=== PATIENT | female | born 1940 | race Caucasian/White ===

== ENCOUNTER 2019-03-06 09:12 | Inpatient (IN) | payer OTHER, SELFPAY ==
[2019-03-06] VITALS (8 sets, daily range): BP systolic 110–161; BP diastolic 57–75
[~2019-03-06] VITALS: Ht 157.5 cm; Wt 69.4 kg
[2019-03-06 09:23] LABS: BASE EXCESS ABG -2 mmol/L (-3-3); HCO3 ABG 21 mmol/L (21-28); PCO2 ABG 29 mmHg (35-46); PO2 ABG 70 mmHg (65-108); SAT O2 ABG 94 % (92-99)
[2019-03-06 09:24] LABS: FIO2 ABG 100
[2019-03-06] MEDS ORDERED: methylPREDNISolone SOD SUCC PF 125 MG/2 ML VIAL. IV ONE (09:30)
[2019-03-06] MEDS ORDERED: IPRATRPIUM/ALBUTEROL 0.5/2.5MG 3 ML NEBU. NEB ONE (09:30)
[2019-03-06] MEDS ORDERED: IV NORMAL SALINE 1000ML BAG 1,000 ML IV SCH (09:30)
[2019-03-06] MEDS ORDERED: IV NORMAL SALINE 1000ML BAG 1,000 ML IV ONE (09:30)
[2019-03-06] MEDS ORDERED: PANTOPRAZOLE IV PUSH 40 MG VIAL. IVP ONE (09:30)
[2019-03-06 09:48] LABS: BARBITURATES NEG (NEG); BENZODIAZEPINES NEG (NEG); CANNABINOIDS NEG (NEG); COCAINE NEG (NEG); METHADONE NEG (NEG); OPIATES NEG (NEG); PHENCYCLIDINE NEG (NEG)
[2019-03-06 09:51] LABS: AMPHETAMINE/METHAMPHETAMINE NEG (NEG)
[2019-03-06 09:56] LABS: CALCIUM 9.6 mg/dL (8.5-10.1); CREATININE 1.1 mg/dL (0.6-1.0); POTASSIUM 3.1 mmol/L (3.5-5.1)
[2019-03-06 09:59] LABS: BILIRUBIN,URINE NEGATIVE (NEG); CLARITY,URINE CLEAR; COLOR,URINE YELLOW; NITRITE,URINE NEGATIVE (NEG); PROTEIN,URINE 100 mg/dL (NEG-TRACE); UROBILINOGEN,URINE 0.2 mg/dL (0.2 mg/dL)
[2019-03-06 09:59] LABS: BASO % 0 % (0-3); EOS % 0 % (0-3); HEMATOCRIT 43.4 % (36.0-47.0); HEMOGLOBIN 15.1 g/dL (12.0-15.5); LYMPH # 0.1 x10^3/uL (1.0-4.8); LYMPH % 4 % (24-48); MEAN CORPUSCULAR HEMOGLOBIN 33 pg (25-35); MEAN CORPUSCULAR HGB CONC 35 g/dL (31-37); MEAN CORPUSCULAR VOLUME 95 fL (79-100); MONO % 1 % (0-9); NEUT # 3.9 x10^3uL (1.8-7.7); NEUT % 95 % (31-73); PLATELET COUNT 127 x10^3/uL (140-400); RED BLOOD COUNT 4.55 x10^6/uL (3.50-5.40); RED CELL DISTRIBUTION WIDTH 12.9 % (11.5-14.5); WHITE BLOOD COUNT 4.1 x10^3/uL (4.0-11.0)
[2019-03-06 10:00] LABS: ALBUMIN 2.9 g/dL (3.4-5.0); ALBUMIN/GLOBULIN RATIO 0.6 (1.0-1.7); MAGNESIUM 1.8 mg/dL (1.8-2.4); TOTAL BILIRUBIN 1.1 mg/dL (0.2-1.0); TOTAL PROTEIN 7.4 g/dL (6.4-8.2)
[2019-03-06] MEDS ORDERED: VANCOMYCIN 1GM IVPB FOR OMNI 250 ML IV ONE (10:00)
--- NOTE | 2019-03-06 10:04 | RAD ---
Portable chest, 03/06/2019: HISTORY: Patient unresponsive Comparison is made to a study from 09/18/2008. There has been a previous median sternotomy. The heart is mildly enlarged. There is calcific plaquing of the aorta. There is mild right perihilar infiltrate. The right parahilar elongated opacity suggests a fissural collection of fluid versus discoid atelectasis. No left lung infiltrate is seen. There is no evidence of left-sided pleural fluid. IMPRESSION: 1. Mild cardiomegaly and aortic atherosclerosis. 2. Mild right perihilar infiltrate with a possible small right pleural effusion. Electronically signed by: Orlando Wu MD (03/06/2019 10:02 AM) [facility]
[2019-03-06 10:10] LABS: PROTHROMBIN TIME PATIENT 16.8 SEC (11.7-14.0)
[2019-03-06 10:19] LABS: AMORPHOUS SEDIMENT,UR PRESENT /HPF; HYALINE CASTS, URINE FEW /HPF; SQUAMOUS EPITHELIAL CELL,UR FEW /LPF
[2019-03-06 10:20] LABS: BACTERIA,URINE 0 /HPF (0-FEW)
--- NOTE | 2019-03-06 10:43 | EKG ---
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
--- NOTE | 2019-03-06 10:45 | RAD ---
CT HEAD WO CONTRAST Clinical indications: Unresponsive. COMPARISON: None available. Technique: Noncontrast axial cross sectional scanning of the head was performed. PQRS compliance Statement One or more of the following individualized dose reduction techniques were utilized for this study: 1. Automated exposure control 2. Adjustment of the mA and/or kV according to patient size 3. Use of iterative reconstruction technique Findings: No acute intracranial hemorrhage or midline shift or mass-effect or hydrocephalus or extra-axial fluid collection is seen. There is asymmetric decrease in size of the sulci of the right cerebral hemisphere. The suarez and white matter differentiation of the right side is not as well seen in comparison to the left side. The findings may indicate diffuse edema of the right cerebral hemisphere secondary to an MCA infarct. There is periventricular white matter hypodensity on the left side which may be secondary to chronic small vessel ischemic disease. However, on axial images 18 and 19 and 20 and 21, there is a question of a more round confluent area of edema of the left parietal lobe. This may represent infarct of indeterminate age. MRI study of the brain is recommended for further evaluation. No skull fracture or pneumocephalus is seen. No opacification of the mastoid sinuses or the paranasal sinuses is seen. The maxillary sinuses are not completely seen in this study. Impression: No acute intracranial hemorrhage is seen. Findings are suggestive of diffuse cerebral edema secondary to right MCA infarct on the right side. A round confluent area of edema of the left parietal lobe which may indicate an infarct of indeterminate age on this side. MRI study of the brain without contrast is recommended for further evaluation. Note-this critical result was called to Dr. Nunez at 10:37 AM on March 06, 2019. She stated that the patient has right-sided weakness. Electronically signed by: Jorge Burgess MD (03/06/2019 10:42 AM) [place] [id number]
--- NOTE | 2019-03-06 11:09 | PHYS DOC ---
Past Medical History Past Medical History: CAD, Diabetes-Type II, High Cholesterol, Hypertension Past Surgical History: Coronary Bypass Surgery, Hysterectomy Alcohol Use: None Drug Use: None Adult General Chief Complaint Chief Complaint: ALTERED MENTAL STATUS HPI HPI Patient is a 79 year old female who brought in by EMS because of unresponsiveness. Patient is unresponsive and history taking from her daughter. Patient complaining of right flank pain with radiation to her abdomen 3 days ago that became worse yesterday. Patient's daughter called her and complaining of not feeling good yesterday and when she went to visit her she was sleeping for almost 4 hours and she left before she was waking up. Patient was found unresponsive this morning with coffee ground material around her mouth and on her bed. EMS reported that patient had O2 sat of 70s with respiratory rate of 50s . Patient was started on oxygen and O2 SAT increased to 95%. Review of Systems Review of Systems Unable to obtain Current Medications Current Medications Current Medications Medications (Trade) Dose Ordered Sig/German Start Time Stop Time Status Last Admin Dose Admin Albuterol/ Ipratropium (Duoneb) 3 ml 1X ONCE 03/06/19 09:30 03/06/19 09:31 DC 03/06/19 09:20 3 ML Levofloxacin/ Dextrose 150 ml @ 100 mls/hr 1X ONCE 03/06/19 10:00 03/06/19 11:29 DC 03/06/19 10:41 100 MLS/HR Methylprednisolone Sodium Succinate (SOLU-Medrol 125MG VIAL) 125 mg 1X ONCE 03/06/19 09:30 03/06/19 09:31 DC 03/06/19 10:40 125 MG Pantoprazole Sodium (PROTONIX VIAL for IV PUSH) 80 mg 1X ONCE 03/06/19 09:30 03/06/19 09:31 DC 03/06/19 10:39 80 MG Sodium Chloride 1,000 ml @ 1,000 mls/hr 1X ONCE 03/06/19 09:30 03/06/19 10:29 DC 03/06/19 14:42 1,000 MLS/HR Vancomycin HCl 250 ml @ 250 mls/hr 1X ONCE 03/06/19 10:00 03/06/19 10:59 DC 03/06/19 10:41 250 MLS/HR Allergies Allergies Allergies Coded Allergies Type Severity Reaction Last Updated Verified Penicillins Allergy Intermediate 5/6/19 Yes Physical Exam Physical Exam Constitutional: Moderate distress, unresponsive. HENT: Normocephalic, atraumatic, gag reflexes is presented, dried coffee-ground material on face, Eyes: myosis, sluggish reaction to light] Neck: Atraumatic Cardiovascular:Heart rate regular rhythm, no murmur [] Lungs & Thorax: Tachypnea, intercostal retraction and respiratory distress with diffuse rhonchi Abdomen: Atraumatic, mildly distended with gas Extremities: Atraumatic Neurologic: Unresponsive Current Patient Data Vital Signs Vital Signs Date Time Temp Pulse Resp B/P (MAP) Pulse Ox O2 Delivery O2 Flow Rate FiO2 03/06/19 10:00 90 58 95 03/06/19 09:20 NonRebreather Mask 03/06/19 09:12 97.3 179/89 (119) 15.0 97.3 Lab Values Laboratory Tests Test 03/06/19 09:14 03/06/19 09:15 03/06/19 09:24 03/06/19 09:28 O2 Saturation 94 % (92-99) Arterial Blood pH 7.47 (7.35-7.45) H Arterial Blood pCO2 at Patient Temp 29 mmHg (35-46) L Arterial Blood pO2 at Patient Temp 70 mmHg (65-108) Arterial Blood HCO3 21 mmol/L (21-28) Arterial Blood Base Excess -2 mmol/L (-3-3) FiO2 100 Glucose (Fingerstick) 161 mg/dL (70-99) H Stool Occult Blood Negative (NEG) White Blood Count 4.1 x10^3/uL (4.0-11.0) Red Blood Count 4.55 x10^6/uL (3.50-5.40) Hemoglobin 15.1 g/dL (12.0-15.5) Hematocrit 43.4 % (36.0-47.0) Mean Corpuscular Volume 95 fL (79-100) Mean Corpuscular Hemoglobin 33 pg (25-35) Mean Corpuscular Hemoglobin Concent 35 g/dL (31-37) Red Cell Distribution Width 12.9 % (11.5-14.5) Platelet Count 127 x10^3/uL (140-400) L Neutrophils (%) (Auto) 95 % (31-73) H Lymphocytes (%) (Auto) 4 % (24-48) L Monocytes (%) (Auto) 1 % (0-9) Eosinophils (%) (Auto) 0 % (0-3) Basophils (%) (Auto) 0 % (0-3) Neutrophils # (Auto) 3.9 x10^3uL (1.8-7.7) Lymphocytes # (Auto) 0.1 x10^3/uL (1.0-4.8) L Monocytes # (Auto) 0.0 x10^3/uL (0.0-1.1) Eosinophils # (Auto) 0.0 x10^3/uL (0.0-0.7) Basophils # (Auto) 0.0 x10^3/uL (0.0-0.2) Segmented Neutrophils % 26 % (35-66) L Band Neutrophils % 59 % (0-9) H Lymphocytes % 6 % (24-48) L Monocytes % 3 % (0-10) Metamyelocytes % 6 % (0-0) H Platelet Estimate Decreased (ADEQUATE) Prothrombin Time 16.8 SEC (11.7-14.0) H Prothrombin Time INR 1.4 (0.8-1.1) H PTT 31 SEC (24-38) Sodium Level 137 mmol/L (136-145) Potassium Level 3.1 mmol/L (3.5-5.1) L Chloride Level 100 mmol/L (98-107) Carbon Dioxide Level 22 mmol/L (21-32) Anion Gap 15 (6-14) H Blood Urea Nitrogen 29 mg/dL (7-20) H Creatinine 1.1 mg/dL (0.6-1.0) H Estimated GFR (Cockcroft-Gault) 48.0 BUN/Creatinine Ratio 26 (6-20) H Glucose Level 157 mg/dL (70-99) H Lactic Acid Level 4.2 mmol/L (0.4-2.0) *H Calcium Level 9.6 mg/dL (8.5-10.1) Magnesium Level 1.8 mg/dL (1.8-2.4) Total Bilirubin 1.1 mg/dL (0.2-1.0) H Aspartate Amino Transferase (AST) 30 U/L (15-37) Alanine Aminotransferase (ALT) 28 U/L (14-59) Alkaline Phosphatase 76 U/L (46-116) Ammonia < 10 mcmol/L (11-34) L Creatine Kinase 289 U/L (26-192) H Creatine Kinase MB (Mass) 6.1 ng/mL (0.0-3.6) H Creatine Kinase MB Relative Index 2.1 % (0-4) AF-Hqi-M-Type Natriuretic Peptide 65418 pg/mL (0-449) H Total Protein 7.4 g/dL (6.4-8.2) Albumin 2.9 g/dL (3.4-5.0) L Albumin/Globulin Ratio 0.6 (1.0-1.7) L Triglycerides Level 50 mg/dL (0-150) Cholesterol Level 89 mg/dL (0-200) LDL Cholesterol, Calculated 33 mg/dL (0-100) VLDL Cholesterol, Calculated 10 mg/dL (0-40) Non-HDL Cholesterol Calculated 43 mg/dL (0-129) HDL Cholesterol 46 mg/dL (40-60) Cholesterol/HDL Ratio 1.9 Lipase 90 U/L (73-393) Test 03/06/19 09:32 Urine Collection Type Unknown Urine Color Yellow Urine Clarity Clear Urine pH 6.0 Urine Specific [place] 1.015 Urine Protein 100 mg/dL (NEG-TRACE) Urine Glucose (UA) 100 mg/dL (NEG) Urine Ketones (Stick) >=80 mg/dL (NEG) Urine Blood Moderate (NEG) Urine Nitrite Negative (NEG) Urine Bilirubin Negative (NEG) Urine Urobilinogen Dipstick 0.2 mg/dL (0.2 mg/dL) Urine Leukocyte Esterase Negative (NEG) Urine RBC 1-2 /HPF (0-2) Urine WBC 1-4 /HPF (0-4) Urine Squamous Epithelial Cells Few /LPF Urine Amorphous Sediment Present /HPF Urine Bacteria 0 /HPF (0-FEW) Urine Hyaline Casts Few /HPF Urine Mucus Marked /LPF POC Troponin I 0.03 ng/ml (<0.08) Urine Opiates Screen Neg (NEG) Urine Methadone Screen Neg (NEG) Urine Barbiturates Neg (NEG) Urine Phencyclidine Screen Neg (NEG) Urine Amphetamine/Methamphetamine Neg (NEG) Urine Benzodiazepines Screen Neg (NEG) Urine Cocaine Screen Neg (NEG) Urine Cannabinoids Screen Neg (NEG) Urine Ethyl Alcohol Neg (NEG) Laboratory Tests 03/06/19 09:28 Laboratory Tests 03/06/19 09:28 Microbiology 03/06/19 Blood Culture - Final, Complete EKG EKG EKG interpreted by me. EKG at 0917 showed normal sinus rhythm at rate of 92, right bundle branch block, LVH, ST depression in inferior leads, no acute ST and T-wave abnormalities.[] Radiology/Procedures Radiology/Procedures [facility] [address] [place] [address] IMAGING REPORT Signed PATIENT: KEMI PASCUAL ACCOUNT: [id number] : 1940 LOCATION: ER AGE: 79 SEX: F EXAM STATUS: REG ER ORD. PHYSICIAN: RIC MARSHALL MD REASON: unresponsive PROCEDURE: CT HEAD WO CONTRAST CT HEAD WO CONTRAST Clinical indications: Unresponsive. COMPARISON: None available. Technique: Noncontrast axial cross sectional scanning of the head was performed. PQRS compliance Statement One or more of the following individualized dose reduction techniques were utilized for this study: 1. Automated exposure control 2. Adjustment of the mA and/or kV according to patient size 3. Use of iterative reconstruction technique Findings: No acute intracranial hemorrhage or midline shift or mass-effect or hydrocephalus or extra-axial fluid collection is seen. There is asymmetric decrease in size of the sulci of the right cerebral hemisphere. The suarez and white matter differentiation of the right side is not as well seen in comparison to the left side. The findings may indicate diffuse edema of the right cerebral hemisphere secondary to an MCA infarct. There is periventricular white matter hypodensity on the left side which may be secondary to chronic small vessel ischemic disease. However, on axial images 18 and 19 and 20 and 21, there is a question of a more round confluent area of edema of the left parietal lobe. This may represent infarct of indeterminate age. MRI study of the brain is recommended for further evaluation. No skull fracture or pneumocephalus is seen. No opacification of the mastoid sinuses or the paranasal sinuses is seen. The maxillary sinuses are not completely seen in this study. Impression: No acute intracranial hemorrhage is seen. Findings are suggestive of diffuse cerebral edema secondary to right MCA infarct on the right side. A round confluent area of edema of the left parietal lobe which may indicate an infarct of indeterminate age on this side. MRI study of the brain without contrast is recommended for further evaluation. Note-this critical result was called to Dr. Marshall at 10:37 AM on March 06, 2019. She stated that the patient has right-sided weakness. Electronically signed by: Federico Burgess MD (03/06/2019 10:42 AM) [place] [id number] DICTATED and SIGNED BY: FEDERICO BURGESS MD DATE: 03/06/19 1042 [facility] [address] [place] [address] IMAGING REPORT Signed PATIENT: KEMI PASCUAL ACCOUNT: [id number] : 1940 LOCATION: ER AGE: 79 SEX: F EXAM STATUS: REG ER ORD. PHYSICIAN: RIC MARSHALL MD REASON: unresponsive PROCEDURE: PORTABLE CHEST 1V Portable chest, 03/06/2019: HISTORY: Patient unresponsive Comparison is made to a study from 09/18/2008. There has been a previous median sternotomy. The heart is mildly enlarged. There is calcific plaquing of the aorta. There is mild right perihilar infiltrate. The right parahilar elongated opacity suggests a fissural collection of fluid versus discoid atelectasis. No left lung infiltrate is seen. There is no evidence of left-sided pleural fluid. IMPRESSION: 1. Mild cardiomegaly and aortic atherosclerosis. 2. Mild right perihilar infiltrate with a possible small right pleural effusion. Electronically signed by: Demond Wu MD (03/06/2019 10:02 AM) [facility] [place]ATED and SIGNED BY: DEMOND WU MD DATE: 03/06/19 1002 Course & Med Decision Making Course & Med Decision Making Pertinent Labs and Imaging studies reviewed. (See chart for details) Evaluation of patient in ER showed 79-year-old female patient brought in by EMS because of unresponsiveness. Patient was seen yesterday while she was sleeping. Patient had a gag reflex and family was not able to decide about resuscitation code. Patient did not move her right upper extremity with painful stimuli. CT head showed acute ischemic stroke. She was not a candidate for TPA because of unknown time of the starting symptom. Chest x-ray showed infiltration in right lower lobe. Patient had lactic acid of 4.2. Patient treated for severe sepsis at arrival to ER with IV fluid, antibiotic, nebulizer treatment and oxygen. Family requested DNR. Dr. Stephens on-call neurologist was consulted at 1045 and did not recommend further evaluation.Patient requiring admission for further evaluation and treatment. Discussed with Dr. Pacheco who is in agreement with admission. Discussed findings and plan with patient and family, who acknowledge understanding and agreement. Dragon Disclaimer Dragon Disclaimer This electronic medical record was generated, in whole or in part, using a voice recognition dictation system. Departure Departure Impression: Primary Impression: Acute ischemic cerebrovascular accident (CVA) involving middle cerebral artery territory Additional Impressions: Altered mental state CAP (community acquired pneumonia) Severe sepsis Hypokalemia CHF (congestive heart failure) Acute renal insufficiency GI bleeding Acute respiratory distress Disposition: ADMITTED INPATIENT (@1041) Admitting Physician: Mary Lou Pacheco (accepted admission at 1040) Condition: GRAVE Referrals: MIKA JONES MD (PCP) Critical Care Time Critical care time was 100 minutes exclusive of procedures. Problem Qualifiers Additional Impressions: Altered mental state Altered mental status type: coma Coma depth: unspecified coma depth Qualified Codes: R40.20 - Unspecified coma CAP (community acquired pneumonia) Laterality: right Lung location: lower lobe of lung Qualified Codes: J18.1 - Lobar pneumonia, unspecified organism CHF (congestive heart failure) Heart failure type: unspecified Heart failure chronicity: unspecified Qualified Codes: I50.9 - Heart failure, unspecified GI bleeding GI bleed type/associated pathology: unspecified gastrointestinal hemorrhage type Qualified Codes: K92.2 - Gastrointestinal hemorrhage, unspecified RIC MARSHALL MD March 06, 2019 11:09
[2019-03-06 11:40] LABS: FECAL OB PT NEGATIVE (NEG)
[2019-03-06] MEDS ORDERED: ONDANSETRON PF 4 MG/2 ML VIAL. IV PRN (12:00)
[2019-03-06] MEDS ORDERED: LABETALOL 20 MG/4 ML DISP.SYRIN. IVP PRN (12:00)
--- NOTE | 2019-03-06 12:10 | NUR ---
Rec'd from ER per cart post Rt MCA infarct with cerebral edema per CT head. Pt breathing fast and heavy and moving arms in all direction and inward. non verbal, sticking out tongue randomly. old blood noted on tongue. and dgt at bedside. Aware of present order of DNR/DNI, Pt on 100NRB sat 92%. Mendez to DD with clear urine. DR Pacheco at bedside. IV x 1 present. Mult sticks in ER unsucessful. Anes paged and will come place CL when they can. Continuing sepsis bolus as able with 1 IV along with ABX,
[2019-03-06 12:18] LABS: CHOLESTEROL/HDL RATIO 1.9
--- NOTE | 2019-03-06 12:40 | PDOC1 ---
History and Physical Date of Admission Date of Admission DATE: 03/06/19 TIME: 12:32 Identification/Chief Complaint Chief Complaint change in MS, flaccid right arm Source Source: Caregiver, Chart review, Patient History of Present Illness History of Present Illness 79-year-old white female, previously healthy and actually drives herself to rehabilitation, past medical history only hypertension and dyslipidemia on meds, may be DM 2 on OHA recently started, remote CABG 10 years ago. Lives with equally elderly , noted to be last seen normal Wednesday night. Wednesday started to complain of pain- nonspecific. Wednesday this morning now confused, high RR, tachycardic, found on the ground/ Minimally responsive, confused,. EMS called. Some hypoxia and coffee-ground emesis at the ER. Family multiple at bedside DNR/DNI. No history of CVA - right arm flaccid. CAT scan wet read may be right MCA acute CVA. Fulfills Sepsis criteria with a lactate of 4. Meeting tachypnea tachycardic. Labs the rest are pending. Also likely aspirated right lower lobe haziness with some coffee-ground emesis hypoxia evident. I'm seeing in the ICU with numerous family bedside Has not yet received aspirin. K3.1 not yet replaced. Tachypneic tachycardic hypoxic better on nonrebreather mask. NOw 99% Family does verify DNR/DNI CK elevated 281 total bili 1.1 mildly high HArd stick Past Medical History Cardiovascular: CAD, HTN, Hyperlipidemia Endocrine: Diabetes Past Surgical History Past Surgical History: CABG Family History Family History: High Cholestrol, Hypertension Social History Smoke: No ALCOHOL: none Drugs: None Current Problem List Problem List Problems Medical Problems: (1) Acute ischemic cerebrovascular accident (CVA) involving middle cerebral artery territory Status: Acute (2) Acute renal insufficiency Status: Acute (3) Acute respiratory distress Status: Acute (4) CHF (congestive heart failure) Status: Acute (5) GI bleeding Status: Acute (6) Hypokalemia Status: Acute (7) Severe sepsis Status: Acute Current Medications Current Medications Current Medications Sodium Chloride 1,000 ml @ 1,000 mls/hr Q1H IV Last administered on 03/06/19at 10:40; Start 03/06/19 at 09:30; Stop 03/06/19 at 10:29; Status DC Albuterol/ Ipratropium (Duoneb) 3 ml 1X ONCE NEB Last administered on 03/06/19at 09:20; Start 03/06/19 at 09:30; Stop 03/06/19 at 09:31; Status DC Methylprednisolone Sodium Succinate (SOLU-Medrol 125MG VIAL) 125 mg 1X ONCE IV Last administered on 03/06/19at 10:40; Start 03/06/19 at 09:30; Stop 03/06/19 at 09:31; Status DC Pantoprazole Sodium (PROTONIX VIAL for IV PUSH) 80 mg 1X ONCE IVP Last administered on 03/06/19at 10:39; Start 03/06/19 at 09:30; Stop 03/06/19 at 09:31; Status DC Sodium Chloride 1,000 ml @ 1,000 mls/hr 1X ONCE IV ; Start 03/06/19 at 09:30; Stop 03/06/19 at 10:29; Status DC Vancomycin HCl 250 ml @ 250 mls/hr 1X ONCE IV Last administered on 03/06/19at 10:41; Start 03/06/19 at 10:00; Stop 03/06/19 at 10:59; Status DC Levofloxacin/ Dextrose 150 ml @ 100 mls/hr 1X ONCE IV Last administered on 03/06/19at 10:41; Start 03/06/19 at 10:00; Stop 03/06/19 at 11:29; Status DC Sodium Chloride 1,000 ml @ 150 mls/hr Q6H40M IV ; Start 03/06/19 at 11:10; Stop 03/07/19 at 11:09 Pantoprazole Sodium 80 mg/ Sodium Chloride 100 ml @ 10 mls/hr Q10H IV ; Start 03/06/19 at 11:30 Ondansetron HCl (Zofran) 4 mg PRN Q6HRS PRN IV NAUSEA/VOMITING; Start 03/06/19 at 12:00 Labetalol HCl (Normodyne Iv Push) 10 mg PRN Q2HR PRN IVP HYPERTENSION, SEE COMMENTS; Start 03/06/19 at 12:00 Morphine Sulfate (Morphine Sulfate) 2 mg PRN Q2HR PRN IV PAIN; Start 03/06/19 at 12:00 Aspirin (Aspirin) 300 mg DAILY MD ; Start 03/06/19 at 12:30; Status UNV Allergies Allergies: Coded Allergies: Penicillins (Verified Allergy, Intermediate, 03/06/19) ROS Review of System unAble to obtain, lethargic Physical Exam General: moderate distress, Other (nonrebreather, coffee-ground emesis visible on NG) HEENT: Atraumatic, PERRLA, EOMI Lungs: Normal air movement Heart: no thrills, no rubs, no gallops, no murmurs, other (tachypneic, tachycardic) Cardiovascular: S1, S2 Breasts: Normal, Rt breast nml w/o mass, Lt breast nml w/o mass, Nipples normal Abdomen: Normal bowel sounds, Soft, No tenderness, No hepatosplenomegaly, No masses Extremities: No clubbing, No cyanosis, No edema, Normal pulses, No tenderness/swelling Skin: No rashes Neuro: Reflexes 2+, Other (right arm drops but unsure if this is just unable to participate fully with my neuro exam secondary to above, the rest of the neuro exam could not be assessed properly) Vitals Vitals Vital Signs Date Time Temp Pulse Resp B/P (MAP) Pulse Ox O2 Delivery O2 Flow Rate FiO2 03/06/19 11:30 94 56 96 03/06/19 09:20 NonRebreather Mask 03/06/19 09:12 97.3 179/89 (119) 15.0 97.3 Labs Labs Laboratory Tests Test 03/06/19 09:14 03/06/19 09:15 03/06/19 09:24 03/06/19 09:28 O2 Saturation 94 % (92-99) Arterial Blood pH 7.47 (7.35-7.45) Arterial Blood pCO2 at Patient Temp 29 mmHg (35-46) Arterial Blood pO2 at Patient Temp 70 mmHg (65-108) Arterial Blood HCO3 21 mmol/L (21-28) Arterial Blood Base Excess -2 mmol/L (-3-3) FiO2 100 Glucose (Fingerstick) 161 mg/dL (70-99) Stool Occult Blood Negative (NEG) White Blood Count 4.1 x10^3/uL (4.0-11.0) Red Blood Count 4.55 x10^6/uL (3.50-5.40) Hemoglobin 15.1 g/dL (12.0-15.5) Hematocrit 43.4 % (36.0-47.0) Mean Corpuscular Volume 95 fL (79-100) Mean Corpuscular Hemoglobin 33 pg (25-35) Mean Corpuscular Hemoglobin Concent 35 g/dL (31-37) Red Cell Distribution Width 12.9 % (11.5-14.5) Platelet Count 127 x10^3/uL (140-400) Neutrophils (%) (Auto) 95 % (31-73) Lymphocytes (%) (Auto) 4 % (24-48) Monocytes (%) (Auto) 1 % (0-9) Eosinophils (%) (Auto) 0 % (0-3) Basophils (%) (Auto) 0 % (0-3) Neutrophils # (Auto) 3.9 x10^3uL (1.8-7.7) Lymphocytes # (Auto) 0.1 x10^3/uL (1.0-4.8) Monocytes # (Auto) 0.0 x10^3/uL (0.0-1.1) Eosinophils # (Auto) 0.0 x10^3/uL (0.0-0.7) Basophils # (Auto) 0.0 x10^3/uL (0.0-0.2) Prothrombin Time 16.8 SEC (11.7-14.0) Prothromb Time International Ratio 1.4 (0.8-1.1) Activated Partial Thromboplast Time 31 SEC (24-38) Sodium Level 137 mmol/L (136-145) Potassium Level 3.1 mmol/L (3.5-5.1) Chloride Level 100 mmol/L (98-107) Carbon Dioxide Level 22 mmol/L (21-32) Anion Gap 15 (6-14) Blood Urea Nitrogen 29 mg/dL (7-20) Creatinine 1.1 mg/dL (0.6-1.0) Estimated GFR (Cockcroft-Gault) 48.0 BUN/Creatinine Ratio 26 (6-20) Glucose Level 157 mg/dL (70-99) Lactic Acid Level 4.2 mmol/L (0.4-2.0) Calcium Level 9.6 mg/dL (8.5-10.1) Magnesium Level 1.8 mg/dL (1.8-2.4) Total Bilirubin 1.1 mg/dL (0.2-1.0) Aspartate Amino Transf (AST/SGOT) 30 U/L (15-37) Alanine Aminotransferase (ALT/SGPT) 28 U/L (14-59) Alkaline Phosphatase 76 U/L (46-116) Ammonia < 10 mcmol/L (11-34) Creatine Kinase 289 U/L (26-192) Creatine Kinase MB (Mass) 6.1 ng/mL (0.0-3.6) Creatine Kinase MB Relative Index 2.1 % (0-4) GV-Eru-C-Type Natriuretic Peptide 38031 pg/mL (0-449) Total Protein 7.4 g/dL (6.4-8.2) Albumin 2.9 g/dL (3.4-5.0) Albumin/Globulin Ratio 0.6 (1.0-1.7) Triglycerides Level 50 mg/dL (0-150) Cholesterol Level 89 mg/dL (0-200) LDL Cholesterol, Calculated 33 mg/dL (0-100) VLDL Cholesterol, Calculated 10 mg/dL (0-40) Non-HDL Cholesterol Calculated 43 mg/dL (0-129) HDL Cholesterol 46 mg/dL (40-60) Cholesterol/HDL Ratio 1.9 Lipase 90 U/L (73-393) Test 03/06/19 09:32 Urine Collection Type Unknown Urine Color Yellow Urine Clarity Clear Urine pH 6.0 Urine Specific [place] 1.015 Urine Protein 100 mg/dL (NEG-TRACE) Urine Glucose (UA) 100 mg/dL (NEG) Urine Ketones (Stick) >=80 mg/dL (NEG) Urine Blood Moderate (NEG) Urine Nitrite Negative (NEG) Urine Bilirubin Negative (NEG) Urine Urobilinogen Dipstick 0.2 mg/dL (0.2 mg/dL) Urine Leukocyte Esterase Negative (NEG) Urine RBC 1-2 /HPF (0-2) Urine WBC 1-4 /HPF (0-4) Urine Squamous Epithelial Cells Few /LPF Urine Amorphous Sediment Present /HPF Urine Bacteria 0 /HPF (0-FEW) Urine Hyaline Casts Few /HPF Urine Mucus Marked /LPF Bedside Troponin I 0.03 ng/ml (<0.08) Urine Opiates Screen Neg (NEG) Urine Methadone Screen Neg (NEG) Urine Barbiturates Neg (NEG) Urine Phencyclidine Screen Neg (NEG) Urine Amphetamine/Methamphetamine Neg (NEG) Urine Benzodiazepines Screen Neg (NEG) Urine Cocaine Screen Neg (NEG) Urine Cannabinoids Screen Neg (NEG) Urine Ethyl Alcohol Neg (NEG) Laboratory Tests Test 03/06/19 09:14 03/06/19 09:15 03/06/19 09:24 03/06/19 09:28 O2 Saturation 94 % (92-99) Arterial Blood pH 7.47 (7.35-7.45) Arterial Blood pCO2 at Patient Temp 29 mmHg (35-46) Arterial Blood pO2 at Patient Temp 70 mmHg (65-108) Arterial Blood HCO3 21 mmol/L (21-28) Arterial Blood Base Excess -2 mmol/L (-3-3) FiO2 100 Glucose (Fingerstick) 161 mg/dL (70-99) Stool Occult Blood Negative (NEG) White Blood Count 4.1 x10^3/uL (4.0-11.0) Red Blood Count 4.55 x10^6/uL (3.50-5.40) Hemoglobin 15.1 g/dL (12.0-15.5) Hematocrit 43.4 % (36.0-47.0) Mean Corpuscular Volume 95 fL (79-100) Mean Corpuscular Hemoglobin 33 pg (25-35) Mean Corpuscular Hemoglobin Concent 35 g/dL (31-37) Red Cell Distribution Width 12.9 % (11.5-14.5) Platelet Count 127 x10^3/uL (140-400) Neutrophils (%) (Auto) 95 % (31-73) Lymphocytes (%) (Auto) 4 % (24-48) Monocytes (%) (Auto) 1 % (0-9) Eosinophils (%) (Auto) 0 % (0-3) Basophils (%) (Auto) 0 % (0-3) Neutrophils # (Auto) 3.9 x10^3uL (1.8-7.7) Lymphocytes # (Auto) 0.1 x10^3/uL (1.0-4.8) Monocytes # (Auto) 0.0 x10^3/uL (0.0-1.1) Eosinophils # (Auto) 0.0 x10^3/uL (0.0-0.7) Basophils # (Auto) 0.0 x10^3/uL (0.0-0.2) Prothrombin Time 16.8 SEC (11.7-14.0) Prothromb Time International Ratio 1.4 (0.8-1.1) Activated Partial Thromboplast Time 31 SEC (24-38) Sodium Level 137 mmol/L (136-145) Potassium Level 3.1 mmol/L (3.5-5.1) Chloride Level 100 mmol/L (98-107) Carbon Dioxide Level 22 mmol/L (21-32) Anion Gap 15 (6-14) Blood Urea Nitrogen 29 mg/dL (7-20) Creatinine 1.1 mg/dL (0.6-1.0) Estimated GFR (Cockcroft-Gault) 48.0 BUN/Creatinine Ratio 26 (6-20) Glucose Level 157 mg/dL (70-99) Lactic Acid Level 4.2 mmol/L (0.4-2.0) Calcium Level 9.6 mg/dL (8.5-10.1) Magnesium Level 1.8 mg/dL (1.8-2.4) Total Bilirubin 1.1 mg/dL (0.2-1.0) Aspartate Amino Transf (AST/SGOT) 30 U/L (15-37) Alanine Aminotransferase (ALT/SGPT) 28 U/L (14-59) Alkaline Phosphatase 76 U/L (46-116) Ammonia < 10 mcmol/L (11-34) Creatine Kinase 289 U/L (26-192) Creatine Kinase MB (Mass) 6.1 ng/mL (0.0-3.6) Creatine Kinase MB Relative Index 2.1 % (0-4) WD-Rah-Q-Type Natriuretic Peptide 62418 pg/mL (0-449) Total Protein 7.4 g/dL (6.4-8.2) Albumin 2.9 g/dL (3.4-5.0) Albumin/Globulin Ratio 0.6 (1.0-1.7) Triglycerides Level 50 mg/dL (0-150) Cholesterol Level 89 mg/dL (0-200) LDL Cholesterol, Calculated 33 mg/dL (0-100) VLDL Cholesterol, Calculated 10 mg/dL (0-40) Non-HDL Cholesterol Calculated 43 mg/dL (0-129) HDL Cholesterol 46 mg/dL (40-60) Cholesterol/HDL Ratio 1.9 Lipase 90 U/L (73-393) Test 03/06/19 09:32 Urine Collection Type Unknown Urine Color Yellow Urine Clarity Clear Urine pH 6.0 Urine Specific [place] 1.015 Urine Protein 100 mg/dL (NEG-TRACE) Urine Glucose (UA) 100 mg/dL (NEG) Urine Ketones (Stick) >=80 mg/dL (NEG) Urine Blood Moderate (NEG) Urine Nitrite Negative (NEG) Urine Bilirubin Negative (NEG) Urine Urobilinogen Dipstick 0.2 mg/dL (0.2 mg/dL) Urine Leukocyte Esterase Negative (NEG) Urine RBC 1-2 /HPF (0-2) Urine WBC 1-4 /HPF (0-4) Urine Squamous Epithelial Cells Few /LPF Urine Amorphous Sediment Present /HPF Urine Bacteria 0 /HPF (0-FEW) Urine Hyaline Casts Few /HPF Urine Mucus Marked /LPF Bedside Troponin I 0.03 ng/ml (<0.08) Urine Opiates Screen Neg (NEG) Urine Methadone Screen Neg (NEG) Urine Barbiturates Neg (NEG) Urine Phencyclidine Screen Neg (NEG) Urine Amphetamine/Methamphetamine Neg (NEG) Urine Benzodiazepines Screen Neg (NEG) Urine Cocaine Screen Neg (NEG) Urine Cannabinoids Screen Neg (NEG) Urine Ethyl Alcohol Neg (NEG) VTE Prophylaxis Ordered VTE Prophylaxis Devices: Yes VTE Pharmacological Prophylaxi: Yes Assessment/Plan Assessment/Plan Acute ischemic CVA, MCA territory-wet read CAT scan high likelihood ASP PNA,secondary to acute CVA Hypokalemia Sepsis, elevated lactate 4.2 Hypoxic respiratory failure Coffee-ground emesis Sinus tachycardia EnCephalopathy in the background of acute CVA Sinus tachycardia History hypertension, remote CABG 10 years ago DM 2 on OHA Dyslipidemia PCN allergy - VERY DISTANT PAST PLAN: ICU Bed Replace K IV 40 x 1 PICC line or anesthesia stick Keep nothing by mouth and sepsis protocol fluids FACILITIES TECHNICIAN eval once more awake PPI drip started by ER Consulted GI regarding that coffee-ground Aspirin per rectum now Check lipids MRI brain Neuro consult Echo with carotid as per stroke protocol Labetalol when necessary Cant reconcile meds- strict NPO DNR/DNI Recheck CPK total bili and K tomorrow including lactate Consult pulmo re hypoxia, asp - empiric abx for asp DVT ppx Discussed with multiple family members in [employer] at bedside GERTRUDE VILLASENOR MD March 06, 2019 12:40
--- NOTE | 2019-03-06 13:00 | NUR ---
trying to get central line in place as pt has only one good IV and mult sticks. Anesthesia coming. Giving sepsis fluids and abx as able. Carotid dopplers and Echo done.VSS will titrate down o2
[2019-03-06 13:11] LABS: % BANDS 59 % (0-9); % LYMPHS 6 % (24-48); % METAS 6 % (0-0); % MONOS 3 % (0-10); % SEGS 26 % (35-66)
[2019-03-06 13:12] LABS: PLT ESTIMATE DECREASED (ADEQUATE)
[2019-03-06] MEDS ORDERED: levOFLOXacin PER PHARMACY. MC PRN (13:15)
--- NOTE | 2019-03-06 13:34 | CONS ---
DATE OF CONSULTATION: PULMONARY CONSULTATION ATTENDING PHYSICIAN: Dr. Pacheco. REASON FOR CONSULTATION: Respiratory failure, aspiration pneumonia. HISTORY OF PRESENT ILLNESS: The patient is a 79-year-old female who lives at home with her . She was last seen on Wednesday with complaint of some nonspecific pains and then she took some ibuprofen on Wednesday. Wednesday morning, she was noted to be confused and not as responsive. She was tachypneic and tachycardic and was found on the ground. EMS was called and they noted that she was hypoxic and had coffee-ground emesis at the ER facility when she was brought in. She has no prior history of stroke. Her CT head was performed on 03/06/2019 and suggesting diffuse cerebral edema secondary to right MCA infarct on the right side. There was also some abnormality and edema on the left parietal lobe. The patient's chest x-ray was reviewed and is consistent with infiltrates involving the right perihilar and right lower lobe area and related to aspiration. She is unresponsive. Her daughter is at the bedside. She is DNR/DNI per my discussion and per the patient's prior wishes. PAST MEDICAL HISTORY: Significant for history of coronary artery disease, history of hypertension, hyperlipidemia, history of diabetes. PAST SURGICAL HISTORY: CABG. FAMILY HISTORY: Dyslipidemia and hypertension. SOCIAL HISTORY: Nonsmoker. ALLERGIES: PENICILLIN. MEDICATIONS: Reviewed as listed in the MRAD including antibiotic, clindamycin. REVIEW OF SYSTEMS: Unable to obtain from the patient. PHYSICAL EXAMINATION: GENERAL: She is 100% on nonrebreather mask, unresponsive. VITAL SIGNS: Her blood pressure 179/89 on admission, pulse ox is 100% on 15 liters nonrebreather mask. HEENT: Sclerae nonicteric. NECK: Supple. LUNGS: With rhonchi, right chest. CARDIOVASCULAR: Regular rate. ABDOMEN: Soft, nontender. EXTREMITIES: With no pitting edema. LABORATORY DATA: Reviewed. White cell count 4.1, hemoglobin 15.1 and platelets are 127. ABGs with a pH of 7.47, pCO2 of 29, and pO2 of 70, on 100% FiO2. Urine drug screen negative. Lactic acid 4.2. ProBNP markedly elevated at 11,000. IMPRESSION: 1. Acute hypoxic respiratory failure secondary to aspiration pneumonia from recent stroke. 2. Acute metabolic encephalopathy secondary to ischemic stroke. 3. Abnormal CT head consistent with diffuse cerebral edema and a right middle cerebral artery infarct. She was not a candidate for TPA. 4. Abnormal CXR consistent with right lung aspiration pneumonia. RECOMMENDATIONS: 1. Continue with present nonrebreather mask. Slowly wean as tolerated with keeping saturation 92-94%. 2. The patient is currently on clindamycin. We will add Levaquin as well to broaden the antibiotic coverage and to cover for gram negatives and anaerobes. 3. Bronchodilators p.r.n. 4. Follow Neurology recommendations. 5. Discussed with the patient's daughter at the bedside and she is very realistic and wants to pursue a comfort care approach as well. Continue present supportive treatment. Consult palliative care to determine the goals of future care. This patient is a DNR and DNI. Discuss with RN. cct 35 min KJ BAGLEY MD DR: MALIK/simba JOB#: [id number] / [id number] NINOSKA
--- NOTE | 2019-03-06 13:50 | PDOC2 ---
GI CONSULT Reason For Consult: Coffee-ground emesis HPI: HPI: 79 y/o female seen in ICU w/ Dr. Barboza, daughter present. Complained of back pain on Wednesday. Less responsive and found on the ground at home today w/ coffee-ground emesis. Daughter says abdomen feels hard. PMH: PMH: CAD, HTN, HLD, DM, CABG FH: Family History: No pertinent hx Social History: Smoke: No ALCOHOL: none Drugs: None ROS: Unable to obtain. Vitals: Vitals: Vital Signs Date Time Temp Pulse Resp B/P (MAP) Pulse Ox O2 Delivery O2 Flow Rate FiO2 03/06/19 11:30 94 56 96 03/06/19 09:20 NonRebreather Mask 03/06/19 09:12 97.3 179/89 (119) 15.0 97.3 Labs: Labs: Laboratory Tests Test 03/06/19 09:14 03/06/19 09:15 03/06/19 09:24 03/06/19 09:28 O2 Saturation 94 % (92-99) Arterial Blood pH 7.47 (7.35-7.45) Arterial Blood pCO2 at Patient Temp 29 mmHg (35-46) Arterial Blood pO2 at Patient Temp 70 mmHg (65-108) Arterial Blood HCO3 21 mmol/L (21-28) Arterial Blood Base Excess -2 mmol/L (-3-3) FiO2 100 Glucose (Fingerstick) 161 mg/dL (70-99) Stool Occult Blood Negative (NEG) White Blood Count 4.1 x10^3/uL (4.0-11.0) Red Blood Count 4.55 x10^6/uL (3.50-5.40) Hemoglobin 15.1 g/dL (12.0-15.5) Hematocrit 43.4 % (36.0-47.0) Mean Corpuscular Volume 95 fL (79-100) Mean Corpuscular Hemoglobin 33 pg (25-35) Mean Corpuscular Hemoglobin Concent 35 g/dL (31-37) Red Cell Distribution Width 12.9 % (11.5-14.5) Platelet Count 127 x10^3/uL (140-400) Neutrophils (%) (Auto) 95 % (31-73) Lymphocytes (%) (Auto) 4 % (24-48) Monocytes (%) (Auto) 1 % (0-9) Eosinophils (%) (Auto) 0 % (0-3) Basophils (%) (Auto) 0 % (0-3) Neutrophils # (Auto) 3.9 x10^3uL (1.8-7.7) Lymphocytes # (Auto) 0.1 x10^3/uL (1.0-4.8) Monocytes # (Auto) 0.0 x10^3/uL (0.0-1.1) Eosinophils # (Auto) 0.0 x10^3/uL (0.0-0.7) Basophils # (Auto) 0.0 x10^3/uL (0.0-0.2) Segmented Neutrophils % 26 % (35-66) Band Neutrophils % 59 % (0-9) Lymphocytes % 6 % (24-48) Monocytes % 3 % (0-10) Metamyelocytes % 6 % (0-0) Platelet Estimate Decreased (ADEQUATE) Prothrombin Time 16.8 SEC (11.7-14.0) Prothromb Time International Ratio 1.4 (0.8-1.1) Activated Partial Thromboplast Time 31 SEC (24-38) Sodium Level 137 mmol/L (136-145) Potassium Level 3.1 mmol/L (3.5-5.1) Chloride Level 100 mmol/L (98-107) Carbon Dioxide Level 22 mmol/L (21-32) Anion Gap 15 (6-14) Blood Urea Nitrogen 29 mg/dL (7-20) Creatinine 1.1 mg/dL (0.6-1.0) Estimated GFR (Cockcroft-Gault) 48.0 BUN/Creatinine Ratio 26 (6-20) Glucose Level 157 mg/dL (70-99) Lactic Acid Level 4.2 mmol/L (0.4-2.0) Calcium Level 9.6 mg/dL (8.5-10.1) Magnesium Level 1.8 mg/dL (1.8-2.4) Total Bilirubin 1.1 mg/dL (0.2-1.0) Aspartate Amino Transf (AST/SGOT) 30 U/L (15-37) Alanine Aminotransferase (ALT/SGPT) 28 U/L (14-59) Alkaline Phosphatase 76 U/L (46-116) Ammonia < 10 mcmol/L (11-34) Creatine Kinase 289 U/L (26-192) Creatine Kinase MB (Mass) 6.1 ng/mL (0.0-3.6) Creatine Kinase MB Relative Index 2.1 % (0-4) PI-Gee-H-Type Natriuretic Peptide 89969 pg/mL (0-449) Total Protein 7.4 g/dL (6.4-8.2) Albumin 2.9 g/dL (3.4-5.0) Albumin/Globulin Ratio 0.6 (1.0-1.7) Triglycerides Level 50 mg/dL (0-150) Cholesterol Level 89 mg/dL (0-200) LDL Cholesterol, Calculated 33 mg/dL (0-100) VLDL Cholesterol, Calculated 10 mg/dL (0-40) Non-HDL Cholesterol Calculated 43 mg/dL (0-129) HDL Cholesterol 46 mg/dL (40-60) Cholesterol/HDL Ratio 1.9 Lipase 90 U/L (73-393) Test 03/06/19 09:32 Urine Collection Type Unknown Urine Color Yellow Urine Clarity Clear Urine pH 6.0 Urine Specific [place] 1.015 Urine Protein 100 mg/dL (NEG-TRACE) Urine Glucose (UA) 100 mg/dL (NEG) Urine Ketones (Stick) >=80 mg/dL (NEG) Urine Blood Moderate (NEG) Urine Nitrite Negative (NEG) Urine Bilirubin Negative (NEG) Urine Urobilinogen Dipstick 0.2 mg/dL (0.2 mg/dL) Urine Leukocyte Esterase Negative (NEG) Urine RBC 1-2 /HPF (0-2) Urine WBC 1-4 /HPF (0-4) Urine Squamous Epithelial Cells Few /LPF Urine Amorphous Sediment Present /HPF Urine Bacteria 0 /HPF (0-FEW) Urine Hyaline Casts Few /HPF Urine Mucus Marked /LPF Bedside Troponin I 0.03 ng/ml (<0.08) Urine Opiates Screen Neg (NEG) Urine Methadone Screen Neg (NEG) Urine Barbiturates Neg (NEG) Urine Phencyclidine Screen Neg (NEG) Urine Amphetamine/Methamphetamine Neg (NEG) Urine Benzodiazepines Screen Neg (NEG) Urine Cocaine Screen Neg (NEG) Urine Cannabinoids Screen Neg (NEG) Urine Ethyl Alcohol Neg (NEG) Allergies: Coded Allergies: Penicillins (Verified Allergy, Intermediate, 03/06/19) Medications: Current Medications Medications (Trade) Dose Ordered Sig/German Route PRN Reason Start Time Stop Time Status Last Admin Dose Admin Sodium Chloride 1,000 ml @ 1,000 mls/hr Q1H IV 03/06/19 09:30 03/06/19 10:29 DC 03/06/19 10:40 Albuterol/ Ipratropium (Duoneb) 3 ml 1X ONCE NEB 03/06/19 09:30 03/06/19 09:31 DC 03/06/19 09:20 Methylprednisolone Sodium Succinate (SOLU-Medrol 125MG VIAL) 125 mg 1X ONCE IV 03/06/19 09:30 03/06/19 09:31 DC 03/06/19 10:40 Pantoprazole Sodium (PROTONIX VIAL for IV PUSH) 80 mg 1X ONCE IVP 03/06/19 09:30 03/06/19 09:31 DC 03/06/19 10:39 Vancomycin HCl 250 ml @ 250 mls/hr 1X ONCE IV 03/06/19 10:00 03/06/19 10:59 DC 03/06/19 10:41 Levofloxacin/ Dextrose 150 ml @ 100 mls/hr 1X ONCE IV 03/06/19 10:00 03/06/19 11:29 DC 03/06/19 10:41 Imaging: Imaging: Head CT Impression: No acute intracranial hemorrhage is seen. Findings are suggestive of diffuse cerebral edema secondary to right MCA infarct on the right side. A round confluent area of edema of the left parietal lobe which may indicate an infarct of indeterminate age on this side. MRI study of the brain without contrast is recommended for further evaluation. Note-this critical result was called to Dr. Nunez at 10:37 AM on March 06, 2019. She stated that the patient has right-sided weakness. CXR IMPRESSION: 1. Mild cardiomegaly and aortic atherosclerosis. 2. Mild right perihilar infiltrate with a possible small right pleural effusion. Carotid Doppler pending PE: GEN: ill HEENT: Atraumatic LUNGS: tachypneic, breathing mask HEART: tachycardic ABD: S/ND/NT EXTREMITY: No edema SKIN: No rashes, no jaundice NEURO/PSYCH: eyes open, occasionally moves head from side to side A/P: A/P: Right MCA infarct, resp failure, coffee-ground emesis (fecal occult neg) Lactic acidosis -- Normal Hgb. Agree w/ PPI. Observe from GI standpoint for now - d/w daughter. Note plans for palliative care consult. ADELAIDE SAMSON March 06, 2019 13:50
--- NOTE | 2019-03-06 14:32 | RAD ---
Carotid ultrasound, 03/06/2019: HISTORY: Stroke protocol, patient found unresponsive Duplex evaluation of the carotid arteries and neck was performed including grayscale, color-flow and spectral Doppler analysis. There is mild atherosclerotic plaquing at the carotid bifurcations,, more so on the left. The plaques are partially calcified. The peak systolic velocity in the left internal carotid artery is 129 cm per sec with an end-diastolic velocity of 24 cm/s and an internal carotid to common carotid artery ratio of 1.3. These Doppler findings suggest narrowing in the 0-50 percent diameter range. The peak systolic velocity in the right internal carotid artery is 86 cm per sec with an end-diastolic velocity of 25 cm/s and an internal carotid to common carotid artery ratio of 0.9. These findings also suggest narrowing in the 0-50 percent diameter range. Antegrade flow is present in both vertebral arteries in the neck. IMPRESSION: Mild atherosclerotic plaquing at both carotid bifurcations with underlying luminal narrowing in the 0-50 percent diameter range bilaterally. Note: Stenosis calculations for CT, MRA and conventional angiography are based upon determination of the distal ICA diameter in accordance with the NASCET methodology. Stenosis calculations for Doppler studies are derived from validated velocity criteria which are known to correlate with NASCET methodology of determining stenosis. Electronically signed by: Orlando Wu MD (03/06/2019 2:29 PM) [facility]
[2019-03-06] MEDS: CLINDAMYCIN 600MG PREMIX 50 ML IV SCH ×2 (14:39→22:32)
--- NOTE | 2019-03-06 14:45 | NUR ---
Anes here. unable to place CL. PICC team coming this afternoon. will cont with fluids and ABX as helena with 1 IV
--- NOTE | 2019-03-06 15:06 | PDOC2 ---
PALLIATIVE CARE Palliative Care Note Palliative Care Consult requested by Dr. Morrow to address goals of care Medical Assessment per medical record; IMPRESSION: 1. Acute hypoxic respiratory failure secondary to aspiration pneumonia from recent stroke. 2. Acute metabolic encephalopathy secondary to ischemic stroke. 3. Abnormal CT head consistent with diffuse cerebral edema and a right middle cerebral artery infarct. She was not a candidate for TPA. Patient unresponsive. Posturing. Await Neurology Notes. Code Status; DNR/DNI No family at bedside 1530; Spoke with daughter and granddaughter. not here. Patient does not AD to their knowledge. Confirmed DNR/DNI. Plan family meeting tomorrow at 1100 WILFREDO MORENO March 06, 2019 15:06
--- NOTE | 2019-03-06 15:11 | PDOC2 ---
NEUROLOGY CONSULT Date of Admission Date of Admission DATE: 03/06/19 TIME: 15:04 Reason for Consult Reason for Consult: Stroke Referring Physician Referring Physician: Dr. Pacheco PCP: Dr. Oliver Source Source: Caregiver, Chart review History of Present Illness History of Present Illness The patient is a 79-year-old right-handed female last known normal the evening of 03/04. The patient was not feeling well on the daughter said to go to bed. The patient slept all day yesterday and the daughter checked on her. The patient did not arouse this morning and the family called an ambulance. There is no prior history of stroke, seizure, or head injury. The patient has been active in going through cardiac rehabilitation. Past Medical History Cardiovascular: CAD, HTN, [place] Endocrine: Diabetes Past Surgical History Past Surgical History: CABG Family History Family History: CVA Social History Social History , rare alcohol, no tobacco, retired, very active Current Medications Current Medications Current Medications Sodium Chloride 1,000 ml @ 1,000 mls/hr Q1H IV Last administered on 03/06/19at 10:40; Start 03/06/19 at 09:30; Stop 03/06/19 at 10:29; Status DC Albuterol/ Ipratropium (Duoneb) 3 ml 1X ONCE NEB Last administered on 03/06/19at 09:20; Start 03/06/19 at 09:30; Stop 03/06/19 at 09:31; Status DC Methylprednisolone Sodium Succinate (SOLU-Medrol 125MG VIAL) 125 mg 1X ONCE IV Last administered on 03/06/19at 10:40; Start 03/06/19 at 09:30; Stop 03/06/19 at 09:31; Status DC Pantoprazole Sodium (PROTONIX VIAL for IV PUSH) 80 mg 1X ONCE IVP Last administered on 03/06/19at 10:39; Start 03/06/19 at 09:30; Stop 03/06/19 at 09:31; Status DC Sodium Chloride 1,000 ml @ 1,000 mls/hr 1X ONCE IV Last administered on 03/06/19at 14:42; Start 03/06/19 at 09:30; Stop 03/06/19 at 10:29; Status DC Vancomycin HCl 250 ml @ 250 mls/hr 1X ONCE IV Last administered on 03/06/19at 10:41; Start 03/06/19 at 10:00; Stop 03/06/19 at 10:59; Status DC Levofloxacin/ Dextrose 150 ml @ 100 mls/hr 1X ONCE IV Last administered on 03/06/19at 10:41; Start 03/06/19 at 10:00; Stop 03/06/19 at 11:29; Status DC Sodium Chloride 1,000 ml @ 150 mls/hr Q6H40M IV ; Start 03/06/19 at 11:10; Stop 03/07/19 at 11:09 Pantoprazole Sodium 80 mg/ Sodium Chloride 100 ml @ 10 mls/hr Q10H IV ; Start 03/06/19 at 11:30 Ondansetron HCl (Zofran) 4 mg PRN Q6HRS PRN IV NAUSEA/VOMITING; Start 03/06/19 at 12:00 Labetalol HCl (Normodyne Iv Push) 10 mg PRN Q2HR PRN IVP HYPERTENSION, SEE COMMENTS; Start 03/06/19 at 12:00 Morphine Sulfate (Morphine Sulfate) 2 mg PRN Q2HR PRN IV PAIN; Start 03/06/19 at 12:00 Aspirin (Aspirin) 300 mg DAILY NE ; Start 03/06/19 at 12:30 Potassium Chloride/Water 100 ml @ 100 mls/hr Q1H IV ; Start 03/06/19 at 13:00; Stop 03/06/19 at 16:59 Clindamycin Phosphate 50 ml @ 100 mls/hr Q8HRS IV Last administered on 9at 14:39; Start 03/06/19 at 14:00 Levofloxacin/ Dextrose (Levaquin Per Pharmacy) 1 each PRN DAILY PRN MC SEE COMMENTS; Start 03/06/19 at 13:15 Levofloxacin/ Dextrose 50 ml @ 50 mls/hr Q24H IV ; Start 03/07/19 at 09:00 Allergies Allergies: Coded Allergies: Penicillins (Verified Allergy, Intermediate, 03/06/19) ROS Review of System Negative for fever, chills, weight loss, shortness of breath, chest pain, indigestion, hematochezia, melena, and dysuria. Full 14-point review of systems is negative. Physical Exam Physical Examination General: Well-developed, well-nourished white female in no acute distress HEENT: Normocephalic andatraumatic. Tympanic membranes clear.Temporal arteriespulsatile and nontender.Fundoscopic exam unremarkable Neck: Supple without bruit, no meningismus Musculoskeletal: Stability:see neurologic. Gait exam:see neurologic. Tone:see neurologic.Strength:see neurologic. Neurological: Mental Status:orientation, memory, attention span/concentration, language, fund of knowledge: Not responsive to loud voice or pain, eyes open. Cranial Nerves:Pupils equal and reactive to light stop there is a right gaze preference. She does not respond to visual threat in either field. All other cranial related problems are negative except as mentioned before.Reflexes:2+ and symmetric with silent plantar responses. Motor:Left arm posturing, increased tone, right side flaccid. Coordination:Not cooperative. Gait:Not tested. Sensory:Not cooperative. Vitals VITALS Vital Signs Date Time Temp Pulse Resp B/P (MAP) Pulse Ox O2 Delivery O2 Flow Rate FiO2 03/06/19 12:00 Non-Rebreather 03/06/19 11:30 94 56 96 03/06/19 09:12 97.3 179/89 (119) 15.0 97.3 Labs Labs Laboratory Tests Test 03/06/19 09:14 03/06/19 09:15 03/06/19 09:24 03/06/19 09:28 O2 Saturation 94 % (92-99) Arterial Blood pH 7.47 (7.35-7.45) Arterial Blood pCO2 at Patient Temp 29 mmHg (35-46) Arterial Blood pO2 at Patient Temp 70 mmHg (65-108) Arterial Blood HCO3 21 mmol/L (21-28) Arterial Blood Base Excess -2 mmol/L (-3-3) FiO2 100 Glucose (Fingerstick) 161 mg/dL (70-99) Stool Occult Blood Negative (NEG) White Blood Count 4.1 x10^3/uL (4.0-11.0) Red Blood Count 4.55 x10^6/uL (3.50-5.40) Hemoglobin 15.1 g/dL (12.0-15.5) Hematocrit 43.4 % (36.0-47.0) Mean Corpuscular Volume 95 fL (79-100) Mean Corpuscular Hemoglobin 33 pg (25-35) Mean Corpuscular Hemoglobin Concent 35 g/dL (31-37) Red Cell Distribution Width 12.9 % (11.5-14.5) Platelet Count 127 x10^3/uL (140-400) Neutrophils (%) (Auto) 95 % (31-73) Lymphocytes (%) (Auto) 4 % (24-48) Monocytes (%) (Auto) 1 % (0-9) Eosinophils (%) (Auto) 0 % (0-3) Basophils (%) (Auto) 0 % (0-3) Neutrophils # (Auto) 3.9 x10^3uL (1.8-7.7) Lymphocytes # (Auto) 0.1 x10^3/uL (1.0-4.8) Monocytes # (Auto) 0.0 x10^3/uL (0.0-1.1) Eosinophils # (Auto) 0.0 x10^3/uL (0.0-0.7) Basophils # (Auto) 0.0 x10^3/uL (0.0-0.2) Segmented Neutrophils % 26 % (35-66) Band Neutrophils % 59 % (0-9) Lymphocytes % 6 % (24-48) Monocytes % 3 % (0-10) Metamyelocytes % 6 % (0-0) Platelet Estimate Decreased (ADEQUATE) Prothrombin Time 16.8 SEC (11.7-14.0) Prothromb Time International Ratio 1.4 (0.8-1.1) Activated Partial Thromboplast Time 31 SEC (24-38) Sodium Level 137 mmol/L (136-145) Potassium Level 3.1 mmol/L (3.5-5.1) Chloride Level 100 mmol/L (98-107) Carbon Dioxide Level 22 mmol/L (21-32) Anion Gap 15 (6-14) Blood Urea Nitrogen 29 mg/dL (7-20) Creatinine 1.1 mg/dL (0.6-1.0) Estimated GFR (Cockcroft-Gault) 48.0 BUN/Creatinine Ratio 26 (6-20) Glucose Level 157 mg/dL (70-99) Lactic Acid Level 4.2 mmol/L (0.4-2.0) Calcium Level 9.6 mg/dL (8.5-10.1) Magnesium Level 1.8 mg/dL (1.8-2.4) Total Bilirubin 1.1 mg/dL (0.2-1.0) Aspartate Amino Transf (AST/SGOT) 30 U/L (15-37) Alanine Aminotransferase (ALT/SGPT) 28 U/L (14-59) Alkaline Phosphatase 76 U/L (46-116) Ammonia < 10 mcmol/L (11-34) Creatine Kinase 289 U/L (26-192) Creatine Kinase MB (Mass) 6.1 ng/mL (0.0-3.6) Creatine Kinase MB Relative Index 2.1 % (0-4) DP-Hxu-O-Type Natriuretic Peptide 42788 pg/mL (0-449) Total Protein 7.4 g/dL (6.4-8.2) Albumin 2.9 g/dL (3.4-5.0) Albumin/Globulin Ratio 0.6 (1.0-1.7) Triglycerides Level 50 mg/dL (0-150) Cholesterol Level 89 mg/dL (0-200) LDL Cholesterol, Calculated 33 mg/dL (0-100) VLDL Cholesterol, Calculated 10 mg/dL (0-40) Non-HDL Cholesterol Calculated 43 mg/dL (0-129) HDL Cholesterol 46 mg/dL (40-60) Cholesterol/HDL Ratio 1.9 Lipase 90 U/L (73-393) Test 03/06/19 09:32 03/06/19 13:30 Urine Collection Type Unknown Urine Color Yellow Urine Clarity Clear Urine pH 6.0 Urine Specific [place] 1.015 Urine Protein 100 mg/dL (NEG-TRACE) Urine Glucose (UA) 100 mg/dL (NEG) Urine Ketones (Stick) >=80 mg/dL (NEG) Urine Blood Moderate (NEG) Urine Nitrite Negative (NEG) Urine Bilirubin Negative (NEG) Urine Urobilinogen Dipstick 0.2 mg/dL (0.2 mg/dL) Urine Leukocyte Esterase Negative (NEG) Urine RBC 1-2 /HPF (0-2) Urine WBC 1-4 /HPF (0-4) Urine Squamous Epithelial Cells Few /LPF Urine Amorphous Sediment Present /HPF Urine Bacteria 0 /HPF (0-FEW) Urine Hyaline Casts Few /HPF Urine Mucus Marked /LPF Bedside Troponin I 0.03 ng/ml (<0.08) Urine Opiates Screen Neg (NEG) Urine Methadone Screen Neg (NEG) Urine Barbiturates Neg (NEG) Urine Phencyclidine Screen Neg (NEG) Urine Amphetamine/Methamphetamine Neg (NEG) Urine Benzodiazepines Screen Neg (NEG) Urine Cocaine Screen Neg (NEG) Urine Cannabinoids Screen Neg (NEG) Urine Ethyl Alcohol Neg (NEG) Lactic Acid Level 6.5 mmol/L (0.4-2.0) Laboratory Tests Test 03/06/19 09:14 03/06/19 09:15 03/06/19 09:24 03/06/19 09:28 O2 Saturation 94 % (92-99) Arterial Blood pH 7.47 (7.35-7.45) Arterial Blood pCO2 at Patient Temp 29 mmHg (35-46) Arterial Blood pO2 at Patient Temp 70 mmHg (65-108) Arterial Blood HCO3 21 mmol/L (21-28) Arterial Blood Base Excess -2 mmol/L (-3-3) FiO2 100 Glucose (Fingerstick) 161 mg/dL (70-99) Stool Occult Blood Negative (NEG) White Blood Count 4.1 x10^3/uL (4.0-11.0) Red Blood Count 4.55 x10^6/uL (3.50-5.40) Hemoglobin 15.1 g/dL (12.0-15.5) Hematocrit 43.4 % (36.0-47.0) Mean Corpuscular Volume 95 fL (79-100) Mean Corpuscular Hemoglobin 33 pg (25-35) Mean Corpuscular Hemoglobin Concent 35 g/dL (31-37) Red Cell Distribution Width 12.9 % (11.5-14.5) Platelet Count 127 x10^3/uL (140-400) Neutrophils (%) (Auto) 95 % (31-73) Lymphocytes (%) (Auto) 4 % (24-48) Monocytes (%) (Auto) 1 % (0-9) Eosinophils (%) (Auto) 0 % (0-3) Basophils (%) (Auto) 0 % (0-3) Neutrophils # (Auto) 3.9 x10^3uL (1.8-7.7) Lymphocytes # (Auto) 0.1 x10^3/uL (1.0-4.8) Monocytes # (Auto) 0.0 x10^3/uL (0.0-1.1) Eosinophils # (Auto) 0.0 x10^3/uL (0.0-0.7) Basophils # (Auto) 0.0 x10^3/uL (0.0-0.2) Segmented Neutrophils % 26 % (35-66) Band Neutrophils % 59 % (0-9) Lymphocytes % 6 % (24-48) Monocytes % 3 % (0-10) Metamyelocytes % 6 % (0-0) Platelet Estimate Decreased (ADEQUATE) Prothrombin Time 16.8 SEC (11.7-14.0) Prothromb Time International Ratio 1.4 (0.8-1.1) Activated Partial Thromboplast Time 31 SEC (24-38) Sodium Level 137 mmol/L (136-145) Potassium Level 3.1 mmol/L (3.5-5.1) Chloride Level 100 mmol/L (98-107) Carbon Dioxide Level 22 mmol/L (21-32) Anion Gap 15 (6-14) Blood Urea Nitrogen 29 mg/dL (7-20) Creatinine 1.1 mg/dL (0.6-1.0) Estimated GFR (Cockcroft-Gault) 48.0 BUN/Creatinine Ratio 26 (6-20) Glucose Level 157 mg/dL (70-99) Lactic Acid Level 4.2 mmol/L (0.4-2.0) Calcium Level 9.6 mg/dL (8.5-10.1) Magnesium Level 1.8 mg/dL (1.8-2.4) Total Bilirubin 1.1 mg/dL (0.2-1.0) Aspartate Amino Transf (AST/SGOT) 30 U/L (15-37) Alanine Aminotransferase (ALT/SGPT) 28 U/L (14-59) Alkaline Phosphatase 76 U/L (46-116) Ammonia < 10 mcmol/L (11-34) Creatine Kinase 289 U/L (26-192) Creatine Kinase MB (Mass) 6.1 ng/mL (0.0-3.6) Creatine Kinase MB Relative Index 2.1 % (0-4) IT-Lsn-P-Type Natriuretic Peptide 26805 pg/mL (0-449) Total Protein 7.4 g/dL (6.4-8.2) Albumin 2.9 g/dL (3.4-5.0) Albumin/Globulin Ratio 0.6 (1.0-1.7) Triglycerides Level 50 mg/dL (0-150) Cholesterol Level 89 mg/dL (0-200) LDL Cholesterol, Calculated 33 mg/dL (0-100) VLDL Cholesterol, Calculated 10 mg/dL (0-40) Non-HDL Cholesterol Calculated 43 mg/dL (0-129) HDL Cholesterol 46 mg/dL (40-60) Cholesterol/HDL Ratio 1.9 Lipase 90 U/L (73-393) Test 03/06/19 09:32 03/06/19 13:30 Urine Collection Type Unknown Urine Color Yellow Urine Clarity Clear Urine pH 6.0 Urine Specific [place] 1.015 Urine Protein 100 mg/dL (NEG-TRACE) Urine Glucose (UA) 100 mg/dL (NEG) Urine Ketones (Stick) >=80 mg/dL (NEG) Urine Blood Moderate (NEG) Urine Nitrite Negative (NEG) Urine Bilirubin Negative (NEG) Urine Urobilinogen Dipstick 0.2 mg/dL (0.2 mg/dL) Urine Leukocyte Esterase Negative (NEG) Urine RBC 1-2 /HPF (0-2) Urine WBC 1-4 /HPF (0-4) Urine Squamous Epithelial Cells Few /LPF Urine Amorphous Sediment Present /HPF Urine Bacteria 0 /HPF (0-FEW) Urine Hyaline Casts Few /HPF Urine Mucus Marked /LPF Bedside Troponin I 0.03 ng/ml (<0.08) Urine Opiates Screen Neg (NEG) Urine Methadone Screen Neg (NEG) Urine Barbiturates Neg (NEG) Urine Phencyclidine Screen Neg (NEG) Urine Amphetamine/Methamphetamine Neg (NEG) Urine Benzodiazepines Screen Neg (NEG) Urine Cocaine Screen Neg (NEG) Urine Cannabinoids Screen Neg (NEG) Urine Ethyl Alcohol Neg (NEG) Lactic Acid Level 6.5 mmol/L (0.4-2.0) Images Images CT HEAD WO CONTRAST No acute intracranial hemorrhage or midline shift or mass-effect or hydrocephalus or extra-axial fluid collection is seen. There is asymmetric decrease in size of the sulci of the right cerebral hemisphere. The suarez and white matter differentiation of the right side is not as well seen in comparison to the left side. The findings may indicate diffuse edema of the right cerebral hemisphere secondary to an MCA infarct. There is periventricular white matter hypodensity on the left side which may be secondary to chronic small vessel ischemic disease. However, on axial images 18 and 19 and 20 and 21, there is a question of a more round confluent area of edema of the left parietal lobe. This may represent infarct of indeterminate age. MRI study of the brain is recommended for further evaluation. No skull fracture or pneumocephalus is seen. No opacification of the mastoid sinuses or the paranasal sinuses is seen. The maxillary sinuses are not completely seen in this study. Impression: No acute intracranial hemorrhage is seen. Findings are suggestive of diffuse cerebral edema secondary to right MCA infarct on the right side. A round confluent area of edema of the left parietal lobe which may indicate an infarct of indeterminate age on this side. MRI study of the brain without contrast is recommended for further evaluation. 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 Initial impression by Dr. Nunez wasn't stroke was on the right side of the body, but the left side is definitely affected in the right side is simply flaccid due to bilateral cerebral dysfunction from the right hemisphere. The stroke may have happened the night of 03/04. Recommendations: Not a candidate for alteplase given the fact that she is far outside the therapeutic window. Not a candidate for clot retrieval as the infarct is huge. She could be a candidate for craniectomy if cerebral edema worsens. I discussed all of this with the family and they do not want any type of aggressive therapy. They have made her DO NOT RESUSCITATE. Therefore there is no need for MRI of the brain, echocardiogram, or carotid Doppler studies. They would not want her sent to another hospital for craniectomy. Rehabilitation modalities Supportive care in the intensive care unit. Thank you for letting me help with the patient's care. RISHABH HARO MD March 06, 2019 15:11
[2019-03-06] MEDS ORDERED: METF500T3 PO (15:48)
[2019-03-06] MEDS ORDERED: CARV25TA PO (15:48)
[2019-03-06] MEDS ORDERED: LISI-130 PO (15:48)
[2019-03-06] MEDS ORDERED: POTA10TA12 PO (15:48)
[2019-03-06] MEDS ORDERED: NIFE60TA PO (15:48)
[2019-03-06] MEDS ORDERED: CRESTOR5 MG PO (15:48)
[2019-03-06] MEDS ORDERED: ASPI81TA50 PO (15:48)
--- NOTE | 2019-03-06 16:47 | CARD ---
MR#: [id number] Date of Study: 03/06/2019 Ordering Physician: GERTRUDE VILLASENOR, Referring Physician: GERTRUDE VILLASENOR Tech: Katt Flores [facility] APPROVED REPORT EXAM: Two-dimensional and M-mode echocardiogram with Doppler and color Doppler. Other Information Quality : Fair Technically limited study due to body habitus. INDICATION CVA/TIA 2D DIMENSIONS RVDd3.0 (2.9-3.5cm)Left Atrium(2D)3.3 (1.6-4.0cm) IVSd1.4 (0.7-1.1cm)Aortic Root(2D)2.7 (2.0-3.7cm) LVDd3.5 (3.9-5.9cm)LVOT Diameter2.0 (1.8-2.4cm) PWd1.0 (0.7-1.1cm)LVDs2.1 (2.5-4.0cm) FS (%) 30.0 %SV35.4 ml LVEF(%)60.0 (>50%) Aortic Valve AoV Peak Nestor.187.4cm/sAoV VTI29.3cm AO Peak GR.14.0mmHgLVOT VTI 18.47cm AO Mean GR.8mmHgAVA (VTI)1.90cm2 Mitral Valve MV E Zzjbzdsx34.3cm/sMV DECEL [id number] MV A Zygwdnnl57.4cm/sE/A Ratio0.8 TDI Lateral E' P. V10.49cm/sMedial E' P. V8.69cm/s E/Lateral E'7.0E/Medial E'8.4 Tricuspid Valve TR P. Chlvjfub032on/sRAP [id number] TR Peak Gr.[id number] Pulmonary Vein S1 Vsdavhui62.5cm/sS2 Ntppkrmx70.19cm/s D2 Ywzwbtdn88.2cm/s LEFT VENTRICLE The left ventricle is normal size. There is mild concentric left ventricular hypertrophy. The left ve ntricular systolic function is normal and the ejection fraction is within normal range. The Ejection Fraction is 60-65%. Septal motion consistent with conduction abnormality versus prior CABG RIGHT VENTRICLE The right ventricle is normal size. The right ventricular systolic function is normal. ATRIA The left atrium size is normal. The right atrium size is normal. The interatrial septum is intact wit h no evidence for an atrial septal defect or patent foramen ovale as noted on 2-D or Doppler imaging. AORTIC VALVE The aortic valve is calcified but opens well. Doppler and Color Flow revealed no significant aortic r egurgitation. There is no significant aortic valvular stenosis. MITRAL VALVE The mitral valve is calcified but opens well. There is no evidence of mitral valve prolapse. There is no mitral valve stenosis. Doppler and Color-flow revealed trace mitral regurgitation. TRICUSPID VALVE The tricuspid valve is normal in structure and function. Doppler and Color Flow revealed mild tricusp id regurgitation. There is mild pulmonary hypertension. The PA pressure was estimated at 36 mmHg. The re is no tricuspid valve stenosis. PULMONIC VALVE The pulmonic valve is not well visualized. Doppler and Color Flow revealed mild pulmonic valvular reg urgitation. There is no pulmonic valvular stenosis. GREAT VESSELS The aortic root is normal in size. The ascending aorta is normal in size. The IVC is normal in size a nd collapses >50% with inspiration. PERICARDIAL EFFUSION There is no evidence of significant pericardial effusion. Critical Notification Critical Value: No <Conclusion> The left ventricular systolic function is normal and the ejection fraction is within normal range. Th e Ejection Fraction is 60-65%. Septal motion consistent with conduction abnormality versus prior CABG Doppler and Color Flow revealed mild tricuspid regurgitation. There is mild pulmonary hypertension. T he PA pressure was estimated at 36 mmHg. Signed by : Ji Phillips, Electronically Approved : 03/06/2019 16:46:52
[2019-03-06] MEDS: PANTOPRAZOLE SODIUM IV DRIP 80 MG in IV NORMAL SALINE 100ML 100 ML IV SCH (17:29)
[2019-03-06] MEDS: ASPIRIN RECTAL 300 MG SUPP. PR SCH (17:30)
[2019-03-06] MEDS: IV NORMAL SALINE 1000ML BAG 1,000 ML IV SCH (20:10)
--- NOTE | 2019-03-06 21:48 | RAD ---
EXAM: Chest, single view. HISTORY: PICC placement. COMPARISON: 03/06/2019 FINDINGS: A frontal view of the chest is obtained. There is a right PICC with the tip in the superior cavoatrial junction. There is a nasogastric tube within the stomach. There is cardiomegaly and evidence of prior CABG. There is diffuse interstitial infiltrate. There is suspected linear scarring or trace fluid along the right minor fissure. There is also lingular atelectasis or scarring. No pneumothorax is seen. IMPRESSION: 1. Nasogastric tube within the stomach and right PICC with the tip in the superior cavoatrial junction. 2. Stable diffuse interstitial infiltrate with suspected linear atelectasis or trace fluid along the right minor fissure and lingular atelectasis or scarring. 3. Stable prominent cardiac silhouette. Electronically signed by: Melissa Khan MD (03/06/2019 9:45 PM) [facility]
[2019-03-06] MEDS: POTASSIUM CHLORIDE 10MEQ 100 ML IV SCH ×3 (21:55→23:40)
[2019-03-07] VITALS (15 sets, daily range): BP systolic 119–158; BP diastolic 61–88
[2019-03-07] MEDS: POTASSIUM CHLORIDE 10MEQ 100 ML IV SCH (00:24)
[2019-03-07] MEDS: IV NORMAL SALINE 1000ML BAG 1,000 ML IV SCH ×3 (00:30→07:10)
[2019-03-07] MEDS: PANTOPRAZOLE SODIUM IV DRIP 80 MG in IV NORMAL SALINE 100ML 100 ML IV SCH ×2 (03:12→07:30)
[2019-03-07] MEDS: CLINDAMYCIN 600MG PREMIX 50 ML IV SCH (06:09)
--- NOTE | 2019-03-07 08:58 | PDOC ---
PULMONARY PROGRESS NOTES Vitals Vital Signs Date Time Temp Pulse Resp B/P (MAP) Pulse Ox O2 Delivery O2 Flow Rate FiO2 03/07/19 06:14 98.1 96 42 119/63 (81) 96 Venturi Mask 98.1 03/07/19 04:13 15.0 Cardiovascular: S1, S2 Labs Laboratory Tests Test 03/06/19 09:14 03/06/19 09:15 03/06/19 09:24 03/06/19 09:28 O2 Saturation 94 % (92-99) Arterial Blood pH 7.47 (7.35-7.45) Arterial Blood pCO2 at Patient Temp 29 mmHg (35-46) Arterial Blood pO2 at Patient Temp 70 mmHg (65-108) Arterial Blood HCO3 21 mmol/L (21-28) Arterial Blood Base Excess -2 mmol/L (-3-3) FiO2 100 Glucose (Fingerstick) 161 mg/dL (70-99) Stool Occult Blood Negative (NEG) White Blood Count 4.1 x10^3/uL (4.0-11.0) Red Blood Count 4.55 x10^6/uL (3.50-5.40) Hemoglobin 15.1 g/dL (12.0-15.5) Hematocrit 43.4 % (36.0-47.0) Mean Corpuscular Volume 95 fL (79-100) Mean Corpuscular Hemoglobin 33 pg (25-35) Mean Corpuscular Hemoglobin Concent 35 g/dL (31-37) Red Cell Distribution Width 12.9 % (11.5-14.5) Platelet Count 127 x10^3/uL (140-400) Neutrophils (%) (Auto) 95 % (31-73) Lymphocytes (%) (Auto) 4 % (24-48) Monocytes (%) (Auto) 1 % (0-9) Eosinophils (%) (Auto) 0 % (0-3) Basophils (%) (Auto) 0 % (0-3) Neutrophils # (Auto) 3.9 x10^3uL (1.8-7.7) Lymphocytes # (Auto) 0.1 x10^3/uL (1.0-4.8) Monocytes # (Auto) 0.0 x10^3/uL (0.0-1.1) Eosinophils # (Auto) 0.0 x10^3/uL (0.0-0.7) Basophils # (Auto) 0.0 x10^3/uL (0.0-0.2) Segmented Neutrophils % 26 % (35-66) Band Neutrophils % 59 % (0-9) Lymphocytes % 6 % (24-48) Monocytes % 3 % (0-10) Metamyelocytes % 6 % (0-0) Platelet Estimate Decreased (ADEQUATE) Prothrombin Time 16.8 SEC (11.7-14.0) Prothromb Time International Ratio 1.4 (0.8-1.1) Activated Partial Thromboplast Time 31 SEC (24-38) Sodium Level 137 mmol/L (136-145) Potassium Level 3.1 mmol/L (3.5-5.1) Chloride Level 100 mmol/L (98-107) Carbon Dioxide Level 22 mmol/L (21-32) Anion Gap 15 (6-14) Blood Urea Nitrogen 29 mg/dL (7-20) Creatinine 1.1 mg/dL (0.6-1.0) Estimated GFR (Cockcroft-Gault) 48.0 BUN/Creatinine Ratio 26 (6-20) Glucose Level 157 mg/dL (70-99) Lactic Acid Level 4.2 mmol/L (0.4-2.0) Calcium Level 9.6 mg/dL (8.5-10.1) Magnesium Level 1.8 mg/dL (1.8-2.4) Total Bilirubin 1.1 mg/dL (0.2-1.0) Aspartate Amino Transf (AST/SGOT) 30 U/L (15-37) Alanine Aminotransferase (ALT/SGPT) 28 U/L (14-59) Alkaline Phosphatase 76 U/L (46-116) Ammonia < 10 mcmol/L (11-34) Creatine Kinase 289 U/L (26-192) Creatine Kinase MB (Mass) 6.1 ng/mL (0.0-3.6) Creatine Kinase MB Relative Index 2.1 % (0-4) WR-[id number]-[id number]-Type Natriuretic Peptide 69571 pg/mL (0-449) Total Protein 7.4 g/dL (6.4-8.2) Albumin 2.9 g/dL (3.4-5.0) Albumin/Globulin Ratio 0.6 (1.0-1.7) Triglycerides Level 50 mg/dL (0-150) Cholesterol Level 89 mg/dL (0-200) LDL Cholesterol, Calculated 33 mg/dL (0-100) VLDL Cholesterol, Calculated 10 mg/dL (0-40) Non-HDL Cholesterol Calculated 43 mg/dL (0-129) HDL Cholesterol 46 mg/dL (40-60) Cholesterol/HDL Ratio 1.9 Lipase 90 U/L (73-393) Test 03/06/19 09:32 03/06/19 13:30 Urine Collection Type Unknown Urine Color Yellow Urine Clarity Clear Urine pH 6.0 Urine Specific [place] 1.015 Urine Protein 100 mg/dL (NEG-TRACE) Urine Glucose (UA) 100 mg/dL (NEG) Urine Ketones (Stick) >=80 mg/dL (NEG) Urine Blood Moderate (NEG) Urine Nitrite Negative (NEG) Urine Bilirubin Negative (NEG) Urine Urobilinogen Dipstick 0.2 mg/dL (0.2 mg/dL) Urine Leukocyte Esterase Negative (NEG) Urine RBC 1-2 /HPF (0-2) Urine WBC 1-4 /HPF (0-4) Urine Squamous Epithelial Cells Few /LPF Urine Amorphous Sediment Present /HPF Urine Bacteria 0 /HPF (0-FEW) Urine Hyaline Casts Few /HPF Urine Mucus Marked /LPF Bedside Troponin I 0.03 ng/ml (<0.08) Urine Opiates Screen Neg (NEG) Urine Methadone Screen Neg (NEG) Urine Barbiturates Neg (NEG) Urine Phencyclidine Screen Neg (NEG) Urine Amphetamine/Methamphetamine Neg (NEG) Urine Benzodiazepines Screen Neg (NEG) Urine Cocaine Screen Neg (NEG) Urine Cannabinoids Screen Neg (NEG) Urine Ethyl Alcohol Neg (NEG) Lactic Acid Level 6.5 mmol/L (0.4-2.0) Laboratory Tests Test 03/06/19 09:14 03/06/19 09:15 03/06/19 09:24 03/06/19 09:28 O2 Saturation 94 % (92-99) Arterial Blood pH 7.47 (7.35-7.45) Arterial Blood pCO2 at Patient Temp 29 mmHg (35-46) Arterial Blood pO2 at Patient Temp 70 mmHg (65-108) Arterial Blood HCO3 21 mmol/L (21-28) Arterial Blood Base Excess -2 mmol/L (-3-3) FiO2 100 Glucose (Fingerstick) 161 mg/dL (70-99) Stool Occult Blood Negative (NEG) White Blood Count 4.1 x10^3/uL (4.0-11.0) Red Blood Count 4.55 x10^6/uL (3.50-5.40) Hemoglobin 15.1 g/dL (12.0-15.5) Hematocrit 43.4 % (36.0-47.0) Mean Corpuscular Volume 95 fL (79-100) Mean Corpuscular Hemoglobin 33 pg (25-35) Mean Corpuscular Hemoglobin Concent 35 g/dL (31-37) Red Cell Distribution Width 12.9 % (11.5-14.5) Platelet Count 127 x10^3/uL (140-400) Neutrophils (%) (Auto) 95 % (31-73) Lymphocytes (%) (Auto) 4 % (24-48) Monocytes (%) (Auto) 1 % (0-9) Eosinophils (%) (Auto) 0 % (0-3) Basophils (%) (Auto) 0 % (0-3) Neutrophils # (Auto) 3.9 x10^3uL (1.8-7.7) Lymphocytes # (Auto) 0.1 x10^3/uL (1.0-4.8) Monocytes # (Auto) 0.0 x10^3/uL (0.0-1.1) Eosinophils # (Auto) 0.0 x10^3/uL (0.0-0.7) Basophils # (Auto) 0.0 x10^3/uL (0.0-0.2) Segmented Neutrophils % 26 % (35-66) Band Neutrophils % 59 % (0-9) Lymphocytes % 6 % (24-48) Monocytes % 3 % (0-10) Metamyelocytes % 6 % (0-0) Platelet Estimate Decreased (ADEQUATE) Prothrombin Time 16.8 SEC (11.7-14.0) Prothromb Time International Ratio 1.4 (0.8-1.1) Activated Partial Thromboplast Time 31 SEC (24-38) Sodium Level 137 mmol/L (136-145) Potassium Level 3.1 mmol/L (3.5-5.1) Chloride Level 100 mmol/L (98-107) Carbon Dioxide Level 22 mmol/L (21-32) Anion Gap 15 (6-14) Blood Urea Nitrogen 29 mg/dL (7-20) Creatinine 1.1 mg/dL (0.6-1.0) Estimated GFR (Cockcroft-Gault) 48.0 BUN/Creatinine Ratio 26 (6-20) Glucose Level 157 mg/dL (70-99) Lactic Acid Level 4.2 mmol/L (0.4-2.0) Calcium Level 9.6 mg/dL (8.5-10.1) Magnesium Level 1.8 mg/dL (1.8-2.4) Total Bilirubin 1.1 mg/dL (0.2-1.0) Aspartate Amino Transf (AST/SGOT) 30 U/L (15-37) Alanine Aminotransferase (ALT/SGPT) 28 U/L (14-59) Alkaline Phosphatase 76 U/L (46-116) Ammonia < 10 mcmol/L (11-34) Creatine Kinase 289 U/L (26-192) Creatine Kinase MB (Mass) 6.1 ng/mL (0.0-3.6) Creatine Kinase MB Relative Index 2.1 % (0-4) SI-Cyd-J-Type Natriuretic Peptide 17983 pg/mL (0-449) Total Protein 7.4 g/dL (6.4-8.2) Albumin 2.9 g/dL (3.4-5.0) Albumin/Globulin Ratio 0.6 (1.0-1.7) Triglycerides Level 50 mg/dL (0-150) Cholesterol Level 89 mg/dL (0-200) LDL Cholesterol, Calculated 33 mg/dL (0-100) VLDL Cholesterol, Calculated 10 mg/dL (0-40) Non-HDL Cholesterol Calculated 43 mg/dL (0-129) HDL Cholesterol 46 mg/dL (40-60) Cholesterol/HDL Ratio 1.9 Lipase 90 U/L (73-393) Test 03/06/19 09:32 03/06/19 13:30 Urine Collection Type Unknown Urine Color Yellow Urine Clarity Clear Urine pH 6.0 Urine Specific [place] 1.015 Urine Protein 100 mg/dL (NEG-TRACE) Urine Glucose (UA) 100 mg/dL (NEG) Urine Ketones (Stick) >=80 mg/dL (NEG) Urine Blood Moderate (NEG) Urine Nitrite Negative (NEG) Urine Bilirubin Negative (NEG) Urine Urobilinogen Dipstick 0.2 mg/dL (0.2 mg/dL) Urine Leukocyte Esterase Negative (NEG) Urine RBC 1-2 /HPF (0-2) Urine WBC 1-4 /HPF (0-4) Urine Squamous Epithelial Cells Few /LPF Urine Amorphous Sediment Present /HPF Urine Bacteria 0 /HPF (0-FEW) Urine Hyaline Casts Few /HPF Urine Mucus Marked /LPF Bedside Troponin I 0.03 ng/ml (<0.08) Urine Opiates Screen Neg (NEG) Urine Methadone Screen Neg (NEG) Urine Barbiturates Neg (NEG) Urine Phencyclidine Screen Neg (NEG) Urine Amphetamine/Methamphetamine Neg (NEG) Urine Benzodiazepines Screen Neg (NEG) Urine Cocaine Screen Neg (NEG) Urine Cannabinoids Screen Neg (NEG) Urine Ethyl Alcohol Neg (NEG) Lactic Acid Level 6.5 mmol/L (0.4-2.0) Medications Active Scripts Medications Dose Route/Sig Max Daily Dose Days Date Category Potassium Chloride 10 Meq Tab.sr.24h 10 Meq PO DAILY 03/06/19 Reported Procardia Xl (Nifedipine) 60 Mg Tab.er.24 1 Tab PO DAILY 03/06/19 Reported Zestril (Lisinopril) 40 Mg Tablet 1 Tab PO BID 03/06/19 Reported Glucophage Xr (Metformin Hcl) 500 Mg Tab.er.24h 500 Mg PO [id number] 03/06/19 Reported Crestor (Rosuvastatin Calcium) 5 Mg Tablet 1 Tab PO DAILY 03/06/19 Reported Coreg (Carvedilol) 25 Mg Tablet 25 Mg PO BIDWMEALS 03/06/19 Reported Aspir-Low (Aspirin) 81 Mg Tablet.dr 1 Tab PO DAILY 03/06/19 Reported FLAKITA MARY MD March 07, 2019 08:58
--- NOTE | 2019-03-07 09:09 | PDOC ---
Infectious Disease Note Vital Signs: Vital Signs Vital Signs Date Time Temp Pulse Resp B/P (MAP) Pulse Ox O2 Delivery O2 Flow Rate FiO2 03/07/19 06:14 98.1 96 42 119/63 (81) 96 Venturi Mask 98.1 03/07/19 04:13 15.0 Medications: Inpatient Meds: Current Medications Medications (Trade) Dose Ordered Sig/German Start Time Stop Time Status Last Admin Dose Admin Albuterol/ Ipratropium (Duoneb) 3 ml 1X ONCE 03/06/19 09:30 03/06/19 09:31 DC 03/06/19 09:20 3 ML Aspirin (Aspirin) 300 mg DAILY 03/06/19 12:30 03/06/19 17:30 300 MG Clindamycin Phosphate 50 ml @ 100 mls/hr Q8HRS 03/06/19 14:00 03/07/19 06:09 100 MLS/HR Labetalol HCl (Normodyne Iv Push) 10 mg PRN Q2HR PRN 03/06/19 12:00 Levofloxacin/ Dextrose 50 ml @ 50 mls/hr Q24H 03/07/19 09:00 03/07/19 08:36 50 MLS/HR Levofloxacin/ Dextrose (Levaquin Per Pharmacy) 1 each PRN DAILY PRN 03/06/19 13:15 Methylprednisolone Sodium Succinate (SOLU-Medrol 125MG VIAL) 125 mg 1X ONCE 03/06/19 09:30 03/06/19 09:31 DC 03/06/19 10:40 125 MG Morphine Sulfate (Morphine Sulfate) 2 mg PRN Q2HR PRN 03/06/19 12:00 Ondansetron HCl (Zofran) 4 mg PRN Q6HRS PRN 03/06/19 12:00 Pantoprazole Sodium (PROTONIX VIAL for IV PUSH) 80 mg 1X ONCE 03/06/19 09:30 03/06/19 09:31 DC 03/06/19 10:39 80 MG Pantoprazole Sodium 80 mg/ Sodium Chloride 100 ml @ 10 mls/hr Q10H 03/06/19 11:30 03/07/19 03:12 10 MLS/HR Potassium Chloride/Water 100 ml @ 100 mls/hr Q1H 03/06/19 13:00 03/06/19 16:59 DC 03/07/19 00:24 100 MLS/HR Sodium Chloride 1,000 ml @ 150 mls/hr Q6H40M 03/06/19 11:10 03/07/19 11:09 03/07/19 04:31 150 MLS/HR Vancomycin HCl 250 ml @ 250 mls/hr 1X ONCE 03/06/19 10:00 03/06/19 10:59 DC 03/06/19 10:41 250 MLS/HR Labs: Lab Laboratory Tests Test 03/06/19 09:14 03/06/19 09:15 03/06/19 09:24 03/06/19 09:28 O2 Saturation 94 % (92-99) Arterial Blood pH 7.47 (7.35-7.45) Arterial Blood pCO2 at Patient Temp 29 mmHg (35-46) Arterial Blood pO2 at Patient Temp 70 mmHg (65-108) Arterial Blood HCO3 21 mmol/L (21-28) Arterial Blood Base Excess -2 mmol/L (-3-3) FiO2 100 Glucose (Fingerstick) 161 mg/dL (70-99) Stool Occult Blood Negative (NEG) White Blood Count 4.1 x10^3/uL (4.0-11.0) Red Blood Count 4.55 x10^6/uL (3.50-5.40) Hemoglobin 15.1 g/dL (12.0-15.5) Hematocrit 43.4 % (36.0-47.0) Mean Corpuscular Volume 95 fL (79-100) Mean Corpuscular Hemoglobin 33 pg (25-35) Mean Corpuscular Hemoglobin Concent 35 g/dL (31-37) Red Cell Distribution Width 12.9 % (11.5-14.5) Platelet Count 127 x10^3/uL (140-400) Neutrophils (%) (Auto) 95 % (31-73) Lymphocytes (%) (Auto) 4 % (24-48) Monocytes (%) (Auto) 1 % (0-9) Eosinophils (%) (Auto) 0 % (0-3) Basophils (%) (Auto) 0 % (0-3) Neutrophils # (Auto) 3.9 x10^3uL (1.8-7.7) Lymphocytes # (Auto) 0.1 x10^3/uL (1.0-4.8) Monocytes # (Auto) 0.0 x10^3/uL (0.0-1.1) Eosinophils # (Auto) 0.0 x10^3/uL (0.0-0.7) Basophils # (Auto) 0.0 x10^3/uL (0.0-0.2) Segmented Neutrophils % 26 % (35-66) Band Neutrophils % 59 % (0-9) Lymphocytes % 6 % (24-48) Monocytes % 3 % (0-10) Metamyelocytes % 6 % (0-0) Platelet Estimate Decreased (ADEQUATE) Prothrombin Time 16.8 SEC (11.7-14.0) Prothromb Time International Ratio 1.4 (0.8-1.1) Activated Partial Thromboplast Time 31 SEC (24-38) Sodium Level 137 mmol/L (136-145) Potassium Level 3.1 mmol/L (3.5-5.1) Chloride Level 100 mmol/L (98-107) Carbon Dioxide Level 22 mmol/L (21-32) Anion Gap 15 (6-14) Blood Urea Nitrogen 29 mg/dL (7-20) Creatinine 1.1 mg/dL (0.6-1.0) Estimated GFR (Cockcroft-Gault) 48.0 BUN/Creatinine Ratio 26 (6-20) Glucose Level 157 mg/dL (70-99) Lactic Acid Level 4.2 mmol/L (0.4-2.0) Calcium Level 9.6 mg/dL (8.5-10.1) Magnesium Level 1.8 mg/dL (1.8-2.4) Total Bilirubin 1.1 mg/dL (0.2-1.0) Aspartate Amino Transf (AST/SGOT) 30 U/L (15-37) Alanine Aminotransferase (ALT/SGPT) 28 U/L (14-59) Alkaline Phosphatase 76 U/L (46-116) Ammonia < 10 mcmol/L (11-34) Creatine Kinase 289 U/L (26-192) Creatine Kinase MB (Mass) 6.1 ng/mL (0.0-3.6) Creatine Kinase MB Relative Index 2.1 % (0-4) JA-Ewp-Z-Type Natriuretic Peptide 01674 pg/mL (0-449) Total Protein 7.4 g/dL (6.4-8.2) Albumin 2.9 g/dL (3.4-5.0) Albumin/Globulin Ratio 0.6 (1.0-1.7) Triglycerides Level 50 mg/dL (0-150) Cholesterol Level 89 mg/dL (0-200) LDL Cholesterol, Calculated 33 mg/dL (0-100) VLDL Cholesterol, Calculated 10 mg/dL (0-40) Non-HDL Cholesterol Calculated 43 mg/dL (0-129) HDL Cholesterol 46 mg/dL (40-60) Cholesterol/HDL Ratio 1.9 Lipase 90 U/L (73-393) Test 03/06/19 09:32 03/06/19 13:30 Urine Collection Type Unknown Urine Color Yellow Urine Clarity Clear Urine pH 6.0 Urine Specific [place] 1.015 Urine Protein 100 mg/dL (NEG-TRACE) Urine Glucose (UA) 100 mg/dL (NEG) Urine Ketones (Stick) >=80 mg/dL (NEG) Urine Blood Moderate (NEG) Urine Nitrite Negative (NEG) Urine Bilirubin Negative (NEG) Urine Urobilinogen Dipstick 0.2 mg/dL (0.2 mg/dL) Urine Leukocyte Esterase Negative (NEG) Urine RBC 1-2 /HPF (0-2) Urine WBC 1-4 /HPF (0-4) Urine Squamous Epithelial Cells Few /LPF Urine Amorphous Sediment Present /HPF Urine Bacteria 0 /HPF (0-FEW) Urine Hyaline Casts Few /HPF Urine Mucus Marked /LPF Bedside Troponin I 0.03 ng/ml (<0.08) Urine Opiates Screen Neg (NEG) Urine Methadone Screen Neg (NEG) Urine Barbiturates Neg (NEG) Urine Phencyclidine Screen Neg (NEG) Urine Amphetamine/Methamphetamine Neg (NEG) Urine Benzodiazepines Screen Neg (NEG) Urine Cocaine Screen Neg (NEG) Urine Cannabinoids Screen Neg (NEG) Urine Ethyl Alcohol Neg (NEG) Lactic Acid Level 6.5 mmol/L (0.4-2.0) Objective: Assessment: Pt seen and examined Consult dictated IMP: GPC Bacteremia 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
[2019-03-07] MEDS ORDERED: VANCOMYCIN PER PHARMACY MC PRN (09:15)
[2019-03-07] MEDS ORDERED: VANCOMYCIN 1.75 GM in IV NORMAL SALINE 500ML BAG 500 ML IV ONE (10:00)
--- NOTE | 2019-03-07 10:07 | PDOC ---
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 No improvement, prognosis guarded, may not be large enough to be life-threatening Plan She could be a candidate for craniectomy if cerebral edema worsens, family not interested. Family meeting planned for later this morning. Okay to transfer the floor Sequential compression devices, but no Lovenox given the size of the stroke and the G.I. bleeding Discussed with daughter and Subjective None Objective Vital Signs Date Time Temp Pulse Resp B/P (MAP) Pulse Ox O2 Delivery O2 Flow Rate FiO2 03/07/19 09:00 86 30 133/63 (86) 96 Venturi Mask 03/07/19 08:00 99.2 99.2 03/07/19 04:13 15.0 Intake and Output 03/07/19 06:59 Intake Total 2135 ml Output Total 1000 ml Balance 1135 ml Intake Oral 60 ml IV Total 2075 ml Output Urine Total 1000 ml PHYSICAL EXAM Eyes closed, no response to voice her pain Pupils pinpoint, slight reactivity. Right gaze preference CN: no focal findings. Muscle tone: Increased on left Muscle strength: no movement on left, slight movement on right DTR: 2+ Plantar reflex: silent Gait: not examined in bed. Sensory exam: not cooperative. Cerebellar: not cooperative Review of Relevant I have reviewed the following items rich (where applicable) has been applied. Labs Laboratory Tests Test 03/06/19 09:14 03/06/19 09:15 03/06/19 09:24 03/06/19 09:28 O2 Saturation 94 % (92-99) Arterial Blood pH 7.47 (7.35-7.45) Arterial Blood pCO2 at Patient Temp 29 mmHg (35-46) Arterial Blood pO2 at Patient Temp 70 mmHg (65-108) Arterial Blood HCO3 21 mmol/L (21-28) Arterial Blood Base Excess -2 mmol/L (-3-3) FiO2 100 Glucose (Fingerstick) 161 mg/dL (70-99) Stool Occult Blood Negative (NEG) White Blood Count 4.1 x10^3/uL (4.0-11.0) Red Blood Count 4.55 x10^6/uL (3.50-5.40) Hemoglobin 15.1 g/dL (12.0-15.5) Hematocrit 43.4 % (36.0-47.0) Mean Corpuscular Volume 95 fL (79-100) Mean Corpuscular Hemoglobin 33 pg (25-35) Mean Corpuscular Hemoglobin Concent 35 g/dL (31-37) Red Cell Distribution Width 12.9 % (11.5-14.5) Platelet Count 127 x10^3/uL (140-400) Neutrophils (%) (Auto) 95 % (31-73) Lymphocytes (%) (Auto) 4 % (24-48) Monocytes (%) (Auto) 1 % (0-9) Eosinophils (%) (Auto) 0 % (0-3) Basophils (%) (Auto) 0 % (0-3) Neutrophils # (Auto) 3.9 x10^3uL (1.8-7.7) Lymphocytes # (Auto) 0.1 x10^3/uL (1.0-4.8) Monocytes # (Auto) 0.0 x10^3/uL (0.0-1.1) Eosinophils # (Auto) 0.0 x10^3/uL (0.0-0.7) Basophils # (Auto) 0.0 x10^3/uL (0.0-0.2) Segmented Neutrophils % 26 % (35-66) Band Neutrophils % 59 % (0-9) Lymphocytes % 6 % (24-48) Monocytes % 3 % (0-10) Metamyelocytes % 6 % (0-0) Platelet Estimate Decreased (ADEQUATE) Prothrombin Time 16.8 SEC (11.7-14.0) Prothromb Time International Ratio 1.4 (0.8-1.1) Activated Partial Thromboplast Time 31 SEC (24-38) Sodium Level 137 mmol/L (136-145) Potassium Level 3.1 mmol/L (3.5-5.1) Chloride Level 100 mmol/L (98-107) Carbon Dioxide Level 22 mmol/L (21-32) Anion Gap 15 (6-14) Blood Urea Nitrogen 29 mg/dL (7-20) Creatinine 1.1 mg/dL (0.6-1.0) Estimated GFR (Cockcroft-Gault) 48.0 BUN/Creatinine Ratio 26 (6-20) Glucose Level 157 mg/dL (70-99) Lactic Acid Level 4.2 mmol/L (0.4-2.0) Calcium Level 9.6 mg/dL (8.5-10.1) Magnesium Level 1.8 mg/dL (1.8-2.4) Total Bilirubin 1.1 mg/dL (0.2-1.0) Aspartate Amino Transf (AST/SGOT) 30 U/L (15-37) Alanine Aminotransferase (ALT/SGPT) 28 U/L (14-59) Alkaline Phosphatase 76 U/L (46-116) Ammonia < 10 mcmol/L (11-34) Creatine Kinase 289 U/L (26-192) Creatine Kinase MB (Mass) 6.1 ng/mL (0.0-3.6) Creatine Kinase MB Relative Index 2.1 % (0-4) RQ-Cly-L-Type Natriuretic Peptide 94827 pg/mL (0-449) Total Protein 7.4 g/dL (6.4-8.2) Albumin 2.9 g/dL (3.4-5.0) Albumin/Globulin Ratio 0.6 (1.0-1.7) Triglycerides Level 50 mg/dL (0-150) Cholesterol Level 89 mg/dL (0-200) LDL Cholesterol, Calculated 33 mg/dL (0-100) VLDL Cholesterol, Calculated 10 mg/dL (0-40) Non-HDL Cholesterol Calculated 43 mg/dL (0-129) HDL Cholesterol 46 mg/dL (40-60) Cholesterol/HDL Ratio 1.9 Lipase 90 U/L (73-393) Test 03/06/19 09:32 03/06/19 13:30 Urine Collection Type Unknown Urine Color Yellow Urine Clarity Clear Urine pH 6.0 Urine Specific [place] 1.015 Urine Protein 100 mg/dL (NEG-TRACE) Urine Glucose (UA) 100 mg/dL (NEG) Urine Ketones (Stick) >=80 mg/dL (NEG) Urine Blood Moderate (NEG) Urine Nitrite Negative (NEG) Urine Bilirubin Negative (NEG) Urine Urobilinogen Dipstick 0.2 mg/dL (0.2 mg/dL) Urine Leukocyte Esterase Negative (NEG) Urine RBC 1-2 /HPF (0-2) Urine WBC 1-4 /HPF (0-4) Urine Squamous Epithelial Cells Few /LPF Urine Amorphous Sediment Present /HPF Urine Bacteria 0 /HPF (0-FEW) Urine Hyaline Casts Few /HPF Urine Mucus Marked /LPF Bedside Troponin I 0.03 ng/ml (<0.08) Urine Opiates Screen Neg (NEG) Urine Methadone Screen Neg (NEG) Urine Barbiturates Neg (NEG) Urine Phencyclidine Screen Neg (NEG) Urine Amphetamine/Methamphetamine Neg (NEG) Urine Benzodiazepines Screen Neg (NEG) Urine Cocaine Screen Neg (NEG) Urine Cannabinoids Screen Neg (NEG) Urine Ethyl Alcohol Neg (NEG) Lactic Acid Level 6.5 mmol/L (0.4-2.0) Laboratory Tests Test 03/06/19 13:30 Lactic Acid Level 6.5 mmol/L (0.4-2.0) Microbiology 03/06/19 Blood Culture - Final, Complete Medications Current Medications Sodium Chloride 1,000 ml @ 1,000 mls/hr Q1H IV Last administered on 03/06/19at 10:40; Start 03/06/19 at 09:30; Stop 03/06/19 at 10:29; Status DC Albuterol/ Ipratropium (Duoneb) 3 ml 1X ONCE NEB Last administered on 03/06/19at 09:20; Start 03/06/19 at 09:30; Stop 03/06/19 at 09:31; Status DC Methylprednisolone Sodium Succinate (SOLU-Medrol 125MG VIAL) 125 mg 1X ONCE IV Last administered on 03/06/19at 10:40; Start 03/06/19 at 09:30; Stop 03/06/19 at 09: 31; Status DC Pantoprazole Sodium (PROTONIX VIAL for IV PUSH) 80 mg 1X ONCE IVP Last administered on 03/06/19at 10:39; Start 03/06/19 at 09:30; Stop 03/06/19 at 09:31; Status DC Sodium Chloride 1,000 ml @ 1,000 mls/hr 1X ONCE IV Last administered on 03/06at 14:42; Start 03/06/19 at 09:30; Stop 03/06/19 at 10:29; Status DC Vancomycin HCl 250 ml @ 250 mls/hr 1X ONCE IV Last administered on 03/06/19at 10:41; Start 03/06/19 at 10:00; Stop 03/06/19 at 10:59; Status DC Levofloxacin/ Dextrose 150 ml @ 100 mls/hr 1X ONCE IV Last administered on 03/06/19at 10:41; Start 03/06/19 at 10:00; Stop 03/06/19 at 11:29; Status DC Sodium Chloride 1,000 ml @ 150 mls/hr Q6H40M IV Last administered on 03/07/19at 04:31; Start 03/06/19 at 11:10; Stop 03/07/19 at 11:09 Pantoprazole Sodium 80 mg/ Sodium Chloride 100 ml @ 10 mls/hr Q10H IV Last administered on 03/07/19at 03:12; Start 03/06/19 at 11:30 Ondansetron HCl (Zofran) 4 mg PRN Q6HRS PRN IV NAUSEA/VOMITING; Start 03/06/19 at 12:00 Labetalol HCl (Normodyne Iv Push) 10 mg PRN Q2HR PRN IVP HYPERTENSION, SEE COMMENTS; Start 03/06/19 at 12:00 Morphine Sulfate (Morphine Sulfate) 2 mg PRN Q2HR PRN IV PAIN; Start 03/06/19 at 12:00 Aspirin (Aspirin) 300 mg DAILY [place] Last administered on 03/06/19at 17:30; Start 03/06/19 at 12:30 Potassium Chloride/Water 100 ml @ 100 mls/hr Q1H IV Last administered on 03/07/19at 00:24; Start 03/06/19 at 13:00; Stop 03/06/19 at 16:59; Status DC Clindamycin Phosphate 50 ml @ 100 mls/hr Q8HRS IV Last administered on 03/07/19at 06:09; Start 03/06/19 at 14:00; Stop 03/07/19 at 09:10; Status DC Levofloxacin/ Dextrose (Levaquin Per Pharmacy) 1 each PRN DAILY PRN [facility] SEE COMMENTS; Start 03/06/19 at 13:15 Levofloxacin/ Dextrose 50 ml @ 50 mls/hr Q24H IV Last administered on 03/07/19at 08:36; Start 03/07/19 at 09:00 Meropenem 500 mg/ Sodium Chloride 50 ml @ 100 mls/hr Q8HRS IV ; Start 03/07/19 at 14:00 Vancomycin HCl (Vanco Per Pharmacy) 1 each PRN DAILY PRN [facility] SEE COMMENTS; Start 03/07/19 at 09:15 Vancomycin HCl 1.75 gm/Sodium Chloride 500 ml @ 250 mls/hr 1X ONCE IV ; Start 03/07/19 at 10:00; Stop 03/07/19 at 11:59 Active Scripts Active Reported Potassium Chloride 10 Meq Tab.sr.24h 10 Meq PO DAILY Procardia Xl (Nifedipine) 60 Mg Tab.er.24 1 Tab PO DAILY Zestril (Lisinopril) 40 Mg Tablet 1 Tab PO BID Glucophage Xr (Metformin Hcl) 500 Mg Tab.er.24h 500 Mg PO DAILYWBKFT Crestor (Rosuvastatin Calcium) 5 Mg Tablet 1 Tab PO DAILY Coreg (Carvedilol) 25 Mg Tablet 25 Mg PO BIDWMEALS Aspir-Low (Aspirin) 81 Mg Tablet. 1 Tab PO DAILY Vitals/I & O Vital Sign - Last 24 Hours 03/06/19 03/06/19 03/06/19 03/06/19 10:30 10:47 11:00 11:15 Pulse 92 93 92 94 Resp 60 56 56 56 Pulse Ox 96 96 96 96 03/06/19 03/06/19 03/06/19 03/06/19 11:30 12:00 12:00 13:00 Temp 97.9 97.9 Pulse 94 82 86 Resp 56 28 B/P (MAP) 150/57 (88) 140/62 (88) Pulse Ox 96 95 O2 Delivery Non-Rebreather NonRebreather Mask 03/06/19 03/06/19 03/06/19 03/06/19 14:00 15:00 16:00 19:35 Temp 101.4 101.4 Pulse 92 98 98 Resp 24 48 B/P (MAP) 159/71 (100) 110/60 (77) 150/67 (94) Pulse Ox 95 O2 Delivery Venturi Mask Venturi Mask Non-Rebreather O2 Flow Rate 15.0 03/06/19 03/06/19 03/06/19 03/06/19 19:43 20:22 21:50 22:08 Temp 100.1 98.2 98.2 100.1 98.2 98.2 Pulse 100 100 Resp 46 B/P (MAP) 153/71 (98) 153/71 (98) Pulse Ox 95 O2 Delivery Non-Rebreather O2 Flow Rate 15.0 15.0 03/06/19 03/07/19 03/07/19 03/07/19 22:53 00:36 00:41 02:06 Temp 99.3 98.5 99.1 99.3 98.5 99.1 Pulse 103 95 94 Resp 40 50 48 B/P (MAP) 161/75 (103) 158/79 (105) 155/75 (101) Pulse Ox 96 O2 Delivery Venturi Mask Non-Rebreather Venturi Mask Venturi Mask O2 Flow Rate 15.0 03/07/19 03/07/19 03/07/19 03/07/19 03:15 04:01 04:13 05:09 Temp 99.1 98.7 99.5 99.1 98.7 99.5 Pulse 95 99 93 Resp 50 40 44 B/P (MAP) 139/74 (95) 157/88 (111) 153/69 (97) Pulse Ox 95 O2 Delivery Venturi Mask Venturi Mask Non-Rebreather Venturi Mask O2 Flow Rate 15.0 03/07/19 03/07/19 03/07/19 03/07/19 06:14 07:00 08:00 08:00 Temp 98.1 99.2 98.1 99.2 Pulse 96 94 90 Resp 42 30 32 B/P (MAP) 119/63 (81) 133/70 (91) 140/71 (94) Pulse Ox 96 96 96 O2 Delivery Venturi Mask Venturi Mask Venturi Mask Venturi Mask 03/07/19 09:00 Pulse 86 Resp 30 B/P (MAP) 133/63 (86) Pulse Ox 96 O2 Delivery Venturi Mask Intake and Output 03/06/19 03/06/19 03/07/19 14:59 22:59 06:59 Intake Total 1125 ml 950 ml 60 ml Output Total 225 ml 600 ml 175 ml Balance 900 ml 350 ml -115 ml RISHABH HARO MD March 07, 2019 10:07
[2019-03-07] MEDS: ASPIRIN RECTAL 300 MG SUPP. PR SCH (10:12)
--- NOTE | 2019-03-07 10:14 | PDOC ---
Subjective: Subjective: Daughter says NG output was bilious last night and abdomen is softer today. Objective: Objective: Reviewed w/ RN - family meeting today, no GI concerns, family declined repeat CT. Vital Signs: Vital Signs Date Time Temp Pulse Resp B/P (MAP) Pulse Ox O2 Delivery O2 Flow Rate FiO2 03/07/19 09:00 86 30 133/63 (86) 96 Venturi Mask 03/07/19 08:00 99.2 99.2 03/07/19 04:13 15.0 Labs: Laboratory Tests Test 03/06/19 13:30 Lactic Acid Level 6.5 mmol/L Imaging: Carotid Doppler 03/06 IMPRESSION: Mild atherosclerotic plaquing at both carotid bifurcations with un derlying luminal narrowing in the 0-50 percent diameter range bilaterally. CXR IMPRESSION: 1. Nasogastric tube within the stomach and right PICC with the tip in the superior cavoatrial junction. 2. Stable diffuse interstitial infiltrate with suspected linear atelectasis or trace fluid along the right minor fissure and lingular atelectasis or scarring. 3. Stable prominent cardiac silhouette. PE: GEN: ill LUNGS: mask, tachypneic HEART: RRR ABD: quiet, soft, minimal dark bilious material in NG canister NEURO/PSYCH: does not respond A/P: Right MCA infarct Resp failure Coffee-ground emesis (fecal occult neg) - Hgb and BUN normal yesterday Lactic acidosis (worse), GPC bacteremia -- Lactic rising as above. Continue PPI (can change to IV push) and observation from GI standpoint, await family meeting. Okay for ASA PR. YANEZ-ADELAIDE VILLEGAS March 07, 2019 10:14
--- NOTE | 2019-03-07 10:46 | PDOC ---
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 Discussed at length with her and the nurse Patient appears critically ill Just got back 2 blood cultures are both positive aerobic consulting infectious disease Vitals Vitals Vital Signs Date Time Temp Pulse Resp B/P (MAP) Pulse Ox O2 Delivery O2 Flow Rate FiO2 03/07/19 09:00 86 30 133/63 (86) 96 Venturi Mask 03/07/19 08:00 99.2 99.2 03/07/19 04:13 15.0 Physical Exam General: moderate distress, Other (minimal response) Heart: Other (tachycardic) Lungs: Other (coarse breath sounds) Abdomen: Normal bowel sounds, Soft, No tenderness, No hepatosplenomegaly, No masses Extremities: No clubbing, No cyanosis, No edema, Normal pulses, No tenderness/swelling Skin: No rashes Labs LABS Laboratory Tests Test 03/06/19 13:30 Lactic Acid Level 6.5 mmol/L (0.4-2.0) Review of Systems Review of Systems Unable to obtain Assessment and Plan Assessmemt and Plan Problems Medical Problems: (1) Acute ischemic cerebrovascular accident (CVA) involving middle cerebral artery territory Status: Acute (2) Acute renal insufficiency Status: Acute (3) Acute respiratory distress Status: Acute (4) CHF (congestive heart failure) Status: Acute (5) GI bleeding Status: Acute (6) Hypokalemia Status: Acute (7) Severe sepsis Status: Acute Found down Acute ischemic CVA, MCA territory-wet read CAT scan high likelihood ASP PNA,secondary to acute CVA Hypokalemia Sepsis, elevated lactate 4.2 Hypoxic respiratory failure Coffee-ground emesis Sinus tachycardia EnCephalopathy in the background of acute CVA Sinus tachycardia History hypertension, remote CABG 10 years ago DM 2 on OHA Dyslipidemia PCN allergy - VERY DISTANT PAST PLAN: ICU Bed PICC Keep nothing by mouth and sepsis protocol fluids [employer] eval once more awake PPI drip Consulted GI regarding that coffee-ground Aspirin per rectum now Check lipids MRI brain Neuro consult Echo with carotid as per stroke protocol Labetalol when necessary Strict nothing by mouth DNR/DNI Trend labs Consult pulmo DVT ppx Prognosis extremely guarded at best Total time 34 minutes Comment Review of Relevant I have reviewed the following items rich (where applicable) has been applied. Labs Laboratory Tests Test 03/06/19 09:14 03/06/19 09:15 03/06/19 09:24 03/06/19 09:28 O2 Saturation 94 % (92-99) Arterial Blood pH 7.47 (7.35-7.45) Arterial Blood pCO2 at Patient Temp 29 mmHg (35-46) Arterial Blood pO2 at Patient Temp 70 mmHg (65-108) Arterial Blood HCO3 21 mmol/L (21-28) Arterial Blood Base Excess -2 mmol/L (-3-3) FiO2 100 Glucose (Fingerstick) 161 mg/dL (70-99) Stool Occult Blood Negative (NEG) White Blood Count 4.1 x10^3/uL (4.0-11.0) Red Blood Count 4.55 x10^6/uL (3.50-5.40) Hemoglobin 15.1 g/dL (12.0-15.5) Hematocrit 43.4 % (36.0-47.0) Mean Corpuscular Volume 95 fL (79-100) Mean Corpuscular Hemoglobin 33 pg (25-35) Mean Corpuscular Hemoglobin Concent 35 g/dL (31-37) Red Cell Distribution Width 12.9 % (11.5-14.5) Platelet Count 127 x10^3/uL (140-400) Neutrophils (%) (Auto) 95 % (31-73) Lymphocytes (%) (Auto) 4 % (24-48) Monocytes (%) (Auto) 1 % (0-9) Eosinophils (%) (Auto) 0 % (0-3) Basophils (%) (Auto) 0 % (0-3) Neutrophils # (Auto) 3.9 x10^3uL (1.8-7.7) Lymphocytes # (Auto) 0.1 x10^3/uL (1.0-4.8) Monocytes # (Auto) 0.0 x10^3/uL (0.0-1.1) Eosinophils # (Auto) 0.0 x10^3/uL (0.0-0.7) Basophils # (Auto) 0.0 x10^3/uL (0.0-0.2) Segmented Neutrophils % 26 % (35-66) Band Neutrophils % 59 % (0-9) Lymphocytes % 6 % (24-48) Monocytes % 3 % (0-10) Metamyelocytes % 6 % (0-0) Platelet Estimate Decreased (ADEQUATE) Prothrombin Time 16.8 SEC (11.7-14.0) Prothromb Time International Ratio 1.4 (0.8-1.1) Activated Partial Thromboplast Time 31 SEC (24-38) Sodium Level 137 mmol/L (136-145) Potassium Level 3.1 mmol/L (3.5-5.1) Chloride Level 100 mmol/L (98-107) Carbon Dioxide Level 22 mmol/L (21-32) Anion Gap 15 (6-14) Blood Urea Nitrogen 29 mg/dL (7-20) Creatinine 1.1 mg/dL (0.6-1.0) Estimated GFR (Cockcroft-Gault) 48.0 BUN/Creatinine Ratio 26 (6-20) Glucose Level 157 mg/dL (70-99) Lactic Acid Level 4.2 mmol/L (0.4-2.0) Calcium Level 9.6 mg/dL (8.5-10.1) Magnesium Level 1.8 mg/dL (1.8-2.4) Total Bilirubin 1.1 mg/dL (0.2-1.0) Aspartate Amino Transf (AST/SGOT) 30 U/L (15-37) Alanine Aminotransferase (ALT/SGPT) 28 U/L (14-59) Alkaline Phosphatase 76 U/L (46-116) Ammonia < 10 mcmol/L (11-34) Creatine Kinase 289 U/L (26-192) Creatine Kinase MB (Mass) 6.1 ng/mL (0.0-3.6) Creatine Kinase MB Relative Index 2.1 % (0-4) VD-Lez-O-Type Natriuretic Peptide 15584 pg/mL (0-449) Total Protein 7.4 g/dL (6.4-8.2) Albumin 2.9 g/dL (3.4-5.0) Albumin/Globulin Ratio 0.6 (1.0-1.7) Triglycerides Level 50 mg/dL (0-150) Cholesterol Level 89 mg/dL (0-200) LDL Cholesterol, Calculated 33 mg/dL (0-100) VLDL Cholesterol, Calculated 10 mg/dL (0-40) Non-HDL Cholesterol Calculated 43 mg/dL (0-129) HDL Cholesterol 46 mg/dL (40-60) Cholesterol/HDL Ratio 1.9 Lipase 90 U/L (73-393) Test 03/06/19 09:32 03/06/19 13:30 Urine Collection Type Unknown Urine Color Yellow Urine Clarity Clear Urine pH 6.0 Urine Specific [place] 1.015 Urine Protein 100 mg/dL (NEG-TRACE) Urine Glucose (UA) 100 mg/dL (NEG) Urine Ketones (Stick) >=80 mg/dL (NEG) Urine Blood Moderate (NEG) Urine Nitrite Negative (NEG) Urine Bilirubin Negative (NEG) Urine Urobilinogen Dipstick 0.2 mg/dL (0.2 mg/dL) Urine Leukocyte Esterase Negative (NEG) Urine RBC 1-2 /HPF (0-2) Urine WBC 1-4 /HPF (0-4) Urine Squamous Epithelial Cells Few /LPF Urine Amorphous Sediment Present /HPF Urine Bacteria 0 /HPF (0-FEW) Urine Hyaline Casts Few /HPF Urine Mucus Marked /LPF Bedside Troponin I 0.03 ng/ml (<0.08) Urine Opiates Screen Neg (NEG) Urine Methadone Screen Neg (NEG) Urine Barbiturates Neg (NEG) Urine Phencyclidine Screen Neg (NEG) Urine Amphetamine/Methamphetamine Neg (NEG) Urine Benzodiazepines Screen Neg (NEG) Urine Cocaine Screen Neg (NEG) Urine Cannabinoids Screen Neg (NEG) Urine Ethyl Alcohol Neg (NEG) Lactic Acid Level 6.5 mmol/L (0.4-2.0) Laboratory Tests Test 03/06/19 13:30 Lactic Acid Level 6.5 mmol/L (0.4-2.0) Microbiology 03/06/19 Blood Culture - Final, Complete Medications Current Medications Sodium Chloride 1,000 ml @ 1,000 mls/hr Q1H IV Last administered on 03/06/19at 10:40; Start 03/06/19 at 09:30; Stop 03/06/19 at 10:29; Status DC Albuterol/ Ipratropium (Duoneb) 3 ml 1X ONCE NEB Last administered on 03/06/19at 09:20; Start 03/06/19 at 09:30; Stop 03/06/19 at 09:31; Status DC Methylprednisolone Sodium Succinate (SOLU-Medrol 125MG VIAL) 125 mg 1X ONCE IV Last administered on 03/06/19at 10:40; Start 03/06/19 at 09:30; Stop 03/06/19 at 09:31; Status DC Pantoprazole Sodium (PROTONIX VIAL for IV PUSH) 80 mg 1X ONCE IVP Last administered on 03/06/19at 10:39; Start 03/06/19 at 09:30; Stop 03/06/19 at 09:31; Status DC Sodium Chloride 1,000 ml @ 1,000 mls/hr 1X ONCE IV Last administered on 03/06/19at 14:42; Start 03/06/19 at 09:30; Stop 03/06/19 at 10:29; Status DC Vancomycin HCl 250 ml @ 250 mls/hr 1X ONCE IV Last administered on 03/06/19at 10:41; Start 03/06/19 at 10:00; Stop 03/06/19 at 10:59; Status DC Levofloxacin/ Dextrose 150 ml @ 100 mls/hr 1X ONCE IV Last administered on 03/06/19at 10:41; Start 03/06/19 at 10:00; Stop 03/06/19 at 11:29; Status DC Sodium Chloride 1,000 ml @ 150 mls/hr Q6H40M IV Last administered on 03/07/19at 04:31; Start 03/06/19 at 11:10; Stop 03/07/19 at 11:09 Pantoprazole Sodium 80 mg/ Sodium Chloride 100 ml @ 10 mls/hr Q10H IV Last administered on 03/07/19at 03:12; Start 03/06/19 at 11:30; Stop 03/07/19 at 10:15; Status DC Ondansetron HCl (Zofran) 4 mg PRN Q6HRS PRN IV NAUSEA/VOMITING; Start 03/06/19 at 12:00 Labetalol HCl (Normodyne Iv Push) 10 mg PRN Q2HR PRN IVP HYPERTENSION, SEE COMMENTS; Start 03/06/19 at 12:00 Morphine Sulfate (Morphine Sulfate) 2 mg PRN Q2HR PRN IV PAIN; Start 03/06/19 at 12:00 Aspirin (Aspirin) 300 mg DAILY [place] Last administered on 03/07/19at 10:12; Start 03/06/19 at 12:30 Potassium Chloride/Water 100 ml @ 100 mls/hr Q1H IV Last administered on 03/07/19at 00:24; Start 03/06/19 at 13:00; Stop 03/06/19 at 16:59; Status DC Clindamycin Phosphate 50 ml @ 100 mls/hr Q8HRS IV Last administered on 03/07/19at 06:09; Start 03/06/19 at 14:00; Stop 03/07/19 at 09:10; Status DC Levofloxacin/ Dextrose (Levaquin Per Pharmacy) 1 each PRN DAILY PRN [facility] SEE COMMENTS; Start 03/06/19 at 13:15 Levofloxacin/ Dextrose 50 ml @ 50 mls/hr Q24H IV Last administered on 03/07/19at 08:36; Start 03/07/19 at 09:00 Meropenem 500 mg/ Sodium Chloride 50 ml @ 100 mls/hr Q8HRS IV ; Start 03/07/19 at 14:00 Vancomycin HCl (Vanco Per Pharmacy) 1 each PRN DAILY PRN [facility] SEE COMMENTS; Start 03/07/19 at 09:15 Vancomycin HCl 1.75 gm/Sodium Chloride 500 ml @ 250 mls/hr 1X ONCE IV Last administered on 03/07/19at 10:13; Start 03/07/19 at 10:00; Stop 03/07/19 at 11:59 Pantoprazole Sodium (PROTONIX VIAL for IV PUSH) 40 mg DAILYAC IVP ; Start 03/08/19 at 07:30 Active Scripts Active Reported Potassium Chloride 10 Meq Tab.sr.24h 10 Meq PO DAILY Procardia Xl (Nifedipine) 60 Mg Tab.er.24 1 Tab PO DAILY Zestril (Lisinopril) 40 Mg Tablet 1 Tab PO BID Glucophage Xr (Metformin Hcl) 500 Mg Tab.er.24h 500 Mg PO DAILYWBKFT Crestor (Rosuvastatin Calcium) 5 Mg Tablet 1 Tab PO DAILY Coreg (Carvedilol) 25 Mg Tablet 25 Mg PO BIDWMEALS Aspir-Low (Aspirin) 81 Mg Tablet.dr 1 Tab PO DAILY Vitals/I & O Vital Sign - Last 24 Hours 03/06/19 03/06/19 03/06/19 03/06/19 10:47 11:00 11:15 11:30 Pulse 93 92 94 94 Resp 56 56 56 56 Pulse Ox 96 96 96 96 03/06/19 03/06/19 03/06/19 03/06/19 12:00 12:00 13:00 14:00 Temp 97.9 97.9 Pulse 82 86 92 Resp 28 24 B/P (MAP) 150/57 (88) 140/62 (88) 159/71 (100) Pulse Ox 95 O2 Delivery Non-Rebreather NonRebreather Mask Venturi Mask 03/06/19 03/06/19 03/06/19 03/06/19 15:00 16:00 19:35 19:43 Temp 101.4 100.1 101.4 100.1 Pulse 98 98 Resp 48 B/P (MAP) 110/60 (77) 150/67 (94) Pulse Ox 95 O2 Delivery Venturi Mask Non-Rebreather O2 Flow Rate 15.0 03/06/19 03/06/19 03/06/19 03/06/19 20:22 21:50 22:08 22:53 Temp 98.2 98.2 99.3 98.2 98.2 99.3 Pulse 100 100 103 Resp 46 40 B/P (MAP) 153/71 (98) 153/71 (98) 161/75 (103) Pulse Ox 95 O2 Delivery Non-Rebreather Venturi Mask O2 Flow Rate 15.0 15.0 03/07/19 03/07/19 03/07/19 03/07/19 00:36 00:41 02:06 03:15 Temp 98.5 99.1 99.1 98.5 99.1 99.1 Pulse 95 94 95 Resp 50 48 50 B/P (MAP) 158/79 (105) 155/75 (101) 139/74 (95) Pulse Ox 96 O2 Delivery Non-Rebreather Venturi Mask Venturi Mask Venturi Mask O2 Flow Rate 15.0 03/07/19 03/07/19 03/07/19 03/07/19 04:01 04:13 05:09 06:14 Temp 98.7 99.5 98.1 98.7 99.5 98.1 Pulse 99 93 96 Resp 40 44 42 B/P (MAP) 157/88 (111) 153/69 (97) 119/63 (81) Pulse Ox 95 96 O2 Delivery Venturi Mask Non-Rebreather Venturi Mask Venturi Mask O2 Flow Rate 15.0 5/7/19 5/7/19 5/7/19 5/7/19 07:00 08:00 08:00 09:00 Temp 99.2 99.2 Pulse 94 90 86 Resp 30 32 30 B/P (MAP) 133/70 (91) 140/71 (94) 133/63 (86) Pulse Ox 96 96 96 O2 Delivery Venturi Mask Venturi Mask Venturi Mask Venturi Mask Intake and Output 03/06/19 03/06/19 03/07/19 15:00 23:00 07:00 Intake Total 1125 ml 950 ml 60 ml Output Total 225 ml 600 ml 175 ml Balance 900 ml 350 ml -115 ml EMORY VEGA III DO March 07, 2019 10:46
--- NOTE | 2019-03-07 11:26 | PDOC ---
PULMONARY PROGRESS NOTES Subjective PT APPEARS COMFORTABLE Vitals Vital Signs Date Time Temp Pulse Resp B/P (MAP) Pulse Ox O2 Delivery O2 Flow Rate FiO2 03/07/19 10:00 92 30 143/70 (94) 96 Venturi Mask 03/07/19 08:00 99.2 99.2 03/07/19 04:13 15.0 Lungs: Clear Cardiovascular: S1, S2 Abdomen: Soft Extremities: No Edema Skin: Warm Labs Laboratory Tests Test 03/06/19 09:14 03/06/19 09:15 03/06/19 09:24 03/06/19 09:28 O2 Saturation 94 % (92-99) Arterial Blood pH 7.47 (7.35-7.45) Arterial Blood pCO2 at Patient Temp 29 mmHg (35-46) Arterial Blood pO2 at Patient Temp 70 mmHg (65-108) Arterial Blood HCO3 21 mmol/L (21-28) Arterial Blood Base Excess -2 mmol/L (-3-3) FiO2 100 Glucose (Fingerstick) 161 mg/dL (70-99) Stool Occult Blood Negative (NEG) White Blood Count 4.1 x10^3/uL (4.0-11.0) Red Blood Count 4.55 x10^6/uL (3.50-5.40) Hemoglobin 15.1 g/dL (12.0-15.5) Hematocrit 43.4 % (36.0-47.0) Mean Corpuscular Volume 95 fL (79-100) Mean Corpuscular Hemoglobin 33 pg (25-35) Mean Corpuscular Hemoglobin Concent 35 g/dL (31-37) Red Cell Distribution Width 12.9 % (11.5-14.5) Platelet Count 127 x10^3/uL (140-400) Neutrophils (%) (Auto) 95 % (31-73) Lymphocytes (%) (Auto) 4 % (24-48) Monocytes (%) (Auto) 1 % (0-9) Eosinophils (%) (Auto) 0 % (0-3) Basophils (%) (Auto) 0 % (0-3) Neutrophils # (Auto) 3.9 x10^3uL (1.8-7.7) Lymphocytes # (Auto) 0.1 x10^3/uL (1.0-4.8) Monocytes # (Auto) 0.0 x10^3/uL (0.0-1.1) Eosinophils # (Auto) 0.0 x10^3/uL (0.0-0.7) Basophils # (Auto) 0.0 x10^3/uL (0.0-0.2) Segmented Neutrophils % 26 % (35-66) Band Neutrophils % 59 % (0-9) Lymphocytes % 6 % (24-48) Monocytes % 3 % (0-10) Metamyelocytes % 6 % (0-0) Platelet Estimate Decreased (ADEQUATE) Prothrombin Time 16.8 SEC (11.7-14.0) Prothromb Time International Ratio 1.4 (0.8-1.1) Activated Partial Thromboplast Time 31 SEC (24-38) Sodium Level 137 mmol/L (136-145) Potassium Level 3.1 mmol/L (3.5-5.1) Chloride Level 100 mmol/L (98-107) Carbon Dioxide Level 22 mmol/L (21-32) Anion Gap 15 (6-14) Blood Urea Nitrogen 29 mg/dL (7-20) Creatinine 1.1 mg/dL (0.6-1.0) Estimated GFR (Cockcroft-Gault) 48.0 BUN/Creatinine Ratio 26 (6-20) Glucose Level 157 mg/dL (70-99) Lactic Acid Level 4.2 mmol/L (0.4-2.0) Calcium Level 9.6 mg/dL (8.5-10.1) Magnesium Level 1.8 mg/dL (1.8-2.4) Total Bilirubin 1.1 mg/dL (0.2-1.0) Aspartate Amino Transf (AST/SGOT) 30 U/L (15-37) Alanine Aminotransferase (ALT/SGPT) 28 U/L (14-59) Alkaline Phosphatase 76 U/L (46-116) Ammonia < 10 mcmol/L (11-34) Creatine Kinase 289 U/L (26-192) Creatine Kinase MB (Mass) 6.1 ng/mL (0.0-3.6) Creatine Kinase MB Relative Index 2.1 % (0-4) YX-Nzs-U-Type Natriuretic Peptide 64997 pg/mL (0-449) Total Protein 7.4 g/dL (6.4-8.2) Albumin 2.9 g/dL (3.4-5.0) Albumin/Globulin Ratio 0.6 (1.0-1.7) Triglycerides Level 50 mg/dL (0-150) Cholesterol Level 89 mg/dL (0-200) LDL Cholesterol, Calculated 33 mg/dL (0-100) VLDL Cholesterol, Calculated 10 mg/dL (0-40) Non-HDL Cholesterol Calculated 43 mg/dL (0-129) HDL Cholesterol 46 mg/dL (40-60) Cholesterol/HDL Ratio 1.9 Lipase 90 U/L (73-393) Test 03/06/19 09:32 03/06/19 13:30 Urine Collection Type Unknown Urine Color Yellow Urine Clarity Clear Urine pH 6.0 Urine Specific [place] 1.015 Urine Protein 100 mg/dL (NEG-TRACE) Urine Glucose (UA) 100 mg/dL (NEG) Urine Ketones (Stick) >=80 mg/dL (NEG) Urine Blood Moderate (NEG) Urine Nitrite Negative (NEG) Urine Bilirubin Negative (NEG) Urine Urobilinogen Dipstick 0.2 mg/dL (0.2 mg/dL) Urine Leukocyte Esterase Negative (NEG) Urine RBC 1-2 /HPF (0-2) Urine WBC 1-4 /HPF (0-4) Urine Squamous Epithelial Cells Few /LPF Urine Amorphous Sediment Present /HPF Urine Bacteria 0 /HPF (0-FEW) Urine Hyaline Casts Few /HPF Urine Mucus Marked /LPF Bedside Troponin I 0.03 ng/ml (<0.08) Urine Opiates Screen Neg (NEG) Urine Methadone Screen Neg (NEG) Urine Barbiturates Neg (NEG) Urine Phencyclidine Screen Neg (NEG) Urine Amphetamine/Methamphetamine Neg (NEG) Urine Benzodiazepines Screen Neg (NEG) Urine Cocaine Screen Neg (NEG) Urine Cannabinoids Screen Neg (NEG) Urine Ethyl Alcohol Neg (NEG) Lactic Acid Level 6.5 mmol/L (0.4-2.0) Laboratory Tests Test 03/06/19 13:30 Lactic Acid Level 6.5 mmol/L (0.4-2.0) Medications Active Scripts Medications Dose Route/Sig Max Daily Dose Days Date Category Potassium Chloride 10 Meq Tab.sr.24h 10 Meq PO DAILY 03/06/19 Reported Procardia Xl (Nifedipine) 60 Mg Tab.er.24 1 Tab PO DAILY 03/06/19 Reported Zestril (Lisinopril) 40 Mg Tablet 1 Tab PO BID 03/06/19 Reported Glucophage Xr (Metformin Hcl) 500 Mg Tab.er.24h 500 Mg PO DAILYWBKFT 03/06/19 Reported Crestor (Rosuvastatin Calcium) 5 Mg Tablet 1 Tab PO DAILY 03/06/19 Reported Coreg (Carvedilol) 25 Mg Tablet 25 Mg PO BIDWMEALS 03/06/19 Reported Aspir-Low (Aspirin) 81 Mg Tablet.dr 1 Tab PO DAILY 03/06/19 Reported Impression . IMPRESSION: 1. Acute hypoxic respiratory failure secondary to aspiration pneumonia from recent stroke. 2. Acute metabolic encephalopathy secondary to ischemic stroke. 3. Abnormal CT head consistent with diffuse cerebral edema and a right middle cerebral artery infarct. She was not a candidate for TPA. 4. Abnormal CXR consistent with right lung aspiration pneumonia. 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 No improvement, prognosis guarded, may not be large enough to be life-threatening CT HEAD 03/06 Impression: No acute intracranial hemorrhage is seen. Findings are suggestive of diffuse cerebral edema secondary to right MCA infarct on the right side. A round confluent area of edema of the left parietal lobe which may indicate an infarct of indeterminate age on this side. MRI study of the brain without contrast is recommended for further evaluation. Plan . REASONS ONLY TO DEEP STERNAL RUB D/W FAMILY THEY WISH TO PROCEED WITH HOSPICE THEY WISH TO CONTACT [facility] D/W PAT SHE WILL FACILITATE THE D/C PLANNING PT IS DNR NO TUBE FEEDING NEURO INPUT APPRECIATED FLAKITA MARY MD March 07, 2019 11:26
--- NOTE | 2019-03-07 13:09 | NUR ---
Pharmacy Vancomycin Dosing Note S:Consulted to monitor and dose vancomycin started 03/07/19. O:KEMI PASCUAL is a 79 year old F with Bacteremia Pneumonia . Height: 5 feet, 2 inches Weight: 66.135101 kg [place] Body Weight: 50.10 Adjusted Body Weight: 56.86 Dosing Weight: Actual Other Antibiotics: LEVAQUIN MERREM LABS: Last BUN: 29 Last Creatinine: 1.1 Creatinine Clearance: 37 mL/min Last WBC: 4.1 Last Procalcitonin: Tmax (past 24 hours): 99.5 Microbiology: 03/06 Bld: g+c in 02/02, suggestive of strep I/O: 2135/1000 Drug Levels: Last level: on at Last dose given 03/07/19 at 1013 Vancomycin Dosing: Loading Dose: 1750 mg x1 Dosing Weight: Actual Target Trough: 15-20 A: Based on: Body weight and renal function P: 1. After loading dose, start Vancomycin 1000 mg IV q24h 2. Follow up Trough level on 03/09/19 at 0930 3. Pharmacy will continue to monitor, follow and adjust therapy as needed. CALLUM LILLY RPH, 03/07/19 [id number]
[2019-03-07] MEDS: MORPHINE SULFATE 2 MG/ML VIAL. IV PRN (13:24)
[2019-03-07] MEDS ORDERED: MEROPENEM 500 MG in IV NORMAL SALINE 50ML 50 ML IV SCH (14:00)
[2019-03-07] MEDS: SCOPOLAMINE 1.5MG PATCH. TD SCH (14:27)
--- NOTE | 2019-03-07 15:07 | PDOC2 ---
PALLIATIVE CARE Palliative Care Note Palliative Care Patient remains unresponsive to verbal /tactile stimulus. Met with daughter Veronica and granddaughter Cora. Jordan and son Augustine did not attend. Reviewed current medical condition; CVA (R)MCA , CHF, GI Bleed, Respiratory Failure ?aspiration pneumonia, Severe Sepsis, ARF. Patient currently on Venti Mask 50% BC+; Patient appears comfortable without respiratory distress, grimacing; No posturing with stimulation as yesterday. Family shared that she enjoyed gardening, very opinionated, Marianela: Mikala, visited by yesterday Veronica shared that patient opened her eyes last evening--no response today--appears more calm today. Discussed goals of care. Family shared that patient wouldn't want to "remain like this" "would be very upset to see herself like this" concerned that patient would not get back to a quality of life acceptable to her. Discussed options that have been discussed; craniotomy, vent. They are adamant that she would not want this Discussed options for comfort care; Home with hospice vs Longterm with hospice vs evaluation by Hospice. Cora has had family member with [facility] recently. Veronica requested [facility] Hospice evaluation. Family would not be able to care for patient at home with hospice. Discussed Code Status: DNR/DNI Outside the Hospital DNR/DNI form signed. Plan: Evaluation by [facility] per family request. Dr. Lynn james. DNR/DNI 1440 Spoke with Carolina MCKEON who will assist with discharge planning. 1710 Spoke with Veronica. Concerned about her father. Offered to meet with him. Declined. Offered IP Hospice here at [facility] with [facility] again. Discussed discharge plan. Veronica again states she would not be able to care for her at home. Discussed option of fdc. Prefers to continue with plan for [facility] (IP facility) evaluation as planned. WILFREDO MORENO March 07, 2019 15:07
--- NOTE | 2019-03-07 15:57 | NUR ---
SS following for discharge planning. SS received notification from palliative care RN that pt and family are requesting hospice house referral to [facility]. SS phoned and faxed referral to [facility], ; fax [phone]. SS will await evaluation and acceptance decision and will proceed accordingly.
--- NOTE | 2019-03-07 18:14 | NUR ---
Patient received to room per bed with oxygen at 4 liters per NC. Patient unresponsive with exam. Skin warm and slightly moist. Mucous membranes dry and patient breathing through mouth. Mendez catheter to DD with cloudy raya UO. Skin pale with edema bilateral LE. Radial and pedal pulses 1
--- NOTE | 2019-03-07 18:16 | NUR ---
addendum: continuation of not, pedal pulses 1+. Patient's daughter Veronica at bedside and other family members, they verb. understanding orientation to room and room 516 open for their use. Mayi Lama RNfarm or ranch animal caretaker here and spoke with patient's daughter Veronica. Patient's daughter Veronica requested patient have IVF at for patient for when her visits as he is having trouble accepting her condition, she feels he will feel comforted that "something is being done." NS at 10 cc per hr. infusing JESUS double lumen PICC. Continue comfort care and monitor.
--- NOTE | 2019-03-07 18:22 | NUR ---
Addendum: Patient received to room 514 at 1630.
--- NOTE | 2019-03-07 19:29 | CONS ---
DATE OF CONSULTATION: 03/07/2019 REFERRING PHYSICIAN: Dr. Pacheco. REASON FOR CONSULTATION: Antibiotic management. HISTORY OF PRESENT ILLNESS: A 79-year-old female, who lives at home with her , [facility] with altered mental status and confusion. Prior to that, the patient had complaints of not feeling well on Wednesday. She took some ibuprofen and went to sleep. She was found to be confused and later unresponsive, tachypneic, had coffee-ground emesis when EMS reached her place. The patient underwent CT head, which showed large right MCA infarct with abnormality and edema of the left parietal lobe. Chest x-ray showed infiltrate in the right lower lobe. The patient had lactic acidosis. White count was 4.1. The patient had developed a fever of 101.4. She was admitted to ICU. Neurology was consulted. She was out of the window period for alteplase treatment, not a candidate for clot retrieval as the infarct was huge. Palliative care has been consulted. There is a meeting with the family later today. The patient was started on IV Levaquin and clindamycin, and ID consult has been requested for further evaluation and treatment. The patient had blood cultures, 2 out of 4 bottles are positive for Gram-positive cocci in chains. Today, the patient remains unresponsive. Family is at bedside. PAST MEDICAL HISTORY: Coronary artery disease, hypertension, hyperlipidemia, diabetes. PAST SURGICAL HISTORY: CABG. FAMILY HISTORY: As per HPI. SOCIAL HISTORY: Lives with her . Nonsmoker. ALLERGIES: PENICILLIN, UNKNOWN REACTION, POSSIBLY HIVES. CURRENT MEDICATIONS: Levaquin and clindamycin. REVIEW OF SYSTEMS: Unable to obtain. PHYSICAL EXAMINATION: VITAL SIGNS: T-max 101.4, temperature 98.1, pulse 96, respiratory rate 42, blood pressure 119/63, oxygen saturation 96% on 15% Ventimask. GENERAL: Unresponsive female, tachypneic on nonrebreather mask. HEENT: Sclerae anicteric. Oral mucosa dry. Dry blood in the mouth. NECK: Supple. LUNGS: Decreased breath sounds with rhonchi in both lower lobes, right greater than the left. HEART: S1, S2, no murmurs. ABDOMEN: Soft, nontender, nondistended. EXTREMITIES: No edema, no cyanosis. CENTRAL NERVOUS SYSTEM: Unresponsive. PSYCHIATRIC: Unable to obtain. LABORATORY DATA: WBC 4.1, hemoglobin 15.1, hematocrit 43.4, platelets 127, bands 59. Sodium 137, potassium 3.1, chloride 100, bicarbonate 22, BUN 29, creatinine 1.1, glucose 157, total bilirubin 1.1. CK 289. BNP 11,753. Albumin 2.9, lipase 90. Stool occult blood negative. UDS negative. UA, leukocyte esterase negative. ABGs: pH 7.47, pCO2 of 29, pO2 of 70, bicarbonate 21, oxygen saturation 94%. Microbiology, blood culture 2 out of 4 positive for Gram-positive cocci in chains. Chest x-ray, nasogastric tube within the stomach and right PICC line with tip in the superior cavoatrial junction, stable diffuse interstitial infiltrate with suspected linear atelectasis and trace fluid along the right minor fissure and lingular atelectasis. Carotid Doppler shows stenosis about 0-50% at both carotid bifurcation. Head CT shows no acute intracranial hemorrhage. Findings suggestive of diffuse cerebral edema secondary to right MCA infarct on the right side, round confluent area of edema of the left parietal lobe, which may indicate an infarct of indeterminate age on this side. IMPRESSION: 1. Gram-positive cocci bacteremia, 2 out of 4 present on admission. Final ID and MYRON pending at this time. 2. Acute hypoxic respiratory failure secondary to aspiration pneumonia from recent stroke. 3. Large right middle cerebral artery infarct with diffuse cerebral edema, not a candidate for TPA. 4. Acute metabolic encephalopathy. 5. Lactic acidosis secondary to above. 6. Bandemia. 7. Mild thrombocytopenia. 8. Hematuria. 9. Protein calorie malnutrition. 10. History of ALLERGIES TO PENICILLIN, possibly hives per and daughter at bedside. No further information available at this time. RECOMMENDATIONS: 1. Discontinue clindamycin. 2. Continue Levaquin. 3. We will add meropenem. and Daughter agree. Start IV Vanc 4. Repeat blood cultures. 5. Follow up lab and cultures in a.m. 6. Palliative care meeting with family is planned for later today to decide on goals of treatment 7. Condition critical.Prognosis poor. 8. Further treatment will depend on goals of treatment after palliative meeting. 9. Discussed with and daughter at bedside. 10. Discussed with RN. Thank you for consulting Infectious Disease to participate in this patient's care. If you have any questions, do not hesitate to contact me. ZACHARY RAMIREZ MD DR: CHARITY/simba JOB#: [id number] / [id number] NINOSKA
[2019-03-08] MEDS: MORPHINE SULFATE 2 MG/ML VIAL. IV PRN ×2 (02:01→16:06)
[2019-03-08 03:00] VITALS: BP 124/74
[2019-03-08] MEDS ORDERED: PANTOPRAZOLE IV PUSH 40 MG VIAL. IVP SCH (07:30)
[2019-03-08 08:00] VITALS: BP 156/77
--- NOTE | 2019-03-08 09:12 | PDOC ---
PULMONARY PROGRESS NOTES Subjective PT APPEARS COMFORTABLE NOT RESPONSIVE Vitals Vital Signs Date Time Temp Pulse Resp B/P (MAP) Pulse Ox O2 Delivery O2 Flow Rate FiO2 03/08/19 03:05 Nasal Cannula 4.0 03/08/19 03:00 97.5 72 20 124/74 (91) 94 97.5 Labs Laboratory Tests Test 03/06/19 09:14 03/06/19 09:15 03/06/19 09:24 03/06/19 09:28 O2 Saturation 94 % (92-99) Arterial Blood pH 7.47 (7.35-7.45) Arterial Blood pCO2 at Patient Temp 29 mmHg (35-46) Arterial Blood pO2 at Patient Temp 70 mmHg (65-108) Arterial Blood HCO3 21 mmol/L (21-28) Arterial Blood Base Excess -2 mmol/L (-3-3) FiO2 100 Glucose (Fingerstick) 161 mg/dL (70-99) Stool Occult Blood Negative (NEG) White Blood Count 4.1 x10^3/uL (4.0-11.0) Red Blood Count 4.55 x10^6/uL (3.50-5.40) Hemoglobin 15.1 g/dL (12.0-15.5) Hematocrit 43.4 % (36.0-47.0) Mean Corpuscular Volume 95 fL (79-100) Mean Corpuscular Hemoglobin 33 pg (25-35) Mean Corpuscular Hemoglobin Concent 35 g/dL (31-37) Red Cell Distribution Width 12.9 % (11.5-14.5) Platelet Count 127 x10^3/uL (140-400) Neutrophils (%) (Auto) 95 % (31-73) Lymphocytes (%) (Auto) 4 % (24-48) Monocytes (%) (Auto) 1 % (0-9) Eosinophils (%) (Auto) 0 % (0-3) Basophils (%) (Auto) 0 % (0-3) Neutrophils # (Auto) 3.9 x10^3uL (1.8-7.7) Lymphocytes # (Auto) 0.1 x10^3/uL (1.0-4.8) Monocytes # (Auto) 0.0 x10^3/uL (0.0-1.1) Eosinophils # (Auto) 0.0 x10^3/uL (0.0-0.7) Basophils # (Auto) 0.0 x10^3/uL (0.0-0.2) Segmented Neutrophils % 26 % (35-66) Band Neutrophils % 59 % (0-9) Lymphocytes % 6 % (24-48) Monocytes % 3 % (0-10) Metamyelocytes % 6 % (0-0) Platelet Estimate Decreased (ADEQUATE) Prothrombin Time 16.8 SEC (11.7-14.0) Prothromb Time International Ratio 1.4 (0.8-1.1) Activated Partial Thromboplast Time 31 SEC (24-38) Sodium Level 137 mmol/L (136-145) Potassium Level 3.1 mmol/L (3.5-5.1) Chloride Level 100 mmol/L (98-107) Carbon Dioxide Level 22 mmol/L (21-32) Anion Gap 15 (6-14) Blood Urea Nitrogen 29 mg/dL (7-20) Creatinine 1.1 mg/dL (0.6-1.0) Estimated GFR (Cockcroft-Gault) 48.0 BUN/Creatinine Ratio 26 (6-20) Glucose Level 157 mg/dL (70-99) Lactic Acid Level 4.2 mmol/L (0.4-2.0) Calcium Level 9.6 mg/dL (8.5-10.1) Magnesium Level 1.8 mg/dL (1.8-2.4) Total Bilirubin 1.1 mg/dL (0.2-1.0) Aspartate Amino Transf (AST/SGOT) 30 U/L (15-37) Alanine Aminotransferase (ALT/SGPT) 28 U/L (14-59) Alkaline Phosphatase 76 U/L (46-116) Ammonia < 10 mcmol/L (11-34) Creatine Kinase 289 U/L (26-192) Creatine Kinase MB (Mass) 6.1 ng/mL (0.0-3.6) Creatine Kinase MB Relative Index 2.1 % (0-4) GO-Ohj-Y-Type Natriuretic Peptide 38866 pg/mL (0-449) Total Protein 7.4 g/dL (6.4-8.2) Albumin 2.9 g/dL (3.4-5.0) Albumin/Globulin Ratio 0.6 (1.0-1.7) Triglycerides Level 50 mg/dL (0-150) Cholesterol Level 89 mg/dL (0-200) LDL Cholesterol, Calculated 33 mg/dL (0-100) VLDL Cholesterol, Calculated 10 mg/dL (0-40) Non-HDL Cholesterol Calculated 43 mg/dL (0-129) HDL Cholesterol 46 mg/dL (40-60) Cholesterol/HDL Ratio 1.9 Lipase 90 U/L (73-393) Test 03/06/19 09:32 03/06/19 13:30 Urine Collection Type Unknown Urine Color Yellow Urine Clarity Clear Urine pH 6.0 Urine Specific [place] 1.015 Urine Protein 100 mg/dL (NEG-TRACE) Urine Glucose (UA) 100 mg/dL (NEG) Urine Ketones (Stick) >=80 mg/dL (NEG) Urine Blood Moderate (NEG) Urine Nitrite Negative (NEG) Urine Bilirubin Negative (NEG) Urine Urobilinogen Dipstick 0.2 mg/dL (0.2 mg/dL) Urine Leukocyte Esterase Negative (NEG) Urine RBC 1-2 /HPF (0-2) Urine WBC 1-4 /HPF (0-4) Urine Squamous Epithelial Cells Few /LPF Urine Amorphous Sediment Present /HPF Urine Bacteria 0 /HPF (0-FEW) Urine Hyaline Casts Few /HPF Urine Mucus Marked /LPF Bedside Troponin I 0.03 ng/ml (<0.08) Urine Opiates Screen Neg (NEG) Urine Methadone Screen Neg (NEG) Urine Barbiturates Neg (NEG) Urine Phencyclidine Screen Neg (NEG) Urine Amphetamine/Methamphetamine Neg (NEG) Urine Benzodiazepines Screen Neg (NEG) Urine Cocaine Screen Neg (NEG) Urine Cannabinoids Screen Neg (NEG) Urine Ethyl Alcohol Neg (NEG) Lactic Acid Level 6.5 mmol/L (0.4-2.0) Medications Active Scripts Medications Dose Route/Sig Max Daily Dose Days Date Category Potassium Chloride 10 Meq Tab.sr.24h 10 Meq PO DAILY 03/06/19 Reported Procardia Xl (Nifedipine) 60 Mg Tab.er.24 1 Tab PO DAILY 03/06/19 Reported Zestril (Lisinopril) 40 Mg Tablet 1 Tab PO BID 03/06/19 Reported Glucophage Xr (Metformin Hcl) 500 Mg Tab.er.24h 500 Mg PO DAILYWBKFT 03/06/19 Reported Crestor (Rosuvastatin Calcium) 5 Mg Tablet 1 Tab PO DAILY 03/06/19 Reported Coreg (Carvedilol) 25 Mg Tablet 25 Mg PO BIDWMEALS 03/06/19 Reported Aspir-Low (Aspirin) 81 Mg Tablet.dr 1 Tab PO DAILY 03/06/19 Reported Impression . IMPRESSION: 1. Acute hypoxic respiratory failure secondary to aspiration pneumonia from recent stroke. 2. Acute metabolic encephalopathy secondary to ischemic stroke. 3. Abnormal CT head consistent with diffuse cerebral edema and a right middle cerebral artery infarct. She was not a candidate for TPA. 4. Abnormal CXR consistent with right lung aspiration pneumonia. 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 No improvement, prognosis guarded, may not be large enough to be life-threatening CT HEAD 03/06 Impression: No acute intracranial hemorrhage is seen. Findings are suggestive of diffuse cerebral edema secondary to right MCA infarct on the right side. A round confluent area of edema of the left parietal lobe which may indicate an infarct of indeterminate age on this side. MRI study of the brain without contrast is recommended for further evaluation. Plan . PT APPEARS COMFORTABLE' WILL HUMIDIFY 02 WILL SEE PRN SPOKE WITH FAMILY FLAKITA MARY MD March 08, 2019 09:12
--- NOTE | 2019-03-08 09:40 | PDOC ---
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 No improvement, prognosis guarded, may not be large enough to be life-threatening Plan I had a long discussion with the family, she is not in a dye directly from the stroke, she has passed the period of maximum edema. Therefore they need to decide if the patient would want to go through a few weeks of rehab to see how much recovery there is. For instance, she may regain the ability to speak, and that is very important to the family, even though she will most likely be left with left hemiparesis. After this discussion the family does want to give her some parenteral nutrition. MRI of the brain Note that she has already had stroke workup with echocardiogram and carotid Doppler studies Hold aspirin until we have MRI results She has a favorable lipid profile, does not need a statin immediately Subjective None Objective Vital Signs Date Time Temp Pulse Resp B/P (MAP) Pulse Ox O2 Delivery O2 Flow Rate FiO2 03/08/19 08:00 97.8 68 26 156/77 (103) 91 Nasal Cannula 4.5 97.8 Intake and Output0 03/08/19 07:00 Intake Total 0 ml Output Total 575 ml Balance -575 ml Intake Oral 0 ml Output Urine Total 575 ml PHYSICAL EXAM Eyesopen, not responsive to visual threat or voice, does not follow commands. Fredis-Armendariz respirations Pupils pinpoint, slight reactivity. Right gaze preference CN: no focal findings. Muscle tone: Increased on left Muscle strength: no movement on left, slight movement on right DTR: 2+ Plantar reflex: silent Gait: not examined in bed. Sensory exam: not cooperative. Cerebellar: not cooperative Review of Relevant I have reviewed the following items rich (where applicable) has been applied. Labs Laboratory Tests Test 03/06/19 13:30 Lactic Acid Level 6.5 mmol/L (0.4-2.0) Microbiology 03/06/19 Blood Culture - Final, Complete Medications Current Medications Sodium Chloride 1,000 ml @ 1,000 mls/hr Q1H IV Last administered on 03/06/19 10:40; Start 03/06/19 at 09:30; Stop 03/06/19 at 10:29; Status DC Albuterol/ Ipratropium (Duoneb) 3 ml 1X ONCE NEB Last administered on 03/06/19 09:20; Start 03/06/19 at 09:30; Stop 03/06/19 at 09:31; Status DC Methylprednisolone Sodium Succinate (SOLU-Medrol 125MG VIAL) 125 mg 1X ONCE IV Last administered on 03/06/19at 10:40; Start 03/06/19 at 09:30; Stop 03/06/19 at 09:31; Status DC Pantoprazole Sodium (PROTONIX VIAL for IV PUSH) 80 mg 1X ONCE IVP Last administered on 03/06/19 10:39; Start 03/06/19 at 09:30; Stop 03/06/19 at 09:31; Status DC Sodium Chloride 1,000 ml @ 1,000 mls/hr 1X ONCE IV Last administered on 03/06/19at 14:42; Start 03/06/19 at 09:30; Stop 03/06/19 at 10:29; Status DC Vancomycin HCl 250 ml @ 250 mls/hr 1X ONCE IV Last administered on 03/06/19at 1 0:41; Start 03/06/19 at 10:00; Stop 03/06/19 at 10:59; Status DC Levofloxacin/ Dextrose 150 ml @ 100 mls/hr 1X ONCE IV Last administered on 03/06/19at 10:41; Start 03/06/19 at 10:00; Stop 03/06/19 at 11:29; Status DC Sodium Chloride 1,000 ml @ 150 mls/hr Q6H40M IV Last administered on 03/07/19at 04:31; Start 03/06/19 at 11:10; Stop 03/07/19 at 11:09; Status DC Pantoprazole Sodium 80 mg/ Sodium Chloride 100 ml @ 10 mls/hr Q10H IV Last administered on 03/07/19at 03:12; Start 03/06/19 at 11:30; Stop 03/07/19 at 10:15; Status DC Ondansetron HCl (Zofran) 4 mg PRN Q6HRS PRN IV NAUSEA/VOMITING; Start 03/06/19 at 12:00; Stop 03/07/19 at 14:10; Status DC Labetalol HCl (Normodyne Iv Push) 10 mg PRN Q2HR PRN IVP HYPERTENSION, SEE COMMENTS; Start 03/06/19 at 12:00; Stop 03/07/19 at 14:10; Status DC Morphine Sulfate (Morphine Sulfate) 2 mg PRN Q2HR PRN IV PAIN Last administered on 03/08/19at 02:01; Start 03/06/19 at 12:00 Aspirin (Aspirin) 300 mg DAILY MT Last administered on 03/07/19at 10:12; Start 03/06/19 at 12:30; Stop 03/07/19 at 14:10; Status DC Potassium Chloride/Water 100 ml @ 100 mls/hr Q1H IV Last administered on 03/07/19at 00:24; Start 03/06/19 at 13:00; Stop 03/06/19 at 16:59; Status DC Clindamycin Phosphate 50 ml @ 100 mls/hr Q8HRS IV Last administered on 03/07/19at 06:09; Start 03/06/19 at 14:00; Stop 03/07/19 at 09:10; Status DC Levofloxacin/ Dextrose (Levaquin Per Pharmacy) 1 each PRN DAILY PRN MC SEE COMMENTS; Start 03/06/19 at 13:15; Stop 03/07/19 at 14:10; Status DC Levofloxacin/ Dextrose 50 ml @ 50 mls/hr Q24H IV Last administered on 03/07/19at 08:36; Start 03/07/19 at 09:00; Stop 03/07/19 at 14:10; Status DC Meropenem 500 mg/ Sodium Chloride 50 ml @ 100 mls/hr Q8HRS IV ; Start 03/07/19 at 14:00; Stop 03/07/19 at 14:10; Status DC Vancomycin HCl (Vanco Per Pharmacy) 1 each PRN DAILY PRN MC SEE COMMENTS Last administered on 03/07/19at 13:08; Start 03/07/19 at 09:15; Stop 03/07/19 at 14:10; Status DC Vancomycin HCl 1.75 gm/Sodium Chloride 500 ml @ 250 mls/hr 1X ONCE IV Last administered on 03/07/19at 10:13; Start 03/07/19 at 10:00; Stop 03/07/19 at 14:10; Status DC Pantoprazole Sodium (PROTONIX VIAL for IV PUSH) 40 mg DAILYAC IVP ; Start 03/08/19 at 07:30; Stop 03/08/19 at 07:30; Status DC Vancomycin HCl 1 gm/Sodium Chloride 250 ml @ 250 mls/hr Q24H IV ; Start 03/08/19 at 10:00; Stop 03/08/19 at 10:00; Status DC Vancomycin HCl (Vancomycin Trough Level) 1 each 1X ONCE MC ; Start 03/09/19 at 09:30; Stop 03/09/19 at 09:30; Status DC Scopolamine (Transderm-Scop) 1 patch Q3DAYS TD Last administered on 03/07/19at 14:27; Start 03/07/19 at 15:00 Lorazepam (Ativan) 1 mg PRN Q2HRS PRN IV ANXIETY / AGITATION; Start 03/07/19 at 14:15 Amino Acids/ Glycerin/ Electrolytes 1,000 ml @ 80 mls/hr [id number] IV ; Start 03/08/19 at 09:30 Active Scripts Active Reported Potassium Chloride 10 Meq Tab.sr.24h 10 Meq PO DAILY Procardia Xl (Nifedipine) 60 Mg Tab.er.24 1 Tab PO DAILY Zestril (Lisinopril) 40 Mg Tablet 1 Tab PO BID Glucophage Xr (Metformin Hcl) 500 Mg Tab.er.24h 500 Mg PO DAILYWBKFT Crestor (Rosuvastatin Calcium) 5 Mg Tablet 1 Tab PO DAILY Coreg (Carvedilol) 25 Mg Tablet 25 Mg PO BIDWMEALS Aspir-Low (Aspirin) 81 Mg Tablet. 1 Tab PO DAILY Vitals/I & O Vital Sign - Last 24 Hours 03/07/19 03/07/19 03/07/19 03/07/19 10:00 12:00 13:24 16:00 Temp 98.9 98.9 Pulse 92 95 88 Resp 30 35 36 B/P (MAP) 143/70 (94) 140/73 (95) 129/70 (89) Pulse Ox 96 94 97 89 O2 Delivery Venturi Mask Venturi Mask Venturi Mask Nasal Cannula O2 Flow Rate 4.0 5/7/19 5/7/19 5/7/19 5/7/19 16:58 19:00 20:00 23:00 Temp 98.2 97.4 97.9 98.2 97.4 97.9 Pulse 81 76 84 Resp 20 20 20 B/P (MAP) 128/61 (83) 120/73 (89) 134/77 (96) Pulse Ox 92 92 90 O2 Delivery Nasal Cannula Room Air Venturi Mask Nasal Cannula O2 Flow Rate 4.0 15.0 4.0 03/08/19 03/08/19 03/08/19 03/08/19 02:01 03:00 03:05 08:00 Temp 97.5 97.8 97.5 97.8 Pulse 72 68 Resp 20 26 B/P (MAP) 124/74 (91) 156/77 (103) Pulse Ox 94 91 O2 Delivery Nasal Cannula Nasal Cannula Nasal Cannula Nasal Cannula O2 Flow Rate 4.0 4.0 4.0 4.5 Intake and Output 03/07/19 03/07/19 03/08/19 15:00 23:00 07:00 Intake Total 0 ml Output Total 175 ml 400 ml Balance -175 ml -400 ml RISHABH HARO MD March 08, 2019 09:40
[2019-03-08] MEDS: AMINO AC 3%/ELECTROLYTE/GLYCER 1,000 ML IV SCH (09:50)
--- NOTE | 2019-03-08 09:57 | PDOC ---
Provider Note Provider Note D/W Staff Medical records reviewed Pt had been transitioned to comfort measures ,awaiting transfer to Hospice house so antibiotics were dc per primary team But per discussion now with Palliative team pt is not on hospice per daughter ZACHARY RAMIREZ MD March 08, 2019 09:57
[2019-03-08] MEDS ORDERED: VANCOMYCIN 1 GM in IV NORMAL SALINE 250ML 250 ML IV SCH (10:00)
--- NOTE | 2019-03-08 10:21 | PDOC ---
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 A round confluent area of edema of the left parietal lobe which may indicate an infarct of indeterminate age on this side. MRI study of the brain without contrast is recommended for further evaluation .diffuse interstitial infiltrate with suspected linear atelectasis or trace fluid along the right minor fissure and lingular atelectasis or scarring. 41 min pt exam, chart review, > 50% of time spent with exam, chart review, pt care coordination Vitals Vitals Vital Signs Date Time Temp Pulse Resp B/P (MAP) Pulse Ox O2 Delivery O2 Flow Rate FiO2 03/08/19 08:00 97.8 68 26 156/77 (103) 91 Nasal Cannula 4.5 97.8 Physical Exam Physical Exam Lungs: Other (coarse breath sounds) Abdomen: Normal bowel sounds, Soft, No tenderness, No hepatosplenomegaly, No masses Extremities: No clubbing, No cyanosis, No edema, Normal pulses, No tenderness/swelling Skin: No rashes General: moderate distress, Other (minimal response) Heart: Regular rate, Other (tachycardic) Lungs: Clear Abdomen: Normal bowel sounds, Soft, No tenderness, No hepatosplenomegaly, No masses Extremities: No clubbing, No cyanosis, No edema, Normal pulses, No tenderness/swelling Skin: No rashes Labs LABS EXAM: Chest, single view. HISTORY: PICC placement. COMPARISON: 03/06/2019 FINDINGS: A frontal view of the chest is obtained. There is a right PICC with the tip in the superior cavoatrial junction. There is a nasogastric tube within the stomach. There is cardiomegaly and evidence of prior CABG. There is diffuse interstitial infiltrate. There is suspected linear scarring or trace fluid along the right minor fissure. There is also lingular atelectasis or scarring. No pneumothorax is seen. IMPRESSION: 1. Nasogastric tube within the stomach and right PICC with the tip in the superior cavoatrial junction. 2. Stable diffuse interstitial infiltrate with suspected linear atelectasis or trace fluid along the right minor fissure and lingular atelectasis or scarring. 3. Stable prominent cardiac silhouette. Electronically signed by: Melissa Khan MD (03/06/2019 9:45 PM) [facility] CT HEAD WO CONTRAST Clinical indications: Unresponsive. COMPARISON: None available. Technique: Noncontrast axial cross sectional scanning of the head was performed. PQRS compliance Statement One or more of the following individualized dose reduction techniques were utilized for this study: 1. Automated exposure control 2. Adjustment of the mA and/or kV according to patient size 3. Use of iterative reconstruction technique Findings: No acute intracranial hemorrhage or midline shift or mass-effect or hydrocephalus or extra-axial fluid collection is seen. There is asymmetric decrease in size of the sulci of the right cerebral hemisphere. The suarez and white matter differentiation of the right side is not as well seen in comparison to the left side. The findings may indicate diffuse edema of the right cerebral hemisphere secondary to an MCA infarct. There is periventricular white matter hypodensity on the left side which may be secondary to chronic small vessel ischemic disease. However, on axial images 18 and 19 and 20 and 21, there is a question of a more round confluent area of edema of the left parietal lobe. This may represent infarct of indeterminate age. MRI study of the brain is recommended for further evaluation. No skull fracture or pneumocephalus is seen. No opacification of the mastoid sinuses or the paranasal sinuses is seen. The maxillary sinuses are not completely seen in this study. Impression: No acute intracranial hemorrhage is seen. Findings are suggestive of diffuse cerebral edema secondary to right MCA infarct on the right side. A round confluent area of edema of the left parietal lobe which may indicate an infarct of indeterminate age on this side. MRI study of the brain without contrast is recommended for further evaluation. Note-this critical result was called to Dr. Nunez at 10:37 AM on March 06, 2019. She stated that the patient has right-sided weakness. Electronically signed by: Jorge Burgess MD (03/06/2019 10:42 AM) [place] [id number] Carotid ultrasound, 03/06/2019: HISTORY: Stroke protocol, patient found unresponsive Duplex evaluation of the carotid arteries and neck was performed including grayscale, color-flow and spectral Doppler analysis. There is mild atherosclerotic plaquing at the carotid bifurcations,, more so on the left. The plaques are partially calcified. The peak systolic velocity in the left internal carotid artery is 129 cm per sec with an end-diastolic velocity of 24 cm/s and an internal carotid to common carotid artery ratio of 1.3. These Doppler findings suggest narrowing in the 0-50 percent diameter range. The peak systolic velocity in the right internal carotid artery is 86 cm per sec with an end-diastolic velocity of 25 cm/s and an internal carotid to common carotid artery ratio of 0.9. These findings also suggest narrowing in the 0-50 percent diameter range. Antegrade flow is present in both vertebral arteries in the neck. IMPRESSION: Mild atherosclerotic plaquing at both carotid bifurcations with underlying luminal narrowing in the 0-50 percent diameter range bilaterally. Note: Stenosis calculations for CT, MRA and conventional angiography are based upon determination of the distal ICA diameter in accordance with the NASCET methodology. Stenosis calculations for Doppler studies are derived from validated velocity criteria which are known to correlate with NASCET methodology of determining stenosis. Electronically signed by: Demond Wu MD (03/06/2019 2:29 PM) [facility] DICTATED and SIGNED BY: DEMOND WU MD DATE: 03/06/19 1429 Assessment and Plan Assessmemt and Plan Problems Medical Problems: (1) Acute ischemic cerebrovascular accident (CVA) involving middle cerebral artery territory Status: Acute (2) Acute renal insufficiency Status: Acute (3) Acute respiratory distress Status: Acute (4) CHF (congestive heart failure) Status: Acute (5) GI bleeding Status: Acute (6) Hypokalemia Status: Acute (7) Severe sepsis Status: Acute Medical Problems: (1) Acute ischemic cerebrovascular accident (CVA) involving middle cerebral artery territory Status: Acute (2) Acute renal insufficiency Status: Acute (3) Acute respiratory distress Status: Acute (4) CHF (congestive heart failure) Status: Acute (5) GI bleeding Comment Review of Relevant I have reviewed the following items rich (where applicable) has been applied. Labs Laboratory Tests Test 03/06/19 13:30 Lactic Acid Level 6.5 mmol/L (0.4-2.0) Microbiology 03/06/19 Blood Culture - Final, Complete Medications Current Medications Sodium Chloride 1,000 ml @ 1,000 mls/hr Q1H IV Last administered on 03/06/19 10:40; Start 03/06/19 at 09:30; Stop 03/06/19 at 10:29; Status DC Albuterol/ Ipratropium (Duoneb) 3 ml 1X ONCE NEB Last administered on 03/06/19at 09:20; Start 03/06/19 at 09:30; Stop 03/06/19 at 09:31; Status DC Methylprednisolone Sodium Succinate (SOLU-Medrol 125MG VIAL) 125 mg 1X ONCE IV Last administered on 03/06/19 10:40; Start 03/06/19 at 09:30; Stop 03/06/19 at 09:31; Status DC Pantoprazole Sodium (PROTONIX VIAL for IV PUSH) 80 mg 1X ONCE IVP Last administered on 03/06/19 10:39; Start 03/06/19 at 09:30; Stop 03/06/19 at 09:31; Status DC Sodium Chloride 1,000 ml @ 1,000 mls/hr 1X ONCE IV Last administered on 03/06/19at 14:42; Start 03/06/19 at 09:30; Stop 03/06/19 at 10:29; Status DC Vancomycin HCl 250 ml @ 250 mls/hr 1X ONCE IV Last administered on 03/06/19at 10:41; Start 03/06/19 at 10:00; Stop 03/06/19 at 10:59; Status DC Levofloxacin/ Dextrose 150 ml @ 100 mls/hr 1X ONCE IV Last administered on 03/06/19at 10:41; Start 03/06/19 at 10:00; Stop 03/06/19 at 11:29; Status DC Sodium Chloride 1,000 ml @ 150 mls/hr Q6H40M IV Last administered on 03/07/19at 04:31; Start 03/06/19 at 11:10; Stop 03/07/19 at 11:09; Status DC Pantoprazole Sodium 80 mg/ Sodium Chloride 100 ml @ 10 mls/hr Q10H IV Last administered on 03/07/19at 03:12; Start 03/06/19 at 11:30; Stop 03/07/19 at 10:15; Status DC Ondansetron HCl (Zofran) 4 mg PRN Q6HRS PRN IV NAUSEA/VOMITING; Start 03/06/19 at 12:00; Stop 03/07/19 at 14:10; Status DC Labetalol HCl (Normodyne Iv Push) 10 mg PRN Q2HR PRN IVP HYPERTENSION, SEE COMMENTS; Start 03/06/19 at 12:00; Stop 03/07/19 at 14:10; Status DC Morphine Sulfate (Morphine Sulfate) 2 mg PRN Q2HR PRN IV PAIN Last administered on 03/08/19at 02:01; Start 03/06/19 at 12:00 Aspirin (Aspirin) 300 mg DAILY [place] Last administered on 03/07/19at 10:12; Start 03/06/19 at 12:30; Stop 03/07/19 at 14:10; Status DC Potassium Chloride/Water 100 ml @ 100 mls/hr Q1H IV Last administered on 03/07/19at 00:24; Start 03/06/19 at 13:00; Stop 03/06/19 at 16:59; Status DC Clindamycin Phosphate 50 ml @ 100 mls/hr Q8HRS IV Last administered on 03/07/19at 06:09; Start 03/06/19 at 14:00; Stop 03/07/19 at 09:10; Status DC Levofloxacin/ Dextrose (Levaquin Per Pharmacy) 1 each PRN DAILY PRN MC SEE COMMENTS; Start 03/06/19 at 13:15; Stop 03/07/19 at 14:10; Status DC Levofloxacin/ Dextrose 50 ml @ 50 mls/hr Q24H IV Last administered on 03/07/19at 08:36; Start 03/07/19 at 09:00; Stop 03/07/19 at 14:10; Status DC Meropenem 500 mg/ Sodium Chloride 50 ml @ 100 mls/hr Q8HRS IV ; Start 03/07/19 at 14:00; Stop 03/07/19 at 14:10; Status DC Vancomycin HCl (Vanco Per Pharmacy) 1 each PRN DAILY PRN MC SEE COMMENTS Last administered on 03/07/19at 13:08; Start 03/07/19 at 09:15; Stop 03/07/19 at 14:10; Status DC Vancomycin HCl 1.75 gm/Sodium Chloride 500 ml @ 250 mls/hr 1X ONCE IV Last administered on 03/07/19at 10:13; Start 03/07/19 at 10:00; Stop 03/07/19 at 14:10; Status DC Pantoprazole Sodium (PROTONIX VIAL for IV PUSH) 40 mg DAILYAC IVP ; Start 03/08/19 at 07:30; Stop 03/08/19 at 07:30; Status DC Vancomycin HCl 1 gm/Sodium Chloride 250 ml @ 250 mls/hr Q24H IV ; Start 03/08/19 at 10:00; Stop 03/08/19 at 10:00; Status DC Vancomycin HCl (Vancomycin Trough Level) 1 each 1X ONCE MC ; Start 03/09/19 at 09:30; Stop 03/09/19 at 09:30; Status DC Scopolamine (Transderm-Scop) 1 patch Q3DAYS TD Last administered on 03/07/19at 14:27; Start 03/07/19 at 15:00 Lorazepam (Ativan) 1 mg PRN Q2HRS PRN IV ANXIETY / AGITATION; Start 03/07/19 at 14:15 Amino Acids/ Glycerin/ Electrolytes 1,000 ml @ 80 mls/hr [id number] IV Last ad ministered on 03/08/19at 09:50; Start 03/08/19 at 09:30 Active Scripts Active Reported Potassium Chloride 10 Meq Tab.sr.24h 10 Meq PO DAILY Procardia Xl (Nifedipine) 60 Mg Tab.er.24 1 Tab PO DAILY Zestril (Lisinopril) 40 Mg Tablet 1 Tab PO BID Glucophage Xr (Metformin Hcl) 500 Mg Tab.er.24h 500 Mg PO DAILYWBKFT Crestor (Rosuvastatin Calcium) 5 Mg Tablet 1 Tab PO DAILY Coreg (Carvedilol) 25 Mg Tablet 25 Mg PO BIDWMEALS Aspir-Low (Aspirin) 81 Mg Tablet.dr 1 Tab PO DAILY Vitals/I & O Vital Sign - Last 24 Hours 03/07/19 03/07/19 03/07/19 03/07/19 12:00 13:24 16:00 16:58 Temp 98.9 98.2 98.9 98.2 Pulse 95 88 81 Resp 35 36 20 B/P (MAP) 140/73 (95) 129/70 (89) 128/61 (83) Pulse Ox 94 97 89 92 O2 Delivery Venturi Mask Venturi Mask Nasal Cannula Nasal Cannula O2 Flow Rate 4.0 4.0 03/07/19 03/07/19 03/07/19 03/08/19 19:00 20:00 23:00 02:01 Temp 97.4 97.9 97.4 97.9 Pulse 76 84 Resp 20 20 B/P (MAP) 120/73 (89) 134/77 (96) Pulse Ox 92 90 O2 Delivery Room Air Venturi Mask Nasal Cannula Nasal Cannula O2 Flow Rate 15.0 4.0 4.0 03/08/19 03/08/19 03/08/19 03:00 03:05 08:00 Temp 97.5 97.8 97.5 97.8 Pulse 72 68 Resp 20 26 B/P (MAP) 124/74 (91) 156/77 (103) Pulse Ox 94 91 O2 Delivery Nasal Cannula Nasal Cannula Nasal Cannula O2 Flow Rate 4.0 4.0 4.5 Intake and Output 03/07/19 03/07/19 03/08/19 15:00 23:00 07:00 Intake Total 0 ml Output Total 175 ml 400 ml Balance -175 ml -400 ml MIRELLA JONES MD March 08, 2019 10:21
[2019-03-08 11:00] VITALS: BP 197/89
--- NOTE | 2019-03-08 11:01 | PDOC ---
Infectious Disease Note Subjective: Subjective Pt opens eyes, does not follow commands d/w palliative team Daughter has taken her off hospice ROS: ROS Unable to obtain D/W RN Vital Signs: Vital Signs Vital Signs Date Time Temp Pulse Resp B/P (MAP) Pulse Ox O2 Delivery O2 Flow Rate FiO2 03/08/19 08:00 97.8 68 26 156/77 (103) 91 Nasal Cannula 4.5 97.8 Physical Exam: PHYSICAL EXAM GENERAL: Unresponsive female, tachypneic on nonrebreather mask. HEENT: Sclerae anicteric. Oral mucosa dry. Dry blood in the mouth. NECK: Supple. LUNGS: Decreased breath sounds with rhonchi in both lower lobes, right greater than the left. HEART: S1, S2, no murmurs. ABDOMEN: Soft, nontender, nondistended. EXTREMITIES: No edema, no cyanosis. CENTRAL NERVOUS SYSTEM: Unresponsive. PSYCHIATRIC: Unable to obtain. Medications: Inpatient Meds: Current Medications Medications (Trade) Dose Ordered Sig/German Start Time Stop Time Status Last Admin Dose Admin Albuterol/ Ipratropium (Duoneb) 3 ml 1X ONCE 03/06/19 09:30 03/06/19 09:31 DC 03/06/19 09:20 3 ML Amino Acids/ Glycerin/ Electrolytes 1,000 ml @ 80 mls/hr [id number] 03/08/19 09:30 03/08/19 09:50 80 MLS/HR Aspirin (Aspirin) 300 mg DAILY 03/06/19 12:30 03/07/19 14:10 DC 03/07/19 10:12 300 MG Clindamycin Phosphate 50 ml @ 100 mls/hr Q8HRS 03/06/19 14:00 03/07/19 09:10 DC 03/07/19 06:09 100 MLS/HR Labetalol HCl (Normodyne Iv Push) 10 mg PRN Q2HR PRN 03/06/19 12:00 03/07/19 14:10 DC Levofloxacin/ Dextrose 50 ml @ 50 mls/hr Q24H 03/07/19 09:00 03/07/19 14:10 DC 03/07/19 08:36 50 MLS/HR Levofloxacin/ Dextrose (Levaquin Per Pharmacy) 1 each PRN DAILY PRN 03/06/19 13:15 03/07/19 14:10 DC Lorazepam (Ativan) 1 mg PRN Q2HRS PRN 03/07/19 14:15 Meropenem 500 mg/ Sodium Chloride 50 ml @ 100 mls/hr Q8HRS 03/07/19 14:00 03/07/19 14:10 DC Methylprednisolone Sodium Succinate (SOLU-Medrol 125MG VIAL) 125 mg 1X ONCE 03/06/19 09:30 03/06/19 09:31 DC 03/06/19 10:40 125 MG Morphine Sulfate (Morphine Sulfate) 2 mg PRN Q2HR PRN 03/06/19 12:00 03/08/19 02:01 2 MG Ondansetron HCl (Zofran) 4 mg PRN Q6HRS PRN 03/06/19 12:00 03/07/19 14:10 DC Pantoprazole Sodium (PROTONIX VIAL for IV PUSH) 40 mg DAILYAC 03/08/19 07:30 03/08/19 07:30 DC Pantoprazole Sodium 80 mg/ Sodium Chloride 100 ml @ 10 mls/hr Q10H 03/06/19 11:30 03/07/19 10:15 DC 03/07/19 03:12 10 MLS/HR Potassium Chloride/Water 100 ml @ 100 mls/hr Q1H 03/06/19 13:00 03/06/19 16:59 DC 03/07/19 00:24 100 MLS/HR Scopolamine (Transderm-Scop) 1 patch Q3DAYS 03/07/19 15:00 03/07/19 14:27 1 PATCH Sodium Chloride 1,000 ml @ 150 mls/hr Q6H40M 03/06/19 11:10 03/07/19 11:09 DC 03/07/19 04:31 150 MLS/HR Vancomycin HCl (Vanco Per Pharmacy) 1 each PRN DAILY PRN 03/07/19 09:15 03/07/19 14:10 DC 03/07/19 13:08 1 EACH Vancomycin HCl (Vancomycin Trough Level) 1 each 1X ONCE 03/09/19 09:30 03/09/19 09:30 DC Vancomycin HCl 1.75 gm/Sodium Chloride 500 ml @ 250 mls/hr 1X ONCE 03/07/19 10:00 03/07/19 14:10 DC 03/07/19 10:13 250 MLS/HR Vancomycin HCl 1 gm/Sodium Chloride 250 ml @ 250 mls/hr Q24H 03/08/19 10:00 03/08/19 10:00 DC Objective: Assessment: GPC Bacteremia ID and EMILIANA pending, source unknown Large Rt MCA infarct with cerebral edema Lactic acidosis Coffee ground emesis POA Aspiration pneumonia PCN allergy hives Plan: Plan of Care Restart Merrem,tolerated well, levaquin,IV Vanc Monitor renal functions closely f/u bc results, final id and emiliana of gpcs f/u labs and cults D/W Palliative care Condition critical Prognosis poor D/W Daughter at bedside ZACHARY RAMIREZ MD March 08, 2019 11:01
[2019-03-08] MEDS ORDERED: levOFLOXacin PER PHARMACY. MC PRN (11:15)
[2019-03-08] MEDS: VANCOMYCIN PER PHARMACY MC PRN (11:17)
--- NOTE | 2019-03-08 11:19 | NUR ---
Pharmacy Vancomycin Dosing Note S:Consulted to monitor and dose vancomycin started 03/07/19. O:KEMI PASCUAL is a 79 year old F with Bacteremia Pneumonia . Height: 5 feet, 2 inches Weight: 66.163847 kg [place] Body Weight: 50.10 Adjusted Body Weight: 56.86 Dosing Weight: Actual Other Antibiotics: LEVAQUIN MERREM LABS: Last BUN: 29 Last Creatinine: 1.1 Creatinine Clearance: 37 mL/min Last WBC: 4.1 Last Procalcitonin: Tmax (past 24 hours): 99.5 Microbiology: 03/06 Bld: g+c in 02/02, suggestive of strep I/O: 2135/1000 Drug Levels: Last level: on at Last dose given 03/07/19 at 1013 Vancomycin Dosing: Loading Dose: 1750 mg x1 Dosing Weight: Actual Target Trough: 15-20 A: Based on: PREVIOUS DOSING THAT WAS DISCONTINUED YESTERDAY, P: 1. Initiate Vancomycin 1000 mg IV q24h 2. Follow up Trough level on 03/09/19 at 1130 3. Pharmacy will continue to monitor, follow and adjust therapy as needed. JONO WEST Jabari, 03/08/19 1120
--- NOTE | 2019-03-08 11:22 | NUR ---
SW following. Spoke with PC and family wants to hold off from hospice now and wants to continue treatment to see if pt improves. [facility]. Will continue to follow.
--- NOTE | 2019-03-08 11:34 | PDOC2 ---
PALLIATIVE CARE Palliative Care Note Palliative Care Patient with eyes open at times; does not follow commands. upward right gaze and occasionally moves eyes to more central position. Fredis meredith respirations. RR 28. Scopolamine patch in place. Spoke with daughter, Veronica, granddaughter Cora and son Augustine. After patient appeared more responsive to daughter this am and talking with Dr. Stephens family would like to give her more time to see if she will improve. They understand that her speech may return but not likely moving her side. Family wants to continue DNR/DNI. PPN started. Would transition to NG tube for feeding. Granddaughter not in favor of PEG tube. Continue antibiotics. Spoke with [facility] nurse. Hospice on Hold. Will re-evaluate need for Hospice later. Angely COX aware of change in plan WILFREDO MORENO March 08, 2019 11:34
[2019-03-08 12:49] LABS: BASO # 0.1 x10^3/uL (0.0-0.2); BASO % 1 % (0-3); EOS # 0.1 x10^3/uL (0.0-0.7); EOS % 0 % (0-3); HEMATOCRIT 37.3 % (36.0-47.0); HEMOGLOBIN 12.4 g/dL (12.0-15.5); LYMPH # 0.6 x10^3/uL (1.0-4.8); LYMPH % 4 % (24-48); MEAN CORPUSCULAR HEMOGLOBIN 32 pg (25-35); MEAN CORPUSCULAR HGB CONC 33 g/dL (31-37); MEAN CORPUSCULAR VOLUME 96 fL (79-100); MONO # 0.8 x10^3/uL (0.0-1.1); MONO % 5 % (0-9); NEUT # 14.6 x10^3uL (1.8-7.7); NEUT % 91 % (31-73); PLATELET COUNT 70 x10^3/uL (140-400); RED BLOOD COUNT 3.89 x10^6/uL (3.50-5.40); RED CELL DISTRIBUTION WIDTH 13.9 % (11.5-14.5); WHITE BLOOD COUNT 16.2 x10^3/uL (4.0-11.0)
[2019-03-08] MEDS: VANCOMYCIN 1 GM in IV NORMAL SALINE 250ML 250 ML IV SCH (12:49)
[2019-03-08 13:06] LABS: ALBUMIN 1.9 g/dL (3.4-5.0); ALBUMIN/GLOBULIN RATIO 0.5 (1.0-1.7); CALCIUM 8.3 mg/dL (8.5-10.1); CREATININE 0.9 mg/dL (0.6-1.0); GFR 60.6; TOTAL BILIRUBIN 0.7 mg/dL (0.2-1.0); TOTAL PROTEIN 5.9 g/dL (6.4-8.2)
--- NOTE | 2019-03-08 13:54 | PDOC ---
Objective: Objective: Reviewed w/ RN - hospice on hold, pt opened eyes and coughed earlier. No GI concerns. Reviewed PC note - on PPN, possible NGT later, granddaughter doesn't want PEG. Note IV PPI was stopped. Vital Signs: Vital Signs Date Time Temp Pulse Resp B/P (MAP) Pulse Ox O2 Delivery O2 Flow Rate FiO2 03/08/19 08:00 97.8 68 26 156/77 (103) 91 Nasal Cannula 4.5 97.8 Labs: Laboratory Tests Test 03/08/19 12:35 White Blood Count 16.2 x10^3/uL Red Blood Count 3.89 x10^6/uL Hemoglobin 12.4 g/dL Hematocrit 37.3 % Mean Corpuscular Volume 96 fL Mean Corpuscular Hemoglobin 32 pg Mean Corpuscular Hemoglobin Concent 33 g/dL Red Cell Distribution Width 13.9 % Platelet Count 70 x10^3/uL Neutrophils (%) (Auto) 91 % Lymphocytes (%) (Auto) 4 % Monocytes (%) (Auto) 5 % Eosinophils (%) (Auto) 0 % Basophils (%) (Auto) 1 % Neutrophils # (Auto) 14.6 x10^3uL Lymphocytes # (Auto) 0.6 x10^3/uL Monocytes # (Auto) 0.8 x10^3/uL Eosinophils # (Auto) 0.1 x10^3/uL Basophils # (Auto) 0.1 x10^3/uL Sodium Level 146 mmol/L Potassium Level 3.0 mmol/L Chloride Level 111 mmol/L Carbon Dioxide Level 22 mmol/L Anion Gap 13 Blood Urea Nitrogen 37 mg/dL Creatinine 0.9 mg/dL Estimated GFR (Cockcroft-Gault) 60.6 BUN/Creatinine Ratio 41 Glucose Level 165 mg/dL Lactic Acid Level 1.2 mmol/L Calcium Level 8.3 mg/dL Total Bilirubin 0.7 mg/dL Aspartate Amino Transf (AST/SGOT) 37 U/L Alanine Aminotransferase (ALT/SGPT) 30 U/L Alkaline Phosphatase 68 U/L Total Protein 5.9 g/dL Albumin 1.9 g/dL Albumin/Globulin Ratio 0.5 PE: GEN: ill LUNGS: NC, tachypneic HEART: RR ABD: S/ND/NT NEURO/PSYCH: ?more responsive A/P: Right MCA infarct, resp failure, GPC bacteremia Coffee-ground emesis - no recurrence, Hgb remains WNL, BUN 37 -- Plans as above. 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 ADELAIDE SAMSON March 08, 2019 13:54
[2019-03-08 15:00] VITALS: BP 183/85
--- NOTE | 2019-03-08 16:02 | RAD ---
EXAMINATION: Magnetic resonance imaging (MRI) of the brain and brainstem without contrast 03/08/2019 9:03 AM HISTORY: Right MCA CVA TECHNIQUE: Multiplanar multi-weighted MRI of the brain and brainstem was performed without intravenous contrast using the general brain protocol. COMPARISON: CT head March 06, 2019 FINDINGS: The scalp and calvarium are normal. The superior sagittal sinus demonstrates normal venous flow. The corpus callosum is normal in shape and signal intensity. The posterior fossa is unremarkable. The pituitary and sella are normal. The brainstem and craniocervical junction are unremarkable. Diffusion weighted images reveal no hyperintensities to suggest acute cerebral infarction. The susceptibility weighted sequences reveal no evidence of acute or chronic hemorrhage. Ventricles, sulci and basal cisterns are prominent compatible with mild generalized cerebral volume loss. The paranasal sinuses are normal. The visualized portions of the mastoids are unremarkable. The orbits appear normal. Normal flow voids are demonstrated in the carotid arteries and basilar artery. IMPRESSION: Punctate acute infarct in the left temporal lobe without significant edema, hemorrhage or mass effect. There is no large territorial right MCA infarct. No definite cerebral edema is visualized. There is dependent diffusion signal alteration involving the occipital horns of the lateral ventricles which may be seen with debris, blood products or ventriculitis. There is no susceptibility artifact in this region with intraventricular hemorrhage therefore less likely. This finding cannot be confirmed on additional sequences and could be artifactual. Short-term follow-up MRI may be of benefit. Critical result: Findings discussed with Melissa, the patient's nurse at 03/08/2019 3:56 PM. FOR INTERNAL CODING PURPOSES RESULT CODE: (C) Electronically signed by: Fernanda Newby MD (03/08/2019 3:59 PM) [facility]
[2019-03-08] MEDS: FAMOTIDINE 20 MG/2 ML VIAL IVP SCH (16:05)
[2019-03-08] MEDS: MEROPENEM 500 MG in IV NORMAL SALINE 50ML 50 ML IV SCH ×2 (16:06→21:39)
[2019-03-08 19:00] VITALS: BP 177/86
[2019-03-08] MEDS: ACETAMINOPHEN 650 MG SUPP.RECT. PR PRN (19:51)
[2019-03-08 23:00] VITALS: BP 176/92
[2019-03-09] VITALS (8 sets, daily range): BP systolic 172–196; BP diastolic 83–113
[2019-03-09] MEDS: AMINO AC 3%/ELECTROLYTE/GLYCER 1,000 ML IV SCH ×3 (04:12→22:12)
[2019-03-09] MEDS: MORPHINE SULFATE 2 MG/ML VIAL. IV PRN (04:13)
[2019-03-09] MEDS: MEROPENEM 500 MG in IV NORMAL SALINE 50ML 50 ML IV SCH ×3 (05:32→22:12)
[2019-03-09] MEDS ORDERED: METOPROLOL TARTRATE 5 MG/5 ML VIAL. IVP ONE (07:15)
[2019-03-09] MEDS: FAMOTIDINE 20 MG/2 ML VIAL IVP SCH (08:00)
[2019-03-09] MEDS: ACETAMINOPHEN 650 MG SUPP.RECT. PR PRN (08:01)
--- NOTE | 2019-03-09 08:57 | PDOC ---
PULMONARY PROGRESS NOTES Subjective PT ASLEEP PT FAMILY STATES AT TIMES SHE AWAKENS AND RECOGNIZES THE FAMILY Vitals Vital Signs Date Time Temp Pulse Resp B/P (MAP) Pulse Ox O2 Delivery O2 Flow Rate FiO2 03/09/19 08:00 99 196/91 03/09/19 07:00 100.7 18 90 Venturi Mask 15.0 100.7 General: Lethargic Lungs: Crackles Cardiovascular: S1, S2 Abdomen: Soft Extremities: No Edema Skin: Warm Labs Laboratory Tests Test 03/08/19 12:35 White Blood Count 16.2 x10^3/uL (4.0-11.0) Red Blood Count 3.89 x10^6/uL (3.50-5.40) Hemoglobin 12.4 g/dL (12.0-15.5) Hematocrit 37.3 % (36.0-47.0) Mean Corpuscular Volume 96 fL (79-100) Mean Corpuscular Hemoglobin 32 pg (25-35) Mean Corpuscular Hemoglobin Concent 33 g/dL (31-37) Red Cell Distribution Width 13.9 % (11.5-14.5) Platelet Count 70 x10^3/uL (140-400) Neutrophils (%) (Auto) 91 % (31-73) Lymphocytes (%) (Auto) 4 % (24-48) Monocytes (%) (Auto) 5 % (0-9) Eosinophils (%) (Auto) 0 % (0-3) Basophils (%) (Auto) 1 % (0-3) Neutrophils # (Auto) 14.6 x10^3uL (1.8-7.7) Lymphocytes # (Auto) 0.6 x10^3/uL (1.0-4.8) Monocytes # (Auto) 0.8 x10^3/uL (0.0-1.1) Eosinophils # (Auto) 0.1 x10^3/uL (0.0-0.7) Basophils # (Auto) 0.1 x10^3/uL (0.0-0.2) Sodium Level 146 mmol/L (136-145) Potassium Level 3.0 mmol/L (3.5-5.1) Chloride Level 111 mmol/L (98-107) Carbon Dioxide Level 22 mmol/L (21-32) Anion Gap 13 (6-14) Blood Urea Nitrogen 37 mg/dL (7-20) Creatinine 0.9 mg/dL (0.6-1.0) Estimated GFR (Cockcroft-Gault) 60.6 BUN/Creatinine Ratio 41 (6-20) Glucose Level 165 mg/dL (70-99) Lactic Acid Level 1.2 mmol/L (0.4-2.0) Calcium Level 8.3 mg/dL (8.5-10.1) Total Bilirubin 0.7 mg/dL (0.2-1.0) Aspartate Amino Transf (AST/SGOT) 37 U/L (15-37) Alanine Aminotransferase (ALT/SGPT) 30 U/L (14-59) Alkaline Phosphatase 68 U/L (46-116) Total Protein 5.9 g/dL (6.4-8.2) Albumin 1.9 g/dL (3.4-5.0) Albumin/Globulin Ratio 0.5 (1.0-1.7) Laboratory Tests Test 03/08/19 12:35 White Blood Count 16.2 x10^3/uL (4.0-11.0) Red Blood Count 3.89 x10^6/uL (3.50-5.40) Hemoglobin 12.4 g/dL (12.0-15.5) Hematocrit 37.3 % (36.0-47.0) Mean Corpuscular Volume 96 fL (79-100) Mean Corpuscular Hemoglobin 32 pg (25-35) Mean Corpuscular Hemoglobin Concent 33 g/dL (31-37) Red Cell Distribution Width 13.9 % (11.5-14.5) Platelet Count 70 x10^3/uL (140-400) Neutrophils (%) (Auto) 91 % (31-73) Lymphocytes (%) (Auto) 4 % (24-48) Monocytes (%) (Auto) 5 % (0-9) Eosinophils (%) (Auto) 0 % (0-3) Basophils (%) (Auto) 1 % (0-3) Neutrophils # (Auto) 14.6 x10^3uL (1.8-7.7) Lymphocytes # (Auto) 0.6 x10^3/uL (1.0-4.8) Monocytes # (Auto) 0.8 x10^3/uL (0.0-1.1) Eosinophils # (Auto) 0.1 x10^3/uL (0.0-0.7) Basophils # (Auto) 0.1 x10^3/uL (0.0-0.2) Sodium Level 146 mmol/L (136-145) Potassium Level 3.0 mmol/L (3.5-5.1) Chloride Level 111 mmol/L (98-107) Carbon Dioxide Level 22 mmol/L (21-32) Anion Gap 13 (6-14) Blood Urea Nitrogen 37 mg/dL (7-20) Creatinine 0.9 mg/dL (0.6-1.0) Estimated GFR (Cockcroft-Gault) 60.6 BUN/Creatinine Ratio 41 (6-20) Glucose Level 165 mg/dL (70-99) Lactic Acid Level 1.2 mmol/L (0.4-2.0) Calcium Level 8.3 mg/dL (8.5-10.1) Total Bilirubin 0.7 mg/dL (0.2-1.0) Aspartate Amino Transf (AST/SGOT) 37 U/L (15-37) Alanine Aminotransferase (ALT/SGPT) 30 U/L (14-59) Alkaline Phosphatase 68 U/L (46-116) Total Protein 5.9 g/dL (6.4-8.2) Albumin 1.9 g/dL (3.4-5.0) Albumin/Globulin Ratio 0.5 (1.0-1.7) Medications Active Scripts Medications Dose Route/Sig Max Daily Dose Days Date Category Potassium Chloride 10 Meq Tab.sr.24h 10 Meq PO DAILY 03/06/19 Reported Procardia Xl (Nifedipine) 60 Mg Tab.er.24 1 Tab PO DAILY 03/06/19 Reported Zestril (Lisinopril) 40 Mg Tablet 1 Tab PO BID 03/06/19 Reported Glucophage Xr (Metformin Hcl) 500 Mg Tab.er.24h 500 Mg PO DAILYWBKFT 03/06/19 Reported Crestor (Rosuvastatin Calcium) 5 Mg Tablet 1 Tab PO DAILY 03/06/19 Reported Coreg (Carvedilol) 25 Mg Tablet 25 Mg PO BIDWMEALS 03/06/19 Reported Aspir-Low (Aspirin) 81 Mg Tablet.dr 1 Tab PO DAILY 03/06/19 Reported Impression . IMPRESSION: 1. Acute hypoxic respiratory failure secondary to aspiration pneumonia from recent stroke. 2. Acute metabolic encephalopathy secondary to ischemic stroke. 3. CVA PER MRI NO CEREBRAL EDEMA 4. Abnormal CXR consistent with right lung aspiration pneumonia. 5. 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 No improvement, prognosis guarded, may not be large enough to be life-threatening CT HEAD 03/06 Impression: No acute intracranial hemorrhage is seen. Findings are suggestive of diffuse cerebral edema secondary to right MCA infarct on the right side. A round confluent area of edema of the left parietal lobe which may indicate an infarct of indeterminate age on this side. MRI study of the brain without contrast is recommended for further evaluation. IMPRESSION: Punctate acute infarct in the left temporal lobe without significant edema, hemorrhage or mass effect. There is no large territorial right MCA infarct. No definite cerebral edema is visualized. There is dependent diffusion signal alteration involving the occipital horns of the lateral ventricles which may be seen with debris, blood products or ventriculitis. There is no susceptibility artifact in this region with intraventricular hemorrhage therefore less likely. This finding cannot be confirmed on additional sequences and could be artifactual. Short-term follow-up MRI may be of benefit. Plan . TPN ANTIBX PT FAMILY IS CONTEMPLATING PEG AND LTAC IF PT CONTINUES TO IMPROVE D/W DAUGHTER AT BEDSIDE D/W PAT PALLIATIVE CARE FLAKITA MARY MD March 09, 2019 08:57
--- NOTE | 2019-03-09 09:06 | PDOC ---
Infectious Disease Note Subjective: Subjective Pt not responsive today had fever WBC 16 K ROS: ROS unable to obtain d/w RN Vital Signs: Vital Signs Vital Signs Date Time Temp Pulse Resp B/P (MAP) Pulse Ox O2 Delivery O2 Flow Rate FiO2 03/09/19 08:00 99 196/91 03/09/19 07:00 100.7 18 90 Venturi Mask 15.0 100.7 Physical Exam: PHYSICAL EXAM GENERAL: Unresponsive female, tachypneic on nonrebreather mask. HEENT: Sclerae anicteric. Oral mucosa dry. LUNGS: Decreased breath sounds with rhonchi in both lower lobes, right greater than the left. HEART: S1, S2, tachycardia ABDOMEN: Soft, nontender, nondistended. EXTREMITIES: trace edema, no cyanosis. CENTRAL NERVOUS SYSTEM: Unresponsive. PSYCHIATRIC: Unable to obtain. DERM no gen rash Medications: Inpatient Meds: Current Medications Medications (Trade) Dose Ordered Sig/German Start Time Stop Time Status Last Admin Dose Admin Acetaminophen (Tylenol Supp) 650 mg PRN Q6HRS PRN 03/08/19 19:00 03/09/19 08:01 650 MG Albuterol/ Ipratropium (Duoneb) 3 ml 1X ONCE 03/06/19 09:30 03/06/19 09:31 DC 03/06/19 09:20 3 ML Amino Acids/ Glycerin/ Electrolytes 1,000 ml @ 80 mls/hr [id number] 03/08/19 09:30 03/09/19 08:01 80 MLS/HR Aspirin (Aspirin) 300 mg DAILY 03/06/19 12:30 03/07/19 14:10 DC 03/07/19 10:12 300 MG Clindamycin Phosphate 50 ml @ 100 mls/hr Q8HRS 03/06/19 14:00 03/07/19 09:10 DC 03/07/19 06:09 100 MLS/HR Famotidine (Pepcid Vial) 20 mg DAILY 03/08/19 14:00 03/09/19 08:00 20 MG Labetalol HCl (Normodyne Iv Push) 10 mg PRN Q2HR PRN 03/06/19 12:00 03/07/19 14:10 DC Levofloxacin/ Dextrose 150 ml @ 100 mls/hr Q48H 03/09/19 09:00 03/09/19 08:00 100 MLS/HR Levofloxacin/ Dextrose (Levaquin Per Pharmacy) 1 each PRN DAILY PRN 03/08/19 11:15 Lorazepam (Ativan) 1 mg PRN Q2HRS PRN 03/07/19 14:15 Meropenem 500 mg/ Sodium Chloride 50 ml @ 100 mls/hr Q8HRS 03/08/19 14:00 03/09/19 05:32 100 MLS/HR Methylprednisolone Sodium Succinate (SOLU-Medrol 125MG VIAL) 125 mg 1X ONCE 03/06/19 09:30 03/06/19 09:31 DC 03/06/19 10:40 125 MG Metoprolol Tartrate (Lopressor Vial) 5 mg 1X ONCE 03/09/19 07:15 03/09/19 07:16 DC 03/09/19 08:00 5 MG Morphine Sulfate (Morphine Sulfate) 2 mg PRN Q2HR PRN 03/06/19 12:00 03/09/19 04:13 2 MG Ondansetron HCl (Zofran) 4 mg PRN Q6HRS PRN 03/06/19 12:00 03/07/19 14:10 DC Pantoprazole Sodium (PROTONIX VIAL for IV PUSH) 40 mg DAILYAC 03/08/19 07:30 03/08/19 07:30 DC Pantoprazole Sodium 80 mg/ Sodium Chloride 100 ml @ 10 mls/hr Q10H 03/06/19 11:30 03/07/19 10:15 DC 03/07/19 03:12 10 MLS/HR Potassium Chloride/Water 100 ml @ 100 mls/hr Q1H 03/06/19 13:00 03/06/19 16:59 DC 03/07/19 00:24 100 MLS/HR Scopolamine (Transderm-Scop) 1 patch Q3DAYS 03/07/19 15:00 03/07/19 14:27 1 PATCH Sodium Chloride 1,000 ml @ 150 mls/hr Q6H40M 03/06/19 11:10 03/07/19 11:09 DC 03/07/19 04:31 150 MLS/HR Vancomycin HCl (Vanco Per Pharmacy) 1 each PRN DAILY PRN 03/08/19 11:15 03/08/19 11:17 1 EACH Vancomycin HCl (Vancomycin Trough Level) 1 each 1X ONCE 03/09/19 11:30 03/09/19 11:31 Vancomycin HCl 1.75 gm/Sodium Chloride 500 ml @ 250 mls/hr 1X ONCE 03/07/19 10:00 03/07/19 14:10 DC 03/07/19 10:13 250 MLS/HR Vancomycin HCl 1 gm/Sodium Chloride 250 ml @ 250 mls/hr Q24H 03/08/19 12:00 03/08/19 12:49 250 MLS/HR Labs: Lab Laboratory Tests Test 03/08/19 12:35 White Blood Count 16.2 x10^3/uL (4.0-11.0) Red Blood Count 3.89 x10^6/uL (3.50-5.40) Hemoglobin 12.4 g/dL (12.0-15.5) Hematocrit 37.3 % (36.0-47.0) Mean Corpuscular Volume 96 fL (79-100) Mean Corpuscular Hemoglobin 32 pg (25-35) Mean Corpuscular Hemoglobin Concent 33 g/dL (31-37) Red Cell Distribution Width 13.9 % (11.5-14.5) Platelet Count 70 x10^3/uL (140-400) Neutrophils (%) (Auto) 91 % (31-73) Lymphocytes (%) (Auto) 4 % (24-48) Monocytes (%) (Auto) 5 % (0-9) Eosinophils (%) (Auto) 0 % (0-3) Basophils (%) (Auto) 1 % (0-3) Neutrophils # (Auto) 14.6 x10^3uL (1.8-7.7) Lymphocytes # (Auto) 0.6 x10^3/uL (1.0-4.8) Monocytes # (Auto) 0.8 x10^3/uL (0.0-1.1) Eosinophils # (Auto) 0.1 x10^3/uL (0.0-0.7) Basophils # (Auto) 0.1 x10^3/uL (0.0-0.2) Sodium Level 146 mmol/L (136-145) Potassium Level 3.0 mmol/L (3.5-5.1) Chloride Level 111 mmol/L (98-107) Carbon Dioxide Level 22 mmol/L (21-32) Anion Gap 13 (6-14) Blood Urea Nitrogen 37 mg/dL (7-20) Creatinine 0.9 mg/dL (0.6-1.0) Estimated GFR (Cockcroft-Gault) 60.6 BUN/Creatinine Ratio 41 (6-20) Glucose Level 165 mg/dL (70-99) Lactic Acid Level 1.2 mmol/L (0.4-2.0) Calcium Level 8.3 mg/dL (8.5-10.1) Total Bilirubin 0.7 mg/dL (0.2-1.0) Aspartate Amino Transf (AST/SGOT) 37 U/L (15-37) Alanine Aminotransferase (ALT/SGPT) 30 U/L (14-59) Alkaline Phosphatase 68 U/L (46-116) Total Protein 5.9 g/dL (6.4-8.2) Albumin 1.9 g/dL (3.4-5.0) Albumin/Globulin Ratio 0.5 (1.0-1.7) Micro RUN DATE: 03/08/19 PAGE 1 RUN TIME: 180 [facility] [address] [place] [address] Juan A Crowell M.D., Director Of Athletics PATIENT: KEMI PASCUAL John ACCT: [id number] LOC: [address] [place] [address] U: [id number] AGE/SX: 79/F ROOM: 514 RE03/06/[address]: GERTRUDE VILLASENOR MD : 1940 BED: 1 DIS: STATUS: ADM IN TLOC: SPEC #: [id number] CHARBEL: 03/06/19 STATUS: RES REQ #: [id number] RECD: 03/06/[address] [facility] [address]: RIC MARSHALL MD SOURCE: BLOOD ENTR: 03/06/19-[address]: MIKA JONES MD [facility]: ORDERED: BLD CULT - LC Procedure Result BLOOD CULTURE LC Preliminary Preliminary report BLD CULT RESULT 1 Preliminary Streptococcus species Performed at: DA - [facility] [address], [place], [place] [id number] Client Evaluator: PARIS Olvera MD, Phone: [phone] Objective: Assessment: GPC Sepsis , Strep Bacteremia POA 4/4 bottles, prelim strep , EMILIANA pending, source unknown Large Rt MCA infarct with cerebral edema Lactic acidosis Coffee ground emesis POA Aspiration pneumonia PCN allergy hives leucocytosis Plan: Plan of Care Restarted Merrem,tolerated well, levaquin,IV Vanc 03/08 per daughters request as status was changed from hospice as family wants trial Monitor renal functions closely f/u bc results, final id and emiliana of gpcs f/u labs and cults Palliative care on case Condition critical Prognosis poor D/W Daughter at bedside D/W ZACHARY WILKINS MD March 09, 2019 09:06
--- NOTE | 2019-03-09 09:37 | PDOC ---
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 A round confluent area of edema of the left parietal lobe which may indicate an infarct of indeterminate age on this side. MRI study of the brain without contrast is recommended for further evaluation .diffuse interstitial infiltrate with suspected linear atelectasis or trace fluid along the right minor fissure and lingular atelectasis or scarring. Restarted Merrem,tolerated well, levaquin,IV Vanc 03/08 43 min pt exam, chart review, > 50% of time spent with exam, chart review, pt care coordination, GRIM PROGNOSIS, FAMILY AWARE D/W FAMILY IN ROOM Vitals Vitals Vital Signs Date Time Temp Pulse Resp B/P (MAP) Pulse Ox O2 Delivery O2 Flow Rate FiO2 03/09/19 08:00 Nasal Cannula 15.0 03/09/19 08:00 99 196/91 03/09/19 07:00 100.7 18 90 100.7 Physical Exam Physical Exam Lungs: Other (coarse breath sounds) Abdomen: Normal bowel sounds, Soft, No tenderness, No hepatosplenomegaly, No masses Extremities: No clubbing, No cyanosis, No edema, Normal pulses, No tenderness/swelling Skin: No rashes General: moderate distress, Other (minimal response) Heart: Regular rate, Other (tachycardic) Lungs: Crackles, Other (FEW MOIST CRACKLES RUL, RLL) Abdomen: Normal bowel sounds, Soft, No tenderness, No hepatosplenomegaly, No masses Extremities: No clubbing, No cyanosis, No edema, Normal pulses, No tenderness/swelling Skin: No rashes Labs LABS Laboratory Tests Test 03/08/19 12:35 White Blood Count 16.2 x10^3/uL (4.0-11.0) Red Blood Count 3.89 x10^6/uL (3.50-5.40) Hemoglobin 12.4 g/dL (12.0-15.5) Hematocrit 37.3 % (36.0-47.0) Mean Corpuscular Volume 96 fL (79-100) Mean Corpuscular Hemoglobin 32 pg (25-35) Mean Corpuscular Hemoglobin Concent 33 g/dL (31-37) Red Cell Distribution Width 13.9 % (11.5-14.5) Platelet Count 70 x10^3/uL (140-400) Neutrophils (%) (Auto) 91 % (31-73) Lymphocytes (%) (Auto) 4 % (24-48) Monocytes (%) (Auto) 5 % (0-9) Eosinophils (%) (Auto) 0 % (0-3) Basophils (%) (Auto) 1 % (0-3) Neutrophils # (Auto) 14.6 x10^3uL (1.8-7.7) Lymphocytes # (Auto) 0.6 x10^3/uL (1.0-4.8) Monocytes # (Auto) 0.8 x10^3/uL (0.0-1.1) Eosinophils # (Auto) 0.1 x10^3/uL (0.0-0.7) Basophils # (Auto) 0.1 x10^3/uL (0.0-0.2) Sodium Level 146 mmol/L (136-145) Potassium Level 3.0 mmol/L (3.5-5.1) Chloride Level 111 mmol/L (98-107) Carbon Dioxide Level 22 mmol/L (21-32) Anion Gap 13 (6-14) Blood Urea Nitrogen 37 mg/dL (7-20) Creatinine 0.9 mg/dL (0.6-1.0) Estimated GFR (Cockcroft-Gault) 60.6 BUN/Creatinine Ratio 41 (6-20) Glucose Level 165 mg/dL (70-99) Lactic Acid Level 1.2 mmol/L (0.4-2.0) Calcium Level 8.3 mg/dL (8.5-10.1) Total Bilirubin 0.7 mg/dL (0.2-1.0) Aspartate Amino Transf (AST/SGOT) 37 U/L (15-37) Alanine Aminotransferase (ALT/SGPT) 30 U/L (14-59) Alkaline Phosphatase 68 U/L (46-116) Total Protein 5.9 g/dL (6.4-8.2) Albumin 1.9 g/dL (3.4-5.0) Albumin/Globulin Ratio 0.5 (1.0-1.7) Assessment and Plan Assessmemt and Plan Problems Medical Problems: (1) Acute ischemic cerebrovascular accident (CVA) involving middle cerebral artery territory Status: Acute (2) Acute renal insufficiency Status: Acute (3) Acute respiratory distress Status: Acute (4) CHF (congestive heart failure) Status: Acute (5) GI bleeding Status: Acute (6) Hypokalemia Status: Acute (7) Severe sepsis Status: Acute Comment Review of Relevant I have reviewed the following items rich (where applicable) has been applied. Labs Laboratory Tests Test 03/08/19 12:35 White Blood Count 16.2 x10^3/uL (4.0-11.0) Red Blood Count 3.89 x10^6/uL (3.50-5.40) Hemoglobin 12.4 g/dL (12.0-15.5) Hematocrit 37.3 % (36.0-47.0) Mean Corpuscular Volume 96 fL (79-100) Mean Corpuscular Hemoglobin 32 pg (25-35) Mean Corpuscular Hemoglobin Concent 33 g/dL (31-37) Red Cell Distribution Width 13.9 % (11.5-14.5) Platelet Count 70 x10^3/uL (140-400) Neutrophils (%) (Auto) 91 % (31-73) Lymphocytes (%) (Auto) 4 % (24-48) Monocytes (%) (Auto) 5 % (0-9) Eosinophils (%) (Auto) 0 % (0-3) Basophils (%) (Auto) 1 % (0-3) Neutrophils # (Auto) 14.6 x10^3uL (1.8-7.7) Lymphocytes # (Auto) 0.6 x10^3/uL (1.0-4.8) Monocytes # (Auto) 0.8 x10^3/uL (0.0-1.1) Eosinophils # (Auto) 0.1 x10^3/uL (0.0-0.7) Basophils # (Auto) 0.1 x10^3/uL (0.0-0.2) Sodium Level 146 mmol/L (136-145) Potassium Level 3.0 mmol/L (3.5-5.1) Chloride Level 111 mmol/L (98-107) Carbon Dioxide Level 22 mmol/L (21-32) Anion Gap 13 (6-14) Blood Urea Nitrogen 37 mg/dL (7-20) Creatinine 0.9 mg/dL (0.6-1.0) Estimated GFR (Cockcroft-Gault) 60.6 BUN/Creatinine Ratio 41 (6-20) Glucose Level 165 mg/dL (70-99) Lactic Acid Level 1.2 mmol/L (0.4-2.0) Calcium Level 8.3 mg/dL (8.5-10.1) Total Bilirubin 0.7 mg/dL (0.2-1.0) Aspartate Amino Transf (AST/SGOT) 37 U/L (15-37) Alanine Aminotransferase (ALT/SGPT) 30 U/L (14-59) Alkaline Phosphatase 68 U/L (46-116) Total Protein 5.9 g/dL (6.4-8.2) Albumin 1.9 g/dL (3.4-5.0) Albumin/Globulin Ratio 0.5 (1.0-1.7) Laboratory Tests Test 03/08/19 12:35 White Blood Count 16.2 x10^3/uL (4.0-11.0) Red Blood Count 3.89 x10^6/uL (3.50-5.40) Hemoglobin 12.4 g/dL (12.0-15.5) Hematocrit 37.3 % (36.0-47.0) Mean Corpuscular Volume 96 fL (79-100) Mean Corpuscular Hemoglobin 32 pg (25-35) Mean Corpuscular Hemoglobin Concent 33 g/dL (31-37) Red Cell Distribution Width 13.9 % (11.5-14.5) Platelet Count 70 x10^3/uL (140-400) Neutrophils (%) (Auto) 91 % (31-73) Lymphocytes (%) (Auto) 4 % (24-48) Monocytes (%) (Auto) 5 % (0-9) Eosinophils (%) (Auto) 0 % (0-3) Basophils (%) (Auto) 1 % (0-3) Neutrophils # (Auto) 14.6 x10^3uL (1.8-7.7) Lymphocytes # (Auto) 0.6 x10^3/uL (1.0-4.8) Monocytes # (Auto) 0.8 x10^3/uL (0.0-1.1) Eosinophils # (Auto) 0.1 x10^3/uL (0.0-0.7) Basophils # (Auto) 0.1 x10^3/uL (0.0-0.2) Sodium Level 146 mmol/L (136-145) Potassium Level 3.0 mmol/L (3.5-5.1) Chloride Level 111 mmol/L (98-107) Carbon Dioxide Level 22 mmol/L (21-32) Anion Gap 13 (6-14) Blood Urea Nitrogen 37 mg/dL (7-20) Creatinine 0.9 mg/dL (0.6-1.0) Estimated GFR (Cockcroft-Gault) 60.6 BUN/Creatinine Ratio 41 (6-20) Glucose Level 165 mg/dL (70-99) Lactic Acid Level 1.2 mmol/L (0.4-2.0) Calcium Level 8.3 mg/dL (8.5-10.1) Total Bilirubin 0.7 mg/dL (0.2-1.0) Aspartate Amino Transf (AST/SGOT) 37 U/L (15-37) Alanine Aminotransferase (ALT/SGPT) 30 U/L (14-59) Alkaline Phosphatase 68 U/L (46-116) Total Protein 5.9 g/dL (6.4-8.2) Albumin 1.9 g/dL (3.4-5.0) Albumin/Globulin Ratio 0.5 (1.0-1.7) Microbiology 03/06/19 Blood Culture - Final, Complete Medications Current Medications Sodium Chloride 1,000 ml @ 1,000 mls/hr Q1H IV Last administered on 03/06/19at 10:40; Start 03/06/19 at 09:30; Stop 03/06/19 at 10:29; Status DC Albuterol/ Ipratropium (Duoneb) 3 ml 1X ONCE NEB Last administered on 03/06/19at 09:20; Start 03/06/19 at 09:30; Stop 03/06/19 at 09:31; Status DC Methylprednisolone Sodium Succinate (SOLU-Medrol 125MG VIAL) 125 mg 1X ONCE IV Last administered on 03/06/19at 10:40; Start 03/06/19 at 09:30; Stop 03/06/19 at 09:31; Status DC Pantoprazole Sodium (PROTONIX VIAL for IV PUSH) 80 mg 1X ONCE IVP Last administered on 03/06/19at 10:39; Start 03/06/19 at 09:30; Stop 03/06/19 at 09:31; Status DC Sodium Chloride 1,000 ml @ 1,000 mls/hr 1X ONCE IV Last administered on 03/06/19at 14:42; Start 03/06/19 at 09:30; Stop 03/06/19 at 10:29; Status DC Vancomycin HCl 250 ml @ 250 mls/hr 1X ONCE IV Last administered on 03/06/19at 10:41; Start 03/06/19 at 10:00; Stop 03/06/19 at 10:59; Status DC Levofloxacin/ Dextrose 150 ml @ 100 mls/hr 1X ONCE IV Last administered on 03/06/19at 10:41; Start 03/06/19 at 10:00; Stop 03/06/19 at 11:29; Status DC Sodium Chloride 1,000 ml @ 150 mls/hr Q6H40M IV Last administered on 03/07/19at 04:31; Start 03/06/19 at 11:10; Stop 03/07/19 at 11:09; Status DC Pantoprazole Sodium 80 mg/ Sodium Chloride 100 ml @ 10 mls/hr Q10H IV Last administered on 03/07/19at 03:12; Start 03/06/19 at 11:30; Stop 03/07/19 at 10:15; Status DC Ondansetron HCl (Zofran) 4 mg PRN Q6HRS PRN IV NAUSEA/VOMITING; Start 03/06/19 at 12:00; Stop 03/07/19 at 14:10; Status DC Labetalol HCl (Normodyne Iv Push) 10 mg PRN Q2HR PRN IVP HYPERTENSION, SEE COMMENTS; Start 03/06/19 at 12:00; Stop 03/07/19 at 14:10; Status DC Morphine Sulfate (Morphine Sulfate) 2 mg PRN Q2HR PRN IV PAIN Last administered on 03/09/19at 04:13; Start 03/06/19 at 12:00 Aspirin (Aspirin) 300 mg DAILY [place] Last administered on 03/07/19at 10:12; Start 03/06/19 at 12:30; Stop 03/07/19 at 14:10; Status DC Potassium Chloride/Water 100 ml @ 100 mls/hr Q1H IV Last administered on 03/07/19at 00:24; Start 03/06/19 at 13:00; Stop 03/06/19 at 16:59; Status DC Clindamycin Phosphate 50 ml @ 100 mls/hr Q8HRS IV Last administered on 03/07/19at 06:09; Start 03/06/19 at 14:00; Stop 03/07/19 at 09:10; Status DC Levofloxacin/ Dextrose (Levaquin Per Pharmacy) 1 each PRN DAILY PRN MC SEE COMMENTS; Start 03/06/19 at 13:15; Stop 03/07/19 at 14:10; Status DC Levofloxacin/ Dextrose 50 ml @ 50 mls/hr Q24H IV Last administered on 03/07/19at 08:36; Start 03/07/19 at 09:00; Stop 03/07/19 at 14:10; Status DC Meropenem 500 mg/ Sodium Chloride 50 ml @ 100 mls/hr Q8HRS IV ; Start 03/07/19 at 14:00; Stop 03/07/19 at 14:10; Status DC Vancomycin HCl (Vanco Per Pharmacy) 1 each PRN DAILY PRN MC SEE COMMENTS Last administered on 03/07/19at 13:08; Start 03/07/19 at 09:15; Stop 03/07/19 at 14:10; Status DC Vancomycin HCl 1.75 gm/Sodium Chloride 500 ml @ 250 mls/hr 1X ONCE IV Last administered on 03/07/19at 10:13; Start 03/07/19 at 10:00; Stop 03/07/19 at 14:10; Status DC Pantoprazole Sodium (PROTONIX VIAL for IV PUSH) 40 mg DAILYAC IVP ; Start 03/08/19 at 07:30; Stop 03/08/19 at 07:30; Status DC Vancomycin HCl 1 gm/Sodium Chloride 250 ml @ 250 mls/hr Q24H IV ; Start 03/08/19 at 10:00; Stop 03/08/19 at 10:00; Status DC Vancomycin HCl (Vancomycin Trough Level) 1 each 1X ONCE MC ; Start 03/09/19 at 09:30; Stop 03/09/19 at 09:30; Status DC Scopolamine (Transderm-Scop) 1 patch Q3DAYS TD Last administered on 03/07/19at 14:27; Start 03/07/19 at 15:00 Lorazepam (Ativan) 1 mg PRN Q2HRS PRN IV ANXIETY / AGITATION; Start 03/07/19 at 14:15 Amino Acids/ Glycerin/ Electrolytes 1,000 ml @ 80 mls/hr [id number] IV Last administered on 03/09/19 08:01; Start 03/08/19 at 09:30 Vancomycin HCl (Vanco Per Pharmacy) 1 each PRN DAILY PRN MC SEE COMMENTS Last administered on 03/08/19 11:17; Start 03/08/19 at 11:15 Meropenem 500 mg/ Sodium Chloride 50 ml @ 100 mls/hr Q8HRS IV Last administered on 03/09/19 05:32; Start 03/08/19 at 14:00 Levofloxacin/ Dextrose (Levaquin Per Pharmacy) 1 each PRN DAILY PRN MC SEE COMMENTS; Start 03/08/19 at 11:15 Vancomycin HCl 1 gm/Sodium Chloride 250 ml @ 250 mls/hr Q24H IV Last administered on 03/08/19at 12:49; Start 03/08/19 at 12:00 Levofloxacin/ Dextrose 150 ml @ 100 mls/hr Q48H IV Last administered on 03/09/19at 08:00; Start 03/09/19 at 09:00 Vancomycin HCl (Vancomycin Trough Level) 1 each 1X ONCE MC ; Start 03/09/19 at 11:30; Stop 03/09/19 at 11:31 Famotidine (Pepcid Vial) 20 mg DAILY IVP Last administered on 03/09/19at 08:00; Start 03/08/19 at 14:00 Acetaminophen (Tylenol Supp) 650 mg PRN Q6HRS PRN NJ MILD PAIN / TEMP Last administered on 03/09/19 08:01; Start 03/08/19 at 19:00 Metoprolol Tartrate (Lopressor Vial) 5 mg 1X ONCE IVP Last administered on 5/9/19at 08:00; Start 03/09/19 at 07:15; Stop 03/09/19 at 07:16; Status DC Active Scripts Active Reported Potassium Chloride 10 Meq Tab.sr.24h 10 Meq PO DAILY Procardia Xl (Nifedipine) 60 Mg Tab.er.24 1 Tab PO DAILY Zestril (Lisinopril) 40 Mg Tablet 1 Tab PO BID Glucophage Xr (Metformin Hcl) 500 Mg Tab.er.24h 500 Mg PO DAILYWBKFT Crestor (Rosuvastatin Calcium) 5 Mg Tablet 1 Tab PO DAILY Coreg (Carvedilol) 25 Mg Tablet 25 Mg PO BIDWMEALS Aspir-Low (Aspirin) 81 Mg Tablet. 1 Tab PO DAILY Vitals/I & O Vital Sign - Last 24 Hours 03/08/19 03/08/19 03/08/19 03/08/19 11:00 15:00 15:15 17:28 Pulse 75 87 Resp 30 30 B/P (MAP) 197/89 (125) 183/85 (117) Pulse Ox 91 87 90 90 O2 Delivery Nasal Cannula Nasal Cannula Nasal Cannula Venturi Mask O2 Flow Rate 5.0 5.0 6.0 15.0 03/08/19 03/08/19 03/08/19 03/09/19 19:00 20:00 23:00 03:00 Temp 101.7 100.6 99.5 101.7 100.6 99.5 Pulse 100 102 88 Resp 18 24 22 B/P (MAP) 177/86 (116) 176/92 (120) 174/94 (120) Pulse Ox 91 91 91 O2 Delivery Venturi Mask Nasal Cannula Venturi Mask Venturi Mask O2 Flow Rate 5.0 5.0 5.0 5.0 03/09/19 03/09/19 03/09/19 03/09/19 04:13 04:43 05:32 07:00 Temp 100.7 100.7 Pulse 93 99 Resp 22 18 B/P (MAP) 172/85 (114) 196/91 (126) Pulse Ox 91 91 90 O2 Delivery Nasal Cannula Nasal Cannula Venturi Mask O2 Flow Rate 5.0 5.0 15.0 03/09/19 03/09/19 08:00 08:00 Pulse 99 B/P (MAP) 196/91 O2 Delivery Nasal Cannula O2 Flow Rate 15.0 Intake and Output 03/08/19 03/08/19 03/09/19 15:00 23:00 07:00 Intake Total 50 ml 0 ml Output Total 1500 ml 450 ml Balance -1450 ml -450 ml MIRELLA JONES MD March 09, 2019 09:37
--- NOTE | 2019-03-09 12:37 | PDOC ---
Subjective: Subjective: D/w family - less responsive today, has a fever. Objective: Objective: D/w RN - no GI concerns. On PPN. Vital Signs: Vital Signs Date Time Temp Pulse Resp B/P (MAP) Pulse Ox O2 Delivery O2 Flow Rate FiO2 03/09/19 11:11 99.4 88 16 188/83 (118) 93 Venturi Mask 15.0 99.4 Labs: Laboratory Tests Test 03/09/19 11:45 Vancomycin Level Trough 5.0 mcg/mL Vancomycin Last Dose Date 03/08/19 Vancomycin Last Dose Time 1200 Imaging: Brain MRI IMPRESSION: Punctate acute infarct in the left temporal lobe without significant edema, hemorrhage or mass effect. There is no large territorial right MCA infarct. No definite cerebral edema is visualized. There is dependent diffusion signal alteration involving the occipital horns of the lateral ventricles which may be seen with debris, blood products or ventriculitis. There is no susceptibility artifact in this region with intraventricular hemorrhage therefore less likely. This finding cannot be confirmed on additional sequences and could be artifactual. Short-term follow-up MRI may be of benefit. PE: GEN: NAD, washcloth on forehead LUNGS: breathing mask NEURO/PSYCH: eyes closed A/P: Right MCA infarct, resp failure, strep bacteremia, fever Coffee-ground emesis - no recurrence -- Continue same per GI. ADELAIDE SAMSON March 09, 2019 12:37
[2019-03-09] MEDS: VANCOMYCIN 1 GM in IV NORMAL SALINE 250ML 250 ML IV SCH (13:21)
--- NOTE | 2019-03-09 14:34 | PDOC ---
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, but MRI does not show this and instead there is a small left temporal infarct, possible blood debris in the ventricles Plan Will likely need PEG Hold aspirin Repeat MRI next week Also will consider EEG Subjective none Objective Vital Signs Date Time Temp Pulse Resp B/P (MAP) Pulse Ox O2 Delivery O2 Flow Rate FiO2 03/09/19 11:11 99.4 88 16 188/83 (118) 93 Venturi Mask 15.0 99.4 Intake and Output 03/09/19 06:59 Intake Total 50 ml Output Total 1950 ml Balance -1900 ml Intake Oral 0 ml IV Total 50 ml Output Urine Total 1950 ml PHYSICAL EXAM Eyes closed, not responsive to visual threat or voice, does not follow commands. Regular respirations Pupils pinpoint, slight reactivity. No gaze preference CN: no focal findings. 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 Sensory exam: not cooperative. Cerebellar: not cooperative Review of Relevant I have reviewed the following items rich (where applicable) has been applied. Labs Laboratory Tests Test 03/08/19 12:35 03/09/19 11:45 White Blood Count 16.2 x10^3/uL (4.0-11.0) Red Blood Count 3.89 x10^6/uL (3.50-5.40) Hemoglobin 12.4 g/dL (12.0-15.5) Hematocrit 37.3 % (36.0-47.0) Mean Corpuscular Volume 96 fL (79-100) Mean Corpuscular Hemoglobin 32 pg (25-35) Mean Corpuscular Hemoglobin Concent 33 g/dL (31-37) Red Cell Distribution Width 13.9 % (11.5-14.5) Platelet Count 70 x10^3/uL (140-400) Neutrophils (%) (Auto) 91 % (31-73) Lymphocytes (%) (Auto) 4 % (24-48) Monocytes (%) (Auto) 5 % (0-9) Eosinophils (%) (Auto) 0 % (0-3) Basophils (%) (Auto) 1 % (0-3) Neutrophils # (Auto) 14.6 x10^3uL (1.8-7.7) Lymphocytes # (Auto) 0.6 x10^3/uL (1.0-4.8) Monocytes # (Auto) 0.8 x10^3/uL (0.0-1.1) Eosinophils # (Auto) 0.1 x10^3/uL (0.0-0.7) Basophils # (Auto) 0.1 x10^3/uL (0.0-0.2) Sodium Level 146 mmol/L (136-145) Potassium Level 3.0 mmol/L (3.5-5.1) Chloride Level 111 mmol/L (98-107) Carbon Dioxide Level 22 mmol/L (21-32) Anion Gap 13 (6-14) Blood Urea Nitrogen 37 mg/dL (7-20) Creatinine 0.9 mg/dL (0.6-1.0) Estimated GFR (Cockcroft-Gault) 60.6 BUN/Creatinine Ratio 41 (6-20) Glucose Level 165 mg/dL (70-99) Lactic Acid Level 1.2 mmol/L (0.4-2.0) Calcium Level 8.3 mg/dL (8.5-10.1) Total Bilirubin 0.7 mg/dL (0.2-1.0) Aspartate Amino Transf (AST/SGOT) 37 U/L (15-37) Alanine Aminotransferase (ALT/SGPT) 30 U/L (14-59) Alkaline Phosphatase 68 U/L (46-116) Total Protein 5.9 g/dL (6.4-8.2) Albumin 1.9 g/dL (3.4-5.0) Albumin/Globulin Ratio 0.5 (1.0-1.7) Vancomycin Level Trough 5.0 mcg/mL (10.0-20.0) Vancomycin Last Dose Date 03/08/19 Vancomycin Last Dose Time 1200 Laboratory Tests Test 03/09/19 11:45 Vancomycin Level Trough 5.0 mcg/mL (10.0-20.0) Vancomycin Last Dose Date 03/08/19 Vancomycin Last Dose Time 1200 Microbiology 03/08/19 Blood Culture - Preliminary, Resulted NO GROWTH AFTER 1 DAY Medications Current Medications Sodium Chloride 1,000 ml @ 1,000 mls/hr Q1H IV Last administered on 03/06/19at 10:40; Start 03/06/19 at 09:30; Stop 03/06/19 at 10:29; Status DC Albuterol/ Ipratropium (Duoneb) 3 ml 1X ONCE NEB Last administered on 03/06/19at 09:20; Start 03/06/19 at 09:30; Stop 03/06/19 at 09:31; Status DC Methylprednisolone Sodium Succinate (SOLU-Medrol 125MG VIAL) 125 mg 1X ONCE IV Last administered on 03/06/19 10:40; Start 03/06/19 at 09:30; Stop 03/06/19 at 09:31; Status DC Pantoprazole Sodium (PROTONIX VIAL for IV PUSH) 80 mg 1X ONCE IVP Last administered on 03/06/19 10:39; Start 03/06/19 at 09:30; Stop 03/06/19 at 09:31; Status DC Sodium Chloride 1,000 ml @ 1,000 mls/hr 1X ONCE IV Last administered on 03/06/19at 14:42; Start 03/06/19 at 09:30; Stop 03/06/19 at 10:29; Status DC Vancomycin HCl 250 ml @ 250 mls/hr 1X ONCE IV Last administered on 03/06/19 10:41; Start 03/06/19 at 10:00; Stop 03/06/19 at 10:59; Status DC Levofloxacin/ Dextrose 150 ml @ 100 mls/hr 1X ONCE IV Last administered on 03/06/19 10:41; Start 03/06/19 at 10:00; Stop 03/06/19 at 11:29; Status DC Sodium Chloride 1,000 ml @ 150 mls/hr Q6H40M IV Last administered on 03/07/19at 04:31; Start 03/06/19 at 11:10; Stop 03/07/19 at 11:09; Status DC Pantoprazole Sodium 80 mg/ Sodium Chloride 100 ml @ 10 mls/hr Q10H IV Last administered on 5/7/19at 03:12; Start 03/06/19 at 11:30; Stop 03/07/19 at 10:15; Status DC Ondansetron HCl (Zofran) 4 mg PRN Q6HRS PRN IV NAUSEA/VOMITING; Start 03/06/19 at 12:00; Stop 03/07/19 at 14:10; Status DC Labetalol HCl (Normodyne Iv Push) 10 mg PRN Q2HR PRN IVP HYPERTENSION, SEE COMMENTS; Start 03/06/19 at 12:00; Stop 03/07/19 at 14:10; Status DC Morphine Sulfate (Morphine Sulfate) 2 mg PRN Q2HR PRN IV PAIN Last administered on 03/09/19at 04:13; Start 03/06/19 at 12:00 Aspirin (Aspirin) 300 mg DAILY ME Last administered on 03/07/19at 10:12; Start 03/06/19 at 12:30; Stop 03/07/19 at 14:10; Status DC Potassium Chloride/Water 100 ml @ 100 mls/hr Q1H IV Last administered on 03/07/19at 00:24; Start 03/06/19 at 13:00; Stop 03/06/19 at 16:59; Status DC Clindamycin Phosphate 50 ml @ 100 mls/hr Q8HRS IV Last administered on 03/07/19at 06:09; Start 03/06/19 at 14:00; Stop 03/07/19 at 09:10; Status DC Levofloxacin/ Dextrose (Levaquin Per Pharmacy) 1 each PRN DAILY PRN MC SEE COMMENTS; Start 03/06/19 at 13:15; Stop 03/07/19 at 14:10; Status DC Levofloxacin/ Dextrose 50 ml @ 50 mls/hr Q24H IV Last administered on 03/07/19at 08:36; Start 03/07/19 at 09:00; Stop 03/07/19 at 14:10; Status DC Meropenem 500 mg/ Sodium Chloride 50 ml @ 100 mls/hr Q8HRS IV ; Start 03/07/19 at 14:00; Stop 03/07/19 at 14:10; Status DC Vancomycin HCl (Vanco Per Pharmacy) 1 each PRN DAILY PRN MC SEE COMMENTS Last administered on 03/07/19at 13:08; Start 03/07/19 at 09:15; Stop 03/07/19 at 14:10; Status DC Vancomycin HCl 1.75 gm/Sodium Chloride 500 ml @ 250 mls/hr 1X ONCE IV Last administered on 03/07/19at 10:13; Start 03/07/19 at 10:00; Stop 03/07/19 at 14:10; Status DC Pantoprazole Sodium (PROTONIX VIAL for IV PUSH) 40 mg DAILYAC IVP ; Start 03/08/19 at 07:30; Stop 03/08/19 at 07:30; Status DC Vancomycin HCl 1 gm/Sodium Chloride 250 ml @ 250 mls/hr Q24H IV ; Start 03/08/19 at 10:00; Stop 03/08/19 at 10:00; Status DC Vancomycin HCl (Vancomycin Trough Level) 1 each 1X ONCE MC ; Start 03/09/19 at 09:30; Stop 03/09/19 at 09:30; Status DC Scopolamine (Transderm-Scop) 1 patch Q3DAYS TD Last administered on 03/07/19at 14:27; Start 03/07/19 at 15:00 Lorazepam (Ativan) 1 mg PRN Q2HRS PRN IV ANXIETY / AGITATION; Start 03/07/19 at 14:15 Amino Acids/ Glycerin/ Electrolytes 1,000 ml @ 80 mls/hr [id number] IV Last admin istered on 03/09/19at 08:01; Start 03/08/19 at 09:30 Vancomycin HCl (Vanco Per Pharmacy) 1 each PRN DAILY PRN MC SEE COMMENTS Last administered on 03/08/19at 11:17; Start 03/08/19 at 11:15 Meropenem 500 mg/ Sodium Chloride 50 ml @ 100 mls/hr Q8HRS IV Last adm inistered on 03/09/19at 05:32; Start 03/08/19 at 14:00 Levofloxacin/ Dextrose (Levaquin Per Pharmacy) 1 each PRN DAILY PRN MC SEE COMMENTS; Start 03/08/19 at 11:15 Vancomycin HCl 1 gm/Sodium Chloride 250 ml @ 250 mls/hr Q24H IV Last administered on 03/09/19at 13:21; Start 03/08/19 at 12:00; Stop 03/09/19 at 14:05; Status DC Levofloxacin/ Dextrose 150 ml @ 100 mls/hr Q48H IV Last administered on 03/09/19at 08:00; Start 03/09/19 at 09:00 Vancomycin HCl (Vancomycin Trough Level) 1 each 1X ONCE MC Last administered on 03/09/19at 11:30; Start 03/09/19 at 11:30; Stop 03/09/19 at 11:31; Status DC Famotidine (Pepcid Vial) 20 mg DAILY IVP Last administered on 03/09/19at 08:00; Start 03/08/19 at 14:00 Acetaminophen (Tylenol Supp) 650 mg PRN Q6HRS PRN ME MILD PAIN / TEMP Last administered on 03/09/19at 08:01; Start 03/08/19 at 19:00 Metoprolol Tartrate (Lopressor Vial) 5 mg 1X ONCE IVP Last administered on 03/09/19at 08:00; Start 03/09/19 at 07:15; Stop 03/09/19 at 07:16; Status DC Metoprolol Tartrate (Lopressor Vial) 5 mg PRN Q4HRS PRN IVP SBP>160; Start 03/09/19 at 13:30 Vancomycin HCl 1 gm/Sodium Chloride 250 ml @ 250 mls/hr Q12H IV ; Start 03/10/19 at 00:00 Active Scripts Active Reported Potassium Chloride 10 Meq Tab.sr.24h 10 Meq PO DAILY Procardia Xl (Nifedipine) 60 Mg Tab.er.24 1 Tab PO DAILY Zestril (Lisinopril) 40 Mg Tablet 1 Tab PO BID Glucophage Xr (Metformin Hcl) 500 Mg Tab.er.24h 500 Mg PO DAILYWBKFT Crestor (Rosuvastatin Calcium) 5 Mg Tablet 1 Tab PO DAILY Coreg (Carvedilol) 25 Mg Tablet 25 Mg PO BIDWMEALS Aspir-Low (Aspirin) 81 Mg Tablet.dr 1 Tab PO DAILY Vitals/I & O Vital Sign - Last 24 Hours 03/08/19 03/08/19 03/08/19 03/08/19 15:00 15:15 17:28 19:00 Temp 101.7 101.7 Pulse 87 100 Resp 30 18 B/P (MAP) 183/85 (117) 177/86 (116) Pulse Ox 87 90 90 91 O2 Delivery Nasal Cannula Nasal Cannula Venturi Mask Venturi Mask O2 Flow Rate 5.0 6.0 15.0 5.0 03/08/19 03/08/19 03/09/19 03/09/19 20:00 23:00 03:00 04:13 Temp 100.6 99.5 100.6 99.5 Pulse 102 88 Resp 24 22 B/P (MAP) 176/92 (120) 174/94 (120) Pulse Ox 91 91 91 O2 Delivery Nasal Cannula Venturi Mask Venturi Mask Nasal Cannula O2 Flow Rate 5.0 5.0 5.0 5.0 03/09/19 03/09/19 03/09/19 03/09/19 04:43 05:32 07:00 08:00 Temp 100.7 100.7 Pulse 93 99 99 Resp 22 18 B/P (MAP) 172/85 (114) 196/91 (126) 196/91 Pulse Ox 91 90 O2 Delivery Nasal Cannula Venturi Mask O2 Flow Rate 5.0 15.0 03/09/19 03/09/19 03/09/19 08:00 10:23 11:11 Temp 99.4 99.4 Pulse 88 Resp 16 B/P (MAP) 176/91 (119) 188/83 (118) Pulse Ox 93 O2 Delivery Nasal Cannula Venturi Mask O2 Flow Rate 15.0 15.0 Intake and Output 03/08/19 03/08/19 03/09/19 14:59 22:59 06:59 Intake Total 50 ml 0 ml Output Total 1500 ml 450 ml Balance -1450 ml -450 ml Images Magnetic resonance imaging (MRI) of the brain and brainstem without contrast 03/08/2019 9:03 AM HISTORY: Right MCA CVA TECHNIQUE: Multiplanar multi-weighted MRI of the brain and brainstem was performed without intravenous contrast using the general brain protocol. COMPARISON: CT head March 06, 2019 FINDINGS: The scalp and calvarium are normal. The superior sagittal sinus demonstrates normal venous flow. The corpus callosum is normal in shape and signal intensity. The posterior fossa is unremarkable. The pituitary and sella are normal. The brainstem and craniocervical junction are unremarkable. Diffusion weighted images reveal no hyperintensities to suggest acute cerebral infarction. The susceptibility weighted sequences reveal no evidence of acute or chronic hemorrhage. Ventricles, sulci and basal cisterns are prominent compatible with mild generalized cerebral volume loss. The paranasal sinuses are normal. The visualized portions of the mastoids are unremarkable. The orbits appear normal. Normal flow voids are demonstrated in the carotid arteries and basilar artery. IMPRESSION: Punctate acute infarct in the left temporal lobe without significant edema, hemorrhage or mass effect. There is no large territorial right MCA infarct. No definite cerebral edema is visualized. There is dependent diffusion signal alteration involving the occipital horns of the lateral ventricles which may be seen with debris, blood products or ventriculitis. There is no susceptibility artifact in this region with intraventricular hemorrhage therefore less likely. This finding cannot be confirmed on additional sequences and could be artifactual. Short-term follow-up MRI may be of benefit. RISHABH HARO MD March 09, 2019 14:34
[2019-03-09] MEDS: METOPROLOL TARTRATE 5 MG/5 ML VIAL. IVP PRN ×2 (14:41→20:40)
[2019-03-09] MEDS: VANCOMYCIN PER PHARMACY MC PRN (14:48)
--- NOTE | 2019-03-09 14:49 | NUR ---
Pharmacy Vancomycin Dosing Note S:Consulted to monitor and dose vancomycin started 03/07/19. O:KEMI PASCUAL is a 79 year old F with bacteremia. Height: 5 feet, 2 inches Weight: 66.7 kg Dosing Weight: Actual Other Antibiotics: LEVAQUIN 750 MG IV Q48HRS MERREM 500 MG IV Q8HRS LABS: Last BUN: 37 Last Creatinine: 0.9 Creatinine Clearance: 41 mL/min Last WBC: 16.2 Last Procalcitonin: - Tmax (past 24 hours): 101.7 Microbiology: BLOOD CX (03/06): STREP PNEUMONIAE, BEARD SENSITIVE I/O: 1949/1899 Drug Levels: Last Trough level: 5.0 on 03/09/19 at 1130 Last dose given 03/08/19 at 1249 Vancomycin Dosing: Target Trough: 15-20 A: Patient is receiving vancomycin 1000 mg IV q24hrs. A trough today of 5 mcg/ml is below goal range. Patient's renal function improving. Initiate the following, which estimates a therapeutic trough: P: 1. Change to Vancomycin 1000 mg IV q12h 2. Follow up trough in 5 - 7 days if therapy persists 3. Pharmacy will continue to monitor, follow and adjust therapy as needed. EMILI ROYAL [facility], 03/09/19 [id number]
[2019-03-10] VITALS (8 sets, daily range): BP systolic 119–236; BP diastolic 72–114
[2019-03-10] MEDS ORDERED: VANCOMYCIN 1 GM in IV NORMAL SALINE 250ML 250 ML IV SCH ×2
[2019-03-10] MEDS: ACETAMINOPHEN 650 MG SUPP.RECT. PR PRN ×3 (00:07→16:50)
[2019-03-10] MEDS: METOPROLOL TARTRATE 5 MG/5 ML VIAL. IVP PRN ×3 (00:35→10:14)
[2019-03-10] MEDS: MORPHINE SULFATE 2 MG/ML VIAL. IV PRN (01:48)
[2019-03-10 04:58] LABS: CREATININE 1.1 mg/dL (0.6-1.0)
[2019-03-10] MEDS: MEROPENEM 500 MG in IV NORMAL SALINE 50ML 50 ML IV SCH ×3 (05:37→20:43)
[2019-03-10] MEDS ORDERED: cloNIDine TTS-1 1 PATCH PATCH.TDWK TD SCH (06:00)
[2019-03-10] MEDS: FAMOTIDINE 20 MG/2 ML VIAL IVP SCH (07:41)
[2019-03-10] MEDS: POTASSIUM CHL 20MEQ PREMIX 50 ML IV SCH ×2 (07:41→10:14)
[2019-03-10] MEDS: SCOPOLAMINE 1.5MG PATCH. TD SCH (07:42)
[2019-03-10] MEDS ORDERED: levETIRAcetam 500 MG in IV DEXTROSE 5% 100ML 100 ML IV STA (08:18)
--- NOTE | 2019-03-10 08:49 | PDOC ---
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, but MRI does not show this and instead there is a small left temporal infarct, possible blood debris in the ventricles Plan EEG Levetiracetam Will likely need PEG Hold aspirin Repeat MRI next week Patient is DNR, hold on ICU transfer Seizure precautions Discussed with daughter Subjective none Objective Vital Signs Date Time Temp Pulse Resp B/P (MAP) Pulse Ox O2 Delivery O2 Flow Rate FiO2 03/10/19 07:00 100.9 83 22 236/114 (154) 92 Venturi Mask 15.0 100.9 Intake and Output 03/10/19 07:00 Intake Total 0 ml Output Total 2225 ml Balance -2225 ml Intake Oral 0 ml Output Urine Total 2225 ml PHYSICAL EXAM Eyes closed, not responsive to visual threat or voice, does not follow commands. Deep, regular respirations Pupils pinpoint, slight reactivity. No gaze preference CN: no focal findings. 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 Sensory exam: not cooperative. Cerebellar: not cooperative Review of Relevant I have reviewed the following items rich (where applicable) has been applied. Labs Laboratory Tests Test 03/08/19 12:35 03/09/19 11:45 03/10/19 04:45 White Blood Count 16.2 x10^3/uL (4.0-11.0) Red Blood Count 3.89 x10^6/uL (3.50-5.40) Hemoglobin 12.4 g/dL (12.0-15.5) Hematocrit 37.3 % (36.0-47.0) Mean Corpuscular Volume 96 fL (79-100) Mean Corpuscular Hemoglobin 32 pg (25-35) Mean Corpuscular Hemoglobin Concent 33 g/dL (31-37) Red Cell Distribution Width 13.9 % (11.5-14.5) Platelet Count 70 x10^3/uL (140-400) Neutrophils (%) (Auto) 91 % (31-73) Lymphocytes (%) (Auto) 4 % (24-48) Monocytes (%) (Auto) 5 % (0-9) Eosinophils (%) (Auto) 0 % (0-3) Basophils (%) (Auto) 1 % (0-3) Neutrophils # (Auto) 14.6 x10^3uL (1.8-7.7) Lymphocytes # (Auto) 0.6 x10^3/uL (1.0-4.8) Monocytes # (Auto) 0.8 x10^3/uL (0.0-1.1) Eosinophils # (Auto) 0.1 x10^3/uL (0.0-0.7) Basophils # (Auto) 0.1 x10^3/uL (0.0-0.2) Sodium Level 146 mmol/L (136-145) Potassium Level 3.0 mmol/L (3.5-5.1) 2.8 mmol/L (3.5-5.1) Chloride Level 111 mmol/L (98-107) Carbon Dioxide Level 22 mmol/L (21-32) Anion Gap 13 (6-14) Blood Urea Nitrogen 37 mg/dL (7-20) Creatinine 0.9 mg/dL (0.6-1.0) 1.1 mg/dL (0.6-1.0) Estimated GFR (Cockcroft-Gault) 60.6 48.0 BUN/Creatinine Ratio 41 (6-20) Glucose Level 165 mg/dL (70-99) Lactic Acid Level 1.2 mmol/L (0.4-2.0) Calcium Level 8.3 mg/dL (8.5-10.1) Total Bilirubin 0.7 mg/dL (0.2-1.0) Aspartate Amino Transf (AST/SGOT) 37 U/L (15-37) Alanine Aminotransferase (ALT/SGPT) 30 U/L (14-59) Alkaline Phosphatase 68 U/L (46-116) Total Protein 5.9 g/dL (6.4-8.2) Albumin 1.9 g/dL (3.4-5.0) Albumin/Globulin Ratio 0.5 (1.0-1.7) Vancomycin Level Trough 5.0 mcg/mL (10.0-20.0) Vancomycin Last Dose Date 03/08/19 Vancomycin Last Dose Time 1200 Laboratory Tests Test 03/09/19 11:45 03/10/19 04:45 Vancomycin Level Trough 5.0 mcg/mL (10.0-20.0) Vancomycin Last Dose Date 03/08/19 Vancomycin Last Dose Time 1200 Potassium Level 2.8 mmol/L (3.5-5.1) Creatinine 1.1 mg/dL (0.6-1.0) Estimated GFR (Cockcroft-Gault) 48.0 Microbiology 03/08/19 Blood Culture - Preliminary, Resulted NO GROWTH AFTER 1 DAY Medications Current Medications Sodium Chloride 1,000 ml @ 1,000 mls/hr Q1H IV Last administered on 03/06/19at 10:40; Start 03/06/19 at 09:30; Stop 03/06/19 at 10:29; Status DC Albuterol/ Ipratropium (Duoneb) 3 ml 1X ONCE NEB Last administered on 03/06/19at 09:20; Start 03/06/19 at 09:30; Stop 03/06/19 at 09:31; Status DC Methylprednisolone Sodium Succinate (SOLU-Medrol 125MG VIAL) 125 mg 1X ONCE IV Last administered on 03/06/19at 10:40; Start 03/06/19 at 09:30; Stop 03/06/19 at 09:31; Status DC Pantoprazole Sodium (PROTONIX VIAL for IV PUSH) 80 mg 1X ONCE IVP Last administered on 03/06/19at 10:39; Start 03/06/19 at 09:30; Stop 03/06/19 at 09:31; Status DC Sodium Chloride 1,000 ml @ 1,000 mls/hr 1X ONCE IV Last administered on 03/06/19at 14:42; Start 03/06/19 at 09:30; Stop 03/06/19 at 10:29; Status DC Vancomycin HCl 250 ml @ 250 mls/hr 1X ONCE IV Last administered on 03/06/19at 10:41; Start 03/06/19 at 10:00; Stop 03/06/19 at 10:59; Status DC Levofloxacin/ Dextrose 150 ml @ 100 mls/hr 1X ONCE IV Last administered on 03/06/19at 10:41; Start 03/06/19 at 10:00; Stop 03/06/19 at 11:29; Status DC Sodium Chloride 1,000 ml @ 150 mls/hr Q6H40M IV Last administered on 03/07/19at 04:31; Start 03/06/19 at 11:10; Stop 03/07/19 at 11:09; Status DC Pantoprazole Sodium 80 mg/ Sodium Chloride 100 ml @ 10 mls/hr Q10H IV Last administered on 03/07/19at 03:12; Start 03/06/19 at 11:30; Stop 03/07/19 at 10:15; Status DC Ondansetron HCl (Zofran) 4 mg PRN Q6HRS PRN IV NAUSEA/VOMITING; Start 03/06/19 at 12:00; Stop 03/07/19 at 14:10; Status DC Labetalol HCl (Normodyne Iv Push) 10 mg PRN Q2HR PRN IVP HYPERTENSION, SEE COMMENTS; Start 03/06/19 at 12:00; Stop 03/07/19 at 14:10; Status DC Morphine Sulfate (Morphine Sulfate) 2 mg PRN Q2HR PRN IV PAIN Last administered on 03/10/19at 01:48; Start 03/06/19 at 12:00 Aspirin (Aspirin) 300 mg DAILY CO Last administered on 03/07/19at 10:12; Start 03/06/19 at 12:30; Stop 03/07/19 at 14:10; Status DC Potassium Chloride/Water 100 ml @ 100 mls/hr Q1H IV Last administered on 03/07/19at 00:24; Start 03/06/19 at 13:00; Stop 03/06/19 at 16:59; Status DC Clindamycin Phosphate 50 ml @ 100 mls/hr Q8HRS IV Last administered on 03/07/19at 06:09; Start 03/06/19 at 14:00; Stop 03/07/19 at 09:10; Status DC Levofloxacin/ Dextrose (Levaquin Per Pharmacy) 1 each PRN DAILY PRN MC SEE COMMENTS; Start 03/06/19 at 13:15; Stop 03/07/19 at 14:10; Status DC Levofloxacin/ Dextrose 50 ml @ 50 mls/hr Q24H IV Last administered on 03/07/19at 08:36; Start 03/07/19 at 09:00; Stop 03/07/19 at 14:10; Status DC Meropenem 500 mg/ Sodium Chloride 50 ml @ 100 mls/hr Q8HRS IV ; Start 03/07/19 at 14:00; Stop 03/07/19 at 14:10; Status DC Vancomycin HCl (Vanco Per Pharmacy) 1 each PRN DAILY PRN MC SEE COMMENTS Last administered on 03/07/19at 13:08; Start 03/07/19 at 09:15; Stop 03/07/19 at 14:10; Status DC Vancomycin HCl 1.75 gm/Sodium Chloride 500 ml @ 250 mls/hr 1X ONCE IV Last administered on 03/07/19at 10:13; Start 03/07/19 at 10:00; Stop 03/07/19 at 14:10; Status DC Pantoprazole Sodium (PROTONIX VIAL for IV PUSH) 40 mg DAILYAC IVP ; Start 03/08/19 at 07:30; Stop 03/08/19 at 07:30; Status DC Vancomycin HCl 1 gm/Sodium Chloride 250 ml @ 250 mls/hr Q24H IV ; Start 03/08/19 at 10:00; Stop 03/08/19 at 10:00; Status DC Vancomycin HCl (Vancomycin Trough Level) 1 each 1X ONCE MC ; Start 03/09/19 at 09:30; Stop 03/09/19 at 09:30; Status DC Scopolamine (Transderm-Scop) 1 patch Q3DAYS TD Last administered on 03/10/19at 07:42; Start 03/07/19 at 15:00 Lorazepam (Ativan) 1 mg PRN Q2HRS PRN IV ANXIETY / AGITATION; Start 03/07/19 at 14:15 Amino Acids/ Glycerin/ Electrolytes 1,000 ml @ 80 mls/hr [id number] IV Last administered on 03/09/19at 22:12; Start 03/08/19 at 09:30 Vancomycin HCl (Vanco Per Pharmacy) 1 each PRN DAILY PRN MC SEE COMMENTS Last administered on 03/09/19at 14:48; Start 03/08/19 at 11:15; Stop 03/09/19 at 15:24; Status DC Meropenem 500 mg/ Sodium Chloride 50 ml @ 100 mls/hr Q8HRS IV Last administered on 03/10/19at 05:37; Start 03/08/19 at 14:00 Levofloxacin/ Dextrose (Levaquin Per Pharmacy) 1 each PRN DAILY PRN MC SEE COMMENTS; Start 03/08/19 at 11:15; Stop 03/09/19 at 15:24; Status DC Vancomycin HCl 1 gm/Sodium Chloride 250 ml @ 250 mls/hr Q24H IV Last administered on 03/09/19at 13:21; Start 03/08/19 at 12:00; Stop 03/09/19 at 14:05; Status DC Levofloxacin/ Dextrose 150 ml @ 100 mls/hr Q48H IV Last administered on 03/09/19at 08:00; Start 03/09/19 at 09:00; Stop 03/09/19 at 15:24; Status DC Vancomycin HCl (Vancomycin Trough Level) 1 each 1X ONCE MC Last administered on 03/09/19at 11:30; Start 03/09/19 at 11:30; Stop 03/09/19 at 11:31; Status DC Famotidine (Pepcid Vial) 20 mg DAILY IVP Last administered on 03/10/19at 07:41; Start 03/08/19 at 14:00 Acetaminophen (Tylenol Supp) 650 mg PRN Q6HRS PRN CO MILD PAIN / TEMP Last administered on 03/10/19at 00:07; Start 03/08/19 at 19:00 Metoprolol Tartrate (Lopressor Vial) 5 mg 1X ONCE IVP Last administered on 03/09/19at 08:00; Start 03/09/19 at 07:15; Stop 03/09/19 at 07:16; Status DC Metoprolol Tartrate (Lopressor Vial) 5 mg PRN Q4HRS PRN IVP SBP>160 Last administered on 03/10/19at 04:58; Start 03/09/19 at 13:30 Vancomycin HCl 1 gm/Sodium Chloride 250 ml @ 250 mls/hr Q12H IV ; Start 03/10/19 at 00:00; Stop 03/10/19 at 00:00; Status DC Clonidine HCl (Catapres Tts-1) 1 patch WEEKLY TD Last administered on 03/10/19at 05:48; Start 03/10/19 at 06:00 Potassium Chloride/Water 50 ml @ 50 mls/hr Q1H IV Last administered on 03/10/19at 07:41; Start 03/10/19 at 08:00; Stop 03/10/19 at 09:59 Levetiracetam 500 mg/Dextrose 105 ml @ 420 mls/hr 1X STAT IV Last administered on 03/10/19at 08:32; Start 03/10/19 at 08:18; Stop 03/10/19 at 08:32; Status DC Levetiracetam 500 mg/Dextrose 105 ml @ 420 mls/hr Q12HR IV ; Start 03/10/19 at 21:00 Active Scripts Active Reported Potassium Chloride 10 Meq Tab.sr.24h 10 Meq PO DAILY Procardia Xl (Nifedipine) 60 Mg Tab.er.24 1 Tab PO DAILY Zestril (Lisinopril) 40 Mg Tablet 1 Tab PO BID Glucophage Xr (Metformin Hcl) 500 Mg Tab.er.24h 500 Mg PO DAILYWBKFT Crestor (Rosuvastatin Calcium) 5 Mg Tablet 1 Tab PO DAILY Coreg (Carvedilol) 25 Mg Tablet 25 Mg PO BIDWMEALS Aspir-Low (Aspirin) 81 Mg Tablet. 1 Tab PO DAILY Vitals/I & O Vital Sign - Last 24 Hours 03/09/19 03/09/19 03/09/19 03/09/19 10:23 11:11 14:41 14:55 Temp 99.4 98.4 99.4 98.4 Pulse 88 90 90 Resp 16 16 B/P (MAP) 176/91 (119) 188/83 (118) 195/96 195/96 (129) Pulse Ox 93 92 O2 Delivery Venturi Mask Venturi Mask O2 Flow Rate 15.0 15.0 03/09/19 03/09/19 03/09/19 03/09/19 19:00 20:00 20:40 23:00 Temp 98.7 100.4 98.7 100.4 Pulse 102 105 104 Resp 20 24 B/P (MAP) 190/108 (135) 192/109 188/113 (138) Pulse Ox 99 95 O2 Delivery Venturi Mask Nasal Cannula Venturi Mask O2 Flow Rate 15.0 15.0 15.0 03/10/19 03/10/19 03/10/19 03/10/19 00:35 01:48 02:18 03:00 Temp 99.4 99.4 Pulse 105 98 Resp 22 24 24 B/P (MAP) 192/114 180/108 (132) Pulse Ox 95 95 98 O2 Delivery Nasal Cannula Nasal Cannula Venturi Mask O2 Flow Rate 15.0 15.0 15.0 03/10/19 03/10/19 04:58 07:00 Temp 100.9 100.9 Pulse 107 83 Resp 22 B/P (MAP) 188/109 236/114 (154) Pulse Ox 92 O2 Delivery Venturi Mask O2 Flow Rate 15.0 Intake and Output 03/09/19 03/09/19 03/10/19 15:00 23:00 07:00 Intake Total 0 ml 0 ml Output Total 1525 ml 700 ml Balance -1525 ml -700 ml RISHABH HRAO MD March 10, 2019 08:49
[2019-03-10 09:08] LABS: BASO # 0.1 x10^3/uL (0.0-0.2); BASO % 1 % (0-3); EOS % 0 % (0-3); HEMATOCRIT 44.6 % (36.0-47.0); HEMOGLOBIN 14.6 g/dL (12.0-15.5); LYMPH # 1.1 x10^3/uL (1.0-4.8); LYMPH % 9 % (24-48); MEAN CORPUSCULAR HEMOGLOBIN 32 pg (25-35); MEAN CORPUSCULAR HGB CONC 33 g/dL (31-37); MEAN CORPUSCULAR VOLUME 97 fL (79-100); MONO # 1.4 x10^3/uL (0.0-1.1); MONO % 11 % (0-9); NEUT # 10.4 x10^3uL (1.8-7.7); NEUT % 80 % (31-73); PLATELET COUNT 70 x10^3/uL (140-400); RED BLOOD COUNT 4.62 x10^6/uL (3.50-5.40); RED CELL DISTRIBUTION WIDTH 14.2 % (11.5-14.5)
[2019-03-10 09:16] LABS: ALBUMIN 1.8 g/dL (3.4-5.0); ALBUMIN/GLOBULIN RATIO 0.4 (1.0-1.7); CALCIUM 8.8 mg/dL (8.5-10.1); CREATININE 1.1 mg/dL (0.6-1.0); TOTAL BILIRUBIN 0.9 mg/dL (0.2-1.0); TOTAL PROTEIN 6.3 g/dL (6.4-8.2)
[2019-03-10 09:21] LABS: POTASSIUM 2.8 mmol/L (3.5-5.1)
--- NOTE | 2019-03-10 09:29 | PDOC ---
Subjective: Subjective: Daughter says she was almost swallowing little bits of water yesterday but now is having seizures. Objective: Objective: Briefly discussed PEG w/ Dr. Stephens yesterday. Vital Signs: Vital Signs Date Time Temp Pulse Resp B/P (MAP) Pulse Ox O2 Delivery O2 Flow Rate FiO2 03/10/19 08:00 Nasal Cannula 15.0 03/10/19 07:00 100.9 83 22 236/114 (154) 92 100.9 Labs: Laboratory Tests Test 03/09/19 11:45 03/10/19 04:45 Vancomycin Level Trough 5.0 mcg/mL Vancomycin Last Dose Date 03/08/19 Vancomycin Last Dose Time 1200 White Blood Count 13.0 x10^3/uL Red Blood Count 4.62 x10^6/uL Hemoglobin 14.6 g/dL Hematocrit 44.6 % Mean Corpuscular Volume 97 fL Mean Corpuscular Hemoglobin 32 pg Mean Corpuscular Hemoglobin Concent 33 g/dL Red Cell Distribution Width 14.2 % Platelet Count 70 x10^3/uL Neutrophils (%) (Auto) 80 % Lymphocytes (%) (Auto) 9 % Monocytes (%) (Auto) 11 % Eosinophils (%) (Auto) 0 % Basophils (%) (Auto) 1 % Neutrophils # (Auto) 10.4 x10^3uL Lymphocytes # (Auto) 1.1 x10^3/uL Monocytes # (Auto) 1.4 x10^3/uL Eosinophils # (Auto) 0.0 x10^3/uL Basophils # (Auto) 0.1 x10^3/uL Sodium Level 150 mmol/L Potassium Level 2.8 mmol/L Chloride Level 111 mmol/L Carbon Dioxide Level 29 mmol/L Anion Gap 10 Blood Urea Nitrogen 42 mg/dL Creatinine 1.1 mg/dL Estimated GFR (Cockcroft-Gault) 48.0 BUN/Creatinine Ratio 38 Glucose Level 313 mg/dL Calcium Level 8.8 mg/dL Total Bilirubin 0.9 mg/dL Aspartate Amino Transf (AST/SGOT) 28 U/L Alanine Aminotransferase (ALT/SGPT) 27 U/L Alkaline Phosphatase 88 U/L Total Protein 6.3 g/dL Albumin 1.8 g/dL Albumin/Globulin Ratio 0.4 PE: GEN: NAD, family present LUNGS: breathing mask, tachypneic A/P: ?right MCA infarct (not on MRI - smell left temporal infarct instead), seizures Resp failure Strep bacteremia, hypokalemia, hypernatremia Coffee-ground emesis - no recurrence -- Standing by. ADELAIDE SAMSON March 10, 2019 09:29
--- NOTE | 2019-03-10 09:38 | PDOC ---
PULMONARY PROGRESS NOTES Subjective NON RESPONSIVE ON FACE MASK Vitals Vital Signs Date Time Temp Pulse Resp B/P (MAP) Pulse Ox O2 Delivery O2 Flow Rate FiO2 03/10/19 08:00 Nasal Cannula 15.0 03/10/19 07:00 100.9 83 22 236/114 (154) 92 100.9 Lungs: Crackles Cardiovascular: S1, S2 Abdomen: Soft Extremities: No Edema Skin: Warm Labs Laboratory Tests Test 03/08/19 12:35 03/09/19 11:45 03/10/19 04:45 White Blood Count 16.2 x10^3/uL (4.0-11.0) 13.0 x10^3/uL (4.0-11.0) Red Blood Count 3.89 x10^6/uL (3.50-5.40) 4.62 x10^6/uL (3.50-5.40) Hemoglobin 12.4 g/dL (12.0-15.5) 14.6 g/dL (12.0-15.5) Hematocrit 37.3 % (36.0-47.0) 44.6 % (36.0-47.0) Mean Corpuscular Volume 96 fL (79-100) 97 fL (79-100) Mean Corpuscular Hemoglobin 32 pg (25-35) 32 pg (25-35) Mean Corpuscular Hemoglobin Concent 33 g/dL (31-37) 33 g/dL (31-37) Red Cell Distribution Width 13.9 % (11.5-14.5) 14.2 % (11.5-14.5) Platelet Count 70 x10^3/uL (140-400) 70 x10^3/uL (140-400) Neutrophils (%) (Auto) 91 % (31-73) 80 % (31-73) Lymphocytes (%) (Auto) 4 % (24-48) 9 % (24-48) Monocytes (%) (Auto) 5 % (0-9) 11 % (0-9) Eosinophils (%) (Auto) 0 % (0-3) 0 % (0-3) Basophils (%) (Auto) 1 % (0-3) 1 % (0-3) Neutrophils # (Auto) 14.6 x10^3uL (1.8-7.7) 10.4 x10^3uL (1.8-7.7) Lymphocytes # (Auto) 0.6 x10^3/uL (1.0-4.8) 1.1 x10^3/uL (1.0-4.8) Monocytes # (Auto) 0.8 x10^3/uL (0.0-1.1) 1.4 x10^3/uL (0.0-1.1) Eosinophils # (Auto) 0.1 x10^3/uL (0.0-0.7) 0.0 x10^3/uL (0.0-0.7) Basophils # (Auto) 0.1 x10^3/uL (0.0-0.2) 0.1 x10^3/uL (0.0-0.2) Sodium Level 146 mmol/L (136-145) 150 mmol/L (136-145) Potassium Level 3.0 mmol/L (3.5-5.1) 2.8 mmol/L (3.5-5.1) Chloride Level 111 mmol/L (98-107) 111 mmol/L (98-107) Carbon Dioxide Level 22 mmol/L (21-32) 29 mmol/L (21-32) Anion Gap 13 (6-14) 10 (6-14) Blood Urea Nitrogen 37 mg/dL (7-20) 42 mg/dL (7-20) Creatinine 0.9 mg/dL (0.6-1.0) 1.1 mg/dL (0.6-1.0) Estimated GFR (Cockcroft-Gault) 60.6 48.0 BUN/Creatinine Ratio 41 (6-20) 38 (6-20) Glucose Level 165 mg/dL (70-99) 313 mg/dL (70-99) Lactic Acid Level 1.2 mmol/L (0.4-2.0) Calcium Level 8.3 mg/dL (8.5-10.1) 8.8 mg/dL (8.5-10.1) Total Bilirubin 0.7 mg/dL (0.2-1.0) 0.9 mg/dL (0.2-1.0) Aspartate Amino Transf (AST/SGOT) 37 U/L (15-37) 28 U/L (15-37) Alanine Aminotransferase (ALT/SGPT) 30 U/L (14-59) 27 U/L (14-59) Alkaline Phosphatase 68 U/L (46-116) 88 U/L (46-116) Total Protein 5.9 g/dL (6.4-8.2) 6.3 g/dL (6.4-8.2) Albumin 1.9 g/dL (3.4-5.0) 1.8 g/dL (3.4-5.0) Albumin/Globulin Ratio 0.5 (1.0-1.7) 0.4 (1.0-1.7) Vancomycin Level Trough 5.0 mcg/mL (10.0-20.0) Vancomycin Last Dose Date 03/08/19 Vancomycin Last Dose Time 1200 Laboratory Tests Test 03/09/19 11:45 03/10/19 04:45 Vancomycin Level Trough 5.0 mcg/mL (10.0-20.0) Vancomycin Last Dose Date 03/08/19 Vancomycin Last Dose Time 1200 White Blood Count 13.0 x10^3/uL (4.0-11.0) Red Blood Count 4.62 x10^6/uL (3.50-5.40) Hemoglobin 14.6 g/dL (12.0-15.5) Hematocrit 44.6 % (36.0-47.0) Mean Corpuscular Volume 97 fL (79-100) Mean Corpuscular Hemoglobin 32 pg (25-35) Mean Corpuscular Hemoglobin Concent 33 g/dL (31-37) Red Cell Distribution Width 14.2 % (11.5-14.5) Platelet Count 70 x10^3/uL (140-400) Neutrophils (%) (Auto) 80 % (31-73) Lymphocytes (%) (Auto) 9 % (24-48) Monocytes (%) (Auto) 11 % (0-9) Eosinophils (%) (Auto) 0 % (0-3) Basophils (%) (Auto) 1 % (0-3) Neutrophils # (Auto) 10.4 x10^3uL (1.8-7.7) Lymphocytes # (Auto) 1.1 x10^3/uL (1.0-4.8) Monocytes # (Auto) 1.4 x10^3/uL (0.0-1.1) Eosinophils # (Auto) 0.0 x10^3/uL (0.0-0.7) Basophils # (Auto) 0.1 x10^3/uL (0.0-0.2) Sodium Level 150 mmol/L (136-145) Potassium Level 2.8 mmol/L (3.5-5.1) Chloride Level 111 mmol/L (98-107) Carbon Dioxide Level 29 mmol/L (21-32) Anion Gap 10 (6-14) Blood Urea Nitrogen 42 mg/dL (7-20) Creatinine 1.1 mg/dL (0.6-1.0) Estimated GFR (Cockcroft-Gault) 48.0 BUN/Creatinine Ratio 38 (6-20) Glucose Level 313 mg/dL (70-99) Calcium Level 8.8 mg/dL (8.5-10.1) Total Bilirubin 0.9 mg/dL (0.2-1.0) Aspartate Amino Transf (AST/SGOT) 28 U/L (15-37) Alanine Aminotransferase (ALT/SGPT) 27 U/L (14-59) Alkaline Phosphatase 88 U/L (46-116) Total Protein 6.3 g/dL (6.4-8.2) Albumin 1.8 g/dL (3.4-5.0) Albumin/Globulin Ratio 0.4 (1.0-1.7) Medications Active Scripts Medications Dose Route/Sig Max Daily Dose Days Date Category Potassium Chloride 10 Meq Tab.sr.24h 10 Meq PO DAILY 03/06/19 Reported Procardia Xl (Nifedipine) 60 Mg Tab.er.24 1 Tab PO DAILY 03/06/19 Reported Zestril (Lisinopril) 40 Mg Tablet 1 Tab PO BID 03/06/19 Reported Glucophage Xr (Metformin Hcl) 500 Mg Tab.er.24h 500 Mg PO DAILYWBKFT 03/06/19 Reported Crestor (Rosuvastatin Calcium) 5 Mg Tablet 1 Tab PO DAILY 03/06/19 Reported Coreg (Carvedilol) 25 Mg Tablet 25 Mg PO BIDWMEALS 03/06/19 Reported Aspir-Low (Aspirin) 81 Mg Tablet.dr 1 Tab PO DAILY 03/06/19 Reported Impression . IMPRESSION: 1. Acute hypoxic respiratory failure secondary to aspiration pneumonia from recent stroke. 2. Acute metabolic encephalopathy secondary to ischemic stroke. 3. CVA PER MRI NO CEREBRAL EDEMA 4. Abnormal CXR consistent with right lung aspiration pneumonia. 5. GPC Sepsis ,Strep Bacteremia POA 02/02 bottles, prelim strep , MYRON pending, source unknown 6. 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 No improvement, prognosis guarded, may not be large enough to be life-threatening CT HEAD 03/06 Impression: No acute intracranial hemorrhage is seen. Findings are suggestive of diffuse cerebral edema secondary to right MCA infarct on the right side. A round confluent area of edema of the left parietal lobe which may indicate an infarct of indeterminate age on this side. MRI study of the brain without contrast is recommended for further evaluation. IMPRESSION: Punctate acute infarct in the left temporal lobe without significant edema, hemorrhage or mass effect. There is no large territorial right MCA infarct. No definite cerebral edema is visualized. There is dependent diffusion signal alteration involving the occipital horns of the lateral ventricles which may be seen with debris, blood products or ventriculitis. There is no susceptibility artifact in this region with intraventricular hemorrhage therefore less likely. This finding cannot be confirmed on additional sequences and could be artifactual. Short-term follow-up MRI may be of benefit. Plan . PER NEUROLOGY TRANSFERRED TO TELE PT IS DNR FLAKITA LUU MD March 10, 2019 09:38
--- NOTE | 2019-03-10 09:58 | PDOC ---
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 A round confluent area of edema of the left parietal lobe which may indicate an infarct of indeterminate age on this side. MRI study of the brain without contrast is recommended for further evaluation .diffuse interstitial infiltrate with suspected linear atelectasis or trace fluid along the right minor fissure and lingular atelectasis or scarring. Restarted Merrem,tolerated well, levaquin,IV Vanc 03/08 pcxr 03/10 34 min pt exam, chart review, > 50% of time spent with exam, chart review, pt care coordination, guarded PROGNOSIS, FAMILY AWARE D/W FAMILY IN ROOM Vitals Vitals Vital Signs Date Time Temp Pulse Resp B/P (MAP) Pulse Ox O2 Delivery O2 Flow Rate FiO2 03/10/19 08:00 Nasal Cannula 15.0 03/10/19 07:00 100.9 83 22 236/114 (154) 92 100.9 Physical Exam Physical Exam GENERAL: Unresponsive female, tachypneic on nonrebreather mask. HEENT: Sclerae anicteric. Oral mucosa dry. LUNGS: Decreased breath sounds with rhonchi in both lower lobes, right greater than the left. HEART: S1, S2, tachycardia ABDOMEN: Soft, nontender, nondistended. EXTREMITIES: trace edema, no cyanosis. CENTRAL NERVOUS SYSTEM: Unresponsive. PSYCHIATRIC: Unable to obtain. DERM no gen rash General: moderate distress, Other (minimal response) Heart: Regular rate, Other (tachycardic) Lungs: Crackles Abdomen: Normal bowel sounds, Soft, No tenderness, No hepatosplenomegaly, No masses Extremities: No clubbing, No cyanosis, No edema, Normal pulses, No tenderness/swelling Skin: No rashes Labs LABS HISTORY: Right MCA CVA TECHNIQUE: Multiplanar multi-weighted MRI of the brain and brainstem was performed without intravenous contrast using the general brain protocol. COMPARISON: CT head March 06, 2019 FINDINGS: The scalp and calvarium are normal. The superior sagittal sinus demonstrates normal venous flow. The corpus callosum is normal in shape and signal intensity. The posterior fossa is unremarkable. The pituitary and sella are normal. The brainstem and craniocervical junction are unremarkable. Diffusion weighted images reveal no hyperintensities to suggest acute cerebral infarction. The susceptibility weighted sequences reveal no evidence of acute or chronic hemorrhage. Ventricles, sulci and basal cisterns are prominent compatible with mild generalized cerebral volume loss. The paranasal sinuses are normal. The visualized portions of the mastoids are unremarkable. The orbits appear normal. Normal flow voids are demonstrated in the carotid arteries and basilar artery. IMPRESSION: Punctate acute infarct in the left temporal lobe without significant edema, hemorrhage or mass effect. There is no large territorial right MCA infarct. No definite cerebral edema is visualized. There is dependent diffusion signal alteration involving the occipital horns of the lateral ventricles which may be seen with debris, blood products or ventriculitis. There is no susceptibility artifact in this region with intraventricular hemorrhage therefore less likely. This finding cannot be confirmed on additional sequences and could be artifactual. Short-term follow-up MRI may be of benefit. Critical result: Findings discussed with Melissa, the patient's nurse at 03/08/2019 3:56 PM. Laboratory Tests Test 03/09/19 11:45 03/10/19 04:45 Vancomycin Level Trough 5.0 mcg/mL (10.0-20.0) Vancomycin Last Dose Date 03/08/19 Vancomycin Last Dose Time 1200 White Blood Count 13.0 x10^3/uL (4.0-11.0) Red Blood Count 4.62 x10^6/uL (3.50-5.40) Hemoglobin 14.6 g/dL (12.0-15.5) Hematocrit 44.6 % (36.0-47.0) Mean Corpuscular Volume 97 fL (79-100) Mean Corpuscular Hemoglobin 32 pg (25-35) Mean Corpuscular Hemoglobin Concent 33 g/dL (31-37) Red Cell Distribution Width 14.2 % (11.5-14.5) Platelet Count 70 x10^3/uL (140-400) Neutrophils (%) (Auto) 80 % (31-73) Lymphocytes (%) (Auto) 9 % (24-48) Monocytes (%) (Auto) 11 % (0-9) Eosinophils (%) (Auto) 0 % (0-3) Basophils (%) (Auto) 1 % (0-3) Neutrophils # (Auto) 10.4 x10^3uL (1.8-7.7) Lymphocytes # (Auto) 1.1 x10^3/uL (1.0-4.8) Monocytes # (Auto) 1.4 x10^3/uL (0.0-1.1) Eosinophils # (Auto) 0.0 x10^3/uL (0.0-0.7) Basophils # (Auto) 0.1 x10^3/uL (0.0-0.2) Sodium Level 150 mmol/L (136-145) Potassium Level 2.8 mmol/L (3.5-5.1) Chloride Level 111 mmol/L (98-107) Carbon Dioxide Level 29 mmol/L (21-32) Anion Gap 10 (6-14) Blood Urea Nitrogen 42 mg/dL (7-20) Creatinine 1.1 mg/dL (0.6-1.0) Estimated GFR (Cockcroft-Gault) 48.0 BUN/Creatinine Ratio 38 (6-20) Glucose Level 313 mg/dL (70-99) Calcium Level 8.8 mg/dL (8.5-10.1) Total Bilirubin 0.9 mg/dL (0.2-1.0) Aspartate Amino Transf (AST/SGOT) 28 U/L (15-37) Alanine Aminotransferase (ALT/SGPT) 27 U/L (14-59) Alkaline Phosphatase 88 U/L (46-116) Total Protein 6.3 g/dL (6.4-8.2) Albumin 1.8 g/dL (3.4-5.0) Albumin/Globulin Ratio 0.4 (1.0-1.7) Assessment and Plan Assessmemt and Plan Problems Medical Problems: (1) Acute ischemic cerebrovascular accident (CVA) involving middle cerebral artery territory Status: Acute (2) Acute renal insufficiency Status: Acute (3) Acute respiratory distress Status: Acute (4) CHF (congestive heart failure) Status: Acute (5) GI bleeding Status: Acute (6) Hypokalemia Status: Acute (7) Severe sepsis Status: Acute Comment Review of Relevant I have reviewed the following items rich (where applicable) has been applied. Labs Laboratory Tests Test 03/08/19 12:35 03/09/19 11:45 03/10/19 04:45 White Blood Count 16.2 x10^3/uL (4.0-11.0) 13.0 x10^3/uL (4.0-11.0) Red Blood Count 3.89 x10^6/uL (3.50-5.40) 4.62 x10^6/uL (3.50-5.40) Hemoglobin 12.4 g/dL (12.0-15.5) 14.6 g/dL (12.0-15.5) Hematocrit 37.3 % (36.0-47.0) 44.6 % (36.0-47.0) Mean Corpuscular Volume 96 fL (79-100) 97 fL (79-100) Mean Corpuscular Hemoglobin 32 pg (25-35) 32 pg (25-35) Mean Corpuscular Hemoglobin Concent 33 g/dL (31-37) 33 g/dL (31-37) Red Cell Distribution Width 13.9 % (11.5-14.5) 14.2 % (11.5-14.5) Platelet Count 70 x10^3/uL (140-400) 70 x10^3/uL (140-400) Neutrophils (%) (Auto) 91 % (31-73) 80 % (31-73) Lymphocytes (%) (Auto) 4 % (24-48) 9 % (24-48) Monocytes (%) (Auto) 5 % (0-9) 11 % (0-9) Eosinophils (%) (Auto) 0 % (0-3) 0 % (0-3) Basophils (%) (Auto) 1 % (0-3) 1 % (0-3) Neutrophils # (Auto) 14.6 x10^3uL (1.8-7.7) 10.4 x10^3uL (1.8-7.7) Lymphocytes # (Auto) 0.6 x10^3/uL (1.0-4.8) 1.1 x10^3/uL (1.0-4.8) Monocytes # (Auto) 0.8 x10^3/uL (0.0-1.1) 1.4 x10^3/uL (0.0-1.1) Eosinophils # (Auto) 0.1 x10^3/uL (0.0-0.7) 0.0 x10^3/uL (0.0-0.7) Basophils # (Auto) 0.1 x10^3/uL (0.0-0.2) 0.1 x10^3/uL (0.0-0.2) Sodium Level 146 mmol/L (136-145) 150 mmol/L (136-145) Potassium Level 3.0 mmol/L (3.5-5.1) 2.8 mmol/L (3.5-5.1) Chloride Level 111 mmol/L (98-107) 111 mmol/L (98-107) Carbon Dioxide Level 22 mmol/L (21-32) 29 mmol/L (21-32) Anion Gap 13 (6-14) 10 (6-14) Blood Urea Nitrogen 37 mg/dL (7-20) 42 mg/dL (7-20) Creatinine 0.9 mg/dL (0.6-1.0) 1.1 mg/dL (0.6-1.0) Estimated GFR (Cockcroft-Gault) 60.6 48.0 BUN/Creatinine Ratio 41 (6-20) 38 (6-20) Glucose Level 165 mg/dL (70-99) 313 mg/dL (70-99) Lactic Acid Level 1.2 mmol/L (0.4-2.0) Calcium Level 8.3 mg/dL (8.5-10.1) 8.8 mg/dL (8.5-10.1) Total Bilirubin 0.7 mg/dL (0.2-1.0) 0.9 mg/dL (0.2-1.0) Aspartate Amino Transf (AST/SGOT) 37 U/L (15-37) 28 U/L (15-37) Alanine Aminotransferase (ALT/SGPT) 30 U/L (14-59) 27 U/L (14-59) Alkaline Phosphatase 68 U/L (46-116) 88 U/L (46-116) Total Protein 5.9 g/dL (6.4-8.2) 6.3 g/dL (6.4-8.2) Albumin 1.9 g/dL (3.4-5.0) 1.8 g/dL (3.4-5.0) Albumin/Globulin Ratio 0.5 (1.0-1.7) 0.4 (1.0-1.7) Vancomycin Level Trough 5.0 mcg/mL (10.0-20.0) Vancomycin Last Dose Date 03/08/19 Vancomycin Last Dose Time 1200 Laboratory Tests Test 03/09/19 11:45 03/10/19 04:45 Vancomycin Level Trough 5.0 mcg/mL (10.0-20.0) Vancomycin Last Dose Date 03/08/19 Vancomycin Last Dose Time 1200 White Blood Count 13.0 x10^3/uL (4.0-11.0) Red Blood Count 4.62 x10^6/uL (3.50-5.40) Hemoglobin 14.6 g/dL (12.0-15.5) Hematocrit 44.6 % (36.0-47.0) Mean Corpuscular Volume 97 fL (79-100) Mean Corpuscular Hemoglobin 32 pg (25-35) Mean Corpuscular Hemoglobin Concent 33 g/dL (31-37) Red Cell Distribution Width 14.2 % (11.5-14.5) Platelet Count 70 x10^3/uL (140-400) Neutrophils (%) (Auto) 80 % (31-73) Lymphocytes (%) (Auto) 9 % (24-48) Monocytes (%) (Auto) 11 % (0-9) Eosinophils (%) (Auto) 0 % (0-3) Basophils (%) (Auto) 1 % (0-3) Neutrophils # (Auto) 10.4 x10^3uL (1.8-7.7) Lymphocytes # (Auto) 1.1 x10^3/uL (1.0-4.8) Monocytes # (Auto) 1.4 x10^3/uL (0.0-1.1) Eosinophils # (Auto) 0.0 x10^3/uL (0.0-0.7) Basophils # (Auto) 0.1 x10^3/uL (0.0-0.2) Sodium Level 150 mmol/L (136-145) Potassium Level 2.8 mmol/L (3.5-5.1) Chloride Level 111 mmol/L (98-107) Carbon Dioxide Level 29 mmol/L (21-32) Anion Gap 10 (6-14) Blood Urea Nitrogen 42 mg/dL (7-20) Creatinine 1.1 mg/dL (0.6-1.0) Estimated GFR (Cockcroft-Gault) 48.0 BUN/Creatinine Ratio 38 (6-20) Glucose Level 313 mg/dL (70-99) Calcium Level 8.8 mg/dL (8.5-10.1) Total Bilirubin 0.9 mg/dL (0.2-1.0) Aspartate Amino Transf (AST/SGOT) 28 U/L (15-37) Alanine Aminotransferase (ALT/SGPT) 27 U/L (14-59) Alkaline Phosphatase 88 U/L (46-116) Total Protein 6.3 g/dL (6.4-8.2) Albumin 1.8 g/dL (3.4-5.0) Albumin/Globulin Ratio 0.4 (1.0-1.7) Microbiology 03/08/19 Blood Culture - Preliminary, Resulted NO GROWTH AFTER 1 DAY Medications Current Medications Sodium Chloride 1,000 ml @ 1,000 mls/hr Q1H IV Last administered on 03/06/19 10:40; Start 03/06/19 at 09:30; Stop 03/06/19 at 10:29; Status DC Albuterol/ Ipratropium (Duoneb) 3 ml 1X ONCE NEB Last administered on 03/06/19at 09:20; Start 03/06/19 at 09:30; Stop 03/06/19 at 09:31; Status DC Methylprednisolone Sodium Succinate (SOLU-Medrol 125MG VIAL) 125 mg 1X ONCE IV Last administered on 03/06/19 10:40; Start 03/06/19 at 09:30; Stop 03/06/19 at 09:31; Status DC Pantoprazole Sodium (PROTONIX VIAL for IV PUSH) 80 mg 1X ONCE IVP Last administered on 03/06/19at 10:39; Start 03/06/19 at 09:30; Stop 03/06/19 at 09:31; Status DC Sodium Chloride 1,000 ml @ 1,000 mls/hr 1X ONCE IV Last administered on 03/06/19at 14:42; Start 03/06/19 at 09:30; Stop 03/06/19 at 10:29; Status DC Vancomycin HCl 250 ml @ 250 mls/hr 1X ONCE IV Last administered on 03/06/19at 10:41; Start 03/06/19 at 10:00; Stop 03/06/19 at 10:59; Status DC Levofloxacin/ Dextrose 150 ml @ 100 mls/hr 1X ONCE IV Last administered on 03/06/19at 10:41; Start 03/06/19 at 10:00; Stop 03/06/19 at 11:29; Status DC Sodium Chloride 1,000 ml @ 150 mls/hr Q6H40M IV Last administered on 03/07/19at 04:31; Start 03/06/19 at 11:10; Stop 03/07/19 at 11:09; Status DC Pantoprazole Sodium 80 mg/ Sodium Chloride 100 ml @ 10 mls/hr Q10H IV Last administered on 03/07/19at 03:12; Start 03/06/19 at 11:30; Stop 03/07/19 at 10:15; Status DC Ondansetron HCl (Zofran) 4 mg PRN Q6HRS PRN IV NAUSEA/VOMITING; Start 03/06/19 at 12:00; Stop 03/07/19 at 14:10; Status DC Labetalol HCl (Normodyne Iv Push) 10 mg PRN Q2HR PRN IVP HYPERTENSION, SEE COMMENTS; Start 03/06/19 at 12:00; Stop 03/07/19 at 14:10; Status DC Morphine Sulfate (Morphine Sulfate) 2 mg PRN Q2HR PRN IV PAIN Last administered on 03/10/19at 01:48; Start 03/06/19 at 12:00 Aspirin (Aspirin) 300 mg DAILY MO Last administered on 03/07/19at 10:12; Start 03/06/19 at 12:30; Stop 03/07/19 at 14:10; Status DC Potassium Chloride/Water 100 ml @ 100 mls/hr Q1H IV Last administered on 03/07/19at 00:24; Start 03/06/19 at 13:00; Stop 03/06/19 at 16:59; Status DC Clindamycin Phosphate 50 ml @ 100 mls/hr Q8HRS IV Last administered on 03/07/19at 06:09; Start 03/06/19 at 14:00; Stop 03/07/19 at 09:10; Status DC Levofloxacin/ Dextrose (Levaquin Per Pharmacy) 1 each PRN DAILY PRN MC SEE COMMENTS; Start 03/06/19 at 13:15; Stop 03/07/19 at 14:10; Status DC Levofloxacin/ Dextrose 50 ml @ 50 mls/hr Q24H IV Last administered on 03/07/19at 08:36; Start 03/07/19 at 09:00; Stop 03/07/19 at 14:10; Status DC Meropenem 500 mg/ Sodium Chloride 50 ml @ 100 mls/hr Q8HRS IV ; Start 03/07/19 at 14:00; Stop 03/07/19 at 14:10; Status DC Vancomycin HCl (Vanco Per Pharmacy) 1 each PRN DAILY PRN MC SEE COMMENTS Last administered on 03/07/19at 13:08; Start 03/07/19 at 09:15; Stop 03/07/19 at 14:10; Status DC Vancomycin HCl 1.75 gm/Sodium Chloride 500 ml @ 250 mls/hr 1X ONCE IV Last administered on 03/07/19at 10:13; Start 03/07/19 at 10:00; Stop 03/07/19 at 14:10; Status DC Pantoprazole Sodium (PROTONIX VIAL for IV PUSH) 40 mg DAILYAC IVP ; Start 03/08/19 at 07:30; Stop 03/08/19 at 07:30; Status DC Vancomycin HCl 1 gm/Sodium Chloride 250 ml @ 250 mls/hr Q24H IV ; Start 03/08/19 at 10:00; Stop 03/08/19 at 10:00; Status DC Vancomycin HCl (Vancomycin Trough Level) 1 each 1X ONCE MC ; Start 03/09/19 at 09:30; Stop 03/09/19 at 09:30; Status DC Scopolamine (Transderm-Scop) 1 patch Q3DAYS TD Last administered on 03/10/19at 07:42; Start 03/07/19 at 15:00 Lorazepam (Ativan) 1 mg PRN Q2HRS PRN IV ANXIETY / AGITATION; Start 03/07/19 at 14:15 Amino Acids/ Glycerin/ Electrolytes 1,000 ml @ 80 mls/hr [id number] IV Last administered on 03/09/19 22:12; Start 03/08/19 at 09:30 Vancomycin HCl (Vanco Per Pharmacy) 1 each PRN DAILY PRN MC SEE COMMENTS Last administered on 03/09/19 14:48; Start 03/08/19 at 11:15; Stop 03/09/19 at 15:24; Status DC Meropenem 500 mg/ Sodium Chloride 50 ml @ 100 mls/hr Q8HRS IV Last administered on 03/10/19 05:37; Start 03/08/19 at 14:00 Levofloxacin/ Dextrose (Levaquin Per Pharmacy) 1 each PRN DAILY PRN MC SEE COMMENTS; Start 03/08/19 at 11:15; Stop 03/09/19 at 15:24; Status DC Vancomycin HCl 1 gm/Sodium Chloride 250 ml @ 250 mls/hr Q24H IV Last administered on 03/09/19 13:21; Start 03/08/19 at 12:00; Stop 03/09/19 at 14:05; Status DC Levofloxacin/ Dextrose 150 ml @ 100 mls/hr Q48H IV Last administered on 03/09/19 08:00; Start 03/09/19 at 09:00; Stop 03/09/19 at 15:24; Status DC Vancomycin HCl (Vancomycin Trough Level) 1 each 1X ONCE MC Last administered on 03/09/19 11:30; Start 03/09/19 at 11:30; Stop 03/09/19 at 11:31; Status DC Famotidine (Pepcid Vial) 20 mg DAILY IVP Last administered on 03/10/19 07:41; Start 03/08/19 at 14:00 Acetaminophen (Tylenol Supp) 650 mg PRN Q6HRS PRN MO MILD PAIN / TEMP Last administered on 03/10/19 00:07; Start 03/08/19 at 19:00 Metoprolol Tartrate (Lopressor Vial) 5 mg 1X ONCE IVP Last administered on 03/09/19 08:00; Start 03/09/19 at 07:15; Stop 03/09/19 at 07:16; Status DC Metoprolol Tartrate (Lopressor Vial) 5 mg PRN Q4HRS PRN IVP SBP>160 Last administered on 03/10/19at 04:58; Start 03/09/19 at 13:30 Vancomycin HCl 1 gm/Sodium Chloride 250 ml @ 250 mls/hr Q12H IV ; Start 03/10/19 at 00:00; Stop 03/10/19 at 00:00; Status DC Clonidine HCl (Catapres Tts-1) 1 patch WEEKLY TD Last administered on 03/10/19at 05:48; Start 03/10/19 at 06:00 Potassium Chloride/Water 50 ml @ 50 mls/hr Q1H IV Last administered on 03/10/19at 07:41; Start 03/10/19 at 08:00; Stop 03/10/19 at 09:59 Levetiracetam 500 mg/Dextrose 105 ml @ 420 mls/hr 1X STAT IV Last administered on 03/10/19at 08:32; Start 03/10/19 at 08:18; Stop 03/10/19 at 08:32; Status DC Levetiracetam 500 mg/Dextrose 105 ml @ 420 mls/hr Q12HR IV ; Start 03/10/19 at 21:00 Active Scripts Active Reported Potassium Chloride 10 Meq Tab.sr.24h 10 Meq PO DAILY Procardia Xl (Nifedipine) 60 Mg Tab.er.24 1 Tab PO DAILY Zestril (Lisinopril) 40 Mg Tablet 1 Tab PO BID Glucophage Xr (Metformin Hcl) 500 Mg Tab.er.24h 500 Mg PO [id number] Crestor (Rosuvastatin Calcium) 5 Mg Tablet 1 Tab PO DAILY Coreg (Carvedilol) 25 Mg Tablet 25 Mg PO BIDWMEALS Aspir-Low (Aspirin) 81 Mg Tablet. 1 Tab PO DAILY Vitals/I & O Vital Sign - Last 24 Hours 03/09/19 03/09/19 03/09/19 03/09/19 10:23 11:11 14:41 14:55 Temp 99.4 98.4 99.4 98.4 Pulse 88 90 90 Resp 16 16 B/P (MAP) 176/91 (119) 188/83 (118) 195/96 195/96 (129) Pulse Ox 93 92 O2 Delivery Venturi Mask Venturi Mask O2 Flow Rate 15.0 15.0 03/09/19 03/09/19 03/09/19 03/09/19 19:00 20:00 20:40 23:00 Temp 98.7 100.4 98.7 100.4 Pulse 102 105 104 Resp 20 24 B/P (MAP) 190/108 (135) 192/109 188/113 (138) Pulse Ox 99 95 O2 Delivery Venturi Mask Nasal Cannula Venturi Mask O2 Flow Rate 15.0 15.0 15.0 03/10/19 03/10/19 03/10/19 03/10/19 00:35 01:48 02:18 03:00 Temp 99.4 99.4 Pulse 105 98 Resp 22 24 24 B/P (MAP) 192/114 180/108 (132) Pulse Ox 95 95 98 O2 Delivery Nasal Cannula Nasal Cannula Venturi Mask O2 Flow Rate 15.0 15.0 15.0 03/10/19 03/10/19 03/10/19 04:58 07:00 08:00 Temp 100.9 100.9 Pulse 107 83 Resp 22 B/P (MAP) 188/109 236/114 (154) Pulse Ox 92 O2 Delivery Venturi Mask Nasal Cannula O2 Flow Rate 15.0 15.0 Intake and Output 03/09/19 03/09/19 03/10/19 15:00 23:00 07:00 Intake Total 0 ml 0 ml Output Total 1525 ml 700 ml Balance -1525 ml -700 ml MIRELLA JONES MD March 10, 2019 09:58
--- NOTE | 2019-03-10 10:04 | PDOC ---
Infectious Disease Note Subjective: Subjective Pt remains unresponsive had seizures this am had fever D/W RN Vital Signs: Vital Signs Vital Signs Date Time Temp Pulse Resp B/P (MAP) Pulse Ox O2 Delivery O2 Flow Rate FiO2 03/10/19 08:00 Nasal Cannula 15.0 03/10/19 07:00 100.9 83 22 236/114 (154) 92 100.9 Physical Exam: PHYSICAL EXAM GENERAL: Unresponsive female, tachypneic on nonrebreather mask. HEENT: Sclerae anicteric. Oral mucosa dry. LUNGS: Decreased breath sounds with rhonchi in both lower lobes, right greater than the left. HEART: S1, S2, tachycardia ABDOMEN: Soft, nontender, nondistended. EXTREMITIES: trace edema, no cyanosis. CENTRAL NERVOUS SYSTEM: Unresponsive. PSYCHIATRIC: Unable to obtain. DERM no gen rash Medications: Inpatient Meds: Current Medications Medications (Trade) Dose Ordered Sig/German Start Time Stop Time Status Last Admin Dose Admin Acetaminophen (Tylenol Supp) 650 mg PRN Q6HRS PRN 03/08/19 19:00 03/10/19 00:07 650 MG Albuterol/ Ipratropium (Duoneb) 3 ml 1X ONCE 03/06/19 09:30 03/06/19 09:31 DC 03/06/19 09:20 3 ML Amino Acids/ Glycerin/ Electrolytes 1,000 ml @ 80 mls/hr [id number] 03/08/19 09:30 03/09/19 22:12 80 MLS/HR Aspirin (Aspirin) 300 mg DAILY 03/06/19 12:30 03/07/19 14:10 DC 03/07/19 10:12 300 MG Clindamycin Phosphate 50 ml @ 100 mls/hr Q8HRS 03/06/19 14:00 03/07/19 09:10 DC 03/07/19 06:09 100 MLS/HR Clonidine HCl (Catapres Tts-1) 1 patch WEEKLY 03/10/19 06:00 03/10/19 05:48 1 PATCH Famotidine (Pepcid Vial) 20 mg DAILY 03/08/19 14:00 03/10/19 07:41 20 MG Labetalol HCl (Normodyne Iv Push) 10 mg PRN Q2HR PRN 03/06/19 12:00 03/07/19 14:10 DC Levetiracetam 500 mg/Dextrose 105 ml @ 420 mls/hr Q12HR 03/10/19 21:00 Levofloxacin/ Dextrose 150 ml @ 100 mls/hr Q48H 03/09/19 09:00 03/09/19 15:24 DC 03/09/19 08:00 100 MLS/HR Levofloxacin/ Dextrose (Levaquin Per Pharmacy) 1 each PRN DAILY PRN 03/08/19 11:15 03/09/19 15:24 DC Lorazepam (Ativan) 1 mg PRN Q2HRS PRN 03/07/19 14:15 Meropenem 500 mg/ Sodium Chloride 50 ml @ 100 mls/hr Q8HRS 03/08/19 14:00 03/10/19 05:37 100 MLS/HR Methylprednisolone Sodium Succinate (SOLU-Medrol 125MG VIAL) 125 mg 1X ONCE 03/06/19 09:30 03/06/19 09:31 DC 03/06/19 10:40 125 MG Metoprolol Tartrate (Lopressor Vial) 5 mg PRN Q4HRS PRN 03/09/19 13:30 03/10/19 04:58 5 MG Morphine Sulfate (Morphine Sulfate) 2 mg PRN Q2HR PRN 03/06/19 12:00 03/10/19 01:48 2 MG Ondansetron HCl (Zofran) 4 mg PRN Q6HRS PRN 03/06/19 12:00 03/07/19 14:10 DC Pantoprazole Sodium (PROTONIX VIAL for IV PUSH) 40 mg DAILYAC 03/08/19 07:30 03/08/19 07:30 DC Pantoprazole Sodium 80 mg/ Sodium Chloride 100 ml @ 10 mls/hr Q10H 03/06/19 11:30 03/07/19 10:15 DC 03/07/19 03:12 10 MLS/HR Potassium Chloride/Water 50 ml @ 50 mls/hr Q1H 03/10/19 08:00 03/10/19 09:59 DC 03/10/19 07:41 50 MLS/HR Scopolamine (Transderm-Scop) 1 patch Q3DAYS 03/07/19 15:00 03/10/19 07:42 1 PATCH Sodium Chloride 1,000 ml @ 150 mls/hr Q6H40M 03/06/19 11:10 5/7/19 11:09 DC 03/07/19 04:31 150 MLS/HR Vancomycin HCl (Vanco Per Pharmacy) 1 each PRN DAILY PRN 03/08/19 11:15 03/09/19 15:24 DC 03/09/19 14:48 1 EACH Vancomycin HCl (Vancomycin Trough Level) 1 each 1X ONCE 03/09/19 11:30 03/09/19 11:31 DC 03/09/19 11:30 1 EACH Vancomycin HCl 1.75 gm/Sodium Chloride 500 ml @ 250 mls/hr 1X ONCE 03/07/19 10:00 03/07/19 14:10 DC 03/07/19 10:13 250 MLS/HR Vancomycin HCl 1 gm/Sodium Chloride 250 ml @ 250 mls/hr Q12H 03/10/19 00:00 03/10/19 00:00 DC Labs: Lab Laboratory Tests Test 03/09/19 11:45 03/10/19 04:45 Vancomycin Level Trough 5.0 mcg/mL (10.0-20.0) Vancomycin Last Dose Date 03/08/19 Vancomycin Last Dose Time 1200 White Blood Count 13.0 x10^3/uL (4.0-11.0) Red Blood Count 4.62 x10^6/uL (3.50-5.40) Hemoglobin 14.6 g/dL (12.0-15.5) Hematocrit 44.6 % (36.0-47.0) Mean Corpuscular Volume 97 fL (79-100) Mean Corpuscular Hemoglobin 32 pg (25-35) Mean Corpuscular Hemoglobin Concent 33 g/dL (31-37) Red Cell Distribution Width 14.2 % (11.5-14.5) Platelet Count 70 x10^3/uL (140-400) Neutrophils (%) (Auto) 80 % (31-73) Lymphocytes (%) (Auto) 9 % (24-48) Monocytes (%) (Auto) 11 % (0-9) Eosinophils (%) (Auto) 0 % (0-3) Basophils (%) (Auto) 1 % (0-3) Neutrophils # (Auto) 10.4 x10^3uL (1.8-7.7) Lymphocytes # (Auto) 1.1 x10^3/uL (1.0-4.8) Monocytes # (Auto) 1.4 x10^3/uL (0.0-1.1) Eosinophils # (Auto) 0.0 x10^3/uL (0.0-0.7) Basophils # (Auto) 0.1 x10^3/uL (0.0-0.2) Sodium Level 150 mmol/L (136-145) Potassium Level 2.8 mmol/L (3.5-5.1) Chloride Level 111 mmol/L (98-107) Carbon Dioxide Level 29 mmol/L (21-32) Anion Gap 10 (6-14) Blood Urea Nitrogen 42 mg/dL (7-20) Creatinine 1.1 mg/dL (0.6-1.0) Estimated GFR (Cockcroft-Gault) 48.0 BUN/Creatinine Ratio 38 (6-20) Glucose Level 313 mg/dL (70-99) Calcium Level 8.8 mg/dL (8.5-10.1) Total Bilirubin 0.9 mg/dL (0.2-1.0) Aspartate Amino Transf (AST/SGOT) 28 U/L (15-37) Alanine Aminotransferase (ALT/SGPT) 27 U/L (14-59) Alkaline Phosphatase 88 U/L (46-116) Total Protein 6.3 g/dL (6.4-8.2) Albumin 1.8 g/dL (3.4-5.0) Albumin/Globulin Ratio 0.4 (1.0-1.7) Micro RUN DATE: 03/08/19 PAGE 1 RUN TIME: 1809 [facility] [address] [place] [address] Juan A Crowell M.D., Health Therapist PATIENT: KEMI PASCUAL John ACCT: [id number] LOC: [address] [place] [address] U: [id number] AGE/SX: 79/F ROOM: [facility] RE03/06/[address]: GERTRUDE VILLASENOR MD : 1940 BED: 1 DIS: STATUS: ADM IN TLOC: SPEC #: [id number] CHARBEL: 03/06/19 STATUS: RES REQ #: [id number] RECD: 03/06/[address]: RIC MARSHALL MD SOURCE: BLOOD ENTR: 03/06/19-[address]: MIKA JONES MD SPDESC: ORDERED: BLD CULT - LC Procedure Result BLOOD CULTURE LC Preliminary Preliminary report BLD CULT RESULT 1 Preliminary Streptococcus species Performed at: [facility], [place], [place] [id number] Food Service: PARIS Olvera MD, Phone: [phone] Objective: Assessment: Strep Pneumonia Bacteremia POA 4/4 bottles, CVA cerebral edema Lactic acidosis Coffee ground emesis POA Aspiration pneumonia PCN allergy hives,tolerating merrem leucocytosis Plan: Plan of Care Cont merrem,very low potential for seizures d/w trial with zosyn,daughter wants to hold off Monitor renal functions closely f/u bc results f/u labs and cults Palliative care on case Condition critical Prognosis poor D/W Daughter at bedside D/W ZACHARY WILKINS MD March 10, 2019 10:04
[2019-03-10] MEDS: IV NORMAL SALINE 1000ML BAG 1,000 ML IV SCH ×2 (10:34→11:14)
[2019-03-10] MEDS ORDERED: TPN PER PHARMACY MC PRN (10:45)
[2019-03-10] MEDS ORDERED: cloNIDine TTS-2 1 PATCH PATCH TD SCH (11:00)
[2019-03-10 11:57] LABS: PROTHROMBIN TIME PATIENT 15.3 SEC (11.7-14.0)
[2019-03-10 12:11] LABS: ALBUMIN 1.7 g/dL (3.4-5.0); DIRECT BILIRUBIN 0.4 mg/dL (0.0-0.2); TOTAL BILIRUBIN 0.8 mg/dL (0.2-1.0); TOTAL PROTEIN 5.9 g/dL (6.4-8.2)
[2019-03-10] MEDS ORDERED: hydrALAZINE 20 MG/ML VIAL. IVP PRN (12:15)
--- NOTE | 2019-03-10 12:54 | PDOC2 ---
PALLIATIVE CARE Palliative Care Note Palliative Care Patient currently being transferred to Room 202. Had 2 seizures this am. EEG results pending. Spoke with daughter. Continue current treatment plan. Code Status; DNR/DNI. confirmed. WILFREDO MORENO March 10, 2019 12:54
--- NOTE | 2019-03-10 13:04 | NUR ---
Patient blood pressure systolic steadily staying in 190s, diastolic in 100s. This RN gave metoprolol IV push, with not much change, Dr. Culver notified of this. Dr. Culver prefers if patient had availability to hydralazine for better BP control. This RN informed him 5N can no longer push hydralazine due to no tele. Dr. Culver suggested ICU transfer. Patient's family reiterated that they wanted to respect DNR status, but still receive available treatment. This RN talked to nursing yard supervisor and patient's family, who all agreed that [facility] would be fit for transfer, Dr. Culver agreed with [facility]. This RN gave report to Amber GARCIA, all questions answered. This RN and two CNAs transferred patient downstairs and made patient comfortable. Amber GARCIA at bedside at time of transfer.
[2019-03-10 13:20] LABS: MAGNESIUM 2.4 mg/dL (1.8-2.4); PHOSPHORUS 2.5 mg/dL (2.6-4.7)
--- NOTE | 2019-03-10 13:32 | NUR ---
Pt arrived to room [address] [place] [address] at approximately 1230 by bed. Family at bedside. Pt on 15L venturi mask. Pt unresponsive. Seizure precautions in place. BP 160/92 5 mg of hydralazine given. Will continue to monitor.
--- NOTE | 2019-03-10 13:54 | EEG ---
DATE OF SERVICE: 03/10/2019 ATTENDING PHYSICIAN: Dr. Pacheco. EEG NUMBER: [id number]. OBJECTIVE: The patient is a 79-year-old female with new seizures and altered mental status. DESCRIPTION: This is a digital study. Electrodes are placed according to the international 10-20 system. Bipolar and referential montages are available. Activation procedures typically include hyperventilation and intermittent photic stimulation. INTERPRETATION: The waking background consists of 4-5 Hz, 50-100 microvolt activity without reactivity. Hyperventilation is not performed. Intermittent photic stimulation: is noncontributory. No normal sleep patterns are seen. IMPRESSION: This electroencephalogram with the patient in an obtunded state is abnormal because of a moderate, diffuse disturbance of cerebral activity consistent with any of a variety of toxic or metabolic encephalopathies. There is no focal, paroxysmal or epileptiform activity. Thank you for letting us help with the patient's care. RISHABH HARO MD DR: BETSY/simba JOB#: [id number] / [id number]
--- NOTE | 2019-03-10 13:54 | RAD ---
Portable chest, 03/10/2019: HISTORY: Fever Comparison is made to a study from 03/06/2019. A right PICC remains in place extending into the superior vena cava. The NG tube has been removed. The heart is mildly enlarged. There is calcific plaquing and tortuosity of the thoracic aorta. Mild right parahilar and lingular opacities have partially cleared. No new pulmonary abnormality is seen. Mild persistent blunting of the left lateral costophrenic angle may be due to a prominent epicardial fat pad or a tiny amount pleural fluid. IMPRESSION: Improving mild pulmonary infiltrates. Electronically signed by: Orlando Wu MD (03/10/2019 1:51 PM) [facility]
[2019-03-10] MEDS: TPN PER PHARMACY MC PRN ×2 (14:35→14:48)
--- NOTE | 2019-03-10 14:49 | NUR ---
Pharmacy TPN Dosing Note S: KEMI PASCUAL is a 79 year old F Currently receiving Central Continuous TPN started 03/10/19 B:Pertinent PMH: pt unable to pass swallow study, doesn't want peg yet Height: 5 feet, 2 inches Weight: 66.751318 kg Current diet: npo LABS: Sodium: 150 Potassium: 2.8 Chloride: 111 Calcium: 8.8 Corrected Calcium: 10.64 Magnesium: 2.4 CO2: 29 SCr: 1.1 Glucose: 313 Albumin: 1.7 AST: 27 ALT: 28 TPN FORMULA: TPN TYPE: Central Continuous AMINO ACIDS: 60 gm DEXTROSE: 195 gm LIPIDS: 20 gm SODIUM CHLORIDE: 60 mEq SODIUM ACETATE: mEq SODIUM PHOSPHATE: mmol POTASSIUM CHLORIDE: 50 mEq POTASSIUM ACETATE: 20 mEq POTASSIUM PHOSPHATE: 20.6 mmol MAGNESIUM: 10 mEq CALCIUM: 10 mEq INSULIN: units MULTIPLE VITAMIN: 10 ml TRACE ELEMENTS: mte5 1ml ml(s) TPN PLAN: Pt on procalamine since 03/08, Na still rising, 150 today. K 2.8 today with 40 meq repletion given. Start standard TPN with 60 NaCl (rather than standard 90), extra K acetate 20 meq, extra K phos 6.8 mmol (~K 10meq). Last trig 5/ WNL. BMP/phos/mag in AM. R: Begin TPN ABOVE. Will monitor electrolytes, glucose, and tolerance to TPN. JONO [facility], 03/10/19 3041
[2019-03-10] MEDS ORDERED: DEXTROSE 50% 25 GM / 50ML DISP.SYRIN. IV PRN (15:45)
[2019-03-10] MEDS: AMINO AC 3%/ELECTROLYTE/GLYCER 1,000 ML IV SCH (17:09)
[2019-03-10] MEDS: INSULIN LISPRO 300 UNITS/3 ML INSULN.PEN. SQ SCH (18:28)
[2019-03-10] MEDS: levETIRAcetam 500 MG in IV DEXTROSE 5% 100ML 100 ML IV SCH (21:16)
[2019-03-10] MEDS ORDERED: DEXTROSE 70% IV SCH ×11 (22:00)
[2019-03-10] MEDS ORDERED: AMINO ACID IV SCH ×11 (22:00)
[2019-03-10] MEDS ORDERED: TOTAL PARENTERAL NUTRITION IV SCH ×11 (22:00)
[2019-03-10] MEDS ORDERED: [UNRECOGNIZED DRUG - OTHER] IV SCH ×11 (22:00)
[2019-03-10] MEDS: hydrALAZINE 20 MG/ML VIAL. IVP PRN (23:23)
[2019-03-11] MEDS: INSULIN LISPRO 300 UNITS/3 ML INSULN.PEN. SQ SCH ×4 (00:26→17:34)
[2019-03-11 03:32] VITALS: BP 146/70
[2019-03-11] MEDS: MEROPENEM 500 MG in IV NORMAL SALINE 50ML 50 ML IV SCH ×3 (06:12→21:38)
[2019-03-11 06:20] LABS: BASO % 0 % (0-3); EOS % 0 % (0-3); HEMOGLOBIN 12.6 g/dL (12.0-15.5); LYMPH # 1.5 x10^3/uL (1.0-4.8); LYMPH % 12 % (24-48); MEAN CORPUSCULAR HEMOGLOBIN 32 pg (25-35); MEAN CORPUSCULAR HGB CONC 33 g/dL (31-37); MEAN CORPUSCULAR VOLUME 96 fL (79-100); MONO % 8 % (0-9); NEUT # 9.8 x10^3uL (1.8-7.7); NEUT % 80 % (31-73); PLATELET COUNT 89 x10^3/uL (140-400); RED BLOOD COUNT 3.97 x10^6/uL (3.50-5.40); RED CELL DISTRIBUTION WIDTH 13.9 % (11.5-14.5); WHITE BLOOD COUNT 12.3 x10^3/uL (4.0-11.0)
[2019-03-11 06:42] LABS: MAGNESIUM 2.8 mg/dL (1.8-2.4); PHOSPHORUS 2.6 mg/dL (2.6-4.7)
[2019-03-11 06:44] LABS: ALBUMIN 1.7 g/dL (3.4-5.0); ALBUMIN/GLOBULIN RATIO 0.4 (1.0-1.7); CALCIUM 8.6 mg/dL (8.5-10.1); CREATININE 1.1 mg/dL (0.6-1.0); POTASSIUM 3.4 mmol/L (3.5-5.1); TOTAL BILIRUBIN 0.6 mg/dL (0.2-1.0); TOTAL PROTEIN 5.5 g/dL (6.4-8.2)
[2019-03-11 07:00] VITALS: BP 159/75
[2019-03-11] MEDS: TPN PER PHARMACY MC PRN ×4 (07:58→14:28)
[2019-03-11] MEDS: FAMOTIDINE 20 MG/2 ML VIAL IVP SCH (08:58)
[2019-03-11] MEDS: levETIRAcetam 500 MG in IV DEXTROSE 5% 100ML 100 ML IV SCH ×2 (08:58→20:44)
--- NOTE | 2019-03-11 10:50 | NUR ---
Pharmacy TPN Dosing Note S: KEMI PASCUAL is a 79 year old F Currently receiving Central Continuous TPN started 03/10/19 B:Pertinent PMH: pt unable to pass swallow study, doesn't want peg yet Height: 5 feet, 2 inches Weight: 69.253769 kg Current diet: npo LABS: Sodium: 152 Potassium: 3.4 Chloride: 116 Calcium: 8.6 Corrected Calcium: 10.44 Magnesium: 2.8 CO2: 29 SCr: 1.1 Glucose: 360 Albumin: 1.7 AST: 27 ALT: 28 TPN FORMULA: TPN TYPE: Central Continuous AMINO ACIDS: 65 gm DEXTROSE: 250 gm LIPIDS: 20 gm SODIUM CHLORIDE: 60 mEq SODIUM ACETATE: 30 mEq SODIUM PHOSPHATE: - mmol POTASSIUM CHLORIDE: 40 mEq POTASSIUM ACETATE: 50 mEq POTASSIUM PHOSPHATE: 18 mmol MAGNESIUM: 5 mEq CALCIUM: 10 mEq INSULIN: 10 units MULTIPLE VITAMIN: 10 ml TRACE ELEMENTS: mte5 1ml ml(s) TPN PLAN: NA LEVEL STILL INCREASING, CHANGE NACL TO ACETATE AND DECREASE TO 30 MEQ, INCREASE KACETATE TO 50MEQ, DECREASE MAG TO 5MEQ AND ADD INSULIN 10 UNITS TO TPN. R: CHANGE BASE TPN TO AA65, DEXTROSE 250, LIPID 20 GM PER DIETARY REC. Will monitor electrolytes, glucose, and tolerance to TPN. YE SING[facility], 03/11/19 1058
--- NOTE | 2019-03-11 10:59 | PDOC ---
Infectious Disease Note Subjective Subjective No further seizures or vomiting reported per nursing Fever curve improving Venti mask FiO2 40% ROS ROS Unobtainable, noncommunicative Vital Sign Vital Signs Vital Signs Date Time Temp Pulse Resp B/P (MAP) Pulse Ox O2 Delivery O2 Flow Rate FiO2 03/11/19 08:00 Venturi Mask 15.0 03/11/19 07:00 97.7 73 18 159/75 (103) 96 97.7 Physical Exam PHYSICAL EXAM GENERAL: Propped up in bed, opens eyes, NAD HEENT: Squints to eye exam and won't open mouth. venti-mask LUNGS: Decreased breath sounds lower lobes, nonlabored HEART: S1, S2, ABDOMEN: Obese, soft, nontender, no guarding, BS active : Mendez 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, no cyanosis. HOME SERVICE CONSULTANT: Opens eyes to voice, no follow commands or responds to questions SKIN: No rash RUE-PICC clean Labs Lab Laboratory Tests Test 03/10/19 11:25 03/10/19 16:45 03/10/19 18:21 03/11/19 00:20 Prothrombin Time 15.3 SEC (11.7-14.0) Prothromb Time International Ratio 1.2 (0.8-1.1) Activated Partial Thromboplast Time 20 SEC (24-38) Fibrinogen 739 mg/dL (200-440) Lactic Acid Level 1.4 mmol/L (0.4-2.0) Phosphorus Level 2.5 mg/dL (2.6-4.7) Magnesium Level 2.4 mg/dL (1.8-2.4) Total Bilirubin 0.8 mg/dL (0.2-1.0) Direct Bilirubin 0.4 mg/dL (0.0-0.2) Aspartate Amino Transf (AST/SGOT) 27 U/L (15-37) Alanine Aminotransferase (ALT/SGPT) 28 U/L (14-59) Alkaline Phosphatase 81 U/L (46-116) Total Protein 5.9 g/dL (6.4-8.2) Albumin 1.7 g/dL (3.4-5.0) Procalcitonin 5.59 ng/mL (0.00-0.10) Potassium Level 4.9 mmol/L (3.5-5.1) Glucose (Fingerstick) 207 mg/dL (70-99) 318 mg/dL (70-99) Test 03/11/19 06:00 03/11/19 06:02 White Blood Count 12.3 x10^3/uL (4.0-11.0) Red Blood Count 3.97 x10^6/uL (3.50-5.40) Hemoglobin 12.6 g/dL (12.0-15.5) Hematocrit 38.0 % (36.0-47.0) Mean Corpuscular Volume 96 fL (79-100) Mean Corpuscular Hemoglobin 32 pg (25-35) Mean Corpuscular Hemoglobin Concent 33 g/dL (31-37) Red Cell Distribution Width 13.9 % (11.5-14.5) Platelet Count 89 x10^3/uL (140-400) Neutrophils (%) (Auto) 80 % (31-73) Lymphocytes (%) (Auto) 12 % (24-48) Monocytes (%) (Auto) 8 % (0-9) Eosinophils (%) (Auto) 0 % (0-3) Basophils (%) (Auto) 0 % (0-3) Neutrophils # (Auto) 9.8 x10^3uL (1.8-7.7) Lymphocytes # (Auto) 1.5 x10^3/uL (1.0-4.8) Monocytes # (Auto) 1.0 x10^3/uL (0.0-1.1) Eosinophils # (Auto) 0.0 x10^3/uL (0.0-0.7) Basophils # (Auto) 0.0 x10^3/uL (0.0-0.2) Erythrocyte Sedimentation Rate 65 (0-25) Sodium Level 152 mmol/L (136-145) Potassium Level 3.4 mmol/L (3.5-5.1) Chloride Level 116 mmol/L (98-107) Carbon Dioxide Level 29 mmol/L (21-32) Anion Gap 7 (6-14) Blood Urea Nitrogen 63 mg/dL (7-20) Creatinine 1.1 mg/dL (0.6-1.0) Estimated GFR (Cockcroft-Gault) 48.0 BUN/Creatinine Ratio 57 (6-20) Glucose Level 362 mg/dL (70-99) Calcium Level 8.6 mg/dL (8.5-10.1) Phosphorus Level 2.6 mg/dL (2.6-4.7) Magnesium Level 2.8 mg/dL (1.8-2.4) Total Bilirubin 0.6 mg/dL (0.2-1.0) Aspartate Amino Transf (AST/SGOT) 38 U/L (15-37) Alanine Aminotransferase (ALT/SGPT) 41 U/L (14-59) Alkaline Phosphatase 66 U/L (46-116) Total Protein 5.5 g/dL (6.4-8.2) Albumin 1.7 g/dL (3.4-5.0) Albumin/Globulin Ratio 0.4 (1.0-1.7) Thyroid Stimulating Hormone (TSH) 2.929 uIU/mL (0.358-3.74) Glucose (Fingerstick) 344 mg/dL (70-99) CXR, 03/10 Improving mild pulmonary infiltrates. 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 There is no large territorial right MCA infarct. No definite cerebral edema is visualized. There is dependent diffusion signal alteration involving the occipital horns of the lateral ventricles which may be seen with debris, blood products or ventriculitis. There is no susceptibility artifact in this region with intraventricular hemorrhage therefore less likely. This finding cannot be confirmed on additional sequences and could be artifactual. Short-term follow-up MRI may be of benefit. Micro /. BLOOD CULTURE Preliminary NO GROWTH AFTER 2 DAYS 03/10. BLOOD CULTURE Preliminary NO GROWTH AFTER 1 DAY Objective Assessment Strep Pneumonia bacteremia POA ( 4/4 bottles). Repeat BC 03/08 and neg so far CVA cerebral edema Leucocytosis, improving Aspiration pneumonia PCN allergy hives, tolerating Merrem Coffee ground emesis POA Lactic acidosis, better Plan Plan of Care Continue Merrem Palliative care on case D/w daughter and son D/w nursing Prognosis poor CELE LOPEZ APRN March 11, 2019 10:59 KEANU BOTELLO MD March 11, 2019 22:16
[2019-03-11 11:00] VITALS: BP 167/76
--- NOTE | 2019-03-11 12:00 | PDOC ---
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 venti-mask LUNGS: Decreased breath sounds lower lobes, nonlabored HEART: S1, S2, ABDOMEN: Obese, soft, nontender, no guarding, BS active : Mendez 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, no cyanosis. [employer]: Opens eyes to voice, no follow commands or responds to questions SKIN: No rash RUE-PICC clean General: moderate distress, Other (minimal response) Heart: Regular rate, Other (tachycardic) Lungs: Crackles Abdomen: Normal bowel sounds, Soft, No tenderness, No hepatosplenomegaly, No masses Extremities: No clubbing, No cyanosis, No edema, Normal pulses, No tenderness/swelling Skin: No rashes Labs LABS Laboratory Tests Test 03/10/19 16:45 03/10/19 18:21 03/11/19 00:20 03/11/19 06:00 Potassium Level 4.9 mmol/L (3.5-5.1) 3.4 mmol/L (3.5-5.1) Glucose (Fingerstick) 207 mg/dL (70-99) 318 mg/dL (70-99) White Blood Count 12.3 x10^3/uL (4.0-11.0) Red Blood Count 3.97 x10^6/uL (3.50-5.40) Hemoglobin 12.6 g/dL (12.0-15.5) Hematocrit 38.0 % (36.0-47.0) Mean Corpuscular Volume 96 fL (79-100) Mean Corpuscular Hemoglobin 32 pg (25-35) Mean Corpuscular Hemoglobin Concent 33 g/dL (31-37) Red Cell Distribution Width 13.9 % (11.5-14.5) Platelet Count 89 x10^3/uL (140-400) Neutrophils (%) (Auto) 80 % (31-73) Lymphocytes (%) (Auto) 12 % (24-48) Monocytes (%) (Auto) 8 % (0-9) Eosinophils (%) (Auto) 0 % (0-3) Basophils (%) (Auto) 0 % (0-3) Neutrophils # (Auto) 9.8 x10^3uL (1.8-7.7) Lymphocytes # (Auto) 1.5 x10^3/uL (1.0-4.8) Monocytes # (Auto) 1.0 x10^3/uL (0.0-1.1) Eosinophils # (Auto) 0.0 x10^3/uL (0.0-0.7) Basophils # (Auto) 0.0 x10^3/uL (0.0-0.2) Erythrocyte Sedimentation Rate 65 (0-25) Sodium Level 152 mmol/L (136-145) Chloride Level 116 mmol/L (98-107) Carbon Dioxide Level 29 mmol/L (21-32) Anion Gap 7 (6-14) Blood Urea Nitrogen 63 mg/dL (7-20) Creatinine 1.1 mg/dL (0.6-1.0) Estimated GFR (Cockcroft-Gault) 48.0 BUN/Creatinine Ratio 57 (6-20) Glucose Level 362 mg/dL (70-99) Calcium Level 8.6 mg/dL (8.5-10.1) Phosphorus Level 2.6 mg/dL (2.6-4.7) Magnesium Level 2.8 mg/dL (1.8-2.4) Total Bilirubin 0.6 mg/dL (0.2-1.0) Aspartate Amino Transf (AST/SGOT) 38 U/L (15-37) Alanine Aminotransferase (ALT/SGPT) 41 U/L (14-59) Alkaline Phosphatase 66 U/L (46-116) Total Protein 5.5 g/dL (6.4-8.2) Albumin 1.7 g/dL (3.4-5.0) Albumin/Globulin Ratio 0.4 (1.0-1.7) Thyroid Stimulating Hormone (TSH) 2.929 uIU/mL (0.358-3.74) Test 03/11/19 06:02 Glucose (Fingerstick) 344 mg/dL (70-99) Review of Systems Review of Systems ROS unable to obtain Assessment and Plan Assessmemt and Plan Problems Medical Problems: (1) Acute ischemic cerebrovascular accident (CVA) involving middle cerebral artery territory Status: Acute (2) Acute renal insufficiency Status: Acute (3) Acute respiratory distress Status: Acute (4) CHF (congestive heart failure) Status: Acute (5) GI bleeding Status: Acute (6) Hypokalemia Status: Acute (7) Severe sepsis Status: Acute Assessment: Aspiration pneumonia secondary to stroke Respiratory failure Seizures CVA CHF Acute renal insufficiency Hyperlipidemia Hypertension 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 Labs Laboratory Tests Test 03/10/19 04:45 03/10/19 11:25 03/10/19 16:45 03/10/19 18:21 White Blood Count 13.0 x10^3/uL (4.0-11.0) Red Blood Count 4.62 x10^6/uL (3.50-5.40) Hemoglobin 14.6 g/dL (12.0-15.5) Hematocrit 44.6 % (36.0-47.0) Mean Corpuscular Volume 97 fL (79-100) Mean Corpuscular Hemoglobin 32 pg (25-35) Mean Corpuscular Hemoglobin Concent 33 g/dL (31-37) Red Cell Distribution Width 14.2 % (11.5-14.5) Platelet Count 70 x10^3/uL (140-400) Neutrophils (%) (Auto) 80 % (31-73) Lymphocytes (%) (Auto) 9 % (24-48) Monocytes (%) (Auto) 11 % (0-9) Eosinophils (%) (Auto) 0 % (0-3) Basophils (%) (Auto) 1 % (0-3) Neutrophils # (Auto) 10.4 x10^3uL (1.8-7.7) Lymphocytes # (Auto) 1.1 x10^3/uL (1.0-4.8) Monocytes # (Auto) 1.4 x10^3/uL (0.0-1.1) Eosinophils # (Auto) 0.0 x10^3/uL (0.0-0.7) Basophils # (Auto) 0.1 x10^3/uL (0.0-0.2) Sodium Level 150 mmol/L (136-145) Potassium Level 2.8 mmol/L (3.5-5.1) 4.9 mmol/L (3.5-5.1) Chloride Level 111 mmol/L (98-107) Carbon Dioxide Level 29 mmol/L (21-32) Anion Gap 10 (6-14) Blood Urea Nitrogen 42 mg/dL (7-20) Creatinine 1.1 mg/dL (0.6-1.0) Estimated GFR (Cockcroft-Gault) 48.0 BUN/Creatinine Ratio 38 (6-20) Glucose Level 313 mg/dL (70-99) Calcium Level 8.8 mg/dL (8.5-10.1) Total Bilirubin 0.9 mg/dL (0.2-1.0) 0.8 mg/dL (0.2-1.0) Aspartate Amino Transf (AST/SGOT) 28 U/L (15-37) 27 U/L (15-37) Alanine Aminotransferase (ALT/SGPT) 27 U/L (14-59) 28 U/L (14-59) Alkaline Phosphatase 88 U/L (46-116) 81 U/L (46-116) Total Protein 6.3 g/dL (6.4-8.2) 5.9 g/dL (6.4-8.2) Albumin 1.8 g/dL (3.4-5.0) 1.7 g/dL (3.4-5.0) Albumin/Globulin Ratio 0.4 (1.0-1.7) Prothrombin Time 15.3 SEC (11.7-14.0) Prothromb Time International Ratio 1.2 (0.8-1.1) Activated Partial Thromboplast Time 20 SEC (24-38) Fibrinogen 739 mg/dL (200-440) Lactic Acid Level 1.4 mmol/L (0.4-2.0) Phosphorus Level 2.5 mg/dL (2.6-4.7) Magnesium Level 2.4 mg/dL (1.8-2.4) Direct Bilirubin 0.4 mg/dL (0.0-0.2) Procalcitonin 5.59 ng/mL (0.00-0.10) Glucose (Fingerstick) 207 mg/dL (70-99) Test 03/11/19 00:20 03/11/19 06:00 03/11/19 06:02 Glucose (Fingerstick) 318 mg/dL (70-99) 344 mg/dL (70-99) White Blood Count 12.3 x10^3/uL (4.0-11.0) Red Blood Count 3.97 x10^6/uL (3.50-5.40) Hemoglobin 12.6 g/dL (12.0-15.5) Hematocrit 38.0 % (36.0-47.0) Mean Corpuscular Volume 96 fL (79-100) Mean Corpuscular Hemoglobin 32 pg (25-35) Mean Corpuscular Hemoglobin Concent 33 g/dL (31-37) Red Cell Distribution Width 13.9 % (11.5-14.5) Platelet Count 89 x10^3/uL (140-400) Neutrophils (%) (Auto) 80 % (31-73) Lymphocytes (%) (Auto) 12 % (24-48) Monocytes (%) (Auto) 8 % (0-9) Eosinophils (%) (Auto) 0 % (0-3) Basophils (%) (Auto) 0 % (0-3) Neutrophils # (Auto) 9.8 x10^3uL (1.8-7.7) Lymphocytes # (Auto) 1.5 x10^3/uL (1.0-4.8) Monocytes # (Auto) 1.0 x10^3/uL (0.0-1.1) Eosinophils # (Auto) 0.0 x10^3/uL (0.0-0.7) Basophils # (Auto) 0.0 x10^3/uL (0.0-0.2) Erythrocyte Sedimentation Rate 65 (0-25) Sodium Level 152 mmol/L (136-145) Potassium Level 3.4 mmol/L (3.5-5.1) Chloride Level 116 mmol/L (98-107) Carbon Dioxide Level 29 mmol/L (21-32) Anion Gap 7 (6-14) Blood Urea Nitrogen 63 mg/dL (7-20) Creatinine 1.1 mg/dL (0.6-1.0) Estimated GFR (Cockcroft-Gault) 48.0 BUN/Creatinine Ratio 57 (6-20) Glucose Level 362 mg/dL (70-99) Calcium Level 8.6 mg/dL (8.5-10.1) Phosphorus Level 2.6 mg/dL (2.6-4.7) Magnesium Level 2.8 mg/dL (1.8-2.4) Total Bilirubin 0.6 mg/dL (0.2-1.0) Aspartate Amino Transf (AST/SGOT) 38 U/L (15-37) Alanine Aminotransferase (ALT/SGPT) 41 U/L (14-59) Alkaline Phosphatase 66 U/L (46-116) Total Protein 5.5 g/dL (6.4-8.2) Albumin 1.7 g/dL (3.4-5.0) Albumin/Globulin Ratio 0.4 (1.0-1.7) Thyroid Stimulating Hormone (TSH) 2.929 uIU/mL (0.358-3.74) Laboratory Tests Test 03/10/19 16:45 03/10/19 18:21 03/11/19 00:20 03/11/19 06:00 Potassium Level 4.9 mmol/L (3.5-5.1) 3.4 mmol/L (3.5-5.1) Glucose (Fingerstick) 207 mg/dL (70-99) 318 mg/dL (70-99) White Blood Count 12.3 x10^3/uL (4.0-11.0) Red Blood Count 3.97 x10^6/uL (3.50-5.40) Hemoglobin 12.6 g/dL (12.0-15.5) Hematocrit 38.0 % (36.0-47.0) Mean Corpuscular Volume 96 fL (79-100) Mean Corpuscular Hemoglobin 32 pg (25-35) Mean Corpuscular Hemoglobin Concent 33 g/dL (31-37) Red Cell Distribution Width 13.9 % (11.5-14.5) Platelet Count 89 x10^3/uL (140-400) Neutrophils (%) (Auto) 80 % (31-73) Lymphocytes (%) (Auto) 12 % (24-48) Monocytes (%) (Auto) 8 % (0-9) Eosinophils (%) (Auto) 0 % (0-3) Basophils (%) (Auto) 0 % (0-3) Neutrophils # (Auto) 9.8 x10^3uL (1.8-7.7) Lymphocytes # (Auto) 1.5 x10^3/uL (1.0-4.8) Monocytes # (Auto) 1.0 x10^3/uL (0.0-1.1) Eosinophils # (Auto) 0.0 x10^3/uL (0.0-0.7) Basophils # (Auto) 0.0 x10^3/uL (0.0-0.2) Erythrocyte Sedimentation Rate 65 (0-25) Sodium Level 152 mmol/L (136-145) Chloride Level 116 mmol/L (98-107) Carbon Dioxide Level 29 mmol/L (21-32) Anion Gap 7 (6-14) Blood Urea Nitrogen 63 mg/dL (7-20) Creatinine 1.1 mg/dL (0.6-1.0) Estimated GFR (Cockcroft-Gault) 48.0 BUN/Creatinine Ratio 57 (6-20) Glucose Level 362 mg/dL (70-99) Calcium Level 8.6 mg/dL (8.5-10.1) Phosphorus Level 2.6 mg/dL (2.6-4.7) Magnesium Level 2.8 mg/dL (1.8-2.4) Total Bilirubin 0.6 mg/dL (0.2-1.0) Aspartate Amino Transf (AST/SGOT) 38 U/L (15-37) Alanine Aminotransferase (ALT/SGPT) 41 U/L (14-59) Alkaline Phosphatase 66 U/L (46-116) Total Protein 5.5 g/dL (6.4-8.2) Albumin 1.7 g/dL (3.4-5.0) Albumin/Globulin Ratio 0.4 (1.0-1.7) Thyroid Stimulating Hormone (TSH) 2.929 uIU/mL (0.358-3.74) Test 03/11/19 06:02 Glucose (Fingerstick) 344 mg/dL (70-99) Microbiology 03/10/19 Blood Culture - Preliminary, Resulted NO GROWTH AFTER 1 DAY Medications Current Medications Sodium Chloride 1,000 ml @ 1,000 mls/hr Q1H IV Last administered on 03/06/19 10:40; Start 03/06/19 at 09:30; Stop 03/06/19 at 10:29; Status DC Albuterol/ Ipratropium (Duoneb) 3 ml 1X ONCE NEB Last administered on 03/06/19at 09:20; Start 03/06/19 at 09:30; Stop 03/06/19 at 09:31; Status DC Methylprednisolone Sodium Succinate (SOLU-Medrol 125MG VIAL) 125 mg 1X ONCE IV Last administered on 03/06/19 10:40; Start 03/06/19 at 09:30; Stop 03/06/19 at 09:31; Status DC Pantoprazole Sodium (PROTONIX VIAL for IV PUSH) 80 mg 1X ONCE IVP Last administered on 03/06/19at 10:39; Start 03/06/19 at 09:30; Stop 03/06/19 at 09:31; Status DC Sodium Chloride 1,000 ml @ 1,000 mls/hr 1X ONCE IV Last administered on 03/06/19at 14:42; Start 03/06/19 at 09:30; Stop 03/06/19 at 10:29; Status DC Vancomycin HCl 250 ml @ 250 mls/hr 1X ONCE IV Last administered on 03/06/19at 10:41; Start 03/06/19 at 10:00; Stop 03/06/19 at 10:59; Status DC Levofloxacin/ Dextrose 150 ml @ 100 mls/hr 1X ONCE IV Last administered on 03/06/19at 10:41; Start 03/06/19 at 10:00; Stop 03/06/19 at 11:29; Status DC Sodium Chloride 1,000 ml @ 150 mls/hr Q6H40M IV Last administered on 03/07/19at 04:31; Start 03/06/19 at 11:10; Stop 03/07/19 at 11:09; Status DC Pantoprazole Sodium 80 mg/ Sodium Chloride 100 ml @ 10 mls/hr Q10H IV Last administered on 03/07/19at 03:12; Start 03/06/19 at 11:30; Stop 03/07/19 at 10:15; Status DC Ondansetron HCl (Zofran) 4 mg PRN Q6HRS PRN IV NAUSEA/VOMITING; Start 03/06/19 at 12:00; Stop 03/07/19 at 14:10; Status DC Labetalol HCl (Normodyne Iv Push) 10 mg PRN Q2HR PRN IVP HYPERTENSION, SEE COMMENTS; Start 03/06/19 at 12:00; Stop 03/07/19 at 14:10; Status DC Morphine Sulfate (Morphine Sulfate) 2 mg PRN Q2HR PRN IV PAIN Last administered on 03/10/19at 01:48; Start 03/06/19 at 12:00 Aspirin (Aspirin) 300 mg DAILY NE Last administered on 03/07/19at 10:12; Start 03/06/19 at 12:30; Stop 03/07/19 at 14:10; Status DC Potassium Chloride/Water 100 ml @ 100 mls/hr Q1H IV Last administered on 03/07/19at 00:24; Start 03/06/19 at 13:00; Stop 03/06/19 at 16:59; Status DC Clindamycin Phosphate 50 ml @ 100 mls/hr Q8HRS IV Last administered on 03/07/19at 06:09; Start 03/06/19 at 14:00; Stop 03/07/19 at 09:10; Status DC Levofloxacin/ Dextrose (Levaquin Per Pharmacy) 1 each PRN DAILY PRN MC SEE COMMENTS; Start 03/06/19 at 13:15; Stop 03/07/19 at 14:10; Status DC Levofloxacin/ Dextrose 50 ml @ 50 mls/hr Q24H IV Last administered on 03/07/19at 08:36; Start 03/07/19 at 09:00; Stop 03/07/19 at 14:10; Status DC Meropenem 500 mg/ Sodium Chloride 50 ml @ 100 mls/hr Q8HRS IV ; Start 03/07/19 at 14:00; Stop 03/07/19 at 14:10; Status DC Vancomycin HCl (Vanco Per Pharmacy) 1 each PRN DAILY PRN MC SEE COMMENTS Last a dministered on 03/07/19at 13:08; Start 03/07/19 at 09:15; Stop 03/07/19 at 14:10; Status DC Vancomycin HCl 1.75 gm/Sodium Chloride 500 ml @ 250 mls/hr 1X ONCE IV Last administered on 03/07/19at 10:13; Start 03/07/19 at 10:00; Stop 03/07/19 at 14:10; Status DC Pantoprazole Sodium (PROTONIX VIAL for IV PUSH) 40 mg DAILYAC IVP ; Start 03/08/19 at 07:30; Stop 03/08/19 at 07:30; Status DC Vancomycin HCl 1 gm/Sodium Chloride 250 ml @ 250 mls/hr Q24H IV ; Start 03/08/19 at 10:00; Stop 03/08/19 at 10:00; Status DC Vancomycin HCl (Vancomycin Trough Level) 1 each 1X ONCE MC ; Start 03/09/19 at 09:30; Stop 03/09/19 at 09:30; Status DC Scopolamine (Transderm-Scop) 1 patch Q3DAYS TD Last administered on 03/10/19at 07:42; Start 03/07/19 at 15:00 Lorazepam (Ativan) 1 mg PRN Q2HRS PRN IV ANXIETY / AGITATION; Start 03/07/19 at 14:15 Amino Acids/ Glycerin/ Electrolytes 1,000 ml @ 80 mls/hr [id number] IV Last administered on 03/09/19at 22:12; Start 03/08/19 at 09:30; Stop 03/10/19 at 21:59; Status DC Vancomycin HCl (Vanco Per Pharmacy) 1 each PRN DAILY PRN MC SEE COMMENTS Last administered on 03/09/19at 14:48; Start 03/08/19 at 11:15; Stop 03/09/19 at 15:24; Status DC Meropenem 500 mg/ Sodium Chloride 50 ml @ 100 mls/hr Q8HRS IV Last administered on 03/11/19at 06:12; Start 03/08/19 at 14:00 Levofloxacin/ Dextrose (Levaquin Per Pharmacy) 1 each PRN DAILY PRN MC SEE COMMENTS; Start 03/08/19 at 11:15; Stop 03/09/19 at 15:24; Status DC Vancomycin HCl 1 gm/Sodium Chloride 250 ml @ 250 mls/hr Q24H IV Last administered on 03/09/19at 13:21; Start 03/08/19 at 12:00; Stop 03/09/19 at 14:05; Status DC Levofloxacin/ Dextrose 150 ml @ 100 mls/hr Q48H IV Last administered on 03/09/19at 08:00; Start 03/09/19 at 09:00; Stop 03/09/19 at 15:24; Status DC Vancomycin HCl (Vancomycin Trough Level) 1 each 1X ONCE MC Last administered on 03/09/19at 11:30; Start 03/09/19 at 11:30; Stop 03/09/19 at 11:31; Status DC Famotidine (Pepcid Vial) 20 mg DAILY IVP Last administered on 03/11/19at 08:58; Start 03/08/19 at 14:00 Acetaminophen (Tylenol Supp) 650 mg PRN Q6HRS PRN NE MILD PAIN / TEMP Last administered on 03/10/19at 16:50; Start 03/08/19 at 19:00 Metoprolol Tartrate (Lopressor Vial) 5 mg 1X ONCE IVP Last administered on 03/09/19at 08:00; Start 03/09/19 at 07:15; Stop 03/09/19 at 07:16; Status DC Metoprolol Tartrate (Lopressor Vial) 5 mg PRN Q4HRS PRN IVP SBP>160 Last administered on 03/10/19at 10:14; Start 03/09/19 at 13:30 Vancomycin HCl 1 gm/Sodium Chloride 250 ml @ 250 mls/hr Q12H IV ; Start 03/10/19 at 00:00; Stop 03/10/19 at 00:00; Status DC Clonidine HCl (Catapres Tts-1) 1 patch WEEKLY TD Last administered on 03/10/19at 05:48; Start 03/10/19 at 06:00; Stop 03/10/19 at 15:38; Status DC Potassium Chloride/Water 50 ml @ 50 mls/hr Q1H IV Last administered on 03/10/19at 10:14; Start 03/10/19 at 08:00; Stop 03/10/19 at 09:59; Status DC Levetiracetam 500 mg/Dextrose 105 ml @ 420 mls/hr 1X STAT IV Last administered on 03/10/19at 08:32; Start 03/10/19 at 08:18; Stop 03/10/19 at 08:32; Status DC Levetiracetam 500 mg/Dextrose 105 ml @ 420 mls/hr Q12HR IV Last administered on 03/11/19at 08:58; Start 03/10/19 at 21:00 Info (Tpn Per Pharmacy) 1 each PRN DAILY PRN MC SEE COMMENTS; Start 03/10/19 at 10:45; Status Cancel Info (Tpn Per Pharmacy) 1 each PRN DAILY PRN MC SEE COMMENTS Last administered on 03/11/19at 10:49; Start 03/10/19 at 10:45 Clonidine HCl (Catapres Tts-2) 1 patch WEEKLY TD Last administered on 03/10/19at 11:14; Start 03/10/19 at 11:00 Sodium Chloride 1,000 ml @ 1,500 mls/hr Q40M IV ; Start 03/10/19 at 10:34; Stop 03/10/19 at 11:33; Status DC Hydralazine HCl (Apresoline Inj) 10 mg PRN Q4HRS PRN IVP ELEVATED BP, SEE COMMENTS Last administered on 03/10/19at 23:23; Start 03/10/19 at 12:15 Hydralazine HCl (Apresoline Inj) 5 mg PRN Q4HRS PRN IVP ELEVATED BP, SEE COMMENTS Last administered on 03/10/19at 12:36; Start 03/10/19 at 12:15 Sodium Chloride 60 meq/Potassium Chloride 50 meq/ Potassium Acetate 20 meq/Potassium Phosphate 20.4 mmol/Magnesium Sulfate 10 meq/ Calcium Gluconate 10 meq/ Multivitamins 10 ml/Chromium/ Copper/Manganese/ Seleni/Zn 1 ml/ Total Parenteral Nutrition/Amino Acids/Dextrose/ Fat Emulsion Intravenous 1,512 ml @ 63 mls/hr TPN CONT IV Last administered on 03/10/19at 21:35; Start 03/10/19 at 22:00; Stop 03/11/19 at 21:59 Insulin Human Lispro (HumaLOG) 0-7 UNITS Q6HRS SQ Last administered on at 06:13; Start 03/10/19 at 18:00 Dextrose (Dextrose 50%-Water Syringe) 12.5 gm PRN Q15MIN PRN IV SEE COMMENTS; Start 03/10/19 at 15:45 Sodium Acetate 30 meq/Potassium Chloride 40 meq/ Potassium Acetate 50 meq/Potassium Phosphate 18 mmol/ Magnesium Sulfate 5 meq/Calcium Gluconate 10 meq/ Multivitamins 10 ml/Chromium/ Copper/Manganese/ Seleni/Zn 1 ml/ Insulin Human Regular 10 unit/ Total Parenteral Nutrition/Amino Acids/Dextrose/ Fat Emuls... 1,512 ml @ 63 mls/hr TPN CONT IV ; Start 03/11/19 at 22:00; Stop 03/12/19 at 21:59 Active Scripts Active Reported Potassium Chloride 10 Meq Tab.sr.24h 10 Meq PO DAILY Procardia Xl (Nifedipine) 60 Mg Tab.er.24 1 Tab PO DAILY Zestril (Lisinopril) 40 Mg Tablet 1 Tab PO BID Glucophage Xr (Metformin Hcl) 500 Mg Tab.er.24h 500 Mg PO [id number] Crestor (Rosuvastatin Calcium) 5 Mg Tablet 1 Tab PO DAILY Coreg (Carvedilol) 25 Mg Tablet 25 Mg PO BIDWMEALS Aspir-Low (Aspirin) 81 Mg Tablet. 1 Tab PO DAILY Vitals/I & O Vital Sign - Last 24 Hours 03/10/19 03/10/19 03/10/19 03/10/19 12:30 12:36 13:01 13:20 Temp 99.4 99.4 Pulse 95 94 Resp 20 B/P (MAP) 160/92 (114) 160/92 130/77 (94) Pulse Ox 93 O2 Delivery Venturi Mask Venturi Mask O2 Flow Rate 15.0 15.0 03/10/19 03/10/19 03/10/19 03/10/19 15:00 19:15 19:27 22:54 Temp 99.8 100.9 98.2 99.8 100.9 98.2 Pulse 81 77 73 Resp 40 19 20 B/P (MAP) 119/72 (88) 136/72 (93) 173/83 (113) Pulse Ox 99 95 97 O2 Delivery Venturi Mask Venturi Mask Venturi Mask Venturi Mask O2 Flow Rate 15.0 15.0 15.0 15.0 03/10/19 03/11/19 03/11/19 03/11/19 23:23 03:32 07:00 08:00 Temp 98.1 97.7 98.1 97.7 Pulse 69 64 73 Resp 20 18 B/P (MAP) 173/83 146/70 (95) 159/75 (103) Pulse Ox 97 96 O2 Delivery Venturi Mask Venturi Mask Venturi Mask O2 Flow Rate 15.0 15.0 15.0 Intake and Output 03/10/19 03/10/19 03/11/19 15:00 23:00 07:00 Output Total 400 ml 250 ml Balance -400 ml -250 ml EMORY VEGA III DO March 11, 2019 12:00
--- NOTE | 2019-03-11 12:31 | PDOC ---
PULMONARY PROGRESS NOTES Subjective NON RESPONSIVE ON FACE MASK DOES NOT SEEM TO FOLLOW COMMANDS FOR ME Vitals Vital Signs Date Time Temp Pulse Resp B/P (MAP) Pulse Ox O2 Delivery O2 Flow Rate FiO2 03/11/19 08:00 Venturi Mask 15.0 03/11/19 07:00 97.7 73 18 159/75 (103) 96 97.7 Lungs: Crackles Cardiovascular: S1, S2 Abdomen: Soft Extremities: No Edema Skin: Warm Labs Laboratory Tests Test 03/10/19 04:45 03/10/19 11:25 03/10/19 16:45 03/10/19 18:21 White Blood Count 13.0 x10^3/uL (4.0-11.0) Red Blood Count 4.62 x10^6/uL (3.50-5.40) Hemoglobin 14.6 g/dL (12.0-15.5) Hematocrit 44.6 % (36.0-47.0) Mean Corpuscular Volume 97 fL (79-100) Mean Corpuscular Hemoglobin 32 pg (25-35) Mean Corpuscular Hemoglobin Concent 33 g/dL (31-37) Red Cell Distribution Width 14.2 % (11.5-14.5) Platelet Count 70 x10^3/uL (140-400) Neutrophils (%) (Auto) 80 % (31-73) Lymphocytes (%) (Auto) 9 % (24-48) Monocytes (%) (Auto) 11 % (0-9) Eosinophils (%) (Auto) 0 % (0-3) Basophils (%) (Auto) 1 % (0-3) Neutrophils # (Auto) 10.4 x10^3uL (1.8-7.7) Lymphocytes # (Auto) 1.1 x10^3/uL (1.0-4.8) Monocytes # (Auto) 1.4 x10^3/uL (0.0-1.1) Eosinophils # (Auto) 0.0 x10^3/uL (0.0-0.7) Basophils # (Auto) 0.1 x10^3/uL (0.0-0.2) Sodium Level 150 mmol/L (136-145) Potassium Level 2.8 mmol/L (3.5-5.1) 4.9 mmol/L (3.5-5.1) Chloride Level 111 mmol/L (98-107) Carbon Dioxide Level 29 mmol/L (21-32) Anion Gap 10 (6-14) Blood Urea Nitrogen 42 mg/dL (7-20) Creatinine 1.1 mg/dL (0.6-1.0) Estimated GFR (Cockcroft-Gault) 48.0 BUN/Creatinine Ratio 38 (6-20) Glucose Level 313 mg/dL (70-99) Calcium Level 8.8 mg/dL (8.5-10.1) Total Bilirubin 0.9 mg/dL (0.2-1.0) 0.8 mg/dL (0.2-1.0) Aspartate Amino Transf (AST/SGOT) 28 U/L (15-37) 27 U/L (15-37) Alanine Aminotransferase (ALT/SGPT) 27 U/L (14-59) 28 U/L (14-59) Alkaline Phosphatase 88 U/L (46-116) 81 U/L (46-116) Total Protein 6.3 g/dL (6.4-8.2) 5.9 g/dL (6.4-8.2) Albumin 1.8 g/dL (3.4-5.0) 1.7 g/dL (3.4-5.0) Albumin/Globulin Ratio 0.4 (1.0-1.7) Prothrombin Time 15.3 SEC (11.7-14.0) Prothromb Time International Ratio 1.2 (0.8-1.1) Activated Partial Thromboplast Time 20 SEC (24-38) Fibrinogen 739 mg/dL (200-440) Lactic Acid Level 1.4 mmol/L (0.4-2.0) Phosphorus Level 2.5 mg/dL (2.6-4.7) Magnesium Level 2.4 mg/dL (1.8-2.4) Direct Bilirubin 0.4 mg/dL (0.0-0.2) Procalcitonin 5.59 ng/mL (0.00-0.10) Glucose (Fingerstick) 207 mg/dL (70-99) Test 03/11/19 00:20 03/11/19 06:00 03/11/19 06:02 03/11/19 12:10 Glucose (Fingerstick) 318 mg/dL (70-99) 344 mg/dL (70-99) 372 mg/dL (70-99) White Blood Count 12.3 x10^3/uL (4.0-11.0) Red Blood Count 3.97 x10^6/uL (3.50-5.40) Hemoglobin 12.6 g/dL (12.0-15.5) Hematocrit 38.0 % (36.0-47.0) Mean Corpuscular Volume 96 fL (79-100) Mean Corpuscular Hemoglobin 32 pg (25-35) Mean Corpuscular Hemoglobin Concent 33 g/dL (31-37) Red Cell Distribution Width 13.9 % (11.5-14.5) Platelet Count 89 x10^3/uL (140-400) Neutrophils (%) (Auto) 80 % (31-73) Lymphocytes (%) (Auto) 12 % (24-48) Monocytes (%) (Auto) 8 % (0-9) Eosinophils (%) (Auto) 0 % (0-3) Basophils (%) (Auto) 0 % (0-3) Neutrophils # (Auto) 9.8 x10^3uL (1.8-7.7) Lymphocytes # (Auto) 1.5 x10^3/uL (1.0-4.8) Monocytes # (Auto) 1.0 x10^3/uL (0.0-1.1) Eosinophils # (Auto) 0.0 x10^3/uL (0.0-0.7) Basophils # (Auto) 0.0 x10^3/uL (0.0-0.2) Erythrocyte Sedimentation Rate 65 (0-25) Sodium Level 152 mmol/L (136-145) Potassium Level 3.4 mmol/L (3.5-5.1) Chloride Level 116 mmol/L (98-107) Carbon Dioxide Level 29 mmol/L (21-32) Anion Gap 7 (6-14) Blood Urea Nitrogen 63 mg/dL (7-20) Creatinine 1.1 mg/dL (0.6-1.0) Estimated GFR (Cockcroft-Gault) 48.0 BUN/Creatinine Ratio 57 (6-20) Glucose Level 362 mg/dL (70-99) Calcium Level 8.6 mg/dL (8.5-10.1) Phosphorus Level 2.6 mg/dL (2.6-4.7) Magnesium Level 2.8 mg/dL (1.8-2.4) Total Bilirubin 0.6 mg/dL (0.2-1.0) Aspartate Amino Transf (AST/SGOT) 38 U/L (15-37) Alanine Aminotransferase (ALT/SGPT) 41 U/L (14-59) Alkaline Phosphatase 66 U/L (46-116) Total Protein 5.5 g/dL (6.4-8.2) Albumin 1.7 g/dL (3.4-5.0) Albumin/Globulin Ratio 0.4 (1.0-1.7) Thyroid Stimulating Hormone (TSH) 2.929 uIU/mL (0.358-3.74) Laboratory Tests Test 03/10/19 16:45 03/10/19 18:21 03/11/19 00:20 03/11/19 06:00 Potassium Level 4.9 mmol/L (3.5-5.1) 3.4 mmol/L (3.5-5.1) Glucose (Fingerstick) 207 mg/dL (70-99) 318 mg/dL (70-99) White Blood Count 12.3 x10^3/uL (4.0-11.0) Red Blood Count 3.97 x10^6/uL (3.50-5.40) Hemoglobin 12.6 g/dL (12.0-15.5) Hematocrit 38.0 % (36.0-47.0) Mean Corpuscular Volume 96 fL (79-100) Mean Corpuscular Hemoglobin 32 pg (25-35) Mean Corpuscular Hemoglobin Concent 33 g/dL (31-37) Red Cell Distribution Width 13.9 % (11.5-14.5) Platelet Count 89 x10^3/uL (140-400) Neutrophils (%) (Auto) 80 % (31-73) Lymphocytes (%) (Auto) 12 % (24-48) Monocytes (%) (Auto) 8 % (0-9) Eosinophils (%) (Auto) 0 % (0-3) Basophils (%) (Auto) 0 % (0-3) Neutrophils # (Auto) 9.8 x10^3uL (1.8-7.7) Lymphocytes # (Auto) 1.5 x10^3/uL (1.0-4.8) Monocytes # (Auto) 1.0 x10^3/uL (0.0-1.1) Eosinophils # (Auto) 0.0 x10^3/uL (0.0-0.7) Basophils # (Auto) 0.0 x10^3/uL (0.0-0.2) Erythrocyte Sedimentation Rate 65 (0-25) Sodium Level 152 mmol/L (136-145) Chloride Level 116 mmol/L (98-107) Carbon Dioxide Level 29 mmol/L (21-32) Anion Gap 7 (6-14) Blood Urea Nitrogen 63 mg/dL (7-20) Creatinine 1.1 mg/dL (0.6-1.0) Estimated GFR (Cockcroft-Gault) 48.0 BUN/Creatinine Ratio 57 (6-20) Glucose Level 362 mg/dL (70-99) Calcium Level 8.6 mg/dL (8.5-10.1) Phosphorus Level 2.6 mg/dL (2.6-4.7) Magnesium Level 2.8 mg/dL (1.8-2.4) Total Bilirubin 0.6 mg/dL (0.2-1.0) Aspartate Amino Transf (AST/SGOT) 38 U/L (15-37) Alanine Aminotransferase (ALT/SGPT) 41 U/L (14-59) Alkaline Phosphatase 66 U/L (46-116) Total Protein 5.5 g/dL (6.4-8.2) Albumin 1.7 g/dL (3.4-5.0) Albumin/Globulin Ratio 0.4 (1.0-1.7) Thyroid Stimulating Hormone (TSH) 2.929 uIU/mL (0.358-3.74) Test 03/11/19 06:02 03/11/19 12:10 Glucose (Fingerstick) 344 mg/dL (70-99) 372 mg/dL (70-99) Medications Active Scripts Medications Dose Route/Sig Max Daily Dose Days Date Category Potassium Chloride 10 Meq Tab.sr.24h 10 Meq PO DAILY 03/06/19 Reported Procardia Xl (Nifedipine) 60 Mg Tab.er.24 1 Tab PO DAILY 03/06/19 Reported Zestril (Lisinopril) 40 Mg Tablet 1 Tab PO BID 03/06/19 Reported Glucophage Xr (Metformin Hcl) 500 Mg Tab.er.24h 500 Mg PO DAILYWBKFT 03/06/19 Reported Crestor (Rosuvastatin Calcium) 5 Mg Tablet 1 Tab PO DAILY 03/06/19 Reported Coreg (Carvedilol) 25 Mg Tablet 25 Mg PO BIDWMEALS 03/06/19 Reported Aspir-Low (Aspirin) 81 Mg Tablet.dr 1 Tab PO DAILY 03/06/19 Reported Impression . IMPRESSION: 1. Acute hypoxic respiratory failure secondary to aspiration pneumonia from recent stroke. 2. Acute metabolic encephalopathy secondary to ischemic stroke. 3. CVA PER MRI NO CEREBRAL EDEMA 4. Abnormal CXR consistent with right lung aspiration pneumonia. 5. GPC Sepsis ,Strep Bacteremia POA 02/02 bottles, prelim strep , MYRON pending, source unknown 6. 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 No improvement, prognosis guarded, may not be large enough to be life-threatening CT HEAD 03/06 Impression: No acute intracranial hemorrhage is seen. Findings are suggestive of diffuse cerebral edema secondary to right MCA infarct on the right side. A round confluent area of edema of the left parietal lobe which may indicate an infarct of indeterminate age on this side. MRI study of the brain without contrast is recommended for further evaluation. IMPRESSION: Punctate acute infarct in the left temporal lobe without significant edema, hemorrhage or mass effect. There is no large territorial right MCA infarct. No definite cerebral edema is visualized. There is dependent diffusion signal alteration involving the occipital horns of the lateral ventricles which may be seen with debris, blood products or ventriculitis. There is no susceptibility artifact in this region with intraventricular hemorrhage therefore less likely. This finding cannot be confirmed on additional sequences and could be artifactual. Short-term follow-up MRI may be of benefit. Plan . PER NEUROLOGY TRANSFERRED TO TELE PT IS DNR TPN FAMILY WISHES TO CONTINUE AGGRESSIVE MEASURES WILL RESPECT THEIR WISHES FLAKITA MARY MD March 11, 2019 12:31
--- NOTE | 2019-03-11 14:24 | PDOC2 ---
CONSULT Date of Consult Date of Consult DATE: 03/11/19 TIME: 14:15 Reason for Consult Reason for Consult: MAXIMUS, e-lyte abnorma Referring Physician Referring Physician: Dr. Culver Source Source: Caregiver, Chart review History of Present Illness Reason for Visit: Pt is 79-year-old CF hospitalized on 03/06 was brought by EMS with altered mental status and confusion. Prior to that, the patient had complaints of not feeling wel She took some ibuprofen and went to sleep. She was found to be confused and later unresponsive, tachypneic, had coffee- ground emesis when EMS reached her place. The patient underwent CT head, which showed large right MCA infarct with abnormality and edema of the left parietal lobe. Chest x-ray showed infiltrate in the right lower lobe. The patient had lactic acidosis. The patient had developed a fever of 101.4. She was admitted to ICU. Neurology was consulted. She was out of the window period for alteplase treatment, not a candidate for clot retrieval as the infarct was huge. Today, the patient remains unresponsive. Family is at bedside. As per daughter (client technical specialist) states that she is doing somewhat better today , moving extrem, opening eyes, trying to talk, No N/V. Unable to obtain Hx from Pt, not responsive to me, On Face mask Renal Consulted for abnormal E-Lytes Past Medical History Cardiovascular: CAD, HTN, [place] Endocrine: Diabetes Past Surgical History Past Surgical History: CABG Family History Family History: High Cholestrol, Hypertension Social History No ALCOHOL: none Drugs: None Current Problem List Problem List Problems Medical Problems: (1) Acute ischemic cerebrovascular accident (CVA) involving middle cerebral artery territory Status: Acute (2) Acute renal insufficiency Status: Acute (3) Acute respiratory distress Status: Acute (4) CHF (congestive heart failure) Status: Acute (5) GI bleeding Status: Acute (6) Hypokalemia Status: Acute (7) Severe sepsis Status: Acute Current Medications Current Medications Current Medications Sodium Chloride 1,000 ml @ 1,000 mls/hr Q1H IV Last administered on 03/06/19at 10:40; Start 03/06/19 at 09:30; Stop 03/06/19 at 10:29; Status DC Albuterol/ Ipratropium (Duoneb) 3 ml 1X ONCE NEB Last administered on 03/06/19at 09:20; Start 03/06/19 at 09:30; Stop 03/06/19 at 09:31; Status DC Methylprednisolone Sodium Succinate (SOLU-Medrol 125MG VIAL) 125 mg 1X ONCE IV Last administered on 03/06/19at 10:40; Start 03/06/19 at 09:30; Stop 03/06/19 at 09:31; Status DC Pantoprazole Sodium (PROTONIX VIAL for IV PUSH) 80 mg 1X ONCE IVP Last administered on 03/06/19at 10:39; Start 03/06/19 at 09:30; Stop 03/06/19 at 09:31; Status DC Sodium Chloride 1,000 ml @ 1,000 mls/hr 1X ONCE IV Last administered on 03/06/19at 14:42; Start 03/06/19 at 09:30; Stop 03/06/19 at 10:29; Status DC Vancomycin HCl 250 ml @ 250 mls/hr 1X ONCE IV Last administered on 03/06/19at 10:41; Start 03/06/19 at 10:00; Stop 03/06/19 at 10:59; Status DC Levofloxacin/ Dextrose 150 ml @ 100 mls/hr 1X ONCE IV Last administered on 03/06/19at 10:41; Start 03/06/19 at 10:00; Stop 03/06/19 at 11:29; Status DC Sodium Chloride 1,000 ml @ 150 mls/hr Q6H40M IV Last administered on 03/07/19at 04:31; Start 03/06/19 at 11:10; Stop 03/07/19 at 11:09; Status DC Pantoprazole Sodium 80 mg/ Sodium Chloride 100 ml @ 10 mls/hr Q10H IV Last administered on 03/07/19at 03:12; Start 03/06/19 at 11:30; Stop 03/07/19 at 10:15; Status DC Ondansetron HCl (Zofran) 4 mg PRN Q6HRS PRN IV NAUSEA/VOMITING; Start 03/06/19 at 12:00; Stop 03/07/19 at 14:10; Status DC Labetalol HCl (Normodyne Iv Push) 10 mg PRN Q2HR PRN IVP HYPERTENSION, SEE COMMENTS; Start 03/06/19 at 12:00; Stop 03/07/19 at 14:10; Status DC Morphine Sulfate (Morphine Sulfate) 2 mg PRN Q2HR PRN IV PAIN Last administered on 03/10/19at 01:48; Start 03/06/19 at 12:00 Aspirin (Aspirin) 300 mg DAILY UT Last administered on 03/07/19at 10:12; Start 03/06/19 at 12:30; Stop 03/07/19 at 14:10; Status DC Potassium Chloride/Water 100 ml @ 100 mls/hr Q1H IV Last administered on 03/07/19at 00:24; Start 03/06/19 at 13:00; Stop 03/06/19 at 16:59; Status DC Clindamycin Phosphate 50 ml @ 100 mls/hr Q8HRS IV Last administered on 03/07/19at 06:09; Start 03/06/19 at 14:00; Stop 03/07/19 at 09:10; Status DC Levofloxacin/ Dextrose (Levaquin Per Pharmacy) 1 each PRN DAILY PRN MC SEE COMMENTS; Start 03/06/19 at 13:15; Stop 03/07/19 at 14:10; Status DC Levofloxacin/ Dextrose 50 ml @ 50 mls/hr Q24H IV Last administered on 03/07/19at 08:36; Start 03/07/19 at 09:00; Stop 03/07/19 at 14:10; Status DC Meropenem 500 mg/ Sodium Chloride 50 ml @ 100 mls/hr Q8HRS IV ; Start 03/07/19 at 14:00; Stop 03/07/19 at 14:10; Status DC Vancomycin HCl (Vanco Per Pharmacy) 1 each PRN DAILY PRN MC SEE COMMENTS Last a dministered on 03/07/19at 13:08; Start 03/07/19 at 09:15; Stop 03/07/19 at 14:10; Status DC Vancomycin HCl 1.75 gm/Sodium Chloride 500 ml @ 250 mls/hr 1X ONCE IV Last administered on 03/07/19at 10:13; Start 03/07/19 at 10:00; Stop 03/07/19 at 14:10; Status DC Pantoprazole Sodium (PROTONIX VIAL for IV PUSH) 40 mg DAILYAC IVP ; Start 03/08/19 at 07:30; Stop 03/08/19 at 07:30; Status DC Vancomycin HCl 1 gm/Sodium Chloride 250 ml @ 250 mls/hr Q24H IV ; Start 03/08/19 at 10:00; Stop 03/08/19 at 10:00; Status DC Vancomycin HCl (Vancomycin Trough Level) 1 each 1X ONCE MC ; Start 03/09/19 at 09:30; Stop 03/09/19 at 09:30; Status DC Scopolamine (Transderm-Scop) 1 patch Q3DAYS TD Last administered on 03/10/19at 07:42; Start 03/07/19 at 15:00 Lorazepam (Ativan) 1 mg PRN Q2HRS PRN IV ANXIETY / AGITATION; Start 03/07/19 at 14:15 Amino Acids/ Glycerin/ Electrolytes 1,000 ml @ 80 mls/hr [id number] IV Last administered on 03/09/19at 22:12; Start 03/08/19 at 09:30; Stop 03/10/19 at 21:59; Status DC Vancomycin HCl (Vanco Per Pharmacy) 1 each PRN DAILY PRN MC SEE COMMENTS Last administered on 03/09/19at 14:48; Start 03/08/19 at 11:15; Stop 03/09/19 at 15:24; Status DC Meropenem 500 mg/ Sodium Chloride 50 ml @ 100 mls/hr Q8HRS IV Last administered on 03/11/19at 06:12; Start 03/08/19 at 14:00 Levofloxacin/ Dextrose (Levaquin Per Pharmacy) 1 each PRN DAILY PRN MC SEE COMMENTS; Start 03/08/19 at 11:15; Stop 03/09/19 at 15:24; Status DC Vancomycin HCl 1 gm/Sodium Chloride 250 ml @ 250 mls/hr Q24H IV Last administered on 03/09/19at 13:21; Start 03/08/19 at 12:00; Stop 03/09/19 at 14:05; Status DC Levofloxacin/ Dextrose 150 ml @ 100 mls/hr Q48H IV Last administered on 03/09/19at 08:00; Start 03/09/19 at 09:00; Stop 03/09/19 at 15:24; Status DC Vancomycin HCl (Vancomycin Trough Level) 1 each 1X ONCE MC Last administered on 03/09/19at 11:30; Start 03/09/19 at 11:30; Stop 03/09/19 at 11:31; Status DC Famotidine (Pepcid Vial) 20 mg DAILY IVP Last administered on 03/11/19at 08:58; Start 03/08/19 at 14:00 Acetaminophen (Tylenol Supp) 650 mg PRN Q6HRS PRN UT MILD PAIN / TEMP Last administered on 03/10/19at 16:50; Start 03/08/19 at 19:00 Metoprolol Tartrate (Lopressor Vial) 5 mg 1X ONCE IVP Last administered on 03/09/19at 08:00; Start 03/09/19 at 07:15; Stop 03/09/19 at 07:16; Status DC Metoprolol Tartrate (Lopressor Vial) 5 mg PRN Q4HRS PRN IVP SBP>160 Last administered on 03/10/19at 10:14; Start 03/09/19 at 13:30 Vancomycin HCl 1 gm/Sodium Chloride 250 ml @ 250 mls/hr Q12H IV ; Start 03/10/19 at 00:00; Stop 03/10/19 at 00:00; Status DC Clonidine HCl (Catapres Tts-1) 1 patch WEEKLY TD Last administered on 03/10/19at 05:48; Start 03/10/19 at 06:00; Stop 03/10/19 at 15:38; Status DC Potassium Chloride/Water 50 ml @ 50 mls/hr Q1H IV Last administered on 03/10/19at 10:14; Start 03/10/19 at 08:00; Stop 03/10/19 at 09:59; Status DC Levetiracetam 500 mg/Dextrose 105 ml @ 420 mls/hr 1X STAT IV Last administered on 03/10/19at 08:32; Start 03/10/19 at 08:18; Stop 03/10/19 at 08:32; Status DC Levetiracetam 500 mg/Dextrose 105 ml @ 420 mls/hr Q12HR IV Last administered on 03/11/19at 08:58; Start 03/10/19 at 21:00 Info (Tpn Per Pharmacy) 1 each PRN DAILY PRN MC SEE COMMENTS; Start 03/10/19 at 10:45; Status Cancel Info (Tpn Per Pharmacy) 1 each PRN DAILY PRN MC SEE COMMENTS Last administered on 03/11/19at 10:49; Start 03/10/19 at 10:45 Clonidine HCl (Catapres Tts-2) 1 patch WEEKLY TD Last administered on 03/10/19at 11:14; Start 03/10/19 at 11:00 Sodium Chloride 1,000 ml @ 1,500 mls/hr Q40M IV ; Start 03/10/19 at 10:34; Stop 03/10/19 at 11:33; Status DC Hydralazine HCl (Apresoline Inj) 10 mg PRN Q4HRS PRN IVP ELEVATED BP, SEE COMMENTS Last administered on 03/10/19at 23:23; Start 03/10/19 at 12:15 Hydralazine HCl (Apresoline Inj) 5 mg PRN Q4HRS PRN IVP ELEVATED BP, SEE COMMENTS Last administered on 03/10/19at 12:36; Start 03/10/19 at 12:15 Sodium Chloride 60 meq/Potassium Chloride 50 meq/ Potassium Acetate 20 meq/Potassium Phosphate 20.4 mmol/Magnesium Sulfate 10 meq/ Calcium Gluconate 10 meq/ Multivitamins 10 ml/Chromium/ Copper/Manganese/ Seleni/Zn 1 ml/ Total Parenteral Nutrition/Amino Acids/Dextrose/ Fat Emulsion Intravenous 1,512 ml @ 63 mls/hr TPN CONT IV Last administered on 03/10/19at 21:35; Start 03/10/19 at 22:00; Stop 03/11/19 at 21:59 Insulin Human Lispro (HumaLOG) 0-7 UNITS Q6HRS SQ Last administered on at 12:16; Start 03/10/19 at 18:00 Dextrose (Dextrose 50%-Water Syringe) 12.5 gm PRN Q15MIN PRN IV SEE COMMENTS; Start 03/10/19 at 15:45 Sodium Acetate 30 meq/Potassium Chloride 40 meq/ Potassium Acetate 50 meq/Potassium Phosphate 18 mmol/ Magnesium Sulfate 5 meq/Calcium Gluconate 10 meq/ Multivitamins 10 ml/Chromium/ Copper/Manganese/ Seleni/Zn 1 ml/ Insulin Human Regular 10 unit/ Total Parenteral Nutrition/Amino Acids/Dextrose/ Fat Emuls... 1,512 ml @ 63 mls/hr TPN CONT IV ; Start 03/11/19 at 22:00; Stop 03/12/19 at 21:59 Insulin Glargine (Lantus) 10 units QHS SQ ; Start 03/11/19 at 21:00 Active Scripts Active Reported Potassium Chloride 10 Meq Tab.sr.24h 10 Meq PO DAILY Procardia Xl (Nifedipine) 60 Mg Tab.er.24 1 Tab PO DAILY Zestril (Lisinopril) 40 Mg Tablet 1 Tab PO BID Glucophage Xr (Metformin Hcl) 500 Mg Tab.er.24h 500 Mg PO DAILYWBKFT Crestor (Rosuvastatin Calcium) 5 Mg Tablet 1 Tab PO DAILY Coreg (Carvedilol) 25 Mg Tablet 25 Mg PO BIDWMEALS Aspir-Low (Aspirin) 81 Mg Tablet.dr 1 Tab PO DAILY Allergies Allergies: Coded Allergies: Penicillins (Verified Allergy, Intermediate, 03/06/19) ROS Review of System Unable to obtain Physical Exam Physical Exam GENERAL: Propped up in bed, eyes closed HEENT: venti-mask LUNGS: Decreased breath sounds lower lobes, nonlabored HEART: S1, S2, ABDOMEN: soft, nontender, no guarding, BS active : Mendez 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, 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 ELECTROPLATING: not following commands SKIN: No rash Vital Signs Vital Signs Date Time Temp Pulse Resp B/P (MAP) Pulse Ox O2 Delivery O2 Flow Rate FiO2 03/11/19 11:00 98.8 73 18 167/76 (106) 94 Venturi Mask 15.0 98.8 Assessment & Plan MAXIMUS - stable Good UOP Monitor Hypernatremia- on TPN Adjust Na If increases may need D5 W, Re-eval in am Hypokalemia- adjust in TPN, if still low will need Replacement Strep Pneumonia bacteremia CVA cerebral edema Coffee ground emesis at presentation Palliative care on board Discussed with family at bedside Labs Labs Laboratory Tests Test 03/10/19 04:45 03/10/19 11:25 03/10/19 16:45 03/10/19 18:21 White Blood Count 13.0 x10^3/uL (4.0-11.0) Red Blood Count 4.62 x10^6/uL (3.50-5.40) Hemoglobin 14.6 g/dL (12.0-15.5) Hematocrit 44.6 % (36.0-47.0) Mean Corpuscular Volume 97 fL (79-100) Mean Corpuscular Hemoglobin 32 pg (25-35) Mean Corpuscular Hemoglobin Concent 33 g/dL (31-37) Red Cell Distribution Width 14.2 % (11.5-14.5) Platelet Count 70 x10^3/uL (140-400) Neutrophils (%) (Auto) 80 % (31-73) Lymphocytes (%) (Auto) 9 % (24-48) Monocytes (%) (Auto) 11 % (0-9) Eosinophils (%) (Auto) 0 % (0-3) Basophils (%) (Auto) 1 % (0-3) Neutrophils # (Auto) 10.4 x10^3uL (1.8-7.7) Lymphocytes # (Auto) 1.1 x10^3/uL (1.0-4.8) Monocytes # (Auto) 1.4 x10^3/uL (0.0-1.1) Eosinophils # (Auto) 0.0 x10^3/uL (0.0-0.7) Basophils # (Auto) 0.1 x10^3/uL (0.0-0.2) Sodium Level 150 mmol/L (136-145) Potassium Level 2.8 mmol/L (3.5-5.1) 4.9 mmol/L (3.5-5.1) Chloride Level 111 mmol/L (98-107) Carbon Dioxide Level 29 mmol/L (21-32) Anion Gap 10 (6-14) Blood Urea Nitrogen 42 mg/dL (7-20) Creatinine 1.1 mg/dL (0.6-1.0) Estimated GFR (Cockcroft-Gault) 48.0 BUN/Creatinine Ratio 38 (6-20) Glucose Level 313 mg/dL (70-99) Calcium Level 8.8 mg/dL (8.5-10.1) Total Bilirubin 0.9 mg/dL (0.2-1.0) 0.8 mg/dL (0.2-1.0) Aspartate Amino Transf (AST/SGOT) 28 U/L (15-37) 27 U/L (15-37) Alanine Aminotransferase (ALT/SGPT) 27 U/L (14-59) 28 U/L (14-59) Alkaline Phosphatase 88 U/L (46-116) 81 U/L (46-116) Total Protein 6.3 g/dL (6.4-8.2) 5.9 g/dL (6.4-8.2) Albumin 1.8 g/dL (3.4-5.0) 1.7 g/dL (3.4-5.0) Albumin/Globulin Ratio 0.4 (1.0-1.7) Prothrombin Time 15.3 SEC (11.7-14.0) Prothromb Time International Ratio 1.2 (0.8-1.1) Activated Partial Thromboplast Time 20 SEC (24-38) Fibrinogen 739 mg/dL (200-440) Lactic Acid Level 1.4 mmol/L (0.4-2.0) Phosphorus Level 2.5 mg/dL (2.6-4.7) Magnesium Level 2.4 mg/dL (1.8-2.4) Direct Bilirubin 0.4 mg/dL (0.0-0.2) Procalcitonin 5.59 ng/mL (0.00-0.10) Glucose (Fingerstick) 207 mg/dL (70-99) Test 03/11/19 00:20 03/11/19 06:00 03/11/19 06:02 03/11/19 12:10 Glucose (Fingerstick) 318 mg/dL (70-99) 344 mg/dL (70-99) 372 mg/dL (70-99) White Blood Count 12.3 x10^3/uL (4.0-11.0) Red Blood Count 3.97 x10^6/uL (3.50-5.40) Hemoglobin 12.6 g/dL (12.0-15.5) Hematocrit 38.0 % (36.0-47.0) Mean Corpuscular Volume 96 fL (79-100) Mean Corpuscular Hemoglobin 32 pg (25-35) Mean Corpuscular Hemoglobin Concent 33 g/dL (31-37) Red Cell Distribution Width 13.9 % (11.5-14.5) Platelet Count 89 x10^3/uL (140-400) Neutrophils (%) (Auto) 80 % (31-73) Lymphocytes (%) (Auto) 12 % (24-48) Monocytes (%) (Auto) 8 % (0-9) Eosinophils (%) (Auto) 0 % (0-3) Basophils (%) (Auto) 0 % (0-3) Neutrophils # (Auto) 9.8 x10^3uL (1.8-7.7) Lymphocytes # (Auto) 1.5 x10^3/uL (1.0-4.8) Monocytes # (Auto) 1.0 x10^3/uL (0.0-1.1) Eosinophils # (Auto) 0.0 x10^3/uL (0.0-0.7) Basophils # (Auto) 0.0 x10^3/uL (0.0-0.2) Erythrocyte Sedimentation Rate 65 (0-25) Sodium Level 152 mmol/L (136-145) Potassium Level 3.4 mmol/L (3.5-5.1) Chloride Level 116 mmol/L (98-107) Carbon Dioxide Level 29 mmol/L (21-32) Anion Gap 7 (6-14) Blood Urea Nitrogen 63 mg/dL (7-20) Creatinine 1.1 mg/dL (0.6-1.0) Estimated GFR (Cockcroft-Gault) 48.0 BUN/Creatinine Ratio 57 (6-20) Glucose Level 362 mg/dL (70-99) Calcium Level 8.6 mg/dL (8.5-10.1) Phosphorus Level 2.6 mg/dL (2.6-4.7) Magnesium Level 2.8 mg/dL (1.8-2.4) Total Bilirubin 0.6 mg/dL (0.2-1.0) Aspartate Amino Transf (AST/SGOT) 38 U/L (15-37) Alanine Aminotransferase (ALT/SGPT) 41 U/L (14-59) Alkaline Phosphatase 66 U/L (46-116) Total Protein 5.5 g/dL (6.4-8.2) Albumin 1.7 g/dL (3.4-5.0) Albumin/Globulin Ratio 0.4 (1.0-1.7) Thyroid Stimulating Hormone (TSH) 2.929 uIU/mL (0.358-3.74) Laboratory Tests Test 03/10/19 16:45 03/10/19 18:21 03/11/19 00:20 03/11/19 06:00 Potassium Level 4.9 mmol/L (3.5-5.1) 3.4 mmol/L (3.5-5.1) Glucose (Fingerstick) 207 mg/dL (70-99) 318 mg/dL (70-99) White Blood Count 12.3 x10^3/uL (4.0-11.0) Red Blood Count 3.97 x10^6/uL (3.50-5.40) Hemoglobin 12.6 g/dL (12.0-15.5) Hematocrit 38.0 % (36.0-47.0) Mean Corpuscular Volume 96 fL (79-100) Mean Corpuscular Hemoglobin 32 pg (25-35) Mean Corpuscular Hemoglobin Concent 33 g/dL (31-37) Red Cell Distribution Width 13.9 % (11.5-14.5) Platelet Count 89 x10^3/uL (140-400) Neutrophils (%) (Auto) 80 % (31-73) Lymphocytes (%) (Auto) 12 % (24-48) Monocytes (%) (Auto) 8 % (0-9) Eosinophils (%) (Auto) 0 % (0-3) Basophils (%) (Auto) 0 % (0-3) Neutrophils # (Auto) 9.8 x10^3uL (1.8-7.7) Lymphocytes # (Auto) 1.5 x10^3/uL (1.0-4.8) Monocytes # (Auto) 1.0 x10^3/uL (0.0-1.1) Eosinophils # (Auto) 0.0 x10^3/uL (0.0-0.7) Basophils # (Auto) 0.0 x10^3/uL (0.0-0.2) Erythrocyte Sedimentation Rate 65 (0-25) Sodium Level 152 mmol/L (136-145) Chloride Level 116 mmol/L (98-107) Carbon Dioxide Level 29 mmol/L (21-32) Anion Gap 7 (6-14) Blood Urea Nitrogen 63 mg/dL (7-20) Creatinine 1.1 mg/dL (0.6-1.0) Estimated GFR (Cockcroft-Gault) 48.0 BUN/Creatinine Ratio 57 (6-20) Glucose Level 362 mg/dL (70-99) Calcium Level 8.6 mg/dL (8.5-10.1) Phosphorus Level 2.6 mg/dL (2.6-4.7) Magnesium Level 2.8 mg/dL (1.8-2.4) Total Bilirubin 0.6 mg/dL (0.2-1.0) Aspartate Amino Transf (AST/SGOT) 38 U/L (15-37) Alanine Aminotransferase (ALT/SGPT) 41 U/L (14-59) Alkaline Phosphatase 66 U/L (46-116) Total Protein 5.5 g/dL (6.4-8.2) Albumin 1.7 g/dL (3.4-5.0) Albumin/Globulin Ratio 0.4 (1.0-1.7) Thyroid Stimulating Hormone (TSH) 2.929 uIU/mL (0.358-3.74) Test 03/11/19 06:02 03/11/19 12:10 Glucose (Fingerstick) 344 mg/dL (70-99) 372 mg/dL (70-99) Review All relevant outside records, renal labs, imaging studies, telemetry/EKG's were reviewed. FAVIO BRENNAN MD March 11, 2019 14:24
[2019-03-11 15:00] VITALS: BP 160/95
--- NOTE | 2019-03-11 17:55 | PDOC ---
PROGRESS NOTES Assessment 1. Initially presented with right gaze preference and left hemiparesis. There was concern for a large right middle cerebral artery stroke on CT head. Fortunately, this was not proven by MRI of the brain. She is now moving her left side. She may have been having seizure contributing to the neurologic symptoms. The right gaze preference has resolved. She still is having difficulty with speech and language. Her ability to follow commands fluctuates. 2. She had 2 seizures lasting less than 1 minute on May 10, 2019. She has been started on levetiracetam. She has had no further seizure. The EEG revealed background activity but no epileptiform activity. 3. MRI of the brain was performed March 08, 2019 and revealed a punctate acute infarct in the left temporal lobe without significant edema, hemorrhage or mass effect. There was no large territory right middle cerebral artery stroke. 4. Acute hypoxic respiratory failure secondary to aspiration pneumonia. This is being followed by the pulmonary service. The chest x-ray was abnormal. 5. Strep pneumonia sepsis with source unknown. Infectious disease is following. She is on antibiotics. Plan 1. Continue with supportive care. Neurologic examination today revealed that she is able to move both sides with the left moving better than the right. She seems to perceive sensation symmetrically. She is not clinically having any further seizure. She will have an MRI of her brain this next week for follow-up. If this does not explain her symptoms then she may require a lumbar puncture. 2. We will continue with levetiracetam for stroke prevention. 3. She is still requiring a high flow oxygen mask. Her family is working with her to keep the mask on. 4. She was last febrile on March 10, 2019 at 1915. She is on antibiotics and being followed by infectious disease. Subjective Nonverbal Objective Vital Signs Date Time Temp Pulse Resp B/P (MAP) Pulse Ox O2 Delivery O2 Flow Rate FiO2 03/11/19 15:00 98.7 72 18 160/95 (116) 96 Venturi Mask 15.0 98.7 Intake and Output 03/11/19 07:00 Output Total 650 ml Balance -650 ml Output Urine Total 650 ml PHYSICAL EXAM She was awake and alert. She will look at the examiner and be somewhat alarmed. The eyes were conjugate. She was able to look to the left and right. Pupils were 3 mm and reacted. The face appeared symmetric. The tongue was midline. She responded to visual threat but not to loud clap. When held up in the air she had better control of the right arm than the left. When asked to move she could move her left arm and leg better than the right. Nailbed pressure caused her response bilaterally with a grimace and withdrawal. Tendon reflexes were present in the upper extremities and at the knees. Toes were not upgoing. She would intermittently follow commands such as wiggling the toes but did wiggle the left toes but not the right. Attention seems severely impaired. Review of Relevant I have reviewed the following items rich (where applicable) has been applied. Labs Laboratory Tests Test 03/10/19 04:45 03/10/19 11:25 03/10/19 16:45 03/10/19 18:21 White Blood Count 13.0 x10^3/uL (4.0-11.0) Red Blood Count 4.62 x10^6/uL (3.50-5.40) Hemoglobin 14.6 g/dL (12.0-15.5) Hematocrit 44.6 % (36.0-47.0) Mean Corpuscular Volume 97 fL (79-100) Mean Corpuscular Hemoglobin 32 pg (25-35) Mean Corpuscular Hemoglobin Concent 33 g/dL (31-37) Red Cell Distribution Width 14.2 % (11.5-14.5) Platelet Count 70 x10^3/uL (140-400) Neutrophils (%) (Auto) 80 % (31-73) Lymphocytes (%) (Auto) 9 % (24-48) Monocytes (%) (Auto) 11 % (0-9) Eosinophils (%) (Auto) 0 % (0-3) Basophils (%) (Auto) 1 % (0-3) Neutrophils # (Auto) 10.4 x10^3uL (1.8-7.7) Lymphocytes # (Auto) 1.1 x10^3/uL (1.0-4.8) Monocytes # (Auto) 1.4 x10^3/uL (0.0-1.1) Eosinophils # (Auto) 0.0 x10^3/uL (0.0-0.7) Basophils # (Auto) 0.1 x10^3/uL (0.0-0.2) Sodium Level 150 mmol/L (136-145) Potassium Level 2.8 mmol/L (3.5-5.1) 4.9 mmol/L (3.5-5.1) Chloride Level 111 mmol/L (98-107) Carbon Dioxide Level 29 mmol/L (21-32) Anion Gap 10 (6-14) Blood Urea Nitrogen 42 mg/dL (7-20) Creatinine 1.1 mg/dL (0.6-1.0) Estimated GFR (Cockcroft-Gault) 48.0 BUN/Creatinine Ratio 38 (6-20) Glucose Level 313 mg/dL (70-99) Calcium Level 8.8 mg/dL (8.5-10.1) Total Bilirubin 0.9 mg/dL (0.2-1.0) 0.8 mg/dL (0.2-1.0) Aspartate Amino Transf (AST/SGOT) 28 U/L (15-37) 27 U/L (15-37) Alanine Aminotransferase (ALT/SGPT) 27 U/L (14-59) 28 U/L (14-59) Alkaline Phosphatase 88 U/L (46-116) 81 U/L (46-116) Total Protein 6.3 g/dL (6.4-8.2) 5.9 g/dL (6.4-8.2) Albumin 1.8 g/dL (3.4-5.0) 1.7 g/dL (3.4-5.0) Albumin/Globulin Ratio 0.4 (1.0-1.7) Prothrombin Time 15.3 SEC (11.7-14.0) Prothromb Time International Ratio 1.2 (0.8-1.1) Activated Partial Thromboplast Time 20 SEC (24-38) Fibrinogen 739 mg/dL (200-440) Lactic Acid Level 1.4 mmol/L (0.4-2.0) Phosphorus Level 2.5 mg/dL (2.6-4.7) Magnesium Level 2.4 mg/dL (1.8-2.4) Direct Bilirubin 0.4 mg/dL (0.0-0.2) Procalcitonin 5.59 ng/mL (0.00-0.10) Glucose (Fingerstick) 207 mg/dL (70-99) Test 03/11/19 00:20 03/11/19 06:00 03/11/19 06:02 03/11/19 12:10 Glucose (Fingerstick) 318 mg/dL (70-99) 344 mg/dL (70-99) 372 mg/dL (70-99) White Blood Count 12.3 x10^3/uL (4.0-11.0) Red Blood Count 3.97 x10^6/uL (3.50-5.40) Hemoglobin 12.6 g/dL (12.0-15.5) Hematocrit 38.0 % (36.0-47.0) Mean Corpuscular Volume 96 fL (79-100) Mean Corpuscular Hemoglobin 32 pg (25-35) Mean Corpuscular Hemoglobin Concent 33 g/dL (31-37) Red Cell Distribution Width 13.9 % (11.5-14.5) Platelet Count 89 x10^3/uL (140-400) Neutrophils (%) (Auto) 80 % (31-73) Lymphocytes (%) (Auto) 12 % (24-48) Monocytes (%) (Auto) 8 % (0-9) Eosinophils (%) (Auto) 0 % (0-3) Basophils (%) (Auto) 0 % (0-3) Neutrophils # (Auto) 9.8 x10^3uL (1.8-7.7) Lymphocytes # (Auto) 1.5 x10^3/uL (1.0-4.8) Monocytes # (Auto) 1.0 x10^3/uL (0.0-1.1) Eosinophils # (Auto) 0.0 x10^3/uL (0.0-0.7) Basophils # (Auto) 0.0 x10^3/uL (0.0-0.2) Erythrocyte Sedimentation Rate 65 (0-25) Sodium Level 152 mmol/L (136-145) Potassium Level 3.4 mmol/L (3.5-5.1) Chloride Level 116 mmol/L (98-107) Carbon Dioxide Level 29 mmol/L (21-32) Anion Gap 7 (6-14) Blood Urea Nitrogen 63 mg/dL (7-20) Creatinine 1.1 mg/dL (0.6-1.0) Estimated GFR (Cockcroft-Gault) 48.0 BUN/Creatinine Ratio 57 (6-20) Glucose Level 362 mg/dL (70-99) Calcium Level 8.6 mg/dL (8.5-10.1) Phosphorus Level 2.6 mg/dL (2.6-4.7) Magnesium Level 2.8 mg/dL (1.8-2.4) Total Bilirubin 0.6 mg/dL (0.2-1.0) Aspartate Amino Transf (AST/SGOT) 38 U/L (15-37) Alanine Aminotransferase (ALT/SGPT) 41 U/L (14-59) Alkaline Phosphatase 66 U/L (46-116) Total Protein 5.5 g/dL (6.4-8.2) Albumin 1.7 g/dL (3.4-5.0) Albumin/Globulin Ratio 0.4 (1.0-1.7) Thyroid Stimulating Hormone (TSH) 2.929 uIU/mL (0.358-3.74) Test 03/11/19 16:29 Glucose (Fingerstick) 330 mg/dL (70-99) Laboratory Tests Test 03/10/19 18:21 03/11/19 00:20 03/11/19 06:00 03/11/19 06:02 Glucose (Fingerstick) 207 mg/dL (70-99) 318 mg/dL (70-99) 344 mg/dL (70-99) White Blood Count 12.3 x10^3/uL (4.0-11.0) Red Blood Count 3.97 x10^6/uL (3.50-5.40) Hemoglobin 12.6 g/dL (12.0-15.5) Hematocrit 38.0 % (36.0-47.0) Mean Corpuscular Volume 96 fL (79-100) Mean Corpuscular Hemoglobin 32 pg (25-35) Mean Corpuscular Hemoglobin Concent 33 g/dL (31-37) Red Cell Distribution Width 13.9 % (11.5-14.5) Platelet Count 89 x10^3/uL (140-400) Neutrophils (%) (Auto) 80 % (31-73) Lymphocytes (%) (Auto) 12 % (24-48) Monocytes (%) (Auto) 8 % (0-9) Eosinophils (%) (Auto) 0 % (0-3) Basophils (%) (Auto) 0 % (0-3) Neutrophils # (Auto) 9.8 x10^3uL (1.8-7.7) Lymphocytes # (Auto) 1.5 x10^3/uL (1.0-4.8) Monocytes # (Auto) 1.0 x10^3/uL (0.0-1.1) Eosinophils # (Auto) 0.0 x10^3/uL (0.0-0.7) Basophils # (Auto) 0.0 x10^3/uL (0.0-0.2) Erythrocyte Sedimentation Rate 65 (0-25) Sodium Level 152 mmol/L (136-145) Potassium Level 3.4 mmol/L (3.5-5.1) Chloride Level 116 mmol/L (98-107) Carbon Dioxide Level 29 mmol/L (21-32) Anion Gap 7 (6-14) Blood Urea Nitrogen 63 mg/dL (7-20) Creatinine 1.1 mg/dL (0.6-1.0) Estimated GFR (Cockcroft-Gault) 48.0 BUN/Creatinine Ratio 57 (6-20) Glucose Level 362 mg/dL (70-99) Calcium Level 8.6 mg/dL (8.5-10.1) Phosphorus Level 2.6 mg/dL (2.6-4.7) Magnesium Level 2.8 mg/dL (1.8-2.4) Total Bilirubin 0.6 mg/dL (0.2-1.0) Aspartate Amino Transf (AST/SGOT) 38 U/L (15-37) Alanine Aminotransferase (ALT/SGPT) 41 U/L (14-59) Alkaline Phosphatase 66 U/L (46-116) Total Protein 5.5 g/dL (6.4-8.2) Albumin 1.7 g/dL (3.4-5.0) Albumin/Globulin Ratio 0.4 (1.0-1.7) Thyroid Stimulating Hormone (TSH) 2.929 uIU/mL (0.358-3.74) Test 03/11/19 12:10 03/11/19 16:29 Glucose (Fingerstick) 372 mg/dL (70-99) 330 mg/dL (70-99) Microbiology 03/10/19 Blood Culture - Preliminary, Resulted NO GROWTH AFTER 1 DAY Medications Current Medications Sodium Chloride 1,000 ml @ 1,000 mls/hr Q1H IV Last administered on 03/06/19 10:40; Start 03/06/19 at 09:30; Stop 03/06/19 at 10:29; Status DC Albuterol/ Ipratropium (Duoneb) 3 ml 1X ONCE NEB Last administered on 03/06/19at 09:20; Start 03/06/19 at 09:30; Stop 03/06/19 at 09:31; Status DC Methylprednisolone Sodium Succinate (SOLU-Medrol 125MG VIAL) 125 mg 1X ONCE IV Last administered on 03/06/19at 10:40; Start 03/06/19 at 09:30; Stop 03/06/19 at 09:31; Status DC Pantoprazole Sodium (PROTONIX VIAL for IV PUSH) 80 mg 1X ONCE IVP Last administered on 03/06/19 10:39; Start 03/06/19 at 09:30; Stop 03/06/19 at 09:31; Status DC Sodium Chloride 1,000 ml @ 1,000 mls/hr 1X ONCE IV Last administered on 03/06/19at 14:42; Start 03/06/19 at 09:30; Stop 03/06/19 at 10:29; Status DC Vancomycin HCl 250 ml @ 250 mls/hr 1X ONCE IV Last administered on 03/06/19at 10:41; Start 03/06/19 at 10:00; Stop 03/06/19 at 10:59; Status DC Levofloxacin/ Dextrose 150 ml @ 100 mls/hr 1X ONCE IV Last administered on 03/06/19at 10:41; Start 03/06/19 at 10:00; Stop 03/06/19 at 11:29; Status DC Sodium Chloride 1,000 ml @ 150 mls/hr Q6H40M IV Last administered on 03/07/19at 04:31; Start 03/06/19 at 11:10; Stop 03/07/19 at 11:09; Status DC Pantoprazole Sodium 80 mg/ Sodium Chloride 100 ml @ 10 mls/hr Q10H IV Last administered on 03/07/19at 03:12; Start 03/06/19 at 11:30; Stop 03/07/19 at 10:15; Status DC Ondansetron HCl (Zofran) 4 mg PRN Q6HRS PRN IV NAUSEA/VOMITING; Start 03/06/19 at 12:00; Stop 03/07/19 at 14:10; Status DC Labetalol HCl (Normodyne Iv Push) 10 mg PRN Q2HR PRN IVP HYPERTENSION, SEE COMMENTS; Start 03/06/19 at 12:00; Stop 03/07/19 at 14:10; Status DC Morphine Sulfate (Morphine Sulfate) 2 mg PRN Q2HR PRN IV PAIN Last administered on 03/10/19at 01:48; Start 03/06/19 at 12:00 Aspirin (Aspirin) 300 mg DAILY UT Last administered on 03/07/19at 10:12; Start 03/06/19 at 12:30; Stop 03/07/19 at 14:10; Status DC Potassium Chloride/Water 100 ml @ 100 mls/hr Q1H IV Last administered on 03/07/19at 00:24; Start 03/06/19 at 13:00; Stop 03/06/19 at 16:59; Status DC Clindamycin Phosphate 50 ml @ 100 mls/hr Q8HRS IV Last administered on 03/07/19at 06:09; Start 03/06/19 at 14:00; Stop 03/07/19 at 09:10; Status DC Levofloxacin/ Dextrose (Levaquin Per Pharmacy) 1 each PRN DAILY PRN MC SEE COMMENTS; Start 03/06/19 at 13:15; Stop 03/07/19 at 14:10; Status DC Levofloxacin/ Dextrose 50 ml @ 50 mls/hr Q24H IV Last administered on 03/07/19at 08:36; Start 03/07/19 at 09:00; Stop 03/07/19 at 14:10; Status DC Meropenem 500 mg/ Sodium Chloride 50 ml @ 100 mls/hr Q8HRS IV ; Start 03/07/19 at 14:00; Stop 03/07/19 at 14:10; Status DC Vancomycin HCl (Vanco Per Pharmacy) 1 each PRN DAILY PRN MC SEE COMMENTS Last administered on 03/07/19at 13:08; Start 03/07/19 at 09:15; Stop 03/07/19 at 14:10; Status DC Vancomycin HCl 1.75 gm/Sodium Chloride 500 ml @ 250 mls/hr 1X ONCE IV Last administered on 03/07/19at 10:13; Start 03/07/19 at 10:00; Stop 03/07/19 at 14:10; Status DC Pantoprazole Sodium (PROTONIX VIAL for IV PUSH) 40 mg DAILYAC IVP ; Start 03/08/19 at 07:30; Stop 03/08/19 at 07:30; Status DC Vancomycin HCl 1 gm/Sodium Chloride 250 ml @ 250 mls/hr Q24H IV ; Start 03/08/19 at 10:00; Stop 03/08/19 at 10:00; Status DC Vancomycin HCl (Vancomycin Trough Level) 1 each 1X ONCE MC ; Start 03/09/19 at 09:30; Stop 03/09/19 at 09:30; Status DC Scopolamine (Transderm-Scop) 1 patch Q3DAYS TD Last administered on 03/10/19at 07:42; Start 03/07/19 at 15:00 Lorazepam (Ativan) 1 mg PRN Q2HRS PRN IV ANXIETY / AGITATION; Start 03/07/19 at 14:15 Amino Acids/ Glycerin/ Electrolytes 1,000 ml @ 80 mls/hr [id number] IV Last administered on 03/09/19at 22:12; Start 03/08/19 at 09:30; Stop 03/10/19 at 21:59; Status DC Vancomycin HCl (Vanco Per Pharmacy) 1 each PRN DAILY PRN MC SEE COMMENTS Last administered on 03/09/19at 14:48; Start 03/08/19 at 11:15; Stop 03/09/19 at 15:24; Status DC Meropenem 500 mg/ Sodium Chloride 50 ml @ 100 mls/hr Q8HRS IV Last administered on 03/11/19at 15:36; Start 03/08/19 at 14:00 Levofloxacin/ Dextrose (Levaquin Per Pharmacy) 1 each PRN DAILY PRN MC SEE COMMENTS; Start 03/08/19 at 11:15; Stop 03/09/19 at 15:24; Status DC Vancomycin HCl 1 gm/Sodium Chloride 250 ml @ 250 mls/hr Q24H IV Last administered on 03/09/19at 13:21; Start 03/08/19 at 12:00; Stop 03/09/19 at 14:05; Status DC Levofloxacin/ Dextrose 150 ml @ 100 mls/hr Q48H IV Last administered on 03/09/19at 08:00; Start 03/09/19 at 09:00; Stop 03/09/19 at 15:24; Status DC Vancomycin HCl (Vancomycin Trough Level) 1 each 1X ONCE MC Last administered on 03/09/19at 11:30; Start 03/09/19 at 11:30; Stop 03/09/19 at 11:31; Status DC Famotidine (Pepcid Vial) 20 mg DAILY IVP Last administered on 03/11/19at 08:58; Start 03/08/19 at 14:00 Acetaminophen (Tylenol Supp) 650 mg PRN Q6HRS PRN UT MILD PAIN / TEMP Last administered on 03/10/19at 16:50; Start 03/08/19 at 19:00 Metoprolol Tartrate (Lopressor Vial) 5 mg 1X ONCE IVP Last administered on 03/09at 08:00; Start 03/09/19 at 07:15; Stop 03/09/19 at 07:16; Status DC Metoprolol Tartrate (Lopressor Vial) 5 mg PRN Q4HRS PRN IVP SBP>160 Last administered on 03/10/19at 10:14; Start 03/09/19 at 13:30 Vancomycin HCl 1 gm/Sodium Chloride 250 ml @ 250 mls/hr Q12H IV ; Start 03/10/19 at 00:00; Stop 03/10/19 at 00:00; Status DC Clonidine HCl (Catapres Tts-1) 1 patch WEEKLY TD Last administered on 03/10/19at 05:48; Start 03/10/19 at 06:00; Stop 03/10/19 at 15:38; Status DC Potassium Chloride/Water 50 ml @ 50 mls/hr Q1H IV Last administered on 03/10/19at 10:14; Start 03/10/19 at 08:00; Stop 03/10/19 at 09:59; Status DC Levetiracetam 500 mg/Dextrose 105 ml @ 420 mls/hr 1X STAT IV Last administered on 03/10/19at 08:32; Start 03/10/19 at 08:18; Stop 03/10/19 at 08:32; Status DC Levetiracetam 500 mg/Dextrose 105 ml @ 420 mls/hr Q12HR IV Last administered on 03/11/19at 08:58; Start 03/10/19 at 21:00 Info (Tpn Per Pharmacy) 1 each PRN DAILY PRN MC SEE COMMENTS; Start 03/10/19 at 10:45; Status Cancel Info (Tpn Per Pharmacy) 1 each PRN DAILY PRN MC SEE COMMENTS Last administered on 03/11/19at 14:28; Start 03/10/19 at 10:45 Clonidine HCl (Catapres Tts-2) 1 patch WEEKLY TD Last administered on 03/10/19at 11:14; Start 03/10/19 at 11:00 Sodium Chloride 1,000 ml @ 1,500 mls/hr Q40M IV ; Start 03/10/19 at 10:34; Stop 03/10/19 at 11:33; Status DC Hydralazine HCl (Apresoline Inj) 10 mg PRN Q4HRS PRN IVP ELEVATED BP, SEE COMMENTS Last administered on 03/10/19at 23:23; Start 03/10/19 at 12:15 Hydralazine HCl (Apresoline Inj) 5 mg PRN Q4HRS PRN IVP ELEVATED BP, SEE COMMENTS Last administered on 03/10/19at 12:36; Start 03/10/19 at 12:15 Sodium Chloride 60 meq/Potassium Chloride 50 meq/ Potassium Acetate 20 meq/Potassium Phosphate 20.4 mmol/Magnesium Sulfate 10 meq/ Calcium Gluconate 10 meq/ Multivitamins 10 ml/Chromium/ Copper/Manganese/ Seleni/Zn 1 ml/ Total Parenteral Nutrition/Amino Acids/Dextrose/ Fat Emulsion Intravenous 1,512 ml @ 63 mls/hr TPN CONT IV Last administered on 03/10/19at 21:35; Start 03/10/19 at 22:00; Stop 03/11/19 at 21:59 Insulin Human Lispro (HumaLOG) 0-7 UNITS Q6HRS SQ Last administered on 03/11/19at 17:34; Start 03/10/19 at 18:00 Dextrose (Dextrose 50%-Water Syringe) 12.5 gm PRN Q15MIN PRN IV SEE COMMENTS; Start 03/10/19 at 15:45 Sodium Acetate 30 meq/Potassium Chloride 40 meq/ Potassium Acetate 50 meq/Potassium Phosphate 18 mmol/ Magnesium Sulfate 5 meq/Calcium Gluconate 10 meq/ Multivitamins 10 ml/Chromium/ Copper/Manganese/ Seleni/Zn 1 ml/ Insulin Human Regular 10 unit/ Total Parenteral Nutrition/Amino Acids/Dextrose/ Fat Emuls... 1,512 ml @ 63 mls/hr TPN CONT IV ; Start 03/11/19 at 22:00; Stop 03/12/19 at 21:59 Insulin Glargine (Lantus) 10 units QHS SQ ; Start 03/11/19 at 21:00 Active Scripts Active Reported Potassium Chloride 10 Meq Tab.sr.24h 10 Meq PO DAILY Procardia Xl (Nifedipine) 60 Mg Tab.er.24 1 Tab PO DAILY Zestril (Lisinopril) 40 Mg Tablet 1 Tab PO BID Glucophage Xr (Metformin Hcl) 500 Mg Tab.er.24h 500 Mg PO DAILYWBKFT Crestor (Rosuvastatin Calcium) 5 Mg Tablet 1 Tab PO DAILY Coreg (Carvedilol) 25 Mg Tablet 25 Mg PO BIDWMEALS Aspir-Low (Aspirin) 81 Mg Tablet. 1 Tab PO DAILY Vitals/I & O Vital Sign - Last 24 Hours 03/10/19 03/10/19 03/10/19 03/10/19 19:15 19:27 22:54 23:23 Temp 100.9 98.2 100.9 98.2 Pulse 77 73 69 Resp 19 20 B/P (MAP) 136/72 (93) 173/83 (113) 173/83 Pulse Ox 95 97 O2 Delivery Venturi Mask Venturi Mask Venturi Mask O2 Flow Rate 15.0 15.0 15.0 03/11/19 03/11/19 03/11/19 03/11/19 03:32 07:00 08:00 11:00 Temp 98.1 97.7 98.8 98.1 97.7 98.8 Pulse 64 73 73 Resp 20 18 18 B/P (MAP) 146/70 (95) 159/75 (103) 167/76 (106) Pulse Ox 97 96 94 O2 Delivery Venturi Mask Venturi Mask Venturi Mask Venturi Mask O2 Flow Rate 15.0 15.0 15.0 15.0 03/11/19 15:00 Temp 98.7 98.7 Pulse 72 Resp 18 B/P (MAP) 160/95 (116) Pulse Ox 96 O2 Delivery Venturi Mask O2 Flow Rate 15.0 Intake and Output 03/10/19 03/10/19 03/11/19 15:00 23:00 07:00 Output Total 400 ml 250 ml Balance -400 ml -250 ml JOSE CARLOS GRIMM MD March 11, 2019 17:55
[2019-03-11 19:25] VITALS: BP 157/74
[2019-03-11] MEDS ORDERED: INSULIN GLARGINE 300 UNITS/3 ML INSULN.PEN. SQ SCH (21:00)
[2019-03-11] MEDS ORDERED: TOTAL PARENTERAL NUTRITION IV SCH ×12 (22:00)
[2019-03-11] MEDS ORDERED: AMINO ACID IV SCH ×12 (22:00)
[2019-03-11] MEDS ORDERED: DEXTROSE 70% IV SCH ×12 (22:00)
[2019-03-11] MEDS ORDERED: [UNRECOGNIZED DRUG - OTHER] IV SCH ×12 (22:00)
[2019-03-11 22:30] VITALS: BP 155/72
[2019-03-12] MEDS: INSULIN LISPRO 300 UNITS/3 ML INSULN.PEN. SQ SCH ×5 (00:26→23:16)
[2019-03-12 02:53] VITALS: BP 163/72
[2019-03-12 05:54] LABS: BASO # 0.1 x10^3/uL (0.0-0.2); BASO % 1 % (0-3); EOS % 0 % (0-3); HEMATOCRIT 34.6 % (36.0-47.0); HEMOGLOBIN 11.5 g/dL (12.0-15.5); LYMPH # 1.2 x10^3/uL (1.0-4.8); LYMPH % 10 % (24-48); MEAN CORPUSCULAR HEMOGLOBIN 32 pg (25-35); MEAN CORPUSCULAR HGB CONC 33 g/dL (31-37); MEAN CORPUSCULAR VOLUME 97 fL (79-100); MONO # 0.8 x10^3/uL (0.0-1.1); MONO % 6 % (0-9); NEUT # 10.3 x10^3uL (1.8-7.7); NEUT % 83 % (31-73); PLATELET COUNT 105 x10^3/uL (140-400); RED BLOOD COUNT 3.57 x10^6/uL (3.50-5.40); RED CELL DISTRIBUTION WIDTH 14.1 % (11.5-14.5); WHITE BLOOD COUNT 12.4 x10^3/uL (4.0-11.0)
[2019-03-12] MEDS: MEROPENEM 500 MG in IV NORMAL SALINE 50ML 50 ML IV SCH ×3 (05:54→21:26)
[2019-03-12 06:14] LABS: CALCIUM 8.5 mg/dL (8.5-10.1); CREATININE 1.2 mg/dL (0.6-1.0); GFR 43.4; MAGNESIUM 2.5 mg/dL (1.8-2.4); PHOSPHORUS 3.4 mg/dL (2.6-4.7); POTASSIUM 4.3 mmol/L (3.5-5.1)
[2019-03-12 07:00] VITALS: BP 148/74
[2019-03-12] MEDS ORDERED: IV DEXTROSE 5% 1,000 ML IV SCH (08:15)
[2019-03-12] MEDS: levETIRAcetam 500 MG in IV DEXTROSE 5% 100ML 100 ML IV SCH ×2 (08:52→20:30)
[2019-03-12] MEDS: FAMOTIDINE 20 MG/2 ML VIAL IVP SCH (08:54)
[2019-03-12] MEDS: ACETAMINOPHEN 650 MG SUPP.RECT. PR PRN (08:54)
[2019-03-12 11:00] VITALS: BP 215/154
--- NOTE | 2019-03-12 11:16 | PDOC ---
Infectious Disease Note Subjective Subjective No further seizures or vomiting reported per nursing Fever Tmax 100.2 O2 down to 2L NC TPN Vital Sign Vital Signs Vital Signs Date Time Temp Pulse Resp B/P (MAP) Pulse Ox O2 Delivery O2 Flow Rate FiO2 03/12/19 08:00 Nasal Cannula 3.0 03/12/19 07:00 100.2 69 20 148/74 (98) 90 100.2 Physical Exam PHYSICAL EXAM GENERAL: Propped up in bed, opens eyes, weak appearing HEENT: Squints to eye exam, mouth breather, oral cavity dry LUNGS: Decreased breath sounds lower lobes, nonlabored HEART: S1, S2, ABDOMEN: Obese, soft, nontender, no guarding, BS active : Mendez 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, no cyanosis. 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: Opens eyes to voice, no follow commands or responds to questions SKIN: No rash RUE-PICC clean Labs Lab Laboratory Tests Test 03/11/19 12:10 03/11/19 16:29 03/12/19 00:20 03/12/19 05:40 Glucose (Fingerstick) 372 mg/dL (70-99) 330 mg/dL (70-99) 350 mg/dL (70-99) White Blood Count 12.4 x10^3/uL (4.0-11.0) Red Blood Count 3.57 x10^6/uL (3.50-5.40) Hemoglobin 11.5 g/dL (12.0-15.5) Hematocrit 34.6 % (36.0-47.0) Mean Corpuscular Volume 97 fL (79-100) Mean Corpuscular Hemoglobin 32 pg (25-35) Mean Corpuscular Hemoglobin Concent 33 g/dL (31-37) Red Cell Distribution Width 14.1 % (11.5-14.5) Platelet Count 105 x10^3/uL (140-400) Neutrophils (%) (Auto) 83 % (31-73) Lymphocytes (%) (Auto) 10 % (24-48) Monocytes (%) (Auto) 6 % (0-9) Eosinophils (%) (Auto) 0 % (0-3) Basophils (%) (Auto) 1 % (0-3) Neutrophils # (Auto) 10.3 x10^3uL (1.8-7.7) Lymphocytes # (Auto) 1.2 x10^3/uL (1.0-4.8) Monocytes # (Auto) 0.8 x10^3/uL (0.0-1.1) Eosinophils # (Auto) 0.0 x10^3/uL (0.0-0.7) Basophils # (Auto) 0.1 x10^3/uL (0.0-0.2) Sodium Level 160 mmol/L (136-145) Potassium Level 4.3 mmol/L (3.5-5.1) Chloride Level 123 mmol/L (98-107) Carbon Dioxide Level 31 mmol/L (21-32) Anion Gap 6 (6-14) Blood Urea Nitrogen 56 mg/dL (7-20) Creatinine 1.2 mg/dL (0.6-1.0) Estimated GFR (Cockcroft-Gault) 43.4 Glucose Level 384 mg/dL (70-99) Calcium Level 8.5 mg/dL (8.5-10.1) Phosphorus Level 3.4 mg/dL (2.6-4.7) Magnesium Level 2.5 mg/dL (1.8-2.4) Test 03/12/19 05:45 Glucose (Fingerstick) 338 mg/dL (70-99) Micro 03/08. BLOOD CULTURE Preliminary NO GROWTH AFTER 2 DAYS 03/10. BLOOD CULTURE Preliminary NO GROWTH AFTER 1 DAY Objective Assessment Low-grade fevers Strep Pneumonia bacteremia POA ( 4/4 bottles). Repeat BC 03/08 and 10th neg so far CVA cerebral edema Leucocytosis, stable Aspiration pneumonia PCN allergy hives, tolerating Merrem Coffee ground emesis POA Lactic acidosis, better Hypernatremia Plan Plan of Care Continue Merrem off vanc and Levaquin Palliative care on case Oral care D/w daughter and son D/w nursing Prognosis poor Patient seen and examined. Chart reviewed in detail. Case discussed with NUT CHOPPER. Agree with above plan. CELE LOPEZ APRN March 12, 2019 11:16 KEANU BOTELLO MD March 12, 2019 18:46
--- NOTE | 2019-03-12 11:54 | PDOC ---
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 SKIN: No rash DIAGNOSIS/ASSESSMENT Assessment & Plan MAXIMUS - stable Good UOP Monitor Hypernatremia- Na gone up dc TPN, IV D5 W Monitor Hypokalemia- stable Replace as needed Strep Pneumonia bacteremia CVA cerebral edema Coffee ground emesis at presentation Palliative care on board Discussed with family at bedside COMMENT/RELEVANT DATA Meds Current Medications Medications (Trade) Dose Ordered Sig/German Start Time Stop Time Status Last Admin Dose Admin Acetaminophen (Tylenol Supp) 650 mg PRN Q6HRS PRN 03/08/19 19:00 03/12/19 08:54 650 MG Albuterol/ Ipratropium (Duoneb) 3 ml 1X ONCE 03/06/19 09:30 03/06/19 09:31 DC 03/06/19 09:20 3 ML Amino Acids/ Glycerin/ Electrolytes 1,000 ml @ 80 mls/hr [id number] 03/08/19 09:30 03/10/19 21:59 DC 03/09/19 22:12 80 MLS/HR Aspirin (Aspirin) 300 mg DAILY 03/06/19 12:30 03/07/19 14:10 DC 03/07/19 10:12 300 MG Clindamycin Phosphate 50 ml @ 100 mls/hr Q8HRS 03/06/19 14:00 03/07/19 09:10 DC 03/07/19 06:09 100 MLS/HR Clonidine HCl (Catapres Tts-1) 1 patch WEEKLY 03/10/19 06:00 03/10/19 15:38 DC 03/10/19 05:48 1 PATCH Clonidine HCl (Catapres Tts-2) 1 patch WEEKLY 03/10/19 11:00 03/10/19 11:14 1 PATCH Dextrose 1,000 ml @ 100 mls/hr Q10H 03/12/19 08:15 03/12/19 18:14 03/12/19 08:53 100 MLS/HR Dextrose (Dextrose 50%-Water Syringe) 12.5 gm PRN Q15MIN PRN 03/10/19 15:45 Famotidine (Pepcid Vial) 20 mg DAILY 03/08/19 14:00 03/12/19 08:54 20 MG Hydralazine HCl (Apresoline Inj) 5 mg PRN Q4HRS PRN 03/10/19 12:15 03/10/19 12:36 5 MG Info (Tpn Per Pharmacy) 1 each PRN DAILY PRN 03/10/19 10:45 03/11/19 14:28 1 EACH Insulin Glargine (Lantus) 10 units QHS 03/11/19 21:00 03/11/19 20:48 10 UNITS Insulin Human Lispro (HumaLOG) 0-7 UNITS Q6HRS 03/10/19 18:00 03/12/19 05:58 4 UNITS Labetalol HCl (Normodyne Iv Push) 10 mg PRN Q2HR PRN 03/06/19 12:00 03/07/19 14:10 DC Levetiracetam 500 mg/Dextrose 105 ml @ 420 mls/hr Q12HR 03/10/19 21:00 03/12/19 08:52 420 MLS/HR Levofloxacin/ Dextrose 150 ml @ 100 mls/hr Q48H 03/09/19 09:00 03/09/19 15:24 DC 03/09/19 08:00 100 MLS/HR Levofloxacin/ Dextrose (Levaquin Per Pharmacy) 1 each PRN DAILY PRN 03/08/19 11:15 03/09/19 15:24 DC Lorazepam (Ativan) 1 mg PRN Q2HRS PRN 03/07/19 14:15 Meropenem 500 mg/ Sodium Chloride 50 ml @ 100 mls/hr Q8HRS 03/08/19 14:00 03/12/19 05:54 100 MLS/HR Methylprednisolone Sodium Succinate (SOLU-Medrol 125MG VIAL) 125 mg 1X ONCE 5/6/19 09:30 03/06/19 09:31 DC 03/06/19 10:40 125 MG Metoprolol Tartrate (Lopressor Vial) 5 mg PRN Q4HRS PRN 03/09/19 13:30 03/10/19 10:14 5 MG Morphine Sulfate (Morphine Sulfate) 2 mg PRN Q2HR PRN 03/06/19 12:00 03/10/19 01:48 2 MG Ondansetron HCl (Zofran) 4 mg PRN Q6HRS PRN 03/06/19 12:00 03/07/19 14:10 DC Pantoprazole Sodium (PROTONIX VIAL for IV PUSH) 40 mg DAILYAC 03/08/19 07:30 03/08/19 07:30 DC Pantoprazole Sodium 80 mg/ Sodium Chloride 100 ml @ 10 mls/hr Q10H 03/06/19 11:30 03/07/19 10:15 DC 03/07/19 03:12 10 MLS/HR Potassium Chloride/Water 50 ml @ 50 mls/hr Q1H 03/10/19 08:00 03/10/19 09:59 DC 03/10/19 10:14 50 MLS/HR Scopolamine (Transderm-Scop) 1 patch Q3DAYS 03/07/19 15:00 03/10/19 07:42 1 PATCH Sodium Acetate 30 meq/Potassium Chloride 40 meq/ Potassium Acetate 50 meq/Potassium Phosphate 18 mmol/ Magnesium Sulfate 5 meq/Calcium Gluconate 10 meq/ Multivitamins 10 ml/Chromium/ Copper/Manganese/ Seleni/Zn 1 ml/ Insulin Human Regular 10 unit/ Total Parenteral Nutrition/Amino Acids/Dextrose/ Fat Emuls... 1,512 ml @ 63 mls/hr TPN CONT 03/11/19 22:00 03/12/19 21:59 03/11/19 21:37 63 MLS/HR Sodium Chloride 60 meq/Potassium Chloride 50 meq/ Potassium Acetate 20 meq/Potassium Phosphate 20.4 mmol/Magnesium Sulfate 10 meq/ Calcium Gluconate 10 meq/ Multivitamins 10 ml/Chromium/ Copper/Manganese/ Seleni/Zn 1 ml/ Total Parenteral Nutrition/Amino Acids/Dextrose/ Fat Emulsion Intravenous 1,512 ml @ 63 mls/hr TPN CONT 03/10/19 22:00 03/11/19 21:59 DC 03/10/19 21:35 63 MLS/HR Vancomycin HCl (Vanco Per Pharmacy) 1 each PRN DAILY PRN 03/08/19 11:15 03/09/19 15:24 DC 03/09/19 14:48 1 EACH Vancomycin HCl (Vancomycin Trough Level) 1 each 1X ONCE 03/09/19 11:30 03/09/19 11:31 DC 03/09/19 11:30 1 EACH Vancomycin HCl 1.75 gm/Sodium Chloride 500 ml @ 250 mls/hr 1X ONCE 03/07/19 10:00 03/07/19 14:10 DC 03/07/19 10:13 250 MLS/HR Vancomycin HCl 1 gm/Sodium Chloride 250 ml @ 250 mls/hr Q12H 03/10/19 00:00 03/10/19 00:00 DC Lab Laboratory Tests Test 03/11/19 12:10 03/11/19 16:29 03/12/19 00:20 03/12/19 05:40 Glucose (Fingerstick) 372 mg/dL (70-99) 330 mg/dL (70-99) 350 mg/dL (70-99) White Blood Count 12.4 x10^3/uL (4.0-11.0) Red Blood Count 3.57 x10^6/uL (3.50-5.40) Hemoglobin 11.5 g/dL (12.0-15.5) Hematocrit 34.6 % (36.0-47.0) Mean Corpuscular Volume 97 fL (79-100) Mean Corpuscular Hemoglobin 32 pg (25-35) Mean Corpuscular Hemoglobin Concent 33 g/dL (31-37) Red Cell Distribution Width 14.1 % (11.5-14.5) Platelet Count 105 x10^3/uL (140-400) Neutrophils (%) (Auto) 83 % (31-73) Lymphocytes (%) (Auto) 10 % (24-48) Monocytes (%) (Auto) 6 % (0-9) Eosinophils (%) (Auto) 0 % (0-3) Basophils (%) (Auto) 1 % (0-3) Neutrophils # (Auto) 10.3 x10^3uL (1.8-7.7) Lymphocytes # (Auto) 1.2 x10^3/uL (1.0-4.8) Monocytes # (Auto) 0.8 x10^3/uL (0.0-1.1) Eosinophils # (Auto) 0.0 x10^3/uL (0.0-0.7) Basophils # (Auto) 0.1 x10^3/uL (0.0-0.2) Sodium Level 160 mmol/L (136-145) Potassium Level 4.3 mmol/L (3.5-5.1) Chloride Level 123 mmol/L (98-107) Carbon Dioxide Level 31 mmol/L (21-32) Anion Gap 6 (6-14) Blood Urea Nitrogen 56 mg/dL (7-20) Creatinine 1.2 mg/dL (0.6-1.0) Estimated GFR (Cockcroft-Gault) 43.4 Glucose Level 384 mg/dL (70-99) Calcium Level 8.5 mg/dL (8.5-10.1) Phosphorus Level 3.4 mg/dL (2.6-4.7) Magnesium Level 2.5 mg/dL (1.8-2.4) Test 03/12/19 05:45 Glucose (Fingerstick) 338 mg/dL (70-99) Results All relevant outside records, renal labs, imaging studies, telemetry/EKG's were reviewed. FAVIO BRENNAN MD March 12, 2019 11:54
--- NOTE | 2019-03-12 12:07 | PDOC ---
PULMONARY PROGRESS NOTES Subjective NON RESPONSIVE ON FACE MASK DOES NOT SEEM TO FOLLOW COMMANDS FOR ME Vitals Vital Signs Date Time Temp Pulse Resp B/P (MAP) Pulse Ox O2 Delivery O2 Flow Rate FiO2 03/12/19 11:00 99.0 64 20 215/154 (174) 97 Nasal Cannula 3.0 99.0 Lungs: Crackles Cardiovascular: S1, S2 Abdomen: Soft Extremities: No Edema Skin: Warm Labs Laboratory Tests Test 03/10/19 16:45 03/10/19 18:21 03/11/19 00:20 03/11/19 06:00 Potassium Level 4.9 mmol/L (3.5-5.1) 3.4 mmol/L (3.5-5.1) Glucose (Fingerstick) 207 mg/dL (70-99) 318 mg/dL (70-99) White Blood Count 12.3 x10^3/uL (4.0-11.0) Red Blood Count 3.97 x10^6/uL (3.50-5.40) Hemoglobin 12.6 g/dL (12.0-15.5) Hematocrit 38.0 % (36.0-47.0) Mean Corpuscular Volume 96 fL (79-100) Mean Corpuscular Hemoglobin 32 pg (25-35) Mean Corpuscular Hemoglobin Concent 33 g/dL (31-37) Red Cell Distribution Width 13.9 % (11.5-14.5) Platelet Count 89 x10^3/uL (140-400) Neutrophils (%) (Auto) 80 % (31-73) Lymphocytes (%) (Auto) 12 % (24-48) Monocytes (%) (Auto) 8 % (0-9) Eosinophils (%) (Auto) 0 % (0-3) Basophils (%) (Auto) 0 % (0-3) Neutrophils # (Auto) 9.8 x10^3uL (1.8-7.7) Lymphocytes # (Auto) 1.5 x10^3/uL (1.0-4.8) Monocytes # (Auto) 1.0 x10^3/uL (0.0-1.1) Eosinophils # (Auto) 0.0 x10^3/uL (0.0-0.7) Basophils # (Auto) 0.0 x10^3/uL (0.0-0.2) Erythrocyte Sedimentation Rate 65 (0-25) Sodium Level 152 mmol/L (136-145) Chloride Level 116 mmol/L (98-107) Carbon Dioxide Level 29 mmol/L (21-32) Anion Gap 7 (6-14) Blood Urea Nitrogen 63 mg/dL (7-20) Creatinine 1.1 mg/dL (0.6-1.0) Estimated GFR (Cockcroft-Gault) 48.0 BUN/Creatinine Ratio 57 (6-20) Glucose Level 362 mg/dL (70-99) Calcium Level 8.6 mg/dL (8.5-10.1) Phosphorus Level 2.6 mg/dL (2.6-4.7) Magnesium Level 2.8 mg/dL (1.8-2.4) Total Bilirubin 0.6 mg/dL (0.2-1.0) Aspartate Amino Transf (AST/SGOT) 38 U/L (15-37) Alanine Aminotransferase (ALT/SGPT) 41 U/L (14-59) Alkaline Phosphatase 66 U/L (46-116) Total Protein 5.5 g/dL (6.4-8.2) Albumin 1.7 g/dL (3.4-5.0) Albumin/Globulin Ratio 0.4 (1.0-1.7) Thyroid Stimulating Hormone (TSH) 2.929 uIU/mL (0.358-3.74) Test 03/11/19 06:02 03/11/19 12:10 03/11/19 16:29 03/12/19 00:20 Glucose (Fingerstick) 344 mg/dL (70-99) 372 mg/dL (70-99) 330 mg/dL (70-99) 350 mg/dL (70-99) Test 03/12/19 05:40 03/12/19 05:45 White Blood Count 12.4 x10^3/uL (4.0-11.0) Red Blood Count 3.57 x10^6/uL (3.50-5.40) Hemoglobin 11.5 g/dL (12.0-15.5) Hematocrit 34.6 % (36.0-47.0) Mean Corpuscular Volume 97 fL (79-100) Mean Corpuscular Hemoglobin 32 pg (25-35) Mean Corpuscular Hemoglobin Concent 33 g/dL (31-37) Red Cell Distribution Width 14.1 % (11.5-14.5) Platelet Count 105 x10^3/uL (140-400) Neutrophils (%) (Auto) 83 % (31-73) Lymphocytes (%) (Auto) 10 % (24-48) Monocytes (%) (Auto) 6 % (0-9) Eosinophils (%) (Auto) 0 % (0-3) Basophils (%) (Auto) 1 % (0-3) Neutrophils # (Auto) 10.3 x10^3uL (1.8-7.7) Lymphocytes # (Auto) 1.2 x10^3/uL (1.0-4.8) Monocytes # (Auto) 0.8 x10^3/uL (0.0-1.1) Eosinophils # (Auto) 0.0 x10^3/uL (0.0-0.7) Basophils # (Auto) 0.1 x10^3/uL (0.0-0.2) Sodium Level 160 mmol/L (136-145) Potassium Level 4.3 mmol/L (3.5-5.1) Chloride Level 123 mmol/L (98-107) Carbon Dioxide Level 31 mmol/L (21-32) Anion Gap 6 (6-14) Blood Urea Nitrogen 56 mg/dL (7-20) Creatinine 1.2 mg/dL (0.6-1.0) Estimated GFR (Cockcroft-Gault) 43.4 Glucose Level 384 mg/dL (70-99) Calcium Level 8.5 mg/dL (8.5-10.1) Phosphorus Level 3.4 mg/dL (2.6-4.7) Magnesium Level 2.5 mg/dL (1.8-2.4) Glucose (Fingerstick) 338 mg/dL (70-99) Laboratory Tests Test 03/11/19 12:10 03/11/19 16:29 03/12/19 00:20 03/12/19 05:40 Glucose (Fingerstick) 372 mg/dL (70-99) 330 mg/dL (70-99) 350 mg/dL (70-99) White Blood Count 12.4 x10^3/uL (4.0-11.0) Red Blood Count 3.57 x10^6/uL (3.50-5.40) Hemoglobin 11.5 g/dL (12.0-15.5) Hematocrit 34.6 % (36.0-47.0) Mean Corpuscular Volume 97 fL (79-100) Mean Corpuscular Hemoglobin 32 pg (25-35) Mean Corpuscular Hemoglobin Concent 33 g/dL (31-37) Red Cell Distribution Width 14.1 % (11.5-14.5) Platelet Count 105 x10^3/uL (140-400) Neutrophils (%) (Auto) 83 % (31-73) Lymphocytes (%) (Auto) 10 % (24-48) Monocytes (%) (Auto) 6 % (0-9) Eosinophils (%) (Auto) 0 % (0-3) Basophils (%) (Auto) 1 % (0-3) Neutrophils # (Auto) 10.3 x10^3uL (1.8-7.7) Lymphocytes # (Auto) 1.2 x10^3/uL (1.0-4.8) Monocytes # (Auto) 0.8 x10^3/uL (0.0-1.1) Eosinophils # (Auto) 0.0 x10^3/uL (0.0-0.7) Basophils # (Auto) 0.1 x10^3/uL (0.0-0.2) Sodium Level 160 mmol/L (136-145) Potassium Level 4.3 mmol/L (3.5-5.1) Chloride Level 123 mmol/L (98-107) Carbon Dioxide Level 31 mmol/L (21-32) Anion Gap 6 (6-14) Blood Urea Nitrogen 56 mg/dL (7-20) Creatinine 1.2 mg/dL (0.6-1.0) Estimated GFR (Cockcroft-Gault) 43.4 Glucose Level 384 mg/dL (70-99) Calcium Level 8.5 mg/dL (8.5-10.1) Phosphorus Level 3.4 mg/dL (2.6-4.7) Magnesium Level 2.5 mg/dL (1.8-2.4) Test 03/12/19 05:45 Glucose (Fingerstick) 338 mg/dL (70-99) Medications Active Scripts Medications Dose Route/Sig Max Daily Dose Days Date Category Potassium Chloride 10 Meq Tab.sr.24h 10 Meq PO DAILY 03/06/19 Reported Procardia Xl (Nifedipine) 60 Mg Tab.er.24 1 Tab PO DAILY 03/06/19 Reported Zestril (Lisinopril) 40 Mg Tablet 1 Tab PO BID 03/06/19 Reported Glucophage Xr (Metformin Hcl) 500 Mg Tab.er.24h 500 Mg PO [id number] 03/06/19 Reported Crestor (Rosuvastatin Calcium) 5 Mg Tablet 1 Tab PO DAILY 03/06/19 Reported Coreg (Carvedilol) 25 Mg Tablet 25 Mg PO BIDWMEALS 03/06/19 Reported Aspir-Low (Aspirin) 81 Mg Tablet.dr 1 Tab PO DAILY 03/06/19 Reported Impression . IMPRESSION: 1. Acute hypoxic respiratory failure secondary to aspiration pneumonia from DYSPHAGIA 2. Acute metabolic encephalopathy secondary to ischemic stroke. SEE NEURO NOTE 3. CVA PER MRI NO CEREBRAL EDEMA 4. Abnormal CXR consistent with right lung aspiration pneumonia. 5. GPC Sepsis ,Strep Bacteremia POA 02/02 bottles, prelim strep , MYRON pending, source unknown 6. SEIZURES NEURO NOTE 03/10 ssessment 1. Initially presented with right gaze preference and left hemiparesis. There was concern for a large right middle cerebral artery stroke on CT head. Fo rtunately, this was not proven by MRI of the brain. She is now moving her left side. She may have been having seizure contributing to the neurologic symptoms. The right gaze preference has resolved. She still is having difficulty with speech and language. Her ability to follow commands fluctuates. 2. She had 2 seizures lasting less than 1 minute on May 10, 2019. She has been started on levetiracetam. She has had no further seizure. The EEG revealed background activity but no epileptiform activity. 3. MRI of the brain was performed March 08, 2019 and revealed a punctate acute infarct in the left temporal lobe without significant edema, hemorrhage or mass effect. There was no large territory right middle cerebral artery stroke. 4. Acute hypoxic respiratory failure secondary to aspiration pneumonia. This is being followed by the pulmonary service. The chest x-ray was abnormal. 5. Strep pneumonia sepsis with source unknown. Infectious disease is following. She is on antibiotics. Plan 1. Continue with supportive care. Neurologic examination today revealed that she is able to move both sides with the left moving better than the right. She seems to perceive sensation symmetrically. She is not clinically having any further seizure. She will have an MRI of her brain this next week for follow-up. If this does not explain her symptoms then she may require a lumbar puncture. 2. We will continue with levetiracetam for stroke prevention. 3. She is still requiring a high flow oxygen mask. Her family is working with her to keep the mask on. 4. She was last febrile on March 10, 2019 at 1915. She is on antibiotics and being followed by infectious disease. 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 No improvement, prognosis guarded, may not be large enough to be life-threatening CT HEAD 5/6 Impression: No acute intracranial hemorrhage is seen. Findings are suggestive of diffuse cerebral edema secondary to right MCA infarct on the right side. A round confluent area of edema of the left parietal lobe which may indicate an infarct of indeterminate age on this side. MRI study of the brain without contrast is recommended for further evaluation. MRI IMPRESSION: Punctate acute infarct in the left temporal lobe without significant edema, hemorrhage or mass effect. There is no large territorial right MCA infarct. No definite cerebral edema is visualized. There is dependent diffusion signal alteration involving the occipital horns of the lateral ventricles which may be seen with debris, blood products or ventriculitis. There is no susceptibility artifact in this region with intraventricular hemorrhage therefore less likely. This finding cannot be confirmed on additional sequences and could be artifactual. Short-term follow-up MRI may be of benefit. Plan . PER NEUROLOGY TRANSFERRED TO TELE PT IS DNR TPN FAMILY WISHES TO CONTINUE AGGRESSIVE MEASURES WILL RESPECT THEIR WISHES FLAKITA MARY MD March 12, 2019 12:07
[2019-03-12] MEDS: TPN PER PHARMACY MC PRN ×2 (12:41→14:40)
--- NOTE | 2019-03-12 13:00 | PDOC ---
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 History of Present Illness History of Present Illness Patient seen and examined Patient responded YES to question about being okay with all of the interventions that we are currently doing Off mask and on 3L NC Electrolyte abnormalities noted in labs (sodium, chloride, glucose), likely due to TPN Discussed with daughter and son Discussed with nurse Vitals Vitals Vital Signs Date Time Temp Pulse Resp B/P (MAP) Pulse Ox O2 Delivery O2 Flow Rate FiO2 03/12/19 11:00 99.0 64 20 215/154 (174) 97 Nasal Cannula 3.0 99.0 Physical Exam Physical Exam GENERAL: Propped up in bed, opens eyes, weak appearing HEENT: Squints to eye exam, mouth breather, oral cavity dry LUNGS: Decreased breath sounds lower lobes, nonlabored HEART: S1, S2, ABDOMEN: Obese, soft, nontender, no guarding, BS active : Mendez 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, no cyanosis. PARTS WASHER: Opens eyes to voice, no follow commands or responds to questions SKIN: No rash RUE-PICC clean General: moderate distress, Other (mildly alert, was able to recieve one verbal response) Heart: Regular rate, Other (tachycardic) Lungs: Crackles Abdomen: Normal bowel sounds, Soft, No tenderness, No hepatosplenomegaly, No masses Extremities: No clubbing, No cyanosis, No edema, Normal pulses, No tenderness/swelling Skin: No rashes Labs LABS Laboratory Tests Test 03/11/19 16:29 03/12/19 00:20 03/12/19 05:40 03/12/19 05:45 Glucose (Fingerstick) 330 mg/dL (70-99) 350 mg/dL (70-99) 338 mg/dL (70-99) White Blood Count 12.4 x10^3/uL (4.0-11.0) Red Blood Count 3.57 x10^6/uL (3.50-5.40) Hemoglobin 11.5 g/dL (12.0-15.5) Hematocrit 34.6 % (36.0-47.0) Mean Corpuscular Volume 97 fL (79-100) Mean Corpuscular Hemoglobin 32 pg (25-35) Mean Corpuscular Hemoglobin Concent 33 g/dL (31-37) Red Cell Distribution Width 14.1 % (11.5-14.5) Platelet Count 105 x10^3/uL (140-400) Neutrophils (%) (Auto) 83 % (31-73) Lymphocytes (%) (Auto) 10 % (24-48) Monocytes (%) (Auto) 6 % (0-9) Eosinophils (%) (Auto) 0 % (0-3) Basophils (%) (Auto) 1 % (0-3) Neutrophils # (Auto) 10.3 x10^3uL (1.8-7.7) Lymphocytes # (Auto) 1.2 x10^3/uL (1.0-4.8) Monocytes # (Auto) 0.8 x10^3/uL (0.0-1.1) Eosinophils # (Auto) 0.0 x10^3/uL (0.0-0.7) Basophils # (Auto) 0.1 x10^3/uL (0.0-0.2) Sodium Level 160 mmol/L (136-145) Potassium Level 4.3 mmol/L (3.5-5.1) Chloride Level 123 mmol/L (98-107) Carbon Dioxide Level 31 mmol/L (21-32) Anion Gap 6 (6-14) Blood Urea Nitrogen 56 mg/dL (7-20) Creatinine 1.2 mg/dL (0.6-1.0) Estimated GFR (Cockcroft-Gault) 43.4 Glucose Level 384 mg/dL (70-99) Calcium Level 8.5 mg/dL (8.5-10.1) Phosphorus Level 3.4 mg/dL (2.6-4.7) Magnesium Level 2.5 mg/dL (1.8-2.4) Test 03/12/19 12:44 Glucose (Fingerstick) 236 mg/dL (70-99) Review of Systems Review of Systems ROS unable to obtain due to patient unresponsiveness Assessment and Plan Assessmemt and Plan Problems Medical Problems: (1) Acute ischemic cerebrovascular accident (CVA) involving middle cerebral artery territory Status: Acute (2) Acute renal insufficiency Status: Acute (3) Acute respiratory distress Status: Acute (4) CHF (congestive heart failure) Status: Acute (5) GI bleeding Status: Acute (6) Hypokalemia Status: Acute (7) Severe sepsis Status: Acute Assessment: Aspiration pneumonia secondary to stroke Electrolyte abnormalities Respiratory failure Seizures CVA CHF Acute renal insufficiency Hyperlipidemia Hypertension 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 Labs Laboratory Tests Test 03/10/19 16:45 03/10/19 18:21 03/11/19 00:20 03/11/19 06:00 Potassium Level 4.9 mmol/L (3.5-5.1) 3.4 mmol/L (3.5-5.1) Glucose (Fingerstick) 207 mg/dL (70-99) 318 mg/dL (70-99) White Blood Count 12.3 x10^3/uL (4.0-11.0) Red Blood Count 3.97 x10^6/uL (3.50-5.40) Hemoglobin 12.6 g/dL (12.0-15.5) Hematocrit 38.0 % (36.0-47.0) Mean Corpuscular Volume 96 fL (79-100) Mean Corpuscular Hemoglobin 32 pg (25-35) Mean Corpuscular Hemoglobin Concent 33 g/dL (31-37) Red Cell Distribution Width 13.9 % (11.5-14.5) Platelet Count 89 x10^3/uL (140-400) Neutrophils (%) (Auto) 80 % (31-73) Lymphocytes (%) (Auto) 12 % (24-48) Monocytes (%) (Auto) 8 % (0-9) Eosinophils (%) (Auto) 0 % (0-3) Basophils (%) (Auto) 0 % (0-3) Neutrophils # (Auto) 9.8 x10^3uL (1.8-7.7) Lymphocytes # (Auto) 1.5 x10^3/uL (1.0-4.8) Monocytes # (Auto) 1.0 x10^3/uL (0.0-1.1) Eosinophils # (Auto) 0.0 x10^3/uL (0.0-0.7) Basophils # (Auto) 0.0 x10^3/uL (0.0-0.2) Erythrocyte Sedimentation Rate 65 (0-25) Sodium Level 152 mmol/L (136-145) Chloride Level 116 mmol/L (98-107) Carbon Dioxide Level 29 mmol/L (21-32) Anion Gap 7 (6-14) Blood Urea Nitrogen 63 mg/dL (7-20) Creatinine 1.1 mg/dL (0.6-1.0) Estimated GFR (Cockcroft-Gault) 48.0 BUN/Creatinine Ratio 57 (6-20) Glucose Level 362 mg/dL (70-99) Calcium Level 8.6 mg/dL (8.5-10.1) Phosphorus Level 2.6 mg/dL (2.6-4.7) Magnesium Level 2.8 mg/dL (1.8-2.4) Total Bilirubin 0.6 mg/dL (0.2-1.0) Aspartate Amino Transf (AST/SGOT) 38 U/L (15-37) Alanine Aminotransferase (ALT/SGPT) 41 U/L (14-59) Alkaline Phosphatase 66 U/L (46-116) Total Protein 5.5 g/dL (6.4-8.2) Albumin 1.7 g/dL (3.4-5.0) Albumin/Globulin Ratio 0.4 (1.0-1.7) Thyroid Stimulating Hormone (TSH) 2.929 uIU/mL (0.358-3.74) Test 03/11/19 06:02 03/11/19 12:10 03/11/19 16:29 03/12/19 00:20 Glucose (Fingerstick) 344 mg/dL (70-99) 372 mg/dL (70-99) 330 mg/dL (70-99) 350 mg/dL (70-99) Test 03/12/19 05:40 03/12/19 05:45 03/12/19 12:44 White Blood Count 12.4 x10^3/uL (4.0-11.0) Red Blood Count 3.57 x10^6/uL (3.50-5.40) Hemoglobin 11.5 g/dL (12.0-15.5) Hematocrit 34.6 % (36.0-47.0) Mean Corpuscular Volume 97 fL (79-100) Mean Corpuscular Hemoglobin 32 pg (25-35) Mean Corpuscular Hemoglobin Concent 33 g/dL (31-37) Red Cell Distribution Width 14.1 % (11.5-14.5) Platelet Count 105 x10^3/uL (140-400) Neutrophils (%) (Auto) 83 % (31-73) Lymphocytes (%) (Auto) 10 % (24-48) Monocytes (%) (Auto) 6 % (0-9) Eosinophils (%) (Auto) 0 % (0-3) Basophils (%) (Auto) 1 % (0-3) Neutrophils # (Auto) 10.3 x10^3uL (1.8-7.7) Lymphocytes # (Auto) 1.2 x10^3/uL (1.0-4.8) Monocytes # (Auto) 0.8 x10^3/uL (0.0-1.1) Eosinophils # (Auto) 0.0 x10^3/uL (0.0-0.7) Basophils # (Auto) 0.1 x10^3/uL (0.0-0.2) Sodium Level 160 mmol/L (136-145) Potassium Level 4.3 mmol/L (3.5-5.1) Chloride Level 123 mmol/L (98-107) Carbon Dioxide Level 31 mmol/L (21-32) Anion Gap 6 (6-14) Blood Urea Nitrogen 56 mg/dL (7-20) Creatinine 1.2 mg/dL (0.6-1.0) Estimated GFR (Cockcroft-Gault) 43.4 Glucose Level 384 mg/dL (70-99) Calcium Level 8.5 mg/dL (8.5-10.1) Phosphorus Level 3.4 mg/dL (2.6-4.7) Magnesium Level 2.5 mg/dL (1.8-2.4) Glucose (Fingerstick) 338 mg/dL (70-99) 236 mg/dL (70-99) Laboratory Tests Test 03/11/19 16:29 03/12/19 00:20 03/12/19 05:40 03/12/19 05:45 Glucose (Fingerstick) 330 mg/dL (70-99) 350 mg/dL (70-99) 338 mg/dL (70-99) White Blood Count 12.4 x10^3/uL (4.0-11.0) Red Blood Count 3.57 x10^6/uL (3.50-5.40) Hemoglobin 11.5 g/dL (12.0-15.5) Hematocrit 34.6 % (36.0-47.0) Mean Corpuscular Volume 97 fL (79-100) Mean Corpuscular Hemoglobin 32 pg (25-35) Mean Corpuscular Hemoglobin Concent 33 g/dL (31-37) Red Cell Distribution Width 14.1 % (11.5-14.5) Platelet Count 105 x10^3/uL (140-400) Neutrophils (%) (Auto) 83 % (31-73) Lymphocytes (%) (Auto) 10 % (24-48) Monocytes (%) (Auto) 6 % (0-9) Eosinophils (%) (Auto) 0 % (0-3) Basophils (%) (Auto) 1 % (0-3) Neutrophils # (Auto) 10.3 x10^3uL (1.8-7.7) Lymphocytes # (Auto) 1.2 x10^3/uL (1.0-4.8) Monocytes # (Auto) 0.8 x10^3/uL (0.0-1.1) Eosinophils # (Auto) 0.0 x10^3/uL (0.0-0.7) Basophils # (Auto) 0.1 x10^3/uL (0.0-0.2) Sodium Level 160 mmol/L (136-145) Potassium Level 4.3 mmol/L (3.5-5.1) Chloride Level 123 mmol/L (98-107) Carbon Dioxide Level 31 mmol/L (21-32) Anion Gap 6 (6-14) Blood Urea Nitrogen 56 mg/dL (7-20) Creatinine 1.2 mg/dL (0.6-1.0) Estimated GFR (Cockcroft-Gault) 43.4 Glucose Level 384 mg/dL (70-99) Calcium Level 8.5 mg/dL (8.5-10.1) Phosphorus Level 3.4 mg/dL (2.6-4.7) Magnesium Level 2.5 mg/dL (1.8-2.4) Test 5/12/19 12:44 Glucose (Fingerstick) 236 mg/dL (70-99) Microbiology 03/10/19 Blood Culture - Preliminary, Resulted NO GROWTH AFTER 2 DAYS Medications Current Medications Sodium Chloride 1,000 ml @ 1,000 mls/hr Q1H IV Last administered on 03/06/19at 1 0:40; Start 03/06/19 at 09:30; Stop 03/06/19 at 10:29; Status DC Albuterol/ Ipratropium (Duoneb) 3 ml 1X ONCE NEB Last administered on 03/06/19at 09:20; Start 03/06/19 at 09:30; Stop 03/06/19 at 09:31; Status DC Methylprednisolone Sodium Succinate (SOLU-Medrol 125MG VIAL) 125 mg 1X ONCE IV Last administered on 03/06/19at 10:40; Start 03/06/19 at 09:30; Stop 03/06/19 at 09:31; Status DC Pantoprazole Sodium (PROTONIX VIAL for IV PUSH) 80 mg 1X ONCE IVP Last administered on 03/06/19at 10:39; Start 03/06/19 at 09:30; Stop 03/06/19 at 09:31; Status DC Sodium Chloride 1,000 ml @ 1,000 mls/hr 1X ONCE IV Last administered on 03/06/19at 14:42; Start 03/06/19 at 09:30; Stop 03/06/19 at 10:29; Status DC Vancomycin HCl 250 ml @ 250 mls/hr 1X ONCE IV Last administered on 03/06/19at 10:41; Start 03/06/19 at 10:00; Stop 03/06/19 at 10:59; Status DC Levofloxacin/ Dextrose 150 ml @ 100 mls/hr 1X ONCE IV Last administered on 03/06/19at 10:41; Start 03/06/19 at 10:00; Stop 03/06/19 at 11:29; Status DC Sodium Chloride 1,000 ml @ 150 mls/hr Q6H40M IV Last administered on 03/07/19at 04:31; Start 03/06/19 at 11:10; Stop 03/07/19 at 11:09; Status DC Pantoprazole Sodium 80 mg/ Sodium Chloride 100 ml @ 10 mls/hr Q10H IV Last administered on 03/07/19at 03:12; Start 03/06/19 at 11:30; Stop 03/07/19 at 10:15; Status DC Ondansetron HCl (Zofran) 4 mg PRN Q6HRS PRN IV NAUSEA/VOMITING; Start 03/06/19 at 12:00; Stop 03/07/19 at 14:10; Status DC Labetalol HCl (Normodyne Iv Push) 10 mg PRN Q2HR PRN IVP HYPERTENSION, SEE COMMENTS; Start 03/06/19 at 12:00; Stop 03/07/19 at 14:10; Status DC Morphine Sulfate (Morphine Sulfate) 2 mg PRN Q2HR PRN IV PAIN Last administered on 03/10/19at 01:48; Start 03/06/19 at 12:00 Aspirin (Aspirin) 300 mg DAILY SD Last administered on 03/07/19at 10:12; Start 03/06/19 at 12:30; Stop 03/07/19 at 14:10; Status DC Potassium Chloride/Water 100 ml @ 100 mls/hr Q1H IV Last administered on 03/07/19at 00:24; Start 03/06/19 at 13:00; Stop 03/06/19 at 16:59; Status DC Clindamycin Phosphate 50 ml @ 100 mls/hr Q8HRS IV Last administered on 03/07/19at 06:09; Start 03/06/19 at 14:00; Stop 03/07/19 at 09:10; Status DC Levofloxacin/ Dextrose (Levaquin Per Pharmacy) 1 each PRN DAILY PRN MC SEE COMMENTS; Start 03/06/19 at 13:15; Stop 03/07/19 at 14:10; Status DC Levofloxacin/ Dextrose 50 ml @ 50 mls/hr Q24H IV Last administered on 03/07/19at 08:36; Start 03/07/19 at 09:00; Stop 03/07/19 at 14:10; Status DC Meropenem 500 mg/ Sodium Chloride 50 ml @ 100 mls/hr Q8HRS IV ; Start 03/07/19 at 14:00; Stop 03/07/19 at 14:10; Status DC Vancomycin HCl (Vanco Per Pharmacy) 1 each PRN DAILY PRN MC SEE COMMENTS Last administered on 03/07/19at 13:08; Start 03/07/19 at 09:15; Stop 03/07/19 at 14:10; Status DC Vancomycin HCl 1.75 gm/Sodium Chloride 500 ml @ 250 mls/hr 1X ONCE IV Last administered on 03/07/19at 10:13; Start 03/07/19 at 10:00; Stop 03/07/19 at 14:10; Status DC Pantoprazole Sodium (PROTONIX VIAL for IV PUSH) 40 mg DAILYAC IVP ; Start 03/08/19 at 07:30; Stop 03/08/19 at 07:30; Status DC Vancomycin HCl 1 gm/Sodium Chloride 250 ml @ 250 mls/hr Q24H IV ; Start 03/08/19 at 10:00; Stop 03/08/19 at 10:00; Status DC Vancomycin HCl (Vancomycin Trough Level) 1 each 1X ONCE MC ; Start 03/09/19 at 09:30; Stop 03/09/19 at 09:30; Status DC Scopolamine (Transderm-Scop) 1 patch Q3DAYS TD Last administered on 03/10/19at 07:42; Start 03/07/19 at 15:00 Lorazepam (Ativan) 1 mg PRN Q2HRS PRN IV ANXIETY / AGITATION; Start 03/07/19 at 14:15 Amino Acids/ Glycerin/ Electrolytes 1,000 ml @ 80 mls/hr [id number] IV Last administered on 03/09/19at 22:12; Start 03/08/19 at 09:30; Stop 03/10/19 at 21:59; Status DC Vancomycin HCl (Vanco Per Pharmacy) 1 each PRN DAILY PRN MC SEE COMMENTS Last administered on 03/09/19at 14:48; Start 03/08/19 at 11:15; Stop 03/09/19 at 15:24; Status DC Meropenem 500 mg/ Sodium Chloride 50 ml @ 100 mls/hr Q8HRS IV Last administered on 03/12/19at 05:54; Start 03/08/19 at 14:00 Levofloxacin/ Dextrose (Levaquin Per Pharmacy) 1 each PRN DAILY PRN MC SEE COMMENTS; Start 03/08/19 at 11:15; Stop 03/09/19 at 15:24; Status DC Vancomycin HCl 1 gm/Sodium Chloride 250 ml @ 250 mls/hr Q24H IV Last administered on 03/09/19at 13:21; Start 03/08/19 at 12:00; Stop 03/09/19 at 14:05; Status DC Levofloxacin/ Dextrose 150 ml @ 100 mls/hr Q48H IV Last administered on 03/09/19at 08:00; Start 03/09/19 at 09:00; Stop 03/09/19 at 15:24; Status DC Vancomycin HCl (Vancomycin Trough Level) 1 each 1X ONCE MC Last administered on 03/09/19at 11:30; Start 03/09/19 at 11:30; Stop 03/09/19 at 11:31; Status DC Famotidine (Pepcid Vial) 20 mg DAILY IVP Last administered on 03/12/19 08:54; Start 03/08/19 at 14:00 Acetaminophen (Tylenol Supp) 650 mg PRN Q6HRS PRN SD MILD PAIN / TEMP Last administered on 03/12/19at 08:54; Start 03/08/19 at 19:00 Metoprolol Tartrate (Lopressor Vial) 5 mg 1X ONCE IVP Last administered on 03/09/19at 08:00; Start 03/09/19 at 07:15; Stop 03/09/19 at 07:16; Status DC Metoprolol Tartrate (Lopressor Vial) 5 mg PRN Q4HRS PRN IVP SBP>160 Last administered on 03/10/19at 10:14; Start 03/09/19 at 13:30 Vancomycin HCl 1 gm/Sodium Chloride 250 ml @ 250 mls/hr Q12H IV ; Start 03/10/19 at 00:00; Stop 03/10/19 at 00:00; Status DC Clonidine HCl (Catapres Tts-1) 1 patch WEEKLY TD Last administered on 03/10/19at 05:48; Start 03/10/19 at 06:00; Stop 03/10/19 at 15:38; Status DC Potassium Chloride/Water 50 ml @ 50 mls/hr Q1H IV Last administered on 9at 10:14; Start 03/10/19 at 08:00; Stop 03/10/19 at 09:59; Status DC Levetiracetam 500 mg/Dextrose 105 ml @ 420 mls/hr 1X STAT IV Last administered on 03/10/19at 08:32; Start 03/10/19 at 08:18; Stop 03/10/19 at 08:32; Status DC Levetiracetam 500 mg/Dextrose 105 ml @ 420 mls/hr Q12HR IV Last administered on 03/12/19at 08:52; Start 03/10/19 at 21:00 Info (Tpn Per Pharmacy) 1 each PRN DAILY PRN MC SEE COMMENTS; Start 03/10/19 at 10:45; Status Cancel Info (Tpn Per Pharmacy) 1 each PRN DAILY PRN MC SEE COMMENTS Last administered on 03/12/19at 12:41; Start 03/10/19 at 10:45 Clonidine HCl (Catapres Tts-2) 1 patch WEEKLY TD Last administered on 03/10/19at 11:14; Start 03/10/19 at 11:00 Sodium Chloride 1,000 ml @ 1,500 mls/hr Q40M IV ; Start 03/10/19 at 10:34; Stop 03/10/19 at 11:33; Status DC Hydralazine HCl (Apresoline Inj) 10 mg PRN Q4HRS PRN IVP ELEVATED BP, SEE COMMENTS Last administered on 03/10/19at 23:23; Start 03/10/19 at 12:15 Hydralazine HCl (Apresoline Inj) 5 mg PRN Q4HRS PRN IVP ELEVATED BP, SEE COMMENTS Last administered on 03/10/19at 12:36; Start 03/10/19 at 12:15 Sodium Chloride 60 meq/Potassium Chloride 50 meq/ Potassium Acetate 20 meq/Potassium Phosphate 20.4 mmol/Magnesium Sulfate 10 meq/ Calcium Gluconate 10 meq/ Multivitamins 10 ml/Chromium/ Copper/Manganese/ Seleni/Zn 1 ml/ Total Parenteral Nutrition/Amino Acids/Dextrose/ Fat Emulsion Intravenous 1,512 ml @ 63 mls/hr TPN CONT IV Last administered on 03/10/19at 21:35; Start 03/10/19 at 22:00; Stop 03/11/19 at 21:59; Status DC Insulin Human Lispro (HumaLOG) 0-7 UNITS Q6HRS SQ Last administered on 03/12/19at 05:58; Start 03/10/19 at 18:00 Dextrose (Dextrose 50%-Water Syringe) 12.5 gm PRN Q15MIN PRN IV SEE COMMENTS; Start 03/10/19 at 15:45 Sodium Acetate 30 meq/Potassium Chloride 40 meq/ Potassium Acetate 50 meq/Potassium Phosphate 18 mmol/ Magnesium Sulfate 5 meq/Calcium Gluconate 10 meq/ Multivitamins 10 ml/Chromium/ Copper/Manganese/ Seleni/Zn 1 ml/ Insulin Human Regular 10 unit/ Total Parenteral Nutrition/Amino Acids/Dextrose/ Fat Emuls... 1,512 ml @ 63 mls/hr TPN CONT IV Last administered on 03/11/19at 21:37; Start 03/11/19 at 22:00; Stop 03/12/19 at 21:59 Insulin Glargine (Lantus) 10 units QHS SQ Last administered on 03/11/19at 20:48; Start 03/11/19 at 21:00 Dextrose 1,000 ml @ 100 mls/hr Q10H IV Last administered on 03/12/19at 08:53; Start 03/12/19 at 08:15; Stop 03/12/19 at 18:14 Active Scripts Active Reported Potassium Chloride 10 Meq Tab.sr.24h 10 Meq PO DAILY Procardia Xl (Nifedipine) 60 Mg Tab.er.24 1 Tab PO DAILY Zestril (Lisinopril) 40 Mg Tablet 1 Tab PO BID Glucophage Xr (Metformin Hcl) 500 Mg Tab.er.24h 500 Mg PO DAILYWBKFT Crestor (Rosuvastatin Calcium) 5 Mg Tablet 1 Tab PO DAILY Coreg (Carvedilol) 25 Mg Tablet 25 Mg PO BIDWMEALS Aspir-Low (Aspirin) 81 Mg Tablet. 1 Tab PO DAILY Vitals/I & O Vital Sign - Last 24 Hours 03/11/19 03/11/19 03/11/19 03/11/19 15:00 19:08 19:25 22:30 Temp 98.7 98.4 98.8 98.7 98.4 98.8 Pulse 72 79 67 Resp 18 24 24 B/P (MAP) 160/95 (116) 157/74 (101) 155/72 (99) Pulse Ox 96 97 97 O2 Delivery Venturi Mask Venturi Mask Venturi Mask Nasal Cannula O2 Flow Rate 15.0 12.0 15.0 3.0 03/12/19 03/12/19 03/12/19 03/12/19 02:53 07:00 08:00 11:00 Temp 99.9 100.2 99.0 99.9 100.2 99.0 Pulse 71 69 64 Resp 28 20 20 B/P (MAP) 163/72 (102) 148/74 (98) 215/154 (174) Pulse Ox 96 90 97 O2 Delivery Nasal Cannula Nasal Cannula Nasal Cannula Nasal Cannula O2 Flow Rate 3.0 3.0 3.0 3.0 Intake and Output 03/11/19 03/11/19 03/12/19 15:00 23:00 07:00 Intake Total 100 ml 50 ml Output Total 1600 ml Balance 100 ml -1550 ml EMORY VEGA K III DO March 12, 2019 13:00
--- NOTE | 2019-03-12 14:42 | NUR ---
Pharmacy TPN Dosing Note S: KEMI PASCUAL is a 79 year old F Currently receiving Central Continuous TPN started 03/10/19 B:Pertinent PMH: pt unable to pass swallow study, doesn't want peg yet Height: 5 feet, 2 inches Weight: 70.796233 kg Current diet: npo LABS: Sodium: 160 Potassium: 4.3 Chloride: 123 Calcium: 8.6 Corrected Calcium: 10.44 Magnesium: 2.5 CO2: 31 SCr: 1.2 Glucose: 384 Albumin: 1.7 AST: 27 ALT: 28 TPN FORMULA: TPN TYPE: Central Continuous AMINO ACIDS: 65 gm DEXTROSE: 250 gm LIPIDS: 20 gm SODIUM CHLORIDE: - mEq SODIUM ACETATE: - mEq SODIUM PHOSPHATE: - mmol POTASSIUM CHLORIDE: - mEq POTASSIUM ACETATE: 80 mEq POTASSIUM PHOSPHATE: 15 mmol MAGNESIUM: 5 mEq CALCIUM: 10 mEq INSULIN: 20 units MULTIPLE VITAMIN: 10 ml TRACE ELEMENTS: mte5 1ml ml(s) TPN PLAN: current bag of tpn held since 8am, d5w is running at 100 ml/hr till next bag of tpn without sodium is available. Will increase tonight tpn rate to 83 ml/hr, remove sodium, change kcl to kacetate, decrease kphos to 15 mm, increase insulin to 20 units/bag (28 units given during last 24hrs) R: Change TPN rate to 83ml/hr tonight. Will monitor electrolytes, glucose, and tolerance to TPN. YE SINGH Jabari, 03/12/19 [id number]
[2019-03-12 15:00] VITALS: BP 152/90
--- NOTE | 2019-03-12 15:49 | PDOC ---
PULMONARY PROGRESS NOTES Subjective PT MORE AWAKE APPEARS TO SPEAK Vitals Vital Signs Date Time Temp Pulse Resp B/P (MAP) Pulse Ox O2 Delivery O2 Flow Rate FiO2 03/12/19 15:00 98.4 63 20 152/90 (110) 95 Nasal Cannula 3.0 98.4 General: Alert Lungs: Crackles Cardiovascular: S1, S2 Abdomen: Soft Neuro Exam: Alert Extremities: No Edema Skin: Warm Labs Laboratory Tests Test 03/10/19 16:45 03/10/19 18:21 03/11/19 00:20 03/11/19 06:00 Potassium Level 4.9 mmol/L (3.5-5.1) 3.4 mmol/L (3.5-5.1) Glucose (Fingerstick) 207 mg/dL (70-99) 318 mg/dL (70-99) White Blood Count 12.3 x10^3/uL (4.0-11.0) Red Blood Count 3.97 x10^6/uL (3.50-5.40) Hemoglobin 12.6 g/dL (12.0-15.5) Hematocrit 38.0 % (36.0-47.0) Mean Corpuscular Volume 96 fL (79-100) Mean Corpuscular Hemoglobin 32 pg (25-35) Mean Corpuscular Hemoglobin Concent 33 g/dL (31-37) Red Cell Distribution Width 13.9 % (11.5-14.5) Platelet Count 89 x10^3/uL (140-400) Neutrophils (%) (Auto) 80 % (31-73) Lymphocytes (%) (Auto) 12 % (24-48) Monocytes (%) (Auto) 8 % (0-9) Eosinophils (%) (Auto) 0 % (0-3) Basophils (%) (Auto) 0 % (0-3) Neutrophils # (Auto) 9.8 x10^3uL (1.8-7.7) Lymphocytes # (Auto) 1.5 x10^3/uL (1.0-4.8) Monocytes # (Auto) 1.0 x10^3/uL (0.0-1.1) Eosinophils # (Auto) 0.0 x10^3/uL (0.0-0.7) Basophils # (Auto) 0.0 x10^3/uL (0.0-0.2) Erythrocyte Sedimentation Rate 65 (0-25) Sodium Level 152 mmol/L (136-145) Chloride Level 116 mmol/L (98-107) Carbon Dioxide Level 29 mmol/L (21-32) Anion Gap 7 (6-14) Blood Urea Nitrogen 63 mg/dL (7-20) Creatinine 1.1 mg/dL (0.6-1.0) Estimated GFR (Cockcroft-Gault) 48.0 BUN/Creatinine Ratio 57 (6-20) Glucose Level 362 mg/dL (70-99) Calcium Level 8.6 mg/dL (8.5-10.1) Phosphorus Level 2.6 mg/dL (2.6-4.7) Magnesium Level 2.8 mg/dL (1.8-2.4) Total Bilirubin 0.6 mg/dL (0.2-1.0) Aspartate Amino Transf (AST/SGOT) 38 U/L (15-37) Alanine Aminotransferase (ALT/SGPT) 41 U/L (14-59) Alkaline Phosphatase 66 U/L (46-116) Total Protein 5.5 g/dL (6.4-8.2) Albumin 1.7 g/dL (3.4-5.0) Albumin/Globulin Ratio 0.4 (1.0-1.7) Thyroid Stimulating Hormone (TSH) 2.929 uIU/mL (0.358-3.74) Test 03/11/19 06:02 03/11/19 12:10 03/11/19 16:29 03/12/19 00:20 Glucose (Fingerstick) 344 mg/dL (70-99) 372 mg/dL (70-99) 330 mg/dL (70-99) 350 mg/dL (70-99) Test 03/12/19 05:40 03/12/19 05:45 03/12/19 12:44 White Blood Count 12.4 x10^3/uL (4.0-11.0) Red Blood Count 3.57 x10^6/uL (3.50-5.40) Hemoglobin 11.5 g/dL (12.0-15.5) Hematocrit 34.6 % (36.0-47.0) Mean Corpuscular Volume 97 fL (79-100) Mean Corpuscular Hemoglobin 32 pg (25-35) Mean Corpuscular Hemoglobin Concent 33 g/dL (31-37) Red Cell Distribution Width 14.1 % (11.5-14.5) Platelet Count 105 x10^3/uL (140-400) Neutrophils (%) (Auto) 83 % (31-73) Lymphocytes (%) (Auto) 10 % (24-48) Monocytes (%) (Auto) 6 % (0-9) Eosinophils (%) (Auto) 0 % (0-3) Basophils (%) (Auto) 1 % (0-3) Neutrophils # (Auto) 10.3 x10^3uL (1.8-7.7) Lymphocytes # (Auto) 1.2 x10^3/uL (1.0-4.8) Monocytes # (Auto) 0.8 x10^3/uL (0.0-1.1) Eosinophils # (Auto) 0.0 x10^3/uL (0.0-0.7) Basophils # (Auto) 0.1 x10^3/uL (0.0-0.2) Sodium Level 160 mmol/L (136-145) Potassium Level 4.3 mmol/L (3.5-5.1) Chloride Level 123 mmol/L (98-107) Carbon Dioxide Level 31 mmol/L (21-32) Anion Gap 6 (6-14) Blood Urea Nitrogen 56 mg/dL (7-20) Creatinine 1.2 mg/dL (0.6-1.0) Estimated GFR (Cockcroft-Gault) 43.4 Glucose Level 384 mg/dL (70-99) Calcium Level 8.5 mg/dL (8.5-10.1) Phosphorus Level 3.4 mg/dL (2.6-4.7) Magnesium Level 2.5 mg/dL (1.8-2.4) Glucose (Fingerstick) 338 mg/dL (70-99) 236 mg/dL (70-99) Laboratory Tests Test 03/11/19 16:29 03/12/19 00:20 03/12/19 05:40 03/12/19 05:45 Glucose (Fingerstick) 330 mg/dL (70-99) 350 mg/dL (70-99) 338 mg/dL (70-99) White Blood Count 12.4 x10^3/uL (4.0-11.0) Red Blood Count 3.57 x10^6/uL (3.50-5.40) Hemoglobin 11.5 g/dL (12.0-15.5) Hematocrit 34.6 % (36.0-47.0) Mean Corpuscular Volume 97 fL (79-100) Mean Corpuscular Hemoglobin 32 pg (25-35) Mean Corpuscular Hemoglobin Concent 33 g/dL (31-37) Red Cell Distribution Width 14.1 % (11.5-14.5) Platelet Count 105 x10^3/uL (140-400) Neutrophils (%) (Auto) 83 % (31-73) Lymphocytes (%) (Auto) 10 % (24-48) Monocytes (%) (Auto) 6 % (0-9) Eosinophils (%) (Auto) 0 % (0-3) Basophils (%) (Auto) 1 % (0-3) Neutrophils # (Auto) 10.3 x10^3uL (1.8-7.7) Lymphocytes # (Auto) 1.2 x10^3/uL (1.0-4.8) Monocytes # (Auto) 0.8 x10^3/uL (0.0-1.1) Eosinophils # (Auto) 0.0 x10^3/uL (0.0-0.7) Basophils # (Auto) 0.1 x10^3/uL (0.0-0.2) Sodium Level 160 mmol/L (136-145) Potassium Level 4.3 mmol/L (3.5-5.1) Chloride Level 123 mmol/L (98-107) Carbon Dioxide Level 31 mmol/L (21-32) Anion Gap 6 (6-14) Blood Urea Nitrogen 56 mg/dL (7-20) Creatinine 1.2 mg/dL (0.6-1.0) Estimated GFR (Cockcroft-Gault) 43.4 Glucose Level 384 mg/dL (70-99) Calcium Level 8.5 mg/dL (8.5-10.1) Phosphorus Level 3.4 mg/dL (2.6-4.7) Magnesium Level 2.5 mg/dL (1.8-2.4) Test 03/12/19 12:44 Glucose (Fingerstick) 236 mg/dL (70-99) Medications Active Scripts Medications Dose Route/Sig Max Daily Dose Days Date Category Potassium Chloride 10 Meq Tab.sr.24h 10 Meq PO DAILY 03/06/19 Reported Procardia Xl (Nifedipine) 60 Mg Tab.er.24 1 Tab PO DAILY 03/06/19 Reported Zestril (Lisinopril) 40 Mg Tablet 1 Tab PO BID 03/06/19 Reported Glucophage Xr (Metformin Hcl) 500 Mg Tab.er.24h 500 Mg PO DAILYWBKFT 03/06/19 Reported Crestor (Rosuvastatin Calcium) 5 Mg Tablet 1 Tab PO DAILY 03/06/19 Reported Coreg (Carvedilol) 25 Mg Tablet 25 Mg PO BIDWMEALS 03/06/19 Reported Aspir-Low (Aspirin) 81 Mg Tablet.dr 1 Tab PO DAILY 03/06/19 Reported Impression . IMPRESSION: 1. Acute hypoxic respiratory failure secondary to aspiration pneumonia from DYSPHAGIA 2. Acute metabolic encephalopathy secondary to ischemic stroke. SEE NEURO NOTE 3. CVA PER MRI NO CEREBRAL EDEMA 4. Abnormal CXR consistent with right lung aspiration pneumonia. 5. GPC Sepsis ,Strep Bacteremia POA 02/02 bottles, prelim strep , MYRON pending, source unknown 6. SEIZURES NEURO NOTE 03/10 ssessment 1. Initially presented with right gaze preference and left hemiparesis. There was concern for a large right middle cerebral artery stroke on CT head. Fortunately, this was not proven by MRI of the brain. She is now moving her left side. She may have been having seizure contributing to the neurologic symptoms. The right gaze preference has resolved. She still is having difficulty with speech and language. Her ability to follow commands fluctuates. 2. She had 2 seizures lasting less than 1 minute on May 10, 2019. She has been started on levetiracetam. She has had no further seizure. The EEG revealed background activity but no epileptiform activity. 3. MRI of the brain was performed March 08, 2019 and revealed a punctate acute infarct in the left temporal lobe without significant edema, hemorrhage or mass effect. There was no large territory right middle cerebral artery stroke. 4. Acute hypoxic respiratory failure secondary to aspiration pneumonia. This is being followed by the pulmonary service. The chest x-ray was abnormal. 5. Strep pneumonia sepsis with source unknown. Infectious disease is following. She is on antibiotics. Plan 1. Continue with supportive care. Neurologic examination today revealed that she is able to move both sides with the left moving better than the right. She seems to perceive sensation symmetrically. She is not clinically having any further seizure. She will have an MRI of her brain this next week for follow-up. If this does not explain her symptoms then she may require a lumbar puncture. 2. We will continue with levetiracetam for stroke prevention. 3. She is still requiring a high flow oxygen mask. Her family is working with her to keep the mask on. 4. She was last febrile on March 10, 2019 at 1915. She is on antibiotics and being followed by infectious disease. 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 No improvement, prognosis guarded, may not be large enough to be life-threatening CT HEAD 03/06 Impression: No acute intracranial hemorrhage is seen. Findings are suggestive of diffuse cerebral edema secondary to right MCA infarct on the right side. A round confluent area of edema of the left parietal lobe which may indicate an infarct of indeterminate age on this side. MRI study of the brain without contrast is recommended for further evaluation. MRI IMPRESSION: Punctate acute infarct in the left temporal lobe without significant edema, hemorrhage or mass effect. There is no large territorial right MCA infarct. No definite cerebral edema is visualized. There is dependent diffusion signal alteration involving the occipital horns of the lateral ventricles which may be seen with debris, blood products or ventriculitis. There is no susceptibility artifact in this region with intraventricular hemorrhage therefore less likely. This finding cannot be confirmed on additional sequences and could be artifactual. Short-term follow-up MRI may be of benefit. Plan . RESP STATUS IS COMPENSATED WILL CONTINUE 02 SPOKE WITH SOA PER NEUROLOGY PT IS DNR TPN FAMILY WISHES TO CONTINUE AGGRESSIVE MEASURES WILL RESPECT THEIR WISHES FLAKITA MARY MD March 12, 2019 15:49
[2019-03-12 19:00] VITALS: BP 150/60
--- NOTE | 2019-03-12 19:39 | PDOC ---
PROGRESS NOTES Assessment Problems Medical Problems: 1. Patient continues to be encephalopathic but is slightly more alert. She is forming some words but has difficulty following commands. She has multiple reasons for being encephalopathic including recent sepsis, worsening hypernatraemia, aspiration pneumonia and seizure. Overall she appears to be trending towards some improvement. 2. She is maintained on levetiracetam. There is no evidence for further seizure. 3. There was initially concern for a large right hemispheric stroke on the CT scan of the head. MRI did not reveal any large acute stroke. 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 There is no note in the reports of either study of an old stroke. This could've been a focus for the seizure. There are punctate areas which could be tiny strokes but these are very minimal. Encephalitis could certainly be possible. (2) Acute renal insufficiency Status: Acute (3) Acute respiratory distress Status: Acute (4) CHF (congestive heart failure) Status: Acute (5) GI bleeding Status: Acute (6) Hypokalemia Status: Acute (7) Severe sepsis Status: Acute Plan 1. We will repeat the MRI of the brain on Wednesday. Unfortunately we cannot use contrast because of her renal status. 2. If the MRI is not revealing we may need to perform a lumbar puncture to obtain spinal fluid for analysis to look for evidence of underlying infection or inflammation. 3. The nephrology service is addressing the escalating hypernatremia Subjective State she is in pain by simply nodding her head but does not really understand the words. Objective Vital Signs Date Time Temp Pulse Resp B/P (MAP) Pulse Ox O2 Delivery O2 Flow Rate FiO2 03/12/19 15:00 98.4 63 20 152/90 (110) 95 Nasal Cannula 3.0 98.4 Intake and Output 03/12/19 07:00 Intake Total 150 ml Output Total 1600 ml Balance -1450 ml IV Total 150 ml Output Urine Total 1600 ml PHYSICAL EXAM She was awake and cooperative. She was not able to get out but a few words. She did not follow commands well. She did not protrude her tongue to command. She spontaneously moves both arms. The right arm seemed to move better than the left. When the arms were held in the air the left arm would come down more quickly than the right. She could withdraw both legs equally well to noxious stimulation. She responded to noxious stimulation quite vigorously in all 4 extremities. There was no spasticity. The eyes were conjugate and face did appear symmetric. The tongue did not appear to deviate. Review of Relevant I have reviewed the following items rich (where applicable) has been applied. Labs Laboratory Tests Test 03/11/19 00:20 03/11/19 06:00 03/11/19 06:02 03/11/19 12:10 Glucose (Fingerstick) 318 mg/dL (70-99) 344 mg/dL (70-99) 372 mg/dL (70-99) White Blood Count 12.3 x10^3/uL (4.0-11.0) Red Blood Count 3.97 x10^6/uL (3.50-5.40) Hemoglobin 12.6 g/dL (12.0-15.5) Hematocrit 38.0 % (36.0-47.0) Mean Corpuscular Volume 96 fL (79-100) Mean Corpuscular Hemoglobin 32 pg (25-35) Mean Corpuscular Hemoglobin Concent 33 g/dL (31-37) Red Cell Distribution Width 13.9 % (11.5-14.5) Platelet Count 89 x10^3/uL (140-400) Neutrophils (%) (Auto) 80 % (31-73) Lymphocytes (%) (Auto) 12 % (24-48) Monocytes (%) (Auto) 8 % (0-9) Eosinophils (%) (Auto) 0 % (0-3) Basophils (%) (Auto) 0 % (0-3) Neutrophils # (Auto) 9.8 x10^3uL (1.8-7.7) Lymphocytes # (Auto) 1.5 x10^3/uL (1.0-4.8) Monocytes # (Auto) 1.0 x10^3/uL (0.0-1.1) Eosinophils # (Auto) 0.0 x10^3/uL (0.0-0.7) Basophils # (Auto) 0.0 x10^3/uL (0.0-0.2) Erythrocyte Sedimentation Rate 65 (0-25) Sodium Level 152 mmol/L (136-145) Potassium Level 3.4 mmol/L (3.5-5.1) Chloride Level 116 mmol/L (98-107) Carbon Dioxide Level 29 mmol/L (21-32) Anion Gap 7 (6-14) Blood Urea Nitrogen 63 mg/dL (7-20) Creatinine 1.1 mg/dL (0.6-1.0) Estimated GFR (Cockcroft-Gault) 48.0 BUN/Creatinine Ratio 57 (6-20) Glucose Level 362 mg/dL (70-99) Calcium Level 8.6 mg/dL (8.5-10.1) Phosphorus Level 2.6 mg/dL (2.6-4.7) Magnesium Level 2.8 mg/dL (1.8-2.4) Total Bilirubin 0.6 mg/dL (0.2-1.0) Aspartate Amino Transf (AST/SGOT) 38 U/L (15-37) Alanine Aminotransferase (ALT/SGPT) 41 U/L (14-59) Alkaline Phosphatase 66 U/L (46-116) Total Protein 5.5 g/dL (6.4-8.2) Albumin 1.7 g/dL (3.4-5.0) Albumin/Globulin Ratio 0.4 (1.0-1.7) Thyroid Stimulating Hormone (TSH) 2.929 uIU/mL (0.358-3.74) Test 03/11/19 16:29 03/12/19 00:20 03/12/19 05:40 03/12/19 05:45 Glucose (Fingerstick) 330 mg/dL (70-99) 350 mg/dL (70-99) 338 mg/dL (70-99) White Blood Count 12.4 x10^3/uL (4.0-11.0) Red Blood Count 3.57 x10^6/uL (3.50-5.40) Hemoglobin 11.5 g/dL (12.0-15.5) Hematocrit 34.6 % (36.0-47.0) Mean Corpuscular Volume 97 fL (79-100) Mean Corpuscular Hemoglobin 32 pg (25-35) Mean Corpuscular Hemoglobin Concent 33 g/dL (31-37) Red Cell Distribution Width 14.1 % (11.5-14.5) Platelet Count 105 x10^3/uL (140-400) Neutrophils (%) (Auto) 83 % (31-73) Lymphocytes (%) (Auto) 10 % (24-48) Monocytes (%) (Auto) 6 % (0-9) Eosinophils (%) (Auto) 0 % (0-3) Basophils (%) (Auto) 1 % (0-3) Neutrophils # (Auto) 10.3 x10^3uL (1.8-7.7) Lymphocytes # (Auto) 1.2 x10^3/uL (1.0-4.8) Monocytes # (Auto) 0.8 x10^3/uL (0.0-1.1) Eosinophils # (Auto) 0.0 x10^3/uL (0.0-0.7) Basophils # (Auto) 0.1 x10^3/uL (0.0-0.2) Sodium Level 160 mmol/L (136-145) Potassium Level 4.3 mmol/L (3.5-5.1) Chloride Level 123 mmol/L (98-107) Carbon Dioxide Level 31 mmol/L (21-32) Anion Gap 6 (6-14) Blood Urea Nitrogen 56 mg/dL (7-20) Creatinine 1.2 mg/dL (0.6-1.0) Estimated GFR (Cockcroft-Gault) 43.4 Glucose Level 384 mg/dL (70-99) Calcium Level 8.5 mg/dL (8.5-10.1) Phosphorus Level 3.4 mg/dL (2.6-4.7) Magnesium Level 2.5 mg/dL (1.8-2.4) Test 03/12/19 12:44 03/12/19 18:07 Glucose (Fingerstick) 236 mg/dL (70-99) 239 mg/dL (70-99) Laboratory Tests Test 03/12/19 00:20 03/12/19 05:40 03/12/19 05:45 03/12/19 12:44 Glucose (Fingerstick) 350 mg/dL (70-99) 338 mg/dL (70-99) 236 mg/dL (70-99) White Blood Count 12.4 x10^3/uL (4.0-11.0) Red Blood Count 3.57 x10^6/uL (3.50-5.40) Hemoglobin 11.5 g/dL (12.0-15.5) Hematocrit 34.6 % (36.0-47.0) Mean Corpuscular Volume 97 fL (79-100) Mean Corpuscular Hemoglobin 32 pg (25-35) Mean Corpuscular Hemoglobin Concent 33 g/dL (31-37) Red Cell Distribution Width 14.1 % (11.5-14.5) Platelet Count 105 x10^3/uL (140-400) Neutrophils (%) (Auto) 83 % (31-73) Lymphocytes (%) (Auto) 10 % (24-48) Monocytes (%) (Auto) 6 % (0-9) Eosinophils (%) (Auto) 0 % (0-3) Basophils (%) (Auto) 1 % (0-3) Neutrophils # (Auto) 10.3 x10^3uL (1.8-7.7) Lymphocytes # (Auto) 1.2 x10^3/uL (1.0-4.8) Monocytes # (Auto) 0.8 x10^3/uL (0.0-1.1) Eosinophils # (Auto) 0.0 x10^3/uL (0.0-0.7) Basophils # (Auto) 0.1 x10^3/uL (0.0-0.2) Sodium Level 160 mmol/L (136-145) Potassium Level 4.3 mmol/L (3.5-5.1) Chloride Level 123 mmol/L (98-107) Carbon Dioxide Level 31 mmol/L (21-32) Anion Gap 6 (6-14) Blood Urea Nitrogen 56 mg/dL (7-20) Creatinine 1.2 mg/dL (0.6-1.0) Estimated GFR (Cockcroft-Gault) 43.4 Glucose Level 384 mg/dL (70-99) Calcium Level 8.5 mg/dL (8.5-10.1) Phosphorus Level 3.4 mg/dL (2.6-4.7) Magnesium Level 2.5 mg/dL (1.8-2.4) Test 03/12/19 18:07 Glucose (Fingerstick) 239 mg/dL (70-99) Microbiology 03/10/19 Blood Culture - Preliminary, Resulted NO GROWTH AFTER 2 DAYS Medications Current Medications Sodium Chloride 1,000 ml @ 1,000 mls/hr Q1H IV Last administered on 03/06/19 10:40; Start 03/06/19 at 09:30; Stop 03/06/19 at 10:29; Status DC Albuterol/ Ipratropium (Duoneb) 3 ml 1X ONCE NEB Last administered on 03/06/19 09:20; Start 03/06/19 at 09:30; Stop 03/06/19 at 09:31; Status DC Methylprednisolone Sodium Succinate (SOLU-Medrol 125MG VIAL) 125 mg 1X ONCE IV Last administered on 03/06/19 10:40; Start 03/06/19 at 09:30; Stop 03/06/19 at 09:31; Status DC Pantoprazole Sodium (PROTONIX VIAL for IV PUSH) 80 mg 1X ONCE IVP Last administered on 03/06/19 10:39; Start 03/06/19 at 09:30; Stop 03/06/19 at 09:31; Status DC Sodium Chloride 1,000 ml @ 1,000 mls/hr 1X ONCE IV Last administered on 03/06/19at 14:42; Start 03/06/19 at 09:30; Stop 03/06/19 at 10:29; Status DC Vancomycin HCl 250 ml @ 250 mls/hr 1X ONCE IV Last administered on 03/06/19 10:41; Start 03/06/19 at 10:00; Stop 03/06/19 at 10:59; Status DC Levofloxacin/ Dextrose 150 ml @ 100 mls/hr 1X ONCE IV Last administered on 03/06/19 10:41; Start 03/06/19 at 10:00; Stop 03/06/19 at 11:29; Status DC Sodium Chloride 1,000 ml @ 150 mls/hr Q6H40M IV Last administered on 03/07/19at 04:31; Start 03/06/19 at 11:10; Stop 03/07/19 at 11:09; Status DC Pantoprazole Sodium 80 mg/ Sodium Chloride 100 ml @ 10 mls/hr Q10H IV Last administered on 03/07/19at 03:12; Start 03/06/19 at 11:30; Stop 03/07/19 at 10:15; Status DC Ondansetron HCl (Zofran) 4 mg PRN Q6HRS PRN IV NAUSEA/VOMITING; Start 03/06/19 at 12:00; Stop 03/07/19 at 14:10; Status DC Labetalol HCl (Normodyne Iv Push) 10 mg PRN Q2HR PRN IVP HYPERTENSION, SEE COMMENTS; Start 03/06/19 at 12:00; Stop 03/07/19 at 14:10; Status DC Morphine Sulfate (Morphine Sulfate) 2 mg PRN Q2HR PRN IV PAIN Last administered on 03/10/19at 01:48; Start 03/06/19 at 12:00 Aspirin (Aspirin) 300 mg DAILY CO Last administered on 03/07/19at 10:12; Start 03/06/19 at 12:30; Stop 03/07/19 at 14:10; Status DC Potassium Chloride/Water 100 ml @ 100 mls/hr Q1H IV Last administered on 03/07/19at 00:24; Start 03/06/19 at 13:00; Stop 03/06/19 at 16:59; Status DC Clindamycin Phosphate 50 ml @ 100 mls/hr Q8HRS IV Last administered on 03/07/19at 06:09; Start 03/06/19 at 14:00; Stop 03/07/19 at 09:10; Status DC Levofloxacin/ Dextrose (Levaquin Per Pharmacy) 1 each PRN DAILY PRN MC SEE COMMENTS; Start 03/06/19 at 13:15; Stop 03/07/19 at 14:10; Status DC Levofloxacin/ Dextrose 50 ml @ 50 mls/hr Q24H IV Last administered on 03/07/19at 08:36; Start 03/07/19 at 09:00; Stop 03/07/19 at 14:10; Status DC Meropenem 500 mg/ Sodium Chloride 50 ml @ 100 mls/hr Q8HRS IV ; Start 03/07/19 at 14:00; Stop 03/07/19 at 14:10; Status DC Vancomycin HCl (Vanco Per Pharmacy) 1 each PRN DAILY PRN MC SEE COMMENTS Last administered on 03/07/19at 13:08; Start 03/07/19 at 09:15; Stop 03/07/19 at 14:10; Status DC Vancomycin HCl 1.75 gm/Sodium Chloride 500 ml @ 250 mls/hr 1X ONCE IV Last administered on 03/07/19at 10:13; Start 03/07/19 at 10:00; Stop 03/07/19 at 14:10; Status DC Pantoprazole Sodium (PROTONIX VIAL for IV PUSH) 40 mg DAILYAC IVP ; Start 03/08/19 at 07:30; Stop 03/08/19 at 07:30; Status DC Vancomycin HCl 1 gm/Sodium Chloride 250 ml @ 250 mls/hr Q24H IV ; Start 03/08/19 at 10:00; Stop 03/08/19 at 10:00; Status DC Vancomycin HCl (Vancomycin Trough Level) 1 each 1X ONCE MC ; Start 03/09/19 at 09:30; Stop 03/09/19 at 09:30; Status DC Scopolamine (Transderm-Scop) 1 patch Q3DAYS TD Last administered on 03/10/19at 07:42; Start 03/07/19 at 15:00 Lorazepam (Ativan) 1 mg PRN Q2HRS PRN IV ANXIETY / AGITATION; Start 03/07/19 at 14:15 Amino Acids/ Glycerin/ Electrolytes 1,000 ml @ 80 mls/hr [id number] IV Last administered on 03/09/19at 22:12; Start 03/08/19 at 09:30; Stop 03/10/19 at 21:59; Status DC Vancomycin HCl (Vanco Per Pharmacy) 1 each PRN DAILY PRN MC SEE COMMENTS Last administered on 03/09/19at 14:48; Start 03/08/19 at 11:15; Stop 03/09/19 at 15:24; Status DC Meropenem 500 mg/ Sodium Chloride 50 ml @ 100 mls/hr Q8HRS IV Last administered on 03/12/19at 13:42; Start 03/08/19 at 14:00 Levofloxacin/ Dextrose (Levaquin Per Pharmacy) 1 each PRN DAILY PRN MC SEE COMMENTS; Start 03/08/19 at 11:15; Stop 03/09/19 at 15:24; Status DC Vancomycin HCl 1 gm/Sodium Chloride 250 ml @ 250 mls/hr Q24H IV Last administered on 03/09/19at 13:21; Start 03/08/19 at 12:00; Stop 03/09/19 at 14:05; Status DC Levofloxacin/ Dextrose 150 ml @ 100 mls/hr Q48H IV Last administered on 03/09/19at 08:00; Start 03/09/19 at 09:00; Stop 03/09/19 at 15:24; Status DC Vancomycin HCl (Vancomycin Trough Level) 1 each 1X ONCE MC Last administered on 03/09/19at 11:30; Start 03/09/19 at 11:30; Stop 03/09/19 at 11:31; Status DC Famotidine (Pepcid Vial) 20 mg DAILY IVP Last administered on 03/12/19at 08:54; Start 03/08/19 at 14:00 Acetaminophen (Tylenol Supp) 650 mg PRN Q6HRS PRN CO MILD PAIN / TEMP Last administered on 03/12/19 08:54; Start 03/08/19 at 19:00 Metoprolol Tartrate (Lopressor Vial) 5 mg 1X ONCE IVP Last administered on 03/09/19at 08:00; Start 03/09/19 at 07:15; Stop 03/09/19 at 07:16; Status DC Metoprolol Tartrate (Lopressor Vial) 5 mg PRN Q4HRS PRN IVP SBP>160 Last administered on 03/10/19at 10:14; Start 03/09/19 at 13:30 Vancomycin HCl 1 gm/Sodium Chloride 250 ml @ 250 mls/hr Q12H IV ; Start 03/10/19 at 00:00; Stop 03/10/19 at 00:00; Status DC Clonidine HCl (Catapres Tts-1) 1 patch WEEKLY TD Last administered on 03/10/19at 05:48; Start 03/10/19 at 06:00; Stop 03/10/19 at 15:38; Status DC Potassium Chloride/Water 50 ml @ 50 mls/hr Q1H IV Last administered on 03/10/19at 10:14; Start 03/10/19 at 08:00; Stop 03/10/19 at 09:59; Status DC Levetiracetam 500 mg/Dextrose 105 ml @ 420 mls/hr 1X STAT IV Last administered on 03/10/19at 08:32; Start 03/10/19 at 08:18; Stop 03/10/19 at 08:32; Status DC Levetiracetam 500 mg/Dextrose 105 ml @ 420 mls/hr Q12HR IV Last administered on 03/12/19at 08:52; Start 03/10/19 at 21:00 Info (Tpn Per Pharmacy) 1 each PRN DAILY PRN MC SEE COMMENTS; Start 03/10/19 at 10:45; Status Cancel Info (Tpn Per Pharmacy) 1 each PRN DAILY PRN MC SEE COMMENTS Last administered on 03/12/19at 14:40; Start 03/10/19 at 10:45 Clonidine HCl (Catapres Tts-2) 1 patch WEEKLY TD Last administered on 03/10/19at 11:14; Start 03/10/19 at 11:00 Sodium Chloride 1,000 ml @ 1,500 mls/hr Q40M IV ; Start 03/10/19 at 10:34; Stop 03/10/19 at 11:33; Status DC Hydralazine HCl (Apresoline Inj) 10 mg PRN Q4HRS PRN IVP ELEVATED BP, SEE COMMENTS Last administered on 03/10/19at 23:23; Start 03/10/19 at 12:15 Hydralazine HCl (Apresoline Inj) 5 mg PRN Q4HRS PRN IVP ELEVATED BP, SEE COMMENTS Last administered on 03/10/19at 12:36; Start 03/10/19 at 12:15 Sodium Chloride 60 meq/Potassium Chloride 50 meq/ Potassium Acetate 20 meq/Potassium Phosphate 20.4 mmol/Magnesium Sulfate 10 meq/ Calcium Gluconate 10 meq/ Multivitamins 10 ml/Chromium/ Copper/Manganese/ Seleni/Zn 1 ml/ Total Parenteral Nutrition/Amino Acids/Dextrose/ Fat Emulsion Intravenous 1,512 ml @ 63 mls/hr TPN CONT IV Last administered on 03/10/19at 21:35; Start 03/10/19 at 22:00; Stop 03/11/19 at 21:59; Status DC Insulin Human Lispro (HumaLOG) 0-7 UNITS Q6HRS SQ Last administered on 03/12/19at 18:18; Start 03/10/19 at 18:00 Dextrose (Dextrose 50%-Water Syringe) 12.5 gm PRN Q15MIN PRN IV SEE COMMENTS; Start 03/10/19 at 15:45 Sodium Acetate 30 meq/Potassium Chloride 40 meq/ Potassium Acetate 50 meq/Potassium Phosphate 18 mmol/ Magnesium Sulfate 5 meq/Calcium Gluconate 10 meq/ Multivitamins 10 ml/Chromium/ Copper/Manganese/ Seleni/Zn 1 ml/ Insulin Human Regular 10 unit/ Total Parenteral Nutrition/Amino Acids/Dextrose/ Fat Emuls... 1,512 ml @ 63 mls/hr TPN CONT IV Last administered on 03/11/19at 21:37; Start 03/11/19 at 22:00; Stop 03/12/19 at 21:59 Insulin Glargine (Lantus) 10 units QHS SQ Last administered on 03/11/19at 20:48; Start 03/11/19 at 21:00; Stop 03/12/19 at 13:02; Status DC Dextrose 1,000 ml @ 100 mls/hr Q10H IV Last administered on 03/12/19at 08:53; Start 03/12/19 at 08:15; Stop 03/12/19 at 18:14; Status DC Insulin Glargine (Lantus) 20 units QHS SQ ; Start 03/12/19 at 21:00 Potassium Acetate 80 meq/Potassium Phosphate 15 mmol/ Magnesium Sulfate 5 meq/Calcium Gluconate 10 meq/ Multivitamins 10 ml/Chromium/ Copper/Manganese/ Seleni/Zn 1 ml/ Insulin Human Regular 20 unit/ Total Parenteral Nutrition/Amino Acids/Dextrose/ Fat Emulsion Intravenous 2,400 ml @ 100 mls/hr TPN CONT IV ; Start 03/12/19 at 22:00; Stop 03/13/19 at 21:59; Status Cancel Potassium Acetate 80 meq/Potassium Phosphate 15 mmol/ Magnesium Sulfate 5 meq/Calcium Gluconate 10 meq/ Multivitamins 10 ml/Chromium/ Copper/Manganese/ Seleni/Zn 1 ml/ Insulin Human Regular 20 unit/ Total Parenteral Nutrition/Amino Acids/Dextrose/ Fat Emulsion Intravenous 2,000 ml @ 83.333 mls/ hr TPN CONT IV ; Start 03/12/19 at 22:00; Stop 03/13/19 at 21:59 Active Scripts Active Reported Potassium Chloride 10 Meq Tab.sr.24h 10 Meq PO DAILY Procardia Xl (Nifedipine) 60 Mg Tab.er.24 1 Tab PO DAILY Zestril (Lisinopril) 40 Mg Tablet 1 Tab PO BID Glucophage Xr (Metformin Hcl) 500 Mg Tab.er.24h 500 Mg PO [id number] Crestor (Rosuvastatin Calcium) 5 Mg Tablet 1 Tab PO DAILY Coreg (Carvedilol) 25 Mg Tablet 25 Mg PO BIDWMEALS Aspir-Low (Aspirin) 81 Mg Tablet.dr 1 Tab PO DAILY Vitals/I & O Vital Sign - Last 24 Hours 03/11/19 03/12/19 03/12/19 03/12/19 22:30 02:53 07:00 08:00 Temp 98.8 99.9 100.2 98.8 99.9 100.2 Pulse 67 71 69 Resp 24 28 20 B/P (MAP) 155/72 (99) 163/72 (102) 148/74 (98) Pulse Ox 97 96 90 O2 Delivery Nasal Cannula Nasal Cannula Nasal Cannula Nasal Cannula O2 Flow Rate 3.0 3.0 3.0 3.0 03/12/19 03/12/19 11:00 15:00 Temp 99.0 98.4 99.0 98.4 Pulse 64 63 Resp 20 20 B/P (MAP) 215/154 (174) 152/90 (110) Pulse Ox 97 95 O2 Delivery Nasal Cannula Nasal Cannula O2 Flow Rate 3.0 3.0 Intake and Output 03/11/19 03/11/19 03/12/19 15:00 23:00 07:00 Intake Total 100 ml 50 ml Output Total 1600 ml Balance 100 ml -1550 ml JOSE CARLOS GRIMM MD March 12, 2019 19:39
[2019-03-12] MEDS: INSULIN GLARGINE 300 UNITS/3 ML INSULN.PEN. SQ SCH (21:25)
[2019-03-12] MEDS ORDERED: [UNRECOGNIZED DRUG - OTHER] IV SCH ×10 (22:00)
[2019-03-12] MEDS ORDERED: AMINO ACID IV SCH ×20 (22:00)
[2019-03-12] MEDS ORDERED: TOTAL PARENTERAL NUTRITION IV SCH ×20 (22:00)
[2019-03-12] MEDS ORDERED: [UNRECOGNIZED DRUG - OTHER] IV SCH ×10 (22:00)
[2019-03-12] MEDS ORDERED: DEXTROSE 70% IV SCH ×20 (22:00)
[2019-03-12 23:00] VITALS: BP 159/70
[2019-03-13 03:00] VITALS: BP 171/77
[2019-03-13] MEDS: MEROPENEM 500 MG in IV NORMAL SALINE 50ML 50 ML IV SCH ×3 (05:16→21:17)
[2019-03-13] MEDS: INSULIN LISPRO 300 UNITS/3 ML INSULN.PEN. SQ SCH ×4 (05:18→23:04)
[2019-03-13 05:44] LABS: BASO % 0 % (0-3); EOS # 0.1 x10^3/uL (0.0-0.7); EOS % 1 % (0-3); HEMATOCRIT 33.3 % (36.0-47.0); HEMOGLOBIN 11.1 g/dL (12.0-15.5); LYMPH # 1.2 x10^3/uL (1.0-4.8); LYMPH % 8 % (24-48); MEAN CORPUSCULAR HEMOGLOBIN 32 pg (25-35); MEAN CORPUSCULAR HGB CONC 33 g/dL (31-37); MEAN CORPUSCULAR VOLUME 97 fL (79-100); MONO # 0.7 x10^3/uL (0.0-1.1); MONO % 5 % (0-9); NEUT # 12.8 x10^3uL (1.8-7.7); NEUT % 86 % (31-73); PLATELET COUNT 120 x10^3/uL (140-400); RED BLOOD COUNT 3.43 x10^6/uL (3.50-5.40); RED CELL DISTRIBUTION WIDTH 13.9 % (11.5-14.5); WHITE BLOOD COUNT 14.9 x10^3/uL (4.0-11.0)
[2019-03-13 05:50] LABS: CALCIUM 8.3 mg/dL (8.5-10.1); CREATININE 1.1 mg/dL (0.6-1.0); MAGNESIUM 2.4 mg/dL (1.8-2.4); PHOSPHORUS 3.7 mg/dL (2.6-4.7); POTASSIUM 3.8 mmol/L (3.5-5.1)
[2019-03-13 07:00] VITALS: BP 177/88
--- NOTE | 2019-03-13 08:37 | PDOC ---
PULMONARY PROGRESS NOTES Subjective PT MORE AWAKE APPEARS TO SPEAK Vitals Vital Signs Date Time Temp Pulse Resp B/P (MAP) Pulse Ox O2 Delivery O2 Flow Rate FiO2 03/13/19 07:00 98.2 61 20 177/88 (117) 97 Nasal Cannula 3.0 98.2 General: Alert Lungs: Crackles Cardiovascular: S1, S2 Abdomen: Soft Neuro Exam: Alert Extremities: No Edema Skin: Warm Labs Laboratory Tests Test 03/11/19 12:10 03/11/19 16:29 03/12/19 00:20 03/12/19 05:40 Glucose (Fingerstick) 372 mg/dL (70-99) 330 mg/dL (70-99) 350 mg/dL (70-99) White Blood Count 12.4 x10^3/uL (4.0-11.0) Red Blood Count 3.57 x10^6/uL (3.50-5.40) Hemoglobin 11.5 g/dL (12.0-15.5) Hematocrit 34.6 % (36.0-47.0) Mean Corpuscular Volume 97 fL (79-100) Mean Corpuscular Hemoglobin 32 pg (25-35) Mean Corpuscular Hemoglobin Concent 33 g/dL (31-37) Red Cell Distribution Width 14.1 % (11.5-14.5) Platelet Count 105 x10^3/uL (140-400) Neutrophils (%) (Auto) 83 % (31-73) Lymphocytes (%) (Auto) 10 % (24-48) Monocytes (%) (Auto) 6 % (0-9) Eosinophils (%) (Auto) 0 % (0-3) Basophils (%) (Auto) 1 % (0-3) Neutrophils # (Auto) 10.3 x10^3uL (1.8-7.7) Lymphocytes # (Auto) 1.2 x10^3/uL (1.0-4.8) Monocytes # (Auto) 0.8 x10^3/uL (0.0-1.1) Eosinophils # (Auto) 0.0 x10^3/uL (0.0-0.7) Basophils # (Auto) 0.1 x10^3/uL (0.0-0.2) Sodium Level 160 mmol/L (136-145) Potassium Level 4.3 mmol/L (3.5-5.1) Chloride Level 123 mmol/L (98-107) Carbon Dioxide Level 31 mmol/L (21-32) Anion Gap 6 (6-14) Blood Urea Nitrogen 56 mg/dL (7-20) Creatinine 1.2 mg/dL (0.6-1.0) Estimated GFR (Cockcroft-Gault) 43.4 Glucose Level 384 mg/dL (70-99) Calcium Level 8.5 mg/dL (8.5-10.1) Phosphorus Level 3.4 mg/dL (2.6-4.7) Magnesium Level 2.5 mg/dL (1.8-2.4) Test 03/12/19 05:45 03/12/19 12:44 03/12/19 18:07 03/12/19 21:02 Glucose (Fingerstick) 338 mg/dL (70-99) 236 mg/dL (70-99) 239 mg/dL (70-99) 291 mg/dL (70-99) Test 03/12/19 23:13 03/13/19 05:15 03/13/19 05:30 Glucose (Fingerstick) 288 mg/dL (70-99) 238 mg/dL (70-99) White Blood Count 14.9 x10^3/uL (4.0-11.0) Red Blood Count 3.43 x10^6/uL (3.50-5.40) Hemoglobin 11.1 g/dL (12.0-15.5) Hematocrit 33.3 % (36.0-47.0) Mean Corpuscular Volume 97 fL (79-100) Mean Corpuscular Hemoglobin 32 pg (25-35) Mean Corpuscular Hemoglobin Concent 33 g/dL (31-37) Red Cell Distribution Width 13.9 % (11.5-14.5) Platelet Count 120 x10^3/uL (140-400) Neutrophils (%) (Auto) 86 % (31-73) Lymphocytes (%) (Auto) 8 % (24-48) Monocytes (%) (Auto) 5 % (0-9) Eosinophils (%) (Auto) 1 % (0-3) Basophils (%) (Auto) 0 % (0-3) Neutrophils # (Auto) 12.8 x10^3uL (1.8-7.7) Lymphocytes # (Auto) 1.2 x10^3/uL (1.0-4.8) Monocytes # (Auto) 0.7 x10^3/uL (0.0-1.1) Eosinophils # (Auto) 0.1 x10^3/uL (0.0-0.7) Basophils # (Auto) 0.0 x10^3/uL (0.0-0.2) Sodium Level 159 mmol/L (136-145) Potassium Level 3.8 mmol/L (3.5-5.1) Chloride Level 119 mmol/L (98-107) Carbon Dioxide Level 32 mmol/L (21-32) Anion Gap 8 (6-14) Blood Urea Nitrogen 47 mg/dL (7-20) Creatinine 1.1 mg/dL (0.6-1.0) Estimated GFR (Cockcroft-Gault) 48.0 Glucose Level 268 mg/dL (70-99) Calcium Level 8.3 mg/dL (8.5-10.1) Phosphorus Level 3.7 mg/dL (2.6-4.7) Magnesium Level 2.4 mg/dL (1.8-2.4) Laboratory Tests Test 03/12/19 12:44 03/12/19 18:07 03/12/19 21:02 03/12/19 23:13 Glucose (Fingerstick) 236 mg/dL (70-99) 239 mg/dL (70-99) 291 mg/dL (70-99) 288 mg/dL (70-99) Test 03/13/19 05:15 03/13/19 05:30 Glucose (Fingerstick) 238 mg/dL (70-99) White Blood Count 14.9 x10^3/uL (4.0-11.0) Red Blood Count 3.43 x10^6/uL (3.50-5.40) Hemoglobin 11.1 g/dL (12.0-15.5) Hematocrit 33.3 % (36.0-47.0) Mean Corpuscular Volume 97 fL (79-100) Mean Corpuscular Hemoglobin 32 pg (25-35) Mean Corpuscular Hemoglobin Concent 33 g/dL (31-37) Red Cell Distribution Width 13.9 % (11.5-14.5) Platelet Count 120 x10^3/uL (140-400) Neutrophils (%) (Auto) 86 % (31-73) Lymphocytes (%) (Auto) 8 % (24-48) Monocytes (%) (Auto) 5 % (0-9) Eosinophils (%) (Auto) 1 % (0-3) Basophils (%) (Auto) 0 % (0-3) Neutrophils # (Auto) 12.8 x10^3uL (1.8-7.7) Lymphocytes # (Auto) 1.2 x10^3/uL (1.0-4.8) Monocytes # (Auto) 0.7 x10^3/uL (0.0-1.1) Eosinophils # (Auto) 0.1 x10^3/uL (0.0-0.7) Basophils # (Auto) 0.0 x10^3/uL (0.0-0.2) Sodium Level 159 mmol/L (136-145) Potassium Level 3.8 mmol/L (3.5-5.1) Chloride Level 119 mmol/L (98-107) Carbon Dioxide Level 32 mmol/L (21-32) Anion Gap 8 (6-14) Blood Urea Nitrogen 47 mg/dL (7-20) Creatinine 1.1 mg/dL (0.6-1.0) Estimated GFR (Cockcroft-Gault) 48.0 Glucose Level 268 mg/dL (70-99) Calcium Level 8.3 mg/dL (8.5-10.1) Phosphorus Level 3.7 mg/dL (2.6-4.7) Magnesium Level 2.4 mg/dL (1.8-2.4) Medications Active Scripts Medications Dose Route/Sig Max Daily Dose Days Date Category Potassium Chloride 10 Meq Tab.sr.24h 10 Meq PO DAILY 03/06/19 Reported Procardia Xl (Nifedipine) 60 Mg Tab.er.24 1 Tab PO DAILY 03/06/19 Reported Zestril (Lisinopril) 40 Mg Tablet 1 Tab PO BID 03/06/19 Reported Glucophage Xr (Metformin Hcl) 500 Mg Tab.er.24h 500 Mg PO DAILYWBKFT 03/06/19 Reported Crestor (Rosuvastatin Calcium) 5 Mg Tablet 1 Tab PO DAILY 03/06/19 Reported Coreg (Carvedilol) 25 Mg Tablet 25 Mg PO BIDWMEALS 03/06/19 Reported Aspir-Low (Aspirin) 81 Mg Tablet. 1 Tab PO DAILY 03/06/19 Reported Impression . IMPRESSION: 1. Acute hypoxic respiratory failure secondary to aspiration pneumonia from DYSPHAGIA 2. Acute metabolic encephalopathy secondary to ischemic stroke. SEE NEURO NOTE 3. CVA PER MRI NO CEREBRAL EDEMA 4. Abnormal CXR consistent with right lung aspiration pneumonia. 5. GPC Sepsis ,Strep Bacteremia POA 02/02 bottles, prelim strep , MYRON pending, source unknown 6. SEIZURES 7. DYSPHAGIA NEURO NOTE 03/10 ssessment 1. Initially presented with right gaze preference and left hemiparesis. There was concern for a large right middle cerebral artery stroke on CT head. Fortunately, this was not proven by MRI of the brain. She is now moving her left side. She may have been having seizure contributing to the neurologic symptoms. The right gaze preference has resolved. She still is having difficulty with speech and language. Her ability to follow commands fluctuates. 2. She had 2 seizures lasting less than 1 minute on May 10, 2019. She has been started on levetiracetam. She has had no further seizure. The EEG revealed background activity but no epileptiform activity. 3. MRI of the brain was performed March 08, 2019 and revealed a punctate acute infarct in the left temporal lobe without significant edema, hemorrhage or mass effect. There was no large territory right middle cerebral artery stroke. 4. Acute hypoxic respiratory failure secondary to aspiration pneumonia. This is being followed by the pulmonary service. The chest x-ray was abnormal. 5. Strep pneumonia sepsis with source unknown. Infectious disease is following. She is on antibiotics. Plan 1. Continue with supportive care. Neurologic examination today revealed that she is able to move both sides with the left moving better than the right. She seems to perceive sensation symmetrically. She is not clinically having any further seizure. She will have an MRI of her brain this next week for follow-up. If this does not explain her symptoms then she may require a lumbar puncture. 2. We will continue with levetiracetam for stroke prevention. 3. She is still requiring a high flow oxygen mask. Her family is working with her to keep the mask on. 4. She was last febrile on March 10, 2019 at 1915. She is on antibiotics and being followed by infectious disease. 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 No improvement, prognosis guarded, may not be large enough to be life-threatening CT HEAD 5/6 Impression: No acute intracranial hemorrhage is seen. Findings are suggestive of diffuse cerebral edema secondary to right MCA infarct on the right side. A round confluent area of edema of the left parietal lobe which may indicate an infarct of indeterminate age on this side. MRI study of the brain without contrast is recommended for further evaluation. MRI IMPRESSION: Punctate acute infarct in the left temporal lobe without significant edema, hemorrhage or mass effect. There is no large territorial right MCA infarct. No definite cerebral edema is visualized. There is dependent diffusion signal alteration involving the occipital horns of the lateral ventricles which may be seen with debris, blood products or ventriculitis. There is no susceptibility artifact in this region with intraventricular hemorrhage therefore less likely. This finding cannot be confirmed on additional sequences and could be artifactual. Short-term follow-up MRI may be of benefit. Plan . RESP STATUS IS COMPENSATED POSSIBLE LP WILL CONTINUE 02 SPOKE WITH SOA PER NEUROLOGY PT IS DNR TPN FOR NOW MAY NEED A PEG FAMILY WISHES TO CONTINUE AGGRESSIVE MEASURES WILL RESPECT THEIR WISHES FLAKITA MARY MD March 13, 2019 08:37
[2019-03-13] MEDS: levETIRAcetam 500 MG in IV DEXTROSE 5% 100ML 100 ML IV SCH ×2 (08:43→20:43)
[2019-03-13] MEDS: FAMOTIDINE 20 MG/2 ML VIAL IVP SCH (08:43)
[2019-03-13] MEDS: SCOPOLAMINE 1.5MG PATCH. TD SCH (08:44)
[2019-03-13] MEDS: hydrALAZINE 20 MG/ML VIAL. IVP PRN (09:57)
--- NOTE | 2019-03-13 10:20 | PDOC ---
Infectious Disease Note Subjective Subjective More alert, trying to talk No further fevers last 24 hours Remains on O2 2L TPN ROS ROS unobtainable Vital Sign Vital Signs Vital Signs Date Time Temp Pulse Resp B/P (MAP) Pulse Ox O2 Delivery O2 Flow Rate FiO2 03/13/19 09:57 61 177/88 03/13/19 08:00 Nasal Cannula 3.0 03/13/19 07:00 98.2 20 97 98.2 Physical Exam PHYSICAL EXAM GENERAL: Propped up in bed, alert, weak appearing, + eye contact, trying to mouth words HEENT: oral cavity dry LUNGS: Decreased breath sounds lower lobes, nonlabored HEART: S1, S2, ABDOMEN: Obese, soft, nontender, no guarding, BS active : Mendez 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, no cyanosis. ACADEMIC COACH: Alert, weak SKIN: No rash RUE-PICC clean Labs Lab Laboratory Tests Test 03/12/19 12:44 03/12/19 18:07 03/12/19 21:02 03/12/19 23:13 Glucose (Fingerstick) 236 mg/dL (70-99) 239 mg/dL (70-99) 291 mg/dL (70-99) 288 mg/dL (70-99) Test 03/13/19 05:15 03/13/19 05:30 Glucose (Fingerstick) 238 mg/dL (70-99) White Blood Count 14.9 x10^3/uL (4.0-11.0) Red Blood Count 3.43 x10^6/uL (3.50-5.40) Hemoglobin 11.1 g/dL (12.0-15.5) Hematocrit 33.3 % (36.0-47.0) Mean Corpuscular Volume 97 fL (79-100) Mean Corpuscular Hemoglobin 32 pg (25-35) Mean Corpuscular Hemoglobin Concent 33 g/dL (31-37) Red Cell Distribution Width 13.9 % (11.5-14.5) Platelet Count 120 x10^3/uL (140-400) Neutrophils (%) (Auto) 86 % (31-73) Lymphocytes (%) (Auto) 8 % (24-48) Monocytes (%) (Auto) 5 % (0-9) Eosinophils (%) (Auto) 1 % (0-3) Basophils (%) (Auto) 0 % (0-3) Neutrophils # (Auto) 12.8 x10^3uL (1.8-7.7) Lymphocytes # (Auto) 1.2 x10^3/uL (1.0-4.8) Monocytes # (Auto) 0.7 x10^3/uL (0.0-1.1) Eosinophils # (Auto) 0.1 x10^3/uL (0.0-0.7) Basophils # (Auto) 0.0 x10^3/uL (0.0-0.2) Sodium Level 159 mmol/L (136-145) Potassium Level 3.8 mmol/L (3.5-5.1) Chloride Level 119 mmol/L (98-107) Carbon Dioxide Level 32 mmol/L (21-32) Anion Gap 8 (6-14) Blood Urea Nitrogen 47 mg/dL (7-20) Creatinine 1.1 mg/dL (0.6-1.0) Estimated GFR (Cockcroft-Gault) 48.0 Glucose Level 268 mg/dL (70-99) Calcium Level 8.3 mg/dL (8.5-10.1) Phosphorus Level 3.7 mg/dL (2.6-4.7) Magnesium Level 2.4 mg/dL (1.8-2.4) Micro 03/08. BLOOD CULTURE Preliminary NO GROWTH AFTER 2 DAYS 03/10. BLOOD CULTURE Preliminary NO GROWTH AFTER 1 DAY Objective Assessment Low-grade fevers, better Strep Pneumonia bacteremia POA ( 4/4 bottles). Repeat BC 03/08 and 10th neg so far CVA cerebral edema Leucocytosis Aspiration pneumonia PCN allergy hives, tolerating Merrem Coffee ground emesis POA Lactic acidosis, better Hypernatremia Plan Plan of Care Continue Merrem for now off vanc and Levaquin Palliative care on case Oral care D/w daughter D/w nursing D/w Dr. Lynn rodriguez Worked with PT and sat on side of bed. No reported CHOI or photophobia/nausea. D/w Daughter to contact primary to see if has had amox or Keflex before -would like to change to Rocephin Attending Co-Sign Attending Co-Sign The patient was seen and interviewed as well as examined at the bedside. The chart was reviewed. The case was discussed. Agree with the plan of care. CELE LOPEZ APRN March 13, 2019 10:20 AUREA COLES MD March 13, 2019 15:48
[2019-03-13 10:32] LABS: CALCIUM 8.3 mg/dL (8.5-10.1); CREATININE 1.1 mg/dL (0.6-1.0)
[2019-03-13 11:00] VITALS: BP 158/68
--- NOTE | 2019-03-13 11:04 | PDOC ---
Subjective: Subjective: Family says she's more alert overall - they have questions re: TPN vs NG vs PEG. Objective: Objective: Reviewed chart and d/w RN. Pat is not currently following. Reviewed neuro note - remains encephalopathic but trending toward improvement. Vital Signs: Vital Signs Date Time Temp Pulse Resp B/P (MAP) Pulse Ox O2 Delivery O2 Flow Rate FiO2 03/13/19 09:57 61 177/88 03/13/19 08:00 Nasal Cannula 3.0 03/13/19 07:00 98.2 20 97 98.2 Labs: Laboratory Tests Test 03/12/19 12:44 03/12/19 18:07 03/12/19 21:02 03/12/19 23:13 Glucose (Fingerstick) 236 mg/dL 239 mg/dL 291 mg/dL 288 mg/dL Test 03/13/19 05:15 03/13/19 05:30 03/13/19 10:10 Glucose (Fingerstick) 238 mg/dL White Blood Count 14.9 x10^3/uL Red Blood Count 3.43 x10^6/uL Hemoglobin 11.1 g/dL Hematocrit 33.3 % Mean Corpuscular Volume 97 fL Mean Corpuscular Hemoglobin 32 pg Mean Corpuscular Hemoglobin Concent 33 g/dL Red Cell Distribution Width 13.9 % Platelet Count 120 x10^3/uL Neutrophils (%) (Auto) 86 % Lymphocytes (%) (Auto) 8 % Monocytes (%) (Auto) 5 % Eosinophils (%) (Auto) 1 % Basophils (%) (Auto) 0 % Neutrophils # (Auto) 12.8 x10^3uL Lymphocytes # (Auto) 1.2 x10^3/uL Monocytes # (Auto) 0.7 x10^3/uL Eosinophils # (Auto) 0.1 x10^3/uL Basophils # (Auto) 0.0 x10^3/uL Sodium Level 159 mmol/L 157 mmol/L Potassium Level 3.8 mmol/L 4.0 mmol/L Chloride Level 119 mmol/L 118 mmol/L Carbon Dioxide Level 32 mmol/L 32 mmol/L Anion Gap 8 7 Blood Urea Nitrogen 47 mg/dL 45 mg/dL Creatinine 1.1 mg/dL 1.1 mg/dL Estimated GFR (Cockcroft-Gault) 48.0 48.0 Glucose Level 268 mg/dL 299 mg/dL Calcium Level 8.3 mg/dL 8.3 mg/dL Phosphorus Level 3.7 mg/dL Magnesium Level 2.4 mg/dL BLOOD CULTURE LC Final Final report BLD CULT RESULT 1 Final Comment Streptococcus pneumoniae Imaging: CXR 03/10 IMPRESSION: Improving mild pulmonary infiltrates. PE: GEN: NAD, family present, daughter using oral swabs LUNGS: NC HEART: RR NEURO/PSYCH: awake - occasionally says a few words to daughter A/P: Encephalopathy, abnormal brain/head imaging, seizure Resp failure, HTN Strep pneumo bacteremia -- Okay to continue TPN and IV acid-mold closer. Await further neuro input re: PEG, etc. ADELAIDE SAMSON March 13, 2019 11:04
[2019-03-13] MEDS ORDERED: ENALAPRILAT 1.25 MG/ML VIAL. IVP PRN (11:30)
--- NOTE | 2019-03-13 11:34 | PDOC ---
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 History of Present Illness History of Present Illness Patient seen and examined Patient unable to speak, but was attempting to communicate Patient has been hypertensive despite medications Continued electrolyte abnormalities noted in labs (sodium, chloride, glucose), rechecking labs Discussed with daughter and son Discussed with nurse Vitals Vitals Vital Signs Date Time Temp Pulse Resp B/P (MAP) Pulse Ox O2 Delivery O2 Flow Rate FiO2 03/13/19 11:00 99.7 57 20 158/68 (98) 96 Nasal Cannula 3.0 99.7 Physical Exam Physical Exam GENERAL: Propped up in bed, alert, weak appearing, + eye contact, trying to mouth words HEENT: oral cavity dry LUNGS: Decreased breath sounds lower lobes, nonlabored HEART: S1, S2, ABDOMEN: Obese, soft, nontender, no guarding, BS active : Mendez 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, no cyanosis. [employer]: Alert, weak SKIN: No rash RUE-PICC clean General: Alert, moderate distress, Other (mildly alert, patient was attempting to speak but was unable) Heart: Regular rate, Other (tachycardic) Lungs: Crackles Abdomen: Normal bowel sounds, Soft, No tenderness, No hepatosplenomegaly, No masses Extremities: No clubbing, No cyanosis, No edema, Normal pulses, No tenderness/swelling Skin: No rashes Labs LABS Laboratory Tests Test 03/12/19 12:44 03/12/19 18:07 03/12/19 21:02 03/12/19 23:13 Glucose (Fingerstick) 236 mg/dL (70-99) 239 mg/dL (70-99) 291 mg/dL (70-99) 288 mg/dL (70-99) Test 03/13/19 05:15 03/13/19 05:30 03/13/19 10:10 Glucose (Fingerstick) 238 mg/dL (70-99) White Blood Count 14.9 x10^3/uL (4.0-11.0) Red Blood Count 3.43 x10^6/uL (3.50-5.40) Hemoglobin 11.1 g/dL (12.0-15.5) Hematocrit 33.3 % (36.0-47.0) Mean Corpuscular Volume 97 fL (79-100) Mean Corpuscular Hemoglobin 32 pg (25-35) Mean Corpuscular Hemoglobin Concent 33 g/dL (31-37) Red Cell Distribution Width 13.9 % (11.5-14.5) Platelet Count 120 x10^3/uL (140-400) Neutrophils (%) (Auto) 86 % (31-73) Lymphocytes (%) (Auto) 8 % (24-48) Monocytes (%) (Auto) 5 % (0-9) Eosinophils (%) (Auto) 1 % (0-3) Basophils (%) (Auto) 0 % (0-3) Neutrophils # (Auto) 12.8 x10^3uL (1.8-7.7) Lymphocytes # (Auto) 1.2 x10^3/uL (1.0-4.8) Monocytes # (Auto) 0.7 x10^3/uL (0.0-1.1) Eosinophils # (Auto) 0.1 x10^3/uL (0.0-0.7) Basophils # (Auto) 0.0 x10^3/uL (0.0-0.2) Sodium Level 159 mmol/L (136-145) 157 mmol/L (136-145) Potassium Level 3.8 mmol/L (3.5-5.1) 4.0 mmol/L (3.5-5.1) Chloride Level 119 mmol/L (98-107) 118 mmol/L (98-107) Carbon Dioxide Level 32 mmol/L (21-32) 32 mmol/L (21-32) Anion Gap 8 (6-14) 7 (6-14) Blood Urea Nitrogen 47 mg/dL (7-20) 45 mg/dL (7-20) Creatinine 1.1 mg/dL (0.6-1.0) 1.1 mg/dL (0.6-1.0) Estimated GFR (Cockcroft-Gault) 48.0 48.0 Glucose Level 268 mg/dL (70-99) 299 mg/dL (70-99) Calcium Level 8.3 mg/dL (8.5-10.1) 8.3 mg/dL (8.5-10.1) Phosphorus Level 3.7 mg/dL (2.6-4.7) Magnesium Level 2.4 mg/dL (1.8-2.4) Review of Systems Review of Systems ROS unable to obtain Assessment and Plan Assessmemt and Plan Problems Medical Problems: (1) Acute ischemic cerebrovascular accident (CVA) involving middle cerebral artery territory Status: Acute (2) Acute renal insufficiency Status: Acute (3) Acute respiratory distress Status: Acute (4) CHF (congestive heart failure) Status: Acute (5) GI bleeding Status: Acute (6) Hypokalemia Status: Acute (7) Severe sepsis Status: Acute Assessment: Aspiration pneumonia secondary to stroke Electrolyte abnormalities Respiratory failure Seizures CVA CHF Acute renal insufficiency Hyperlipidemia Hypertension 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 Labs Laboratory Tests Test 03/11/19 12:10 03/11/19 16:29 03/12/19 00:20 03/12/19 05:40 Glucose (Fingerstick) 372 mg/dL (70-99) 330 mg/dL (70-99) 350 mg/dL (70-99) White Blood Count 12.4 x10^3/uL (4.0-11.0) Red Blood Count 3.57 x10^6/uL (3.50-5.40) Hemoglobin 11.5 g/dL (12.0-15.5) Hematocrit 34.6 % (36.0-47.0) Mean Corpuscular Volume 97 fL (79-100) Mean Corpuscular Hemoglobin 32 pg (25-35) Mean Corpuscular Hemoglobin Concent 33 g/dL (31-37) Red Cell Distribution Width 14.1 % (11.5-14.5) Platelet Count 105 x10^3/uL (140-400) Neutrophils (%) (Auto) 83 % (31-73) Lymphocytes (%) (Auto) 10 % (24-48) Monocytes (%) (Auto) 6 % (0-9) Eosinophils (%) (Auto) 0 % (0-3) Basophils (%) (Auto) 1 % (0-3) Neutrophils # (Auto) 10.3 x10^3uL (1.8-7.7) Lymphocytes # (Auto) 1.2 x10^3/uL (1.0-4.8) Monocytes # (Auto) 0.8 x10^3/uL (0.0-1.1) Eosinophils # (Auto) 0.0 x10^3/uL (0.0-0.7) Basophils # (Auto) 0.1 x10^3/uL (0.0-0.2) Sodium Level 160 mmol/L (136-145) Potassium Level 4.3 mmol/L (3.5-5.1) Chloride Level 123 mmol/L (98-107) Carbon Dioxide Level 31 mmol/L (21-32) Anion Gap 6 (6-14) Blood Urea Nitrogen 56 mg/dL (7-20) Creatinine 1.2 mg/dL (0.6-1.0) Estimated GFR (Cockcroft-Gault) 43.4 Glucose Level 384 mg/dL (70-99) Calcium Level 8.5 mg/dL (8.5-10.1) Phosphorus Level 3.4 mg/dL (2.6-4.7) Magnesium Level 2.5 mg/dL (1.8-2.4) Test 03/12/19 05:45 03/12/19 12:44 03/12/19 18:07 03/12/19 21:02 Glucose (Fingerstick) 338 mg/dL (70-99) 236 mg/dL (70-99) 239 mg/dL (70-99) 291 mg/dL (70-99) Test 03/12/19 23:13 03/13/19 05:15 03/13/19 05:30 03/13/19 10:10 Glucose (Fingerstick) 288 mg/dL (70-99) 238 mg/dL (70-99) White Blood Count 14.9 x10^3/uL (4.0-11.0) Red Blood Count 3.43 x10^6/uL (3.50-5.40) Hemoglobin 11.1 g/dL (12.0-15.5) Hematocrit 33.3 % (36.0-47.0) Mean Corpuscular Volume 97 fL (79-100) Mean Corpuscular Hemoglobin 32 pg (25-35) Mean Corpuscular Hemoglobin Concent 33 g/dL (31-37) Red Cell Distribution Width 13.9 % (11.5-14.5) Platelet Count 120 x10^3/uL (140-400) Neutrophils (%) (Auto) 86 % (31-73) Lymphocytes (%) (Auto) 8 % (24-48) Monocytes (%) (Auto) 5 % (0-9) Eosinophils (%) (Auto) 1 % (0-3) Basophils (%) (Auto) 0 % (0-3) Neutrophils # (Auto) 12.8 x10^3uL (1.8-7.7) Lymphocytes # (Auto) 1.2 x10^3/uL (1.0-4.8) Monocytes # (Auto) 0.7 x10^3/uL (0.0-1.1) Eosinophils # (Auto) 0.1 x10^3/uL (0.0-0.7) Basophils # (Auto) 0.0 x10^3/uL (0.0-0.2) Sodium Level 159 mmol/L (136-145) 157 mmol/L (136-145) Potassium Level 3.8 mmol/L (3.5-5.1) 4.0 mmol/L (3.5-5.1) Chloride Level 119 mmol/L (98-107) 118 mmol/L (98-107) Carbon Dioxide Level 32 mmol/L (21-32) 32 mmol/L (21-32) Anion Gap 8 (6-14) 7 (6-14) Blood Urea Nitrogen 47 mg/dL (7-20) 45 mg/dL (7-20) Creatinine 1.1 mg/dL (0.6-1.0) 1.1 mg/dL (0.6-1.0) Estimated GFR (Cockcroft-Gault) 48.0 48.0 Glucose Level 268 mg/dL (70-99) 299 mg/dL (70-99) Calcium Level 8.3 mg/dL (8.5-10.1) 8.3 mg/dL (8.5-10.1) Phosphorus Level 3.7 mg/dL (2.6-4.7) Magnesium Level 2.4 mg/dL (1.8-2.4) Laboratory Tests Test 03/12/19 12:44 03/12/19 18:07 03/12/19 21:02 03/12/19 23:13 Glucose (Fingerstick) 236 mg/dL (70-99) 239 mg/dL (70-99) 291 mg/dL (70-99) 288 mg/dL (70-99) Test 03/13/19 05:15 03/13/19 05:30 03/13/19 10:10 Glucose (Fingerstick) 238 mg/dL (70-99) White Blood Count 14.9 x10^3/uL (4.0-11.0) Red Blood Count 3.43 x10^6/uL (3.50-5.40) Hemoglobin 11.1 g/dL (12.0-15.5) Hematocrit 33.3 % (36.0-47.0) Mean Corpuscular Volume 97 fL (79-100) Mean Corpuscular Hemoglobin 32 pg (25-35) Mean Corpuscular Hemoglobin Concent 33 g/dL (31-37) Red Cell Distribution Width 13.9 % (11.5-14.5) Platelet Count 120 x10^3/uL (140-400) Neutrophils (%) (Auto) 86 % (31-73) Lymphocytes (%) (Auto) 8 % (24-48) Monocytes (%) (Auto) 5 % (0-9) Eosinophils (%) (Auto) 1 % (0-3) Basophils (%) (Auto) 0 % (0-3) Neutrophils # (Auto) 12.8 x10^3uL (1.8-7.7) Lymphocytes # (Auto) 1.2 x10^3/uL (1.0-4.8) Monocytes # (Auto) 0.7 x10^3/uL (0.0-1.1) Eosinophils # (Auto) 0.1 x10^3/uL (0.0-0.7) Basophils # (Auto) 0.0 x10^3/uL (0.0-0.2) Sodium Level 159 mmol/L (136-145) 157 mmol/L (136-145) Potassium Level 3.8 mmol/L (3.5-5.1) 4.0 mmol/L (3.5-5.1) Chloride Level 119 mmol/L (98-107) 118 mmol/L (98-107) Carbon Dioxide Level 32 mmol/L (21-32) 32 mmol/L (21-32) Anion Gap 8 (6-14) 7 (6-14) Blood Urea Nitrogen 47 mg/dL (7-20) 45 mg/dL (7-20) Creatinine 1.1 mg/dL (0.6-1.0) 1.1 mg/dL (0.6-1.0) Estimated GFR (Cockcroft-Gault) 48.0 48.0 Glucose Level 268 mg/dL (70-99) 299 mg/dL (70-99) Calcium Level 8.3 mg/dL (8.5-10.1) 8.3 mg/dL (8.5-10.1) Phosphorus Level 3.7 mg/dL (2.6-4.7) Magnesium Level 2.4 mg/dL (1.8-2.4) Microbiology 03/10/19 Blood Culture - Preliminary, Resulted NO GROWTH AFTER 3 DAYS Medications Current Medications Sodium Chloride 1,000 ml @ 1,000 mls/hr Q1H IV Last administered on 03/06/19 10:40; Start 03/06/19 at 09:30; Stop 03/06/19 at 10:29; Status DC Albuterol/ Ipratropium (Duoneb) 3 ml 1X ONCE NEB Last administered on 03/06/19 09:20; Start 03/06/19 at 09:30; Stop 03/06/19 at 09:31; Status DC Methylprednisolone Sodium Succinate (SOLU-Medrol 125MG VIAL) 125 mg 1X ONCE IV Last administered on 03/06/19 10:40; Start 03/06/19 at 09:30; Stop 03/06/19 at 09:31; Status DC Pantoprazole Sodium (PROTONIX VIAL for IV PUSH) 80 mg 1X ONCE IVP Last administered on 03/06/19at 10:39; Start 03/06/19 at 09:30; Stop 03/06/19 at 09:31; Status DC Sodium Chloride 1,000 ml @ 1,000 mls/hr 1X ONCE IV Last administered on 03/06/19at 14:42; Start 03/06/19 at 09:30; Stop 03/06/19 at 10:29; Status DC Vancomycin HCl 250 ml @ 250 mls/hr 1X ONCE IV Last administered on 03/06/19at 10:41; Start 03/06/19 at 10:00; Stop 03/06/19 at 10:59; Status DC Levofloxacin/ Dextrose 150 ml @ 100 mls/hr 1X ONCE IV Last administered on 03/06/19at 10:41; Start 03/06/19 at 10:00; Stop 03/06/19 at 11:29; Status DC Sodium Chloride 1,000 ml @ 150 mls/hr Q6H40M IV Last administered on 03/07/19at 04:31; Start 03/06/19 at 11:10; Stop 03/07/19 at 11:09; Status DC Pantoprazole Sodium 80 mg/ Sodium Chloride 100 ml @ 10 mls/hr Q10H IV Last administered on 03/07/19at 03:12; Start 03/06/19 at 11:30; Stop 03/07/19 at 10:15; Status DC Ondansetron HCl (Zofran) 4 mg PRN Q6HRS PRN IV NAUSEA/VOMITING; Start 03/06/19 at 12:00; Stop 03/07/19 at 14:10; Status DC Labetalol HCl (Normodyne Iv Push) 10 mg PRN Q2HR PRN IVP HYPERTENSION, SEE COMMENTS; Start 03/06/19 at 12:00; Stop 03/07/19 at 14:10; Status DC Morphine Sulfate (Morphine Sulfate) 2 mg PRN Q2HR PRN IV PAIN Last administered on 03/10/19at 01:48; Start 03/06/19 at 12:00 Aspirin (Aspirin) 300 mg DAILY VT Last administered on 03/07/19at 10:12; Start 03/06/19 at 12:30; Stop 03/07/19 at 14:10; Status DC Potassium Chloride/Water 100 ml @ 100 mls/hr Q1H IV Last administered on 03/07/19at 00:24; Start 03/06/19 at 13:00; Stop 03/06/19 at 16:59; Status DC Clindamycin Phosphate 50 ml @ 100 mls/hr Q8HRS IV Last administered on 03/07/19at 06:09; Start 03/06/19 at 14:00; Stop 03/07/19 at 09:10; Status DC Levofloxacin/ Dextrose (Levaquin Per Pharmacy) 1 each PRN DAILY PRN MC SEE COMMENTS; Start 03/06/19 at 13:15; Stop 03/07/19 at 14:10; Status DC Levofloxacin/ Dextrose 50 ml @ 50 mls/hr Q24H IV Last administered on 03/07/19at 08:36; Start 03/07/19 at 09:00; Stop 03/07/19 at 14:10; Status DC Meropenem 500 mg/ Sodium Chloride 50 ml @ 100 mls/hr Q8HRS IV ; Start 03/07/19 at 14:00; Stop 03/07/19 at 14:10; Status DC Vancomycin HCl (Vanco Per Pharmacy) 1 each PRN DAILY PRN MC SEE COMMENTS Last administered on 03/07/19at 13:08; Start 03/07/19 at 09:15; Stop 03/07/19 at 14:10; Status DC Vancomycin HCl 1.75 gm/Sodium Chloride 500 ml @ 250 mls/hr 1X ONCE IV Last administered on 03/07/19at 10:13; Start 03/07/19 at 10:00; Stop 03/07/19 at 14:10; Status DC Pantoprazole Sodium (PROTONIX VIAL for IV PUSH) 40 mg DAILYAC IVP ; Start 03/08/19 at 07:30; Stop 03/08/19 at 07:30; Status DC Vancomycin HCl 1 gm/Sodium Chloride 250 ml @ 250 mls/hr Q24H IV ; Start 03/08/19 at 10:00; Stop 03/08/19 at 10:00; Status DC Vancomycin HCl (Vancomycin Trough Level) 1 each 1X ONCE MC ; Start 03/09/19 at 09:30; Stop 03/09/19 at 09:30; Status DC Scopolamine (Transderm-Scop) 1 patch Q3DAYS TD Last administered on 03/13/19at 08:44; Start 03/07/19 at 15:00 Lorazepam (Ativan) 1 mg PRN Q2HRS PRN IV ANXIETY / AGITATION; Start 03/07/19 at 14:15 Amino Acids/ Glycerin/ Electrolytes 1,000 ml @ 80 mls/hr [id number] IV Last administered on 03/09/19at 22:12; Start 03/08/19 at 09:30; Stop 03/10/19 at 21:59; Status DC Vancomycin HCl (Vanco Per Pharmacy) 1 each PRN DAILY PRN MC SEE COMMENTS Last administered on 03/09/19at 14:48; Start 03/08/19 at 11:15; Stop 03/09/19 at 15:24; Status DC Meropenem 500 mg/ Sodium Chloride 50 ml @ 100 mls/hr Q8HRS IV Last administered on 03/13/19at 05:16; Start 03/08/19 at 14:00 Levofloxacin/ Dextrose (Levaquin Per Pharmacy) 1 each PRN DAILY PRN MC SEE COMMENTS; Start 03/08/19 at 11:15; Stop 03/09/19 at 15:24; Status DC Vancomycin HCl 1 gm/Sodium Chloride 250 ml @ 250 mls/hr Q24H IV Last administered on 03/09/19at 13:21; Start 03/08/19 at 12:00; Stop 03/09/19 at 14:05; Status DC Levofloxacin/ Dextrose 150 ml @ 100 mls/hr Q48H IV Last administered on 03/09/19at 08:00; Start 03/09/19 at 09:00; Stop 03/09/19 at 15:24; Status DC Vancomycin HCl (Vancomycin Trough Level) 1 each 1X ONCE MC Last administered on 03/09/19at 11:30; Start 03/09/19 at 11:30; Stop 03/09/19 at 11:31; Status DC Famotidine (Pepcid Vial) 20 mg DAILY IVP Last administered on 03/13/19at 08:43; Start 03/08/19 at 14:00 Acetaminophen (Tylenol Supp) 650 mg PRN Q6HRS PRN VT MILD PAIN / TEMP Last administered on 03/12/19at 08:54; Start 03/08/19 at 19:00 Metoprolol Tartrate (Lopressor Vial) 5 mg 1X ONCE IVP Last administered on 03/09/19at 08:00; Start 03/09/19 at 07:15; Stop 03/09/19 at 07:16; Status DC Metoprolol Tartrate (Lopressor Vial) 5 mg PRN Q4HRS PRN IVP SBP>160 Last administered on 03/10/19at 10:14; Start 03/09/19 at 13:30 Vancomycin HCl 1 gm/Sodium Chloride 250 ml @ 250 mls/hr Q12H IV ; Start 03/10/19 at 00:00; Stop 03/10/19 at 00:00; Status DC Clonidine HCl (Catapres Tts-1) 1 patch WEEKLY TD Last administered on 03/10/19at 05:48; Start 03/10/19 at 06:00; Stop 03/10/19 at 15:38; Status DC Potassium Chloride/Water 50 ml @ 50 mls/hr Q1H IV Last administered on 03/10at 10:14; Start 03/10/19 at 08:00; Stop 03/10/19 at 09:59; Status DC Levetiracetam 500 mg/Dextrose 105 ml @ 420 mls/hr 1X STAT IV Last administered on 03/10/19at 08:32; Start 03/10/19 at 08:18; Stop 03/10/19 at 08:32; Status DC Levetiracetam 500 mg/Dextrose 105 ml @ 420 mls/hr Q12HR IV Last administered on 03/13/19at 08:43; Start 03/10/19 at 21:00 Info (Tpn Per Pharmacy) 1 each PRN DAILY PRN MC SEE COMMENTS; Start 03/10/19 at 10:45; Status Cancel Info (Tpn Per Pharmacy) 1 each PRN DAILY PRN MC SEE COMMENTS Last administered on 03/12/19at 14:40; Start 03/10/19 at 10:45 Clonidine HCl (Catapres Tts-2) 1 patch WEEKLY TD Last administered on 03/10/19at 11:14; Start 03/10/19 at 11:00 Sodium Chloride 1,000 ml @ 1,500 mls/hr Q40M IV ; Start 03/10/19 at 10:34; Stop 03/10/19 at 11:33; Status DC Hydralazine HCl (Apresoline Inj) 10 mg PRN Q4HRS PRN IVP ELEVATED BP, SEE COMMENTS Last administered on 03/13/19at 09:57; Start 03/10/19 at 12:15 Hydralazine HCl (Apresoline Inj) 5 mg PRN Q4HRS PRN IVP ELEVATED BP, SEE COMMENTS Last administered on 03/10/19at 12:36; Start 03/10/19 at 12:15 Sodium Chloride 60 meq/Potassium Chloride 50 meq/ Potassium Acetate 20 meq/Potassium Phosphate 20.4 mmol/Magnesium Sulfate 10 meq/ Calcium Gluconate 10 meq/ Multivitamins 10 ml/Chromium/ Copper/Manganese/ Seleni/Zn 1 ml/ Total Parenteral Nutrition/Amino Acids/Dextrose/ Fat Emulsion Intravenous 1,512 ml @ 63 mls/hr TPN CONT IV Last administered on 03/10/19at 21:35; Start 03/10/19 at 22:00; Stop 03/11/19 at 21:59; Status DC Insulin Human Lispro (HumaLOG) 0-7 UNITS Q6HRS SQ Last administered on 03/13/19at 05:18; Start 03/10/19 at 18:00 Dextrose (Dextrose 50%-Water Syringe) 12.5 gm PRN Q15MIN PRN IV SEE COMMENTS; Start 03/10/19 at 15:45 Sodium Acetate 30 meq/Potassium Chloride 40 meq/ Potassium Acetate 50 meq/Potassium Phosphate 18 mmol/ Magnesium Sulfate 5 meq/Calcium Gluconate 10 meq/ Multivitamins 10 ml/Chromium/ Copper/Manganese/ Seleni/Zn 1 ml/ Insulin Human Regular 10 unit/ Total Parenteral Nutrition/Amino Acids/Dextrose/ Fat Emu ls... 1,512 ml @ 63 mls/hr TPN CONT IV Last administered on 03/11/19at 21:37; Start 03/11/19 at 22:00; Stop 03/12/19 at 21:59; Status DC Insulin Glargine (Lantus) 10 units QHS SQ Last administered on 03/11/19at 20:48; Start 03/11/19 at 21:00; Stop 03/12/19 at 13:02; Status DC Dextrose 1,000 ml @ 100 mls/hr Q10H IV Last administered on 03/12/19at 08:53; Start 03/12/19 at 08:15; Stop 03/12/19 at 18:14; Status DC Insulin Glargine (Lantus) 20 units QHS SQ Last administered on 03/12/19at 21:25; Start 03/12/19 at 21:00 Potassium Acetate 80 meq/Potassium Phosphate 15 mmol/ Magnesium Sulfate 5 meq/Calcium Gluconate 10 meq/ Multivitamins 10 ml/Chromium/ Copper/Manganese/ Seleni/Zn 1 ml/ Insulin Human Regular 20 unit/ Total Parenteral Nutrition/Amino Acids/Dextrose/ Fat Emulsion Intravenous 2,400 ml @ 100 mls/hr TPN CONT IV ; Start 03/12/19 at 22:00; Stop 03/13/19 at 21:59; Status Cancel Potassium Acetate 80 meq/Potassium Phosphate 15 mmol/ Magnesium Sulfate 5 meq/Calcium Gluconate 10 meq/ Multivitamins 10 ml/Chromium/ Copper/Manganese/ Seleni/Zn 1 ml/ Insulin Human Regular 20 unit/ Total Parenteral Nutrition/Amino Acids/Dextrose/ Fat Emulsion Intravenous 2,000 ml @ 83.333 mls/ hr TPN CONT IV Last administered on 03/12/19at 20:38; Start 03/12/19 at 22:00; Stop 03/13/19 at 21:59 Active Scripts Active Reported Potassium Chloride 10 Meq Tab.sr.24h 10 Meq PO DAILY Procardia Xl (Nifedipine) 60 Mg Tab.er.24 1 Tab PO DAILY Zestril (Lisinopril) 40 Mg Tablet 1 Tab PO BID Glucophage Xr (Metformin Hcl) 500 Mg Tab.er.24h 500 Mg PO [id number] Crestor (Rosuvastatin Calcium) 5 Mg Tablet 1 Tab PO DAILY Coreg (Carvedilol) 25 Mg Tablet 25 Mg PO BIDWMEALS Aspir-Low (Aspirin) 81 Mg Tablet.dr 1 Tab PO DAILY Vitals/I & O Vital Sign - Last 24 Hours 03/12/19 03/12/19 03/12/19 03/12/19 15:00 19:00 20:00 23:00 Temp 98.4 98.8 98.2 98.4 98.8 98.2 Pulse 63 64 69 Resp 20 18 20 B/P (MAP) 152/90 (110) 150/60 (90) 159/70 (99) Pulse Ox 95 98 96 O2 Delivery Nasal Cannula Nasal Cannula Nasal Cannula Nasal Cannula O2 Flow Rate 3.0 3.0 3.0 3.0 03/13/19 03/13/19 03/13/19 03/13/19 03:00 07:00 08:00 09:57 Temp 98.6 98.2 98.6 98.2 Pulse 57 61 61 Resp 20 20 B/P (MAP) 171/77 (108) 177/88 (117) 177/88 Pulse Ox 97 97 O2 Delivery Nasal Cannula Nasal Cannula Nasal Cannula O2 Flow Rate 3.0 3.0 3.0 03/13/19 11:00 Temp 99.7 99.7 Pulse 57 Resp 20 B/P (MAP) 158/68 (98) Pulse Ox 96 O2 Delivery Nasal Cannula O2 Flow Rate 3.0 Intake and Output 03/12/19 03/12/19 03/13/19 15:00 23:00 07:00 Intake Total 126 ml 747 ml Output Total 950 ml Balance 126 ml -203 ml EMORY VEGA III DO March 13, 2019 11:34
--- NOTE | 2019-03-13 12:11 | NUR ---
SS following up with discharge planning. SS met with palliative care RN. Pt's family wanting full aggressive care at this time. SS phoned and faxed referral to [facility], ; fax [phone]. SS will await acceptance decision and insurance determination and will proceed accordingly.
--- NOTE | 2019-03-13 13:01 | PDOC ---
SUBJECTIVE ROS Opening eyes , as per family more alert Not following commands for me , eyes closed OBJECTIVE Vital Signs Vital Signs Date Time Temp Pulse Resp B/P (MAP) Pulse Ox O2 Delivery O2 Flow Rate FiO2 03/13/19 11:00 99.7 57 20 158/68 (98) 96 Nasal Cannula 3.0 99.7 I & 0 Intake and Output 03/13/19 07:00 Intake Total 873 ml Output Total 950 ml Balance -77 ml IV Total 873 ml Output Urine Total 950 ml PHYSICAL EXAM Physical Exam GENERAL: Propped up in bed, HEENT: On o2 by NC LUNGS: Decreased breath sounds lower lobes, nonlabored HEART: S1, S2, ABDOMEN: soft, nontender, no guarding, BS active : Mendez 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, FUNERAL PLANNER: not following commands SKIN: No rash DIAGNOSIS/ASSESSMENT Assessment & Plan MAXIMUS - stable Good UOP Monitor Hypernatremia- Improved Na removed from TPN, Recd IV D5 W Monitor, If any signs of Dehydration- IV NS bolus Hypokalemia- stable Replace as needed Strep Pneumonia bacteremia CVA cerebral edema Coffee ground emesis at presentation Discussed with family at bedside and RN COMMENT/RELEVANT DATA Meds Current Medications Medications (Trade) Dose Ordered Sig/German Start Time Stop Time Status Last Admin Dose Admin Acetaminophen (Tylenol Supp) 650 mg PRN Q6HRS PRN 03/08/19 19:00 03/12/19 08:54 650 MG Albuterol/ Ipratropium (Duoneb) 3 ml 1X ONCE 03/06/19 09:30 03/06/19 09:31 DC 03/06/19 09:20 3 ML Amino Acids/ Glycerin/ Electrolytes 1,000 ml @ 80 mls/hr [id number] 03/08/19 09:30 03/10/19 21:59 DC 03/09/19 22:12 80 MLS/HR Aspirin (Aspirin) 300 mg DAILY 03/06/19 12:30 03/07/19 14:10 DC 03/07/19 10:12 300 MG Clindamycin Phosphate 50 ml @ 100 mls/hr Q8HRS 03/06/19 14:00 03/07/19 09:10 DC 03/07/19 06:09 100 MLS/HR Clonidine HCl (Catapres Tts-1) 1 patch WEEKLY 03/10/19 06:00 03/10/19 15:38 DC 03/10/19 05:48 1 PATCH Clonidine HCl (Catapres Tts-2) 1 patch WEEKLY 03/10/19 11:00 03/10/19 11:14 1 PATCH Dextrose 1,000 ml @ 100 mls/hr Q10H 03/12/19 08:15 03/12/19 18:14 DC 03/12/19 08:53 100 MLS/HR Dextrose (Dextrose 50%-Water Syringe) 12.5 gm PRN Q15MIN PRN 03/10/19 15:45 Enalaprilat (Vasotec Inj) 1.25 mg PRN Q6HRS PRN 03/13/19 11:30 Famotidine (Pepcid Vial) 20 mg DAILY 03/08/19 14:00 03/13/19 08:43 20 MG Hydralazine HCl (Apresoline Inj) 5 mg PRN Q4HRS PRN 03/10/19 12:15 03/10/19 12:36 5 MG Info (Tpn Per Pharmacy) 1 each PRN DAILY PRN 03/10/19 10:45 03/12/19 14:40 1 EACH Insulin Glargine (Lantus) 20 units QHS 03/12/19 21:00 03/12/19 21:25 20 UNITS Insulin Human Lispro (HumaLOG) 0-7 UNITS Q6HRS 03/10/19 18:00 03/13/19 05:18 4 UNITS Labetalol HCl (Normodyne Iv Push) 10 mg PRN Q2HR PRN 03/06/19 12:00 03/07/19 14:10 DC Levetiracetam 500 mg/Dextrose 105 ml @ 420 mls/hr Q12HR 03/10/19 21:00 03/13/19 08:43 420 MLS/HR Levofloxacin/ Dextrose 150 ml @ 100 mls/hr Q48H 03/09/19 09:00 03/09/19 15:24 DC 03/09/19 08:00 100 MLS/HR Levofloxacin/ Dextrose (Levaquin Per Pharmacy) 1 each PRN DAILY PRN 03/08/19 11:15 03/09/19 15:24 DC Lorazepam (Ativan) 1 mg PRN Q2HRS PRN 03/07/19 14:15 Meropenem 500 mg/ Sodium Chloride 50 ml @ 100 mls/hr Q8HRS 03/08/19 14:00 03/13/19 05:16 100 MLS/HR Methylprednisolone Sodium Succinate (SOLU-Medrol 125MG VIAL) 125 mg 1X ONCE 03/06/19 09:30 03/06/19 09:31 DC 03/06/19 10:40 125 MG Metoprolol Tartrate (Lopressor Vial) 5 mg PRN Q4HRS PRN 03/09/19 13:30 03/10/19 10:14 5 MG Morphine Sulfate (Morphine Sulfate) 2 mg PRN Q2HR PRN 03/06/19 12:00 03/10/19 01:48 2 MG Ondansetron HCl (Zofran) 4 mg PRN Q6HRS PRN 03/06/19 12:00 03/07/19 14:10 DC Pantoprazole Sodium (PROTONIX VIAL for IV PUSH) 40 mg DAILYAC 03/08/19 07:30 03/08/19 07:30 DC Pantoprazole Sodium 80 mg/ Sodium Chloride 100 ml @ 10 mls/hr Q10H 03/06/19 11:30 03/07/19 10:15 DC 03/07/19 03:12 10 MLS/HR Potassium Chloride/Water 50 ml @ 50 mls/hr Q1H 03/10/19 08:00 03/10/19 09:59 DC 03/10/19 10:14 50 MLS/HR Potassium Acetate 80 meq/Potassium Phosphate 15 mmol/ Magnesium Sulfate 5 meq/Calcium Gluconate 10 meq/ Multivitamins 10 ml/Chromium/ Copper/Manganese/ Seleni/Zn 1 ml/ Insulin Human Regular 20 unit/ Total Parenteral Nutrition/Amino Acids/Dextrose/ Fat Emulsion Intravenous 2,000 ml @ 83.333 mls/ hr TPN CONT 03/12/19 22:00 03/13/19 21:59 03/12/19 20:38 83.333 MLS/HR Scopolamine (Transderm-Scop) 1 patch Q3DAYS 03/07/19 15:00 03/13/19 08:44 1 PATCH Sodium Acetate 30 meq/Potassium Chloride 40 meq/ Potassium Acetate 50 meq/Potassium Phosphate 18 mmol/ Magnesium Sulfate 5 meq/Calcium Gluconate 10 meq/ Multivitamins 10 ml/Chromium/ Copper/Manganese/ Seleni/Zn 1 ml/ Insulin Human Regular 10 unit/ Total Parenteral Nutrition/Amino Acids/Dextrose/ Fat Emuls... 1,512 ml @ 63 mls/hr TPN CONT 03/11/19 22:00 03/12/19 21:59 DC 03/11/19 21:37 63 MLS/HR Sodium Chloride 60 meq/Potassium Chloride 50 meq/ Potassium Acetate 20 meq/Potassium Phosphate 20.4 mmol/Magnesium Sulfate 10 meq/ Calcium Gluconate 10 meq/ Multivitamins 10 ml/Chromium/ Copper/Manganese/ Seleni/Zn 1 ml/ Total Parenteral Nutrition/Amino Acids/Dextrose/ Fat Emulsion Intravenous 1,512 ml @ 63 mls/hr TPN CONT 03/10/19 22:00 03/11/19 21:59 DC 03/10/19 21:35 63 MLS/HR Vancomycin HCl (Vanco Per Pharmacy) 1 each PRN DAILY PRN 03/08/19 11:15 03/09/19 15:24 DC 03/09/19 14:48 1 EACH Vancomycin HCl (Vancomycin Trough Level) 1 each 1X ONCE 03/09/19 11:30 03/09/19 11:31 DC 03/09/19 11:30 1 EACH Vancomycin HCl 1.75 gm/Sodium Chloride 500 ml @ 250 mls/hr 1X ONCE 03/07/19 10:00 03/07/19 14:10 DC 03/07/19 10:13 250 MLS/HR Vancomycin HCl 1 gm/Sodium Chloride 250 ml @ 250 mls/hr Q12H 03/10/19 00:00 03/10/19 00:00 DC Lab Laboratory Tests Test 03/12/19 18:07 03/12/19 21:02 03/12/19 23:13 03/13/19 05:15 Glucose (Fingerstick) 239 mg/dL (70-99) 291 mg/dL (70-99) 288 mg/dL (70-99) 238 mg/dL (70-99) Test 03/13/19 05:30 03/13/19 10:10 03/13/19 12:15 White Blood Count 14.9 x10^3/uL (4.0-11.0) Red Blood Count 3.43 x10^6/uL (3.50-5.40) Hemoglobin 11.1 g/dL (12.0-15.5) Hematocrit 33.3 % (36.0-47.0) Mean Corpuscular Volume 97 fL (79-100) Mean Corpuscular Hemoglobin 32 pg (25-35) Mean Corpuscular Hemoglobin Concent 33 g/dL (31-37) Red Cell Distribution Width 13.9 % (11.5-14.5) Platelet Count 120 x10^3/uL (140-400) Neutrophils (%) (Auto) 86 % (31-73) Lymphocytes (%) (Auto) 8 % (24-48) Monocytes (%) (Auto) 5 % (0-9) Eosinophils (%) (Auto) 1 % (0-3) Basophils (%) (Auto) 0 % (0-3) Neutrophils # (Auto) 12.8 x10^3uL (1.8-7.7) Lymphocytes # (Auto) 1.2 x10^3/uL (1.0-4.8) Monocytes # (Auto) 0.7 x10^3/uL (0.0-1.1) Eosinophils # (Auto) 0.1 x10^3/uL (0.0-0.7) Basophils # (Auto) 0.0 x10^3/uL (0.0-0.2) Sodium Level 159 mmol/L (136-145) 157 mmol/L (136-145) Potassium Level 3.8 mmol/L (3.5-5.1) 4.0 mmol/L (3.5-5.1) Chloride Level 119 mmol/L (98-107) 118 mmol/L (98-107) Carbon Dioxide Level 32 mmol/L (21-32) 32 mmol/L (21-32) Anion Gap 8 (6-14) 7 (6-14) Blood Urea Nitrogen 47 mg/dL (7-20) 45 mg/dL (7-20) Creatinine 1.1 mg/dL (0.6-1.0) 1.1 mg/dL (0.6-1.0) Estimated GFR (Cockcroft-Gault) 48.0 48.0 Glucose Level 268 mg/dL (70-99) 299 mg/dL (70-99) Calcium Level 8.3 mg/dL (8.5-10.1) 8.3 mg/dL (8.5-10.1) Phosphorus Level 3.7 mg/dL (2.6-4.7) Magnesium Level 2.4 mg/dL (1.8-2.4) Glucose (Fingerstick) 312 mg/dL (70-99) Results All relevant outside records, renal labs, imaging studies, telemetry/EKG's were reviewed. FAVIO BRENNAN MD March 13, 2019 13:01
--- NOTE | 2019-03-13 13:09 | PDOC2 ---
PALLIATIVE CARE Palliative Care Note Palliative Care Patient attempting to communicate/form words. spontaneous movement of upper extremities. Does not follow commands. Veronica --daughter at bedside. Extensive review of weekend and Dr. Pearl's assessment. Medical Problems: 1. Patient continues to be encephalopathic but is slightly more alert. She is forming some words but has difficulty following commands. She has multiple reasons for being encephalopathic including recent sepsis, worsening hypernatraemia, aspiration pneumonia and seizure. Overall she appears to be trending towards some improvement. 2. She is maintained on levetiracetam. There is no evidence for further seizure. 3. There was initially concern for a large right hemispheric stroke on the CT scan of the head. MRI did not reveal any large acute stroke. 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 There is no note in the reports of either study of an old stroke. This could've been a focus for the seizure. There are punctate areas which could be tiny strokes but these are very minimal. Encephalitis could certainly be possible. (2) Acute renal insufficiency (3) Acute respiratory distress (4) CHF (congestive heart failure) (5) GI bleeding (6) Hypokalemia (7) Severe sepsis Veronica and Augustine want to continue full aggressive care. Discussion of PEG tube in process. Discussed what patient would want. "She would be accepting of walking with walker, able to eat and speak." Discussed transition to [facility]. WILFREDO MORENO March 13, 2019 13:09
--- NOTE | 2019-03-13 14:19 | RAD ---
MRI Brain without contrast History: Stroke, seizure, encephalopathy Technique: Multiplanar, multisequential noncontrast MR imaging was performed of the brain. Comparison: March 08, 2019 Findings: There is motion degradation. There are new foci of restricted diffusion including 2 small foci of the left parietal cortical surface, 1.4 cm longitudinal focus of the right parietal cortical surface, 0.8 cm focus of right frontal cortical surface, tiny 0.2 cm focus of the right frontal cortical surface previously seen tiny focus of restricted diffusion left temporal cortical surface is similar. There is mild dependent signal abnormality in the occipital horns greater on the right, slightly less apparent especially on the left. Ventricular size is similar, ventricles not considered significantly dilated. There is no new midline shift or new significant extra-axial fluid collection. Mild T2 and FLAIR hyperintense signal of the periventricular white matter greater on the left is similar, also minimally of the left temporal lobe. There is again mild volume loss of the left temporal lobe extending to the posterior left insula and operculum. There is again tiny focus of old hemosiderin deposition of the left centrum semiovale. There has been lens surgery bilaterally. Right vertebral artery flow-void is again not seen. There is again patchy fluid and thickening of the mastoid air cells bilaterally although greater. There is again patchy moderate ethmoid air cell mucosal thickening, minimally of the sphenoid sinus. Cerebellar tonsils are normal in location. There is preserved marrow signal of the clivus. Impression: 1. Comparing with March 2019 exam, there are new foci of recent infarcts in a bilateral distribution as stated with the largest of the right parietal lobe, unchanged tiny focus left temporal lobe. There is some residual although somewhat less apparent signal abnormality dependently in the occipital horns greater on the right again which may be due to debris such as related to ventriculitis in the appropriate clinical setting, again not associated with significant hemosiderin deposition to confidently suggest intraventricular hemorrhage. 2. There is again other mild T2 and FLAIR hyperintense signal abnormality of the supratentorial parenchyma, nonspecific findings possibly related to chronic microvascular ischemic disease. There is again mild T2 and FLAIR hyperintense signal of the left temporal lobe also unchanged. There is again mild volume loss of the left temporal lobe extending to posterior left insula and operculum which may be due to old infarct. 3. There is increased fluid and thickening of the mastoid air cells bilaterally. FOR INTERNAL CODING PURPOSES Critical result: Findings discussed with patient's nurse Jean Pierre at 03/13/2019 2:14 PM, to inform doctor of findings. RESULT CODE: (C) Electronically signed by: Michel Chadwick MD (03/13/2019 2:16 PM) [id number]
[2019-03-13 15:00] VITALS: BP 133/63
[2019-03-13] MEDS: TPN PER PHARMACY MC PRN (15:16)
--- NOTE | 2019-03-13 15:18 | NUR ---
Pharmacy TPN Dosing Note S: KEMI PASCUAL is a 79 year old F Currently receiving Central Continuous TPN started 03/10/19 B:Pertinent PMH: pt unable to pass swallow study, doesn't want peg yet Height: 5 feet, 2 inches Weight: 70.815919 kg Current diet: npo LABS: Sodium: 157 Potassium: 4.0 Chloride: 118 Calcium: 8.3 Corrected Calcium: 10.14 Magnesium: 2.5 CO2: 32 SCr: 1.1 Glucose: 312 Albumin: 1.7 AST: 27 ALT: 28 TPN FORMULA: TPN TYPE: Central Continuous AMINO ACIDS: 65 gm DEXTROSE: 250 gm LIPIDS: 20 gm SODIUM CHLORIDE: - mEq SODIUM ACETATE: - mEq SODIUM PHOSPHATE: - mmol POTASSIUM CHLORIDE: - mEq POTASSIUM ACETATE: 80 mEq POTASSIUM PHOSPHATE: 15 mmol MAGNESIUM: 5 mEq CALCIUM: 10 mEq INSULIN: 20 units MULTIPLE VITAMIN: 10 ml TRACE ELEMENTS: mte5 1ml ml(s) TPN PLAN: Na high this AM. Drawn twice, second level lower. TPN Na-free with volume increased yesterday. BG 268-312 today with 10 units ssi given today. Long acting insulin increased last night. Will hold off on increasing for now. R: Continue TPN ABOVE. Will monitor electrolytes, glucose, and tolerance to TPN. JONO WEST RPH, 03/13/19 [id number]
--- NOTE | 2019-03-13 16:36 | PDOC ---
PROGRESS NOTES Assessment Assessment IMPRESSION: Acute/subacute bilateral infarcts, right parietal infarct and left temporal lobes. Encephalitis? Ventriculitis? Seizure. Metabolic encephalopathy. Lactic acidosis. Renal failure. Hypernatremia. DM. HTN. CAD, s/p CABG. 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 RECOMMENDATIONS/PLAN: ASA 300 mg rectal daily. Continue Keppra. LP for CSF exam. Lab: see orders. Correct electrolytes imbalances. Treat medical diseases. Discussed with her daughter at bedside on 03/13/19. Brain MRI on 03/13/19: Bilateral infarct, and new right parietal infarct. Carotid A US + Doppler: No high grade stenosis. Echo; Refer to reports. Lipid penal: WNL. Past Medical History Cardiovascular: CAD, HTN, [place] Endocrine: Diabetes Past Surgical History CABG Family History CVA Social History , rare alcohol, no tobacco, retired, very active Allergies Coded Allergies: Penicillins (Verified Allergy, Intermediate, 03/06/19) ROS Negative for fever, chills, weight loss, shortness of breath, chest pain, indigestion, hematochezia, melena, and dysuria. Full 14-point review of systems is negative. PHYSICAL EXAMINATION: General appearance in subacute distress. HEENT: Normocephalic and nontraumatic. Eyes, nose, ears, and throat are unremarkable. Hearing decrease. Neck is supple. No lymphadenopathy. No bruits are heard over the carotid artery. No Crepitus. Cardiovascular: S1, S2, regular rate and rhythm. Pulmonary: Mildly decreased to auscultation bilaterally. Abdomen: Bowel sounds are positive. Extremities: No rash, lesions, or edema. No restriction of range of motion NEUROLOGICAL EXAMINATION: Lethargic. Not fully oriented to time, place and person. PERRL. EOMI. CN: no focal findings. Muscle tone: within normal. Muscle strength: Moves all extremities. DTR: 2- Plantar reflex: Neutral response bilaterally Gait: not examined in bed. Sensory exam: Withdraw response to stimuli. Not able to access cerebellar signs due to not able to follow commands. F-T-N test not performed due to not follow commands. Objective Objective Vital Signs Date Time Temp Pulse Resp B/P (MAP) Pulse Ox O2 Delivery O2 Flow Rate FiO2 03/13/19 15:00 97.4 63 20 133/63 (86) 97 Nasal Cannula 3.0 97.4 Intake and Output 03/13/19 07:00 Intake Total 873 ml Output Total 950 ml Balance -77 ml IV Total 873 ml Output Urine Total 950 ml Vitals Signs Vitals VS - Last 72 Hours, by Label Date Time Temp Pulse Resp B/P (MAP) Pulse Ox O2 Delivery O2 Flow Rate FiO2 03/13/19 15:00 97.4 63 20 133/63 (86) 97 Nasal Cannula 3.0 97.4 03/13/19 11:00 99.7 57 20 158/68 (98) 96 Nasal Cannula 3.0 99.7 03/13/19 09:57 61 177/88 03/13/19 08:00 Nasal Cannula 3.0 03/13/19 07:00 98.2 61 20 177/88 (117) 97 Nasal Cannula 3.0 98.2 03/13/19 03:00 98.6 57 20 171/77 (108) 97 Nasal Cannula 3.0 98.6 03/12/19 23:00 98.2 69 20 159/70 (99) 96 Nasal Cannula 3.0 98.2 03/12/19 20:00 Nasal Cannula 3.0 03/12/19 19:00 98.8 64 18 150/60 (90) 98 Nasal Cannula 3.0 98.8 03/12/19 15:00 98.4 63 20 152/90 (110) 95 Nasal Cannula 3.0 98.4 03/12/19 11:00 99.0 64 20 215/154 (174) 97 Nasal Cannula 3.0 99.0 03/12/19 08:00 Nasal Cannula 3.0 03/12/19 07:00 100.2 69 20 148/74 (98) 90 Nasal Cannula 3.0 100.2 Laboratory Laboratory Laboratory Tests Test 03/12/19 18:07 03/12/19 21:02 03/12/19 23:13 03/13/19 05:15 Glucose (Fingerstick) 239 mg/dL (70-99) 291 mg/dL (70-99) 288 mg/dL (70-99) 238 mg/dL (70-99) Test 03/13/19 05:30 03/13/19 10:10 03/13/19 12:15 White Blood Count 14.9 x10^3/uL (4.0-11.0) Red Blood Count 3.43 x10^6/uL (3.50-5.40) Hemoglobin 11.1 g/dL (12.0-15.5) Hematocrit 33.3 % (36.0-47.0) Mean Corpuscular Volume 97 fL (79-100) Mean Corpuscular Hemoglobin 32 pg (25-35) Mean Corpuscular Hemoglobin Concent 33 g/dL (31-37) Red Cell Distribution Width 13.9 % (11.5-14.5) Platelet Count 120 x10^3/uL (140-400) Neutrophils (%) (Auto) 86 % (31-73) Lymphocytes (%) (Auto) 8 % (24-48) Monocytes (%) (Auto) 5 % (0-9) Eosinophils (%) (Auto) 1 % (0-3) Basophils (%) (Auto) 0 % (0-3) Neutrophils # (Auto) 12.8 x10^3uL (1.8-7.7) Lymphocytes # (Auto) 1.2 x10^3/uL (1.0-4.8) Monocytes # (Auto) 0.7 x10^3/uL (0.0-1.1) Eosinophils # (Auto) 0.1 x10^3/uL (0.0-0.7) Basophils # (Auto) 0.0 x10^3/uL (0.0-0.2) Sodium Level 159 mmol/L (136-145) 157 mmol/L (136-145) Potassium Level 3.8 mmol/L (3.5-5.1) 4.0 mmol/L (3.5-5.1) Chloride Level 119 mmol/L (98-107) 118 mmol/L (98-107) Carbon Dioxide Level 32 mmol/L (21-32) 32 mmol/L (21-32) Anion Gap 8 (6-14) 7 (6-14) Blood Urea Nitrogen 47 mg/dL (7-20) 45 mg/dL (7-20) Creatinine 1.1 mg/dL (0.6-1.0) 1.1 mg/dL (0.6-1.0) Estimated GFR (Cockcroft-Gault) 48.0 48.0 Glucose Level 268 mg/dL (70-99) 299 mg/dL (70-99) Calcium Level 8.3 mg/dL (8.5-10.1) 8.3 mg/dL (8.5-10.1) Phosphorus Level 3.7 mg/dL (2.6-4.7) Magnesium Level 2.4 mg/dL (1.8-2.4) Glucose (Fingerstick) 312 mg/dL (70-99) Microbiology 03/10/19 Blood Culture - Preliminary, Resulted NO GROWTH AFTER 3 DAYS Medication Medications Current Medications Enalaprilat (Vasotec Inj) 1.25 mg PRN Q6HRS PRN IVP HYPERTENSION, SEE COMMENTS; Start 03/13/19 at 11:30 Insulin Glargine (Lantus) 20 units QHS SQ Last administered on 03/12/19at 21:25; Start 03/12/19 at 21:00 Potassium Acetate 80 meq/Potassium Phosphate 15 mmol/ Magnesium Sulfate 5 meq/Calcium Gluconate 10 meq/ Multivitamins 10 ml/Chromium/ Copper/Manganese/ Seleni/Zn 1 ml/ Insulin Human Regular 20 unit/ Total Parenteral Nutrition/Amino Acids/Dextrose/ Fat Emulsion Intravenous 2,000 ml @ 83.333 mls/ hr TPN CONT IV Last administered on 03/12/19at 20:38; Start 03/12/19 at 22:00; Stop 03/13/19 at 21:59 Potassium Acetate 80 meq/Potassium Phosphate 15 mmol/ Magnesium Sulfate 5 meq/Calcium Gluconate 10 meq/ Multivitamins 10 ml/Chromium/ Copper/Manganese/ Seleni/Zn 1 ml/ Insulin Human Regular 20 unit/ Total Parenteral Nutrition/Amino Acids/Dextrose/ Fat Emulsion Intravenous 2,000 ml @ 83.333 mls/ hr TPN CONT IV ; Start 03/13/19 at 22:00; Stop 03/14/19 at 21:59 Potassium Acetate 80 meq/Potassium Phosphate 15 mmol/ Magnesium Sulfate 5 meq/Calcium Gluconate 10 meq/ Multivitamins 10 ml/Chromium/ Copper/Manganese/ Seleni/Zn 1 ml/ Insulin Human Regular 20 unit/ Total Parenteral Nutrition/Amino Acids/Dextrose/ Fat Emulsion Intravenous 2,400 ml @ 100 mls/hr TPN CONT IV ; Start 03/12/19 at 22:00; Stop 03/13/19 at 21:59; Status Cancel Comment Review of Relevant I have reviewed the following items rich (where applicable) has been applied. MARTHA MUNGUIA MD March 13, 2019 16:36
[2019-03-13] MEDS: ASPIRIN RECTAL 300 MG SUPP. PR SCH (18:03)
[2019-03-13 19:40] VITALS: BP 128/61
[2019-03-13] MEDS: INSULIN GLARGINE 300 UNITS/3 ML INSULN.PEN. SQ SCH (20:44)
[2019-03-13] MEDS ORDERED: [UNRECOGNIZED DRUG - OTHER] IV SCH ×10 (22:00)
[2019-03-13] MEDS ORDERED: AMINO ACID IV SCH ×10 (22:00)
[2019-03-13] MEDS ORDERED: DEXTROSE 70% IV SCH ×10 (22:00)
[2019-03-13] MEDS ORDERED: TOTAL PARENTERAL NUTRITION IV SCH ×10 (22:00)
[2019-03-13 23:00] VITALS: BP 126/59
[2019-03-14 03:10] VITALS: BP 157/72
[2019-03-14] MEDS: MEROPENEM 500 MG in IV NORMAL SALINE 50ML 50 ML IV SCH ×3 (05:24→22:32)
[2019-03-14] MEDS: INSULIN LISPRO 300 UNITS/3 ML INSULN.PEN. SQ SCH ×3 (05:28→23:46)
[2019-03-14 06:22] LABS: CALCIUM 8.5 mg/dL (8.5-10.1); CREATININE 1.2 mg/dL (0.6-1.0); GFR 43.4; POTASSIUM 4.2 mmol/L (3.5-5.1)
[2019-03-14 06:29] LABS: BASO % 0 % (0-3); EOS # 0.1 x10^3/uL (0.0-0.7); EOS % 1 % (0-3); HEMATOCRIT 29.7 % (36.0-47.0); HEMOGLOBIN 9.7 g/dL (12.0-15.5); LYMPH % 8 % (24-48); MEAN CORPUSCULAR HEMOGLOBIN 32 pg (25-35); MEAN CORPUSCULAR HGB CONC 33 g/dL (31-37); MEAN CORPUSCULAR VOLUME 98 fL (79-100); MONO # 0.5 x10^3/uL (0.0-1.1); MONO % 4 % (0-9); NEUT # 11.8 x10^3uL (1.8-7.7); NEUT % 88 % (31-73); PLATELET COUNT 129 x10^3/uL (140-400); RED BLOOD COUNT 3.04 x10^6/uL (3.50-5.40); RED CELL DISTRIBUTION WIDTH 13.6 % (11.5-14.5); WHITE BLOOD COUNT 13.4 x10^3/uL (4.0-11.0)
[2019-03-14 07:00] VITALS: BP 151/71
--- NOTE | 2019-03-14 07:52 | PDOC ---
Infectious Disease Note Subjective Subjective More alert, trying to talk but garbled No further fevers last 24 hours Remains on O2 2L TPN ROS ROS unable to obtain Vital Sign Vital Signs Vital Signs Date Time Temp Pulse Resp B/P (MAP) Pulse Ox O2 Delivery O2 Flow Rate FiO2 03/14/19 03:10 99.6 66 24 157/72 (100) 98 Nasal Cannula 3.0 99.6 Physical Exam PHYSICAL EXAM GENERAL: Propped up in bed, alert, weak appearing, + eye contact, trying to mouth words HEENT: oral cavity dry NECK: No JVD. flexed some LUNGS: Decreased breath sounds lower lobes, nonlabored HEART: S1, S2, ABDOMEN: Obese, soft, nontender, no guarding, BS active : Mendez 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, no cyanosis. HYDRATOR OPERATOR: Alert, weak. moves upper ext. slight movement in toes SKIN: No rash RUE-PICC clean Labs Lab Laboratory Tests Test 03/13/19 10:10 03/13/19 12:15 03/13/19 17:56 03/13/19 20:42 Sodium Level 157 mmol/L (136-145) Potassium Level 4.0 mmol/L (3.5-5.1) Chloride Level 118 mmol/L (98-107) Carbon Dioxide Level 32 mmol/L (21-32) Anion Gap 7 (6-14) Blood Urea Nitrogen 45 mg/dL (7-20) Creatinine 1.1 mg/dL (0.6-1.0) Estimated GFR (Cockcroft-Gault) 48.0 Glucose Level 299 mg/dL (70-99) Calcium Level 8.3 mg/dL (8.5-10.1) Glucose (Fingerstick) 312 mg/dL (70-99) 288 mg/dL (70-99) 279 mg/dL (70-99) Test 03/13/19 22:55 03/13/19 23:01 03/14/19 05:22 03/14/19 05:30 Glucose (Fingerstick) 269 mg/dL (70-99) 280 mg/dL (70-99) 247 mg/dL (70-99) White Blood Count 13.4 x10^3/uL (4.0-11.0) Red Blood Count 3.04 x10^6/uL (3.50-5.40) Hemoglobin 9.7 g/dL (12.0-15.5) Hematocrit 29.7 % (36.0-47.0) Mean Corpuscular Volume 98 fL (79-100) Mean Corpuscular Hemoglobin 32 pg (25-35) Mean Corpuscular Hemoglobin Concent 33 g/dL (31-37) Red Cell Distribution Width 13.6 % (11.5-14.5) Platelet Count 129 x10^3/uL (140-400) Neutrophils (%) (Auto) 88 % (31-73) Lymphocytes (%) (Auto) 8 % (24-48) Monocytes (%) (Auto) 4 % (0-9) Eosinophils (%) (Auto) 1 % (0-3) Basophils (%) (Auto) 0 % (0-3) Neutrophils # (Auto) 11.8 x10^3uL (1.8-7.7) Lymphocytes # (Auto) 1.0 x10^3/uL (1.0-4.8) Monocytes # (Auto) 0.5 x10^3/uL (0.0-1.1) Eosinophils # (Auto) 0.1 x10^3/uL (0.0-0.7) Basophils # (Auto) 0.0 x10^3/uL (0.0-0.2) Sodium Level 156 mmol/L (136-145) Potassium Level 4.2 mmol/L (3.5-5.1) Chloride Level 118 mmol/L (98-107) Carbon Dioxide Level 33 mmol/L (21-32) Anion Gap 5 (6-14) Blood Urea Nitrogen 48 mg/dL (7-20) Creatinine 1.2 mg/dL (0.6-1.0) Estimated GFR (Cockcroft-Gault) 43.4 Glucose Level 274 mg/dL (70-99) Calcium Level 8.5 mg/dL (8.5-10.1) Micro Impression: 1. Comparing with March 2019 exam, there are new foci of recent infarcts in a bilateral distribution as stated with the largest of the right parietal lobe, unchanged tiny focus left temporal lobe. There is some residual although somewhat less apparent signal abnormality dependently in the occipital horns greater on the right again which may be due to debris such as related to ventriculitis in the appropriate clinical setting, again not associated with significant hemosiderin deposition to confidently suggest intraventricular hemorrhage. 2. There is again other mild T2 and FLAIR hyperintense signal abnormality of the supratentorial parenchyma, nonspecific findings possibly related to chronic microvascular ischemic disease. There is again mild T2 and FLAIR hyperintense signal of the left temporal lobe also unchanged. There is again mild volume loss of the left temporal lobe extending to posterior left insula and operculum which may be due to old infarct. 3. There is increased fluid and thickening of the mastoid air cells bilaterally. Microbiology 03/10/19 Blood Culture - Preliminary, Resulted NO GROWTH AFTER 4 DAYS Objective Assessment Low-grade fevers, better Strep Pneumonia bacteremia POA / ( 4/4 bottles). Repeat BC 03/08 and neg so far There are new foci of recent infarcts in a bilateral distribution as stated with the largest of the right parietal lobe CVA cerebral edema Leukocytosis - some better Aspiration pneumonia PCN allergy hives, tolerating Merrem Coffee ground emesis POA Lactic acidosis, better Hypernatremia Plan Plan of Care Continue Merrem for now would like to step down to Rocephin LP per Neuro F/u labs and cults Palliative care on case Oral care D/w nursing D/w Daughter to contact primary to see if has had amox or Keflex before - would like to change to AUREA Alvarez MD March 14, 2019 07:52
[2019-03-14] MEDS ORDERED: LIDOCAINE WITH 8.4% SOD BICARB 3 ML DISP.SYRIN. INJ ONE (08:00)
--- NOTE | 2019-03-14 09:10 | RAD ---
Examination: LUMBAR PUNCTURE HISTORY: Cerebritis, ventriculitis. FINDINGS: The procedure along with its risks and benefits were explained to the patient. Informed consent was obtained. A timeout procedure was performed. The patient was placed in the left anterior oblique position on the fluoroscopy table. The L3-4 level was localized fluoroscopically. The overlying skin was sterilely prepped and infiltrated with 1% lidocaine for local anesthesia. Under fluoroscopic guidance, a 20-gauge spinal needle was advanced into the thecal sac. A fluoroscopic image was obtained. Fluoroscopy time 0.5 minutes. A single image was acquired. There was spontaneous return of clear cerebrospinal fluid. The patient was in the FLORES position for opening and closing pressures. Patient was not positioned optimally due to limited mobility and due to altered mental status. The opening CSF pressure was 11 mmHg and closing CSF pressure was 7 mmHg. 10 mL were collected and sent to the lab in 4 separate vials containing nearly equal amounts. Instrumentation was withdrawn and a sterile dressing placed. There were no immediate complications. Postprocedural instructions were provided. IMPRESSION: 1. Successful fluoroscopically guided lumbar puncture. Electronically signed by: Roberto Ramos MD (03/14/2019 9:07 AM) [facility]
[2019-03-14 09:15] LABS: % BANDS 3 % (0-9); % LYMPHS 7 % (24-48); % MONOS 2 % (0-10); % SEGS 88 % (35-66)
[2019-03-14 09:16] LABS: PLT ESTIMATE DECREASED (ADEQUATE)
[2019-03-14 09:21] LABS: TOXIC GRANULATION PRESENT
[2019-03-14] MEDS: FAMOTIDINE 20 MG/2 ML VIAL IVP SCH (09:33)
[2019-03-14] MEDS: levETIRAcetam 500 MG in IV DEXTROSE 5% 100ML 100 ML IV SCH ×2 (09:33→21:15)
[2019-03-14 09:35] LABS: CSF PROTEIN 161.5 mg/dL (15.0-45.0)
--- NOTE | 2019-03-14 10:03 | PDOC ---
SUBJECTIVE ROS Not much change clinically OBJECTIVE Vital Signs Vital Signs Date Time Temp Pulse Resp B/P (MAP) Pulse Ox O2 Delivery O2 Flow Rate FiO2 03/14/19 08:00 Nasal Cannula 2.0 03/14/19 07:00 97.6 58 20 151/71 (97) 98 97.6 I & 0 Intake and Output 03/14/19 07:00 Intake Total 996 ml Output Total 1900 ml Balance -904 ml Intake Oral 0 ml IV Total 996 ml Output Urine Total 1900 ml PHYSICAL EXAM Physical Exam GENERAL: Propped up in bed, HEENT: On o2 by NC LUNGS: Decreased breath sounds lower lobes, nonlabored HEART: S1, S2, ABDOMEN: soft, nontender, no guarding, BS active : Mendez 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, [employer]: as per neuro SKIN: No rash DIAGNOSIS/ASSESSMENT Assessment & Plan MAXIMUS - stable Good UOP Monitor Hypernatremia- Na removed from TPN consider IV d5W Hypokalemia- stable Replace as needed Strep Pneumonia bacteremia CVA cerebral edema A/P LP this am MRI -New Infarcts Coffee ground emesis at presentation Discussed with family at bedside and RN COMMENT/RELEVANT DATA Meds Current Medications Medications (Trade) Dose Ordered Sig/German Start Time Stop Time Status Last Admin Dose Admin Acetaminophen (Tylenol Supp) 650 mg PRN Q6HRS PRN 03/08/19 19:00 03/12/19 08:54 650 MG Albuterol/ Ipratropium (Duoneb) 3 ml 1X ONCE 03/06/19 09:30 03/06/19 09:31 DC 03/06/19 09:20 3 ML Amino Acids/ Glycerin/ Electrolytes 1,000 ml @ 80 mls/hr [id number] 03/08/19 09:30 03/10/19 21:59 DC 03/09/19 22:12 80 MLS/HR Aspirin (Aspirin Rectal Supp) 300 mg DAILY 03/13/19 16:30 03/13/19 18:03 300 MG Aspirin (Aspirin) 300 mg DAILY 03/06/19 12:30 03/07/19 14:10 DC 03/07/19 10:12 300 MG Clindamycin Phosphate 50 ml @ 100 mls/hr Q8HRS 03/06/19 14:00 03/07/19 09:10 DC 03/07/19 06:09 100 MLS/HR Clonidine HCl (Catapres Tts-1) 1 patch WEEKLY 03/10/19 06:00 03/10/19 15:38 DC 03/10/19 05:48 1 PATCH Clonidine HCl (Catapres Tts-2) 1 patch WEEKLY 03/10/19 11:00 03/10/19 11:14 1 PATCH Dextrose 1,000 ml @ 100 mls/hr Q10H 03/12/19 08:15 03/12/19 18:14 DC 03/12/19 08:53 100 MLS/HR Dextrose (Dextrose 50%-Water Syringe) 12.5 gm PRN Q15MIN PRN 03/10/19 15:45 Enalaprilat (Vasotec Inj) 1.25 mg PRN Q6HRS PRN 03/13/19 11:30 Famotidine (Pepcid Vial) 20 mg DAILY 03/08/19 14:00 03/14/19 09:33 20 MG Hydralazine HCl (Apresoline Inj) 5 mg PRN Q4HRS PRN 03/10/19 12:15 03/10/19 12:36 5 MG Info (Tpn Per Pharmacy) 1 each PRN DAILY PRN 03/10/19 10:45 03/13/19 15:16 1 EACH Insulin Glargine (Lantus) 20 units QHS 03/12/19 21:00 03/13/19 20:44 20 UNITS Insulin Human Lispro (HumaLOG) 0-7 UNITS Q6HRS 03/10/19 18:00 03/14/19 05:28 4 UNITS Labetalol HCl (Normodyne Iv Push) 10 mg PRN Q2HR PRN 03/06/19 12:00 03/07/19 14:10 DC Levetiracetam 500 mg/Dextrose 105 ml @ 420 mls/hr Q12HR 03/10/19 21:00 03/14/19 09:33 420 MLS/HR Levofloxacin/ Dextrose 150 ml @ 100 mls/hr Q48H 03/09/19 09:00 03/09/19 15:24 DC 03/09/19 08:00 100 MLS/HR Levofloxacin/ Dextrose (Levaquin Per Pharmacy) 1 each PRN DAILY PRN 03/08/19 11:15 03/09/19 15:24 DC Lidocaine/Sodium Bicarbonate (Buffered Lidocaine 1%) 6 ml 1X ONCE 03/14/19 08:00 03/14/19 08:01 DC Lorazepam (Ativan) 1 mg PRN Q2HRS PRN 03/07/19 14:15 Meropenem 500 mg/ Sodium Chloride 50 ml @ 100 mls/hr Q8HRS 03/08/19 14:00 03/14/19 05:24 100 MLS/HR Methylprednisolone Sodium Succinate (SOLU-Medrol 125MG VIAL) 125 mg 1X ONCE 03/06/19 09:30 03/06/19 09:31 DC 03/06/19 10:40 125 MG Metoprolol Tartrate (Lopressor Vial) 5 mg PRN Q4HRS PRN 03/09/19 13:30 03/10/19 10:14 5 MG Morphine Sulfate (Morphine Sulfate) 2 mg PRN Q2HR PRN 03/06/19 12:00 03/10/19 01:48 2 MG Ondansetron HCl (Zofran) 4 mg PRN Q6HRS PRN 03/06/19 12:00 03/07/19 14:10 DC Pantoprazole Sodium (PROTONIX VIAL for IV PUSH) 40 mg DAILYAC 03/08/19 07:30 03/08/19 07:30 DC Pantoprazole Sodium 80 mg/ Sodium Chloride 100 ml @ 10 mls/hr Q10H 03/06/19 11:30 03/07/19 10:15 DC 03/07/19 03:12 10 MLS/HR Potassium Chloride/Water 50 ml @ 50 mls/hr Q1H 03/10/19 08:00 03/10/19 09:59 DC 03/10/19 10:14 50 MLS/HR Potassium Acetate 80 meq/Potassium Phosphate 15 mmol/ Magnesium Sulfate 5 meq/Calcium Gluconate 10 meq/ Multivitamins 10 ml/Chromium/ Copper/Manganese/ Seleni/Zn 1 ml/ Insulin Human Regular 20 unit/ Total Parenteral Nutrition/Amino Acids/Dextrose/ Fat Emulsion Intravenous 2,000 ml @ 83.333 mls/ hr TPN CONT 03/13/19 22:00 03/14/19 21:59 03/13/19 20:42 83.333 MLS/HR Scopolamine (Transderm-Scop) 1 patch Q3DAYS 03/07/19 15:00 03/13/19 08:44 1 PATCH Sodium Acetate 30 meq/Potassium Chloride 40 meq/ Potassium Acetate 50 meq/Potassium Phosphate 18 mmol/ Magnesium Sulfate 5 meq/Calcium Gluconate 10 meq/ Multivitamins 10 ml/Chromium/ Copper/Manganese/ Seleni/Zn 1 ml/ Insulin Human Regular 10 unit/ Total Parenteral Nutrition/Amino Acids/Dextrose/ Fat Emuls... 1,512 ml @ 63 mls/hr TPN CONT 03/11/19 22:00 03/12/19 21:59 DC 03/11/19 21:37 63 MLS/HR Sodium Chloride 60 meq/Potassium Chloride 50 meq/ Potassium Acetate 20 meq/Potassium Phosphate 20.4 mmol/Magnesium Sulfate 10 meq/ Calcium Gluconate 10 meq/ Multivitamins 10 ml/Chromium/ Copper/Manganese/ Seleni/Zn 1 ml/ Total Parenteral Nutrition/Amino Acids/Dextrose/ Fat Emulsion Intravenous 1,512 ml @ 63 mls/hr TPN CONT 03/10/19 22:00 03/11/19 21:59 DC 03/10/19 21:35 63 MLS/HR Vancomycin HCl (Vanco Per Pharmacy) 1 each PRN DAILY PRN 03/08/19 11:15 03/09/19 15:24 DC 03/09/19 14:48 1 EACH Vancomycin HCl (Vancomycin Trough Level) 1 each 1X ONCE 03/09/19 11:30 03/09/19 11:31 DC 03/09/19 11:30 1 EACH Vancomycin HCl 1.75 gm/Sodium Chloride 500 ml @ 250 mls/hr 1X ONCE 03/07/19 10:00 03/07/19 14:10 DC 03/07/19 10:13 250 MLS/HR Vancomycin HCl 1 gm/Sodium Chloride 250 ml @ 250 mls/hr Q12H 03/10/19 00:00 03/10/19 00:00 DC Lab Laboratory Tests Test 03/13/19 10:10 03/13/19 12:15 03/13/19 17:56 03/13/19 20:42 Sodium Level 157 mmol/L (136-145) Potassium Level 4.0 mmol/L (3.5-5.1) Chloride Level 118 mmol/L (98-107) Carbon Dioxide Level 32 mmol/L (21-32) Anion Gap 7 (6-14) Blood Urea Nitrogen 45 mg/dL (7-20) Creatinine 1.1 mg/dL (0.6-1.0) Estimated GFR (Cockcroft-Gault) 48.0 Glucose Level 299 mg/dL (70-99) Calcium Level 8.3 mg/dL (8.5-10.1) Glucose (Fingerstick) 312 mg/dL (70-99) 288 mg/dL (70-99) 279 mg/dL (70-99) Test 03/13/19 22:55 03/13/19 23:01 03/14/19 05:22 03/14/19 05:30 Glucose (Fingerstick) 269 mg/dL (70-99) 280 mg/dL (70-99) 247 mg/dL (70-99) White Blood Count 13.4 x10^3/uL (4.0-11.0) Red Blood Count 3.04 x10^6/uL (3.50-5.40) Hemoglobin 9.7 g/dL (12.0-15.5) Hematocrit 29.7 % (36.0-47.0) Mean Corpuscular Volume 98 fL (79-100) Mean Corpuscular Hemoglobin 32 pg (25-35) Mean Corpuscular Hemoglobin Concent 33 g/dL (31-37) Red Cell Distribution Width 13.6 % (11.5-14.5) Platelet Count 129 x10^3/uL (140-400) Neutrophils (%) (Auto) 88 % (31-73) Lymphocytes (%) (Auto) 8 % (24-48) Monocytes (%) (Auto) 4 % (0-9) Eosinophils (%) (Auto) 1 % (0-3) Basophils (%) (Auto) 0 % (0-3) Neutrophils # (Auto) 11.8 x10^3uL (1.8-7.7) Lymphocytes # (Auto) 1.0 x10^3/uL (1.0-4.8) Monocytes # (Auto) 0.5 x10^3/uL (0.0-1.1) Eosinophils # (Auto) 0.1 x10^3/uL (0.0-0.7) Basophils # (Auto) 0.0 x10^3/uL (0.0-0.2) Segmented Neutrophils % 88 % (35-66) Band Neutrophils % 3 % (0-9) Lymphocytes % 7 % (24-48) Monocytes % 2 % (0-10) Toxic Granulation Present Platelet Estimate Decreased (ADEQUATE) Sodium Level 156 mmol/L (136-145) Potassium Level 4.2 mmol/L (3.5-5.1) Chloride Level 118 mmol/L (98-107) Carbon Dioxide Level 33 mmol/L (21-32) Anion Gap 5 (6-14) Blood Urea Nitrogen 48 mg/dL (7-20) Creatinine 1.2 mg/dL (0.6-1.0) Estimated GFR (Cockcroft-Gault) 43.4 Glucose Level 274 mg/dL (70-99) Calcium Level 8.5 mg/dL (8.5-10.1) Test 03/14/19 09:00 CSF Glucose 113 mg/dL (37-70) CSF Total Protein 161.5 mg/dL (15.0-45.0) Results All relevant outside records, renal labs, imaging studies, telemetry/EKG's were reviewed. Other MRI Brain - 1. Comparing with March 2019 exam, there are new foci of recent infarcts in a bilateral distribution as stated with the largest of the right parietal lobe, unchanged tiny focus left temporal lobe. There is some residual although somewhat less apparent signal abnormality dependently in the occipital horns greater on the right again which may be due to debris such as related to ventriculitis in the appropriate clinical setting, again not associated with significant hemosiderin deposition to confidently suggest intraventricular hemorrhage. 2. There is again other mild T2 and FLAIR hyperintense signal abnormality of the supratentorial parenchyma, nonspecific findings possibly related to chronic microvascular ischemic disease. There is again mild T2 and FLAIR hyperintense signal of the left temporal lobe also unchanged. There is again mild volume loss of the left temporal lobe extending to posterior left insula and operculum which may be due to old infarct. 3. There is increased fluid and thickening of the mastoid air cells bilaterally. FAVIO BRENNAN MD March 14, 2019 10:03
[2019-03-14 10:59] LABS: CSF CLARITY CLEAR; CSF COLOR COLORLESS
[2019-03-14 11:00] VITALS: BP 169/69
[2019-03-14 11:00] LABS: CSF RBC COUNT 107 /cmm (Not Established); CSF WBC COUNT 2 /cmm (Not Established)
--- NOTE | 2019-03-14 11:11 | PDOC ---
Subjective: Subjective: D/w son - he asked about MRI and LP results. Objective: Objective: D/w RN. Vital Signs: Vital Signs Date Time Temp Pulse Resp B/P (MAP) Pulse Ox O2 Delivery O2 Flow Rate FiO2 03/14/19 08:00 Nasal Cannula 2.0 03/14/19 07:00 97.6 58 20 151/71 (97) 98 97.6 Labs: Laboratory Tests Test 03/13/19 12:15 03/13/19 17:56 03/13/19 20:42 03/13/19 22:55 Glucose (Fingerstick) 312 mg/dL 288 mg/dL 279 mg/dL 269 mg/dL Test 03/13/19 23:01 03/14/19 05:22 03/14/19 05:30 03/14/19 09:00 Glucose (Fingerstick) 280 mg/dL 247 mg/dL White Blood Count 13.4 x10^3/uL Red Blood Count 3.04 x10^6/uL Hemoglobin 9.7 g/dL Hematocrit 29.7 % Mean Corpuscular Volume 98 fL Mean Corpuscular Hemoglobin 32 pg Mean Corpuscular Hemoglobin Concent 33 g/dL Red Cell Distribution Width 13.6 % Platelet Count 129 x10^3/uL Neutrophils (%) (Auto) 88 % Lymphocytes (%) (Auto) 8 % Monocytes (%) (Auto) 4 % Eosinophils (%) (Auto) 1 % Basophils (%) (Auto) 0 % Neutrophils # (Auto) 11.8 x10^3uL Lymphocytes # (Auto) 1.0 x10^3/uL Monocytes # (Auto) 0.5 x10^3/uL Eosinophils # (Auto) 0.1 x10^3/uL Basophils # (Auto) 0.0 x10^3/uL Segmented Neutrophils % 88 % Band Neutrophils % 3 % Lymphocytes % 7 % Monocytes % 2 % Toxic Granulation Present Platelet Estimate Decreased Sodium Level 156 mmol/L Potassium Level 4.2 mmol/L Chloride Level 118 mmol/L Carbon Dioxide Level 33 mmol/L Anion Gap 5 Blood Urea Nitrogen 48 mg/dL Creatinine 1.2 mg/dL Estimated GFR (Cockcroft-Gault) 43.4 Glucose Level 274 mg/dL Calcium Level 8.5 mg/dL CSF Color Colorless CSF Clarity Clear CSF WBC 2 /cmm CSF RBC 107 /cmm CSF Glucose 113 mg/dL CSF Total Protein 161.5 mg/dL GRAM STAIN,CSF Final WBCS NONE SEEN ORGANISMS NONE SEEN Imaging: Brain MRI 03/13 Impression: 1. Comparing with March 2019 exam, there are new foci of recent infarcts in a bilateral distribution as stated with the largest of the right parietal lobe, unchanged tiny focus left temporal lobe. There is some residual although somewhat less apparent signal abnormality dependently in the occipital horns greater on the right again which may be due to debris such as related to ventriculitis in the appropriate clinical setting, again not associated with significant hemosiderin deposition to confidently suggest intraventricular hemorrhage. 2. There is again other mild T2 and FLAIR hyperintense signal abnormality of the supratentorial parenchyma, nonspecific findings possibly related to chronic microvascular ischemic disease. There is again mild T2 and FLAIR hyperintense signal of the left temporal lobe also unchanged. There is again mild volume loss of the left temporal lobe extending to posterior left insula and operculum which may be due to old infarct. 3. There is increased fluid and thickening of the mastoid air cells bilaterally. PE: GEN: NAD LUNGS: NC HEART: RRR ABD: soft NEURO/PSYCH: awake, some mumbling/moaning A/P: Encephalopathy - new infarcts on interval brain MRI as above, also now s/p LP Strep pneumo bacteremia -- Standing by. ADELAIDE SAMSON March 14, 2019 11:11
[2019-03-14] MEDS: ASPIRIN RECTAL 300 MG SUPP. PR SCH (11:43)
[2019-03-14] MEDS: IV DEXTROSE 5% 1,000 ML IV SCH (11:48)
[2019-03-14] MEDS ORDERED: INSULIN LISPRO 300 UNITS/3 ML INSULN.PEN. SQ SCH (12:00)
--- NOTE | 2019-03-14 12:24 | NUR ---
SS following up with discharge planning. Pt accepted at [facility] pending insurance authorization from [facility] [employer]. SS will await insurance determination and will proceed accordingly.
--- NOTE | 2019-03-14 12:47 | PDOC ---
PULMONARY PROGRESS NOTES Subjective DOES NOT FOLLOW COMMANDS Vitals Vital Signs Date Time Temp Pulse Resp B/P (MAP) Pulse Ox O2 Delivery O2 Flow Rate FiO2 03/14/19 11:00 97.6 58 22 169/69 (102) 94 Room Air 97.6 03/14/19 08:00 2.0 General: Lethargic Lungs: Other (decrease bs) Cardiovascular: S1, S2 Abdomen: Soft Extremities: No Edema Skin: Warm Labs Laboratory Tests Test 03/12/19 12:44 03/12/19 18:07 03/12/19 21:02 03/12/19 23:13 Glucose (Fingerstick) 236 mg/dL (70-99) 239 mg/dL (70-99) 291 mg/dL (70-99) 288 mg/dL (70-99) Test 03/13/19 05:15 03/13/19 05:30 03/13/19 10:10 03/13/19 12:15 Glucose (Fingerstick) 238 mg/dL (70-99) 312 mg/dL (70-99) White Blood Count 14.9 x10^3/uL (4.0-11.0) Red Blood Count 3.43 x10^6/uL (3.50-5.40) Hemoglobin 11.1 g/dL (12.0-15.5) Hematocrit 33.3 % (36.0-47.0) Mean Corpuscular Volume 97 fL (79-100) Mean Corpuscular Hemoglobin 32 pg (25-35) Mean Corpuscular Hemoglobin Concent 33 g/dL (31-37) Red Cell Distribution Width 13.9 % (11.5-14.5) Platelet Count 120 x10^3/uL (140-400) Neutrophils (%) (Auto) 86 % (31-73) Lymphocytes (%) (Auto) 8 % (24-48) Monocytes (%) (Auto) 5 % (0-9) Eosinophils (%) (Auto) 1 % (0-3) Basophils (%) (Auto) 0 % (0-3) Neutrophils # (Auto) 12.8 x10^3uL (1.8-7.7) Lymphocytes # (Auto) 1.2 x10^3/uL (1.0-4.8) Monocytes # (Auto) 0.7 x10^3/uL (0.0-1.1) Eosinophils # (Auto) 0.1 x10^3/uL (0.0-0.7) Basophils # (Auto) 0.0 x10^3/uL (0.0-0.2) Sodium Level 159 mmol/L (136-145) 157 mmol/L (136-145) Potassium Level 3.8 mmol/L (3.5-5.1) 4.0 mmol/L (3.5-5.1) Chloride Level 119 mmol/L (98-107) 118 mmol/L (98-107) Carbon Dioxide Level 32 mmol/L (21-32) 32 mmol/L (21-32) Anion Gap 8 (6-14) 7 (6-14) Blood Urea Nitrogen 47 mg/dL (7-20) 45 mg/dL (7-20) Creatinine 1.1 mg/dL (0.6-1.0) 1.1 mg/dL (0.6-1.0) Estimated GFR (Cockcroft-Gault) 48.0 48.0 Glucose Level 268 mg/dL (70-99) 299 mg/dL (70-99) Calcium Level 8.3 mg/dL (8.5-10.1) 8.3 mg/dL (8.5-10.1) Phosphorus Level 3.7 mg/dL (2.6-4.7) Magnesium Level 2.4 mg/dL (1.8-2.4) Test 03/13/19 17:56 03/13/19 20:42 03/13/19 22:55 03/13/19 23:01 Glucose (Fingerstick) 288 mg/dL (70-99) 279 mg/dL (70-99) 269 mg/dL (70-99) 280 mg/dL (70-99) Test 03/14/19 05:22 03/14/19 05:30 03/14/19 09:00 03/14/19 11:39 Glucose (Fingerstick) 247 mg/dL (70-99) 222 mg/dL (70-99) White Blood Count 13.4 x10^3/uL (4.0-11.0) Red Blood Count 3.04 x10^6/uL (3.50-5.40) Hemoglobin 9.7 g/dL (12.0-15.5) Hematocrit 29.7 % (36.0-47.0) Mean Corpuscular Volume 98 fL (79-100) Mean Corpuscular Hemoglobin 32 pg (25-35) Mean Corpuscular Hemoglobin Concent 33 g/dL (31-37) Red Cell Distribution Width 13.6 % (11.5-14.5) Platelet Count 129 x10^3/uL (140-400) Neutrophils (%) (Auto) 88 % (31-73) Lymphocytes (%) (Auto) 8 % (24-48) Monocytes (%) (Auto) 4 % (0-9) Eosinophils (%) (Auto) 1 % (0-3) Basophils (%) (Auto) 0 % (0-3) Neutrophils # (Auto) 11.8 x10^3uL (1.8-7.7) Lymphocytes # (Auto) 1.0 x10^3/uL (1.0-4.8) Monocytes # (Auto) 0.5 x10^3/uL (0.0-1.1) Eosinophils # (Auto) 0.1 x10^3/uL (0.0-0.7) Basophils # (Auto) 0.0 x10^3/uL (0.0-0.2) Segmented Neutrophils % 88 % (35-66) Band Neutrophils % 3 % (0-9) Lymphocytes % 7 % (24-48) Monocytes % 2 % (0-10) Toxic Granulation Present Platelet Estimate Decreased (ADEQUATE) Sodium Level 156 mmol/L (136-145) Potassium Level 4.2 mmol/L (3.5-5.1) Chloride Level 118 mmol/L (98-107) Carbon Dioxide Level 33 mmol/L (21-32) Anion Gap 5 (6-14) Blood Urea Nitrogen 48 mg/dL (7-20) Creatinine 1.2 mg/dL (0.6-1.0) Estimated GFR (Cockcroft-Gault) 43.4 Glucose Level 274 mg/dL (70-99) Calcium Level 8.5 mg/dL (8.5-10.1) CSF Color Colorless CSF Clarity Clear CSF WBC 2 /cmm (Not Established) CSF RBC 107 /cmm (Not Established) CSF Glucose 113 mg/dL (37-70) CSF Total Protein 161.5 mg/dL (15.0-45.0) Laboratory Tests Test 03/13/19 17:56 03/13/19 20:42 03/13/19 22:55 03/13/19 23:01 Glucose (Fingerstick) 288 mg/dL (70-99) 279 mg/dL (70-99) 269 mg/dL (70-99) 280 mg/dL (70-99) Test 03/14/19 05:22 03/14/19 05:30 03/14/19 09:00 03/14/19 11:39 Glucose (Fingerstick) 247 mg/dL (70-99) 222 mg/dL (70-99) White Blood Count 13.4 x10^3/uL (4.0-11.0) Red Blood Count 3.04 x10^6/uL (3.50-5.40) Hemoglobin 9.7 g/dL (12.0-15.5) Hematocrit 29.7 % (36.0-47.0) Mean Corpuscular Volume 98 fL (79-100) Mean Corpuscular Hemoglobin 32 pg (25-35) Mean Corpuscular Hemoglobin Concent 33 g/dL (31-37) Red Cell Distribution Width 13.6 % (11.5-14.5) Platelet Count 129 x10^3/uL (140-400) Neutrophils (%) (Auto) 88 % (31-73) Lymphocytes (%) (Auto) 8 % (24-48) Monocytes (%) (Auto) 4 % (0-9) Eosinophils (%) (Auto) 1 % (0-3) Basophils (%) (Auto) 0 % (0-3) Neutrophils # (Auto) 11.8 x10^3uL (1.8-7.7) Lymphocytes # (Auto) 1.0 x10^3/uL (1.0-4.8) Monocytes # (Auto) 0.5 x10^3/uL (0.0-1.1) Eosinophils # (Auto) 0.1 x10^3/uL (0.0-0.7) Basophils # (Auto) 0.0 x10^3/uL (0.0-0.2) Segmented Neutrophils % 88 % (35-66) Band Neutrophils % 3 % (0-9) Lymphocytes % 7 % (24-48) Monocytes % 2 % (0-10) Toxic Granulation Present Platelet Estimate Decreased (ADEQUATE) Sodium Level 156 mmol/L (136-145) Potassium Level 4.2 mmol/L (3.5-5.1) Chloride Level 118 mmol/L (98-107) Carbon Dioxide Level 33 mmol/L (21-32) Anion Gap 5 (6-14) Blood Urea Nitrogen 48 mg/dL (7-20) Creatinine 1.2 mg/dL (0.6-1.0) Estimated GFR (Cockcroft-Gault) 43.4 Glucose Level 274 mg/dL (70-99) Calcium Level 8.5 mg/dL (8.5-10.1) CSF Color Colorless CSF Clarity Clear CSF WBC 2 /cmm (Not Established) CSF RBC 107 /cmm (Not Established) CSF Glucose 113 mg/dL (37-70) CSF Total Protein 161.5 mg/dL (15.0-45.0) Medications Active Scripts Medications Dose Route/Sig Max Daily Dose Days Date Category Potassium Chloride 10 Meq Tab.sr.24h 10 Meq PO DAILY 03/06/19 Reported Procardia Xl (Nifedipine) 60 Mg Tab.er.24 1 Tab PO DAILY 03/06/19 Reported Zestril (Lisinopril) 40 Mg Tablet 1 Tab PO BID 03/06/19 Reported Glucophage Xr (Metformin Hcl) 500 Mg Tab.er.24h 500 Mg PO [id number] 03/06/19 Reported Crestor (Rosuvastatin Calcium) 5 Mg Tablet 1 Tab PO DAILY 03/06/19 Reported Coreg (Carvedilol) 25 Mg Tablet 25 Mg PO BIDWMEALS 03/06/19 Reported Aspir-Low (Aspirin) 81 Mg Tablet.dr 1 Tab PO DAILY 03/06/19 Reported Impression . IMPRESSION: 1. Acute hypoxic respiratory failure secondary to aspiration pneumonia from DYSPHAGIA 2. Acute metabolic encephalopathy secondary to ischemic stroke. SEE NEURO NOTE 3. CVA PER MRI .NO CEREBRAL EDEMA 4. Abnormal CXR consistent with right lung aspiration pneumonia. 5. GPC Sepsis ,Strep Bacteremia POA 02/02 bottles, prelim strep , MYRON pending, source unknown 6. SEIZURES 7. DYSPHAGIA Plan . RESP STATUS IS COMPENSATED FOLLOW RESULTS OF LP WILL CONTINUE 02 SPOKE WITH DOA FOLLOW NEUROLOGY REC PT IS DNR TPN FOR NOW MAY NEED A PEG FAMILY WISHES TO CONTINUE AGGRESSIVE MEASURES WILL RESPECT THEIR WISHES NOT MUCH TO ADD KJ BAGLEY MD March 14, 2019 12:47
--- NOTE | 2019-03-14 13:00 | PDOC2 ---
PALLIATIVE CARE Palliative Care Note Palliative Care Patient's son and sisters at bedside. LP done Spoke with Augustine. Family remains hopeful and want to continue aggressive care. [facility] in progress. WILFREDO MORENO March 14, 2019 13:00
[2019-03-14] MEDS: TPN PER PHARMACY MC PRN (13:17)
--- NOTE | 2019-03-14 13:17 | NUR ---
Pharmacy TPN Dosing Note S: KEMI PASCUAL is a 79 year old F Currently receiving Central Continuous TPN started 03/10/19 B:Pertinent PMH: pt unable to pass swallow study, doesn't want peg yet Height: 5 feet, 2 inches Weight: 69.817124 kg Current diet: npo LABS: Sodium: 156 Potassium: 4.2 Chloride: 118 Calcium: 8.5 Corrected Calcium: 10.34 Magnesium: 2.5 CO2: 33 SCr: 1.2 Glucose: 222-280 Albumin: 1.7 AST: 27 ALT: 28 TPN FORMULA: TPN TYPE: Central Continuous AMINO ACIDS: 65 gm DEXTROSE: 250 gm LIPIDS: 20 gm SODIUM CHLORIDE: - mEq SODIUM ACETATE: - mEq SODIUM PHOSPHATE: - mmol POTASSIUM CHLORIDE: - mEq POTASSIUM ACETATE: 60 mEq POTASSIUM PHOSPHATE: 15 mmol MAGNESIUM: 5 mEq CALCIUM: 10 mEq INSULIN: 30 units MULTIPLE VITAMIN: 10 ml TRACE ELEMENTS: mte5 1ml ml(s) TPN PLAN: Na remains elevated, dropped only slightly this AM. D5W@75ml/h started per nephrology. Removed excess volume from TPN (2000 ml to 1512) while this infusion is going. BG ranged 222-280 since last bag hung, 15 units SSI given already today. SSI increased to high intensity this AM. Will add 10 units insulin to TPN (total 30 units in bag). Removed 20 meq KAc from TPN due to K creeping up, 60 meq remain. BMP, trig in AM. R: Continue TPN ABOVE. Will monitor electrolytes, glucose, and tolerance to TPN. JONO WEST RP, 03/14/19 [id number]
--- NOTE | 2019-03-14 15:05 | PDOC ---
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 History of Present Illness History of Present Illness Patient seen and examined Patient unable to phonate clearly, but was making audible sounds to attempt to communicate (partially due to patient having bit her tongue) MRI showed multiple new bilateral infarctions LP showed elevated protein and glucose, awaiting full results Electrolyte abnormalities mildly improved Discussed with daughter and son- talked to them about prognosis and expectations Discussed with nurse Discussed with neurology, r/o encephalitis vs ventriculitis Vitals Vitals Vital Signs Date Time Temp Pulse Resp B/P (MAP) Pulse Ox O2 Delivery O2 Flow Rate FiO2 03/14/19 11:00 97.6 58 22 169/69 (102) 94 Room Air 97.6 03/14/19 08:00 2.0 Physical Exam Physical Exam GENERAL: Propped up in bed, alert, weak appearing, + eye contact, trying to mouth words HEENT: oral cavity dry NECK: No JVD. flexed some LUNGS: Decreased breath sounds lower lobes, nonlabored HEART: S1, S2, ABDOMEN: Obese, soft, nontender, no guarding, BS active : Mendez 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, no cyanosis. 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 slight movement in toes SKIN: No rash RUE-PICC clean General: Alert, moderate distress, Other (mildly alert, responded to comands, patient was attempting to speak but was unable) Heart: Regular rate, Other (tachycardic) Lungs: Other (decrease bs) Abdomen: Normal bowel sounds, Soft, No tenderness, No hepatosplenomegaly, No masses Extremities: No clubbing, No cyanosis, No edema, Normal pulses, No tenderness/swelling Skin: No rashes Labs LABS Laboratory Tests Test 03/13/19 17:56 03/13/19 20:42 03/13/19 22:55 03/13/19 23:01 Glucose (Fingerstick) 288 mg/dL (70-99) 279 mg/dL (70-99) 269 mg/dL (70-99) 280 mg/dL (70-99) Test 03/14/19 05:22 03/14/19 05:30 03/14/19 09:00 03/14/19 11:39 Glucose (Fingerstick) 247 mg/dL (70-99) 222 mg/dL (70-99) White Blood Count 13.4 x10^3/uL (4.0-11.0) Red Blood Count 3.04 x10^6/uL (3.50-5.40) Hemoglobin 9.7 g/dL (12.0-15.5) Hematocrit 29.7 % (36.0-47.0) Mean Corpuscular Volume 98 fL (79-100) Mean Corpuscular Hemoglobin 32 pg (25-35) Mean Corpuscular Hemoglobin Concent 33 g/dL (31-37) Red Cell Distribution Width 13.6 % (11.5-14.5) Platelet Count 129 x10^3/uL (140-400) Neutrophils (%) (Auto) 88 % (31-73) Lymphocytes (%) (Auto) 8 % (24-48) Monocytes (%) (Auto) 4 % (0-9) Eosinophils (%) (Auto) 1 % (0-3) Basophils (%) (Auto) 0 % (0-3) Neutrophils # (Auto) 11.8 x10^3uL (1.8-7.7) Lymphocytes # (Auto) 1.0 x10^3/uL (1.0-4.8) Monocytes # (Auto) 0.5 x10^3/uL (0.0-1.1) Eosinophils # (Auto) 0.1 x10^3/uL (0.0-0.7) Basophils # (Auto) 0.0 x10^3/uL (0.0-0.2) Segmented Neutrophils % 88 % (35-66) Band Neutrophils % 3 % (0-9) Lymphocytes % 7 % (24-48) Monocytes % 2 % (0-10) Toxic Granulation Present Platelet Estimate Decreased (ADEQUATE) Sodium Level 156 mmol/L (136-145) Potassium Level 4.2 mmol/L (3.5-5.1) Chloride Level 118 mmol/L (98-107) Carbon Dioxide Level 33 mmol/L (21-32) Anion Gap 5 (6-14) Blood Urea Nitrogen 48 mg/dL (7-20) Creatinine 1.2 mg/dL (0.6-1.0) Estimated GFR (Cockcroft-Gault) 43.4 Glucose Level 274 mg/dL (70-99) Calcium Level 8.5 mg/dL (8.5-10.1) CSF Color Colorless CSF Clarity Clear CSF WBC 2 /cmm (Not Established) CSF RBC 107 /cmm (Not Established) CSF Glucose 113 mg/dL (37-70) CSF Total Protein 161.5 mg/dL (15.0-45.0) Review of Systems Review of Systems ROS unable to obtain Assessment and Plan Assessmemt and Plan Problems Medical Problems: (1) Acute ischemic cerebrovascular accident (CVA) involving middle cerebral sal ry territory Status: Acute (2) Acute renal insufficiency Status: Acute (3) Acute respiratory distress Status: Acute (4) CHF (congestive heart failure) Status: Acute (5) GI bleeding Status: Acute (6) Hypokalemia Status: Acute (7) Severe sepsis Status: Acute Assessment: Aspiration pneumonia secondary to stroke Electrolyte abnormalities Respiratory failure Seizures CVA CHF Acute renal insufficiency Hyperlipidemia Hypertension 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 Labs Laboratory Tests Test 03/12/19 18:07 03/12/19 21:02 03/12/19 23:13 03/13/19 05:15 Glucose (Fingerstick) 239 mg/dL (70-99) 291 mg/dL (70-99) 288 mg/dL (70-99) 238 mg/dL (70-99) Test 03/13/19 05:30 03/13/19 10:10 03/13/19 12:15 03/13/19 17:56 White Blood Count 14.9 x10^3/uL (4.0-11.0) Red Blood Count 3.43 x10^6/uL (3.50-5.40) Hemoglobin 11.1 g/dL (12.0-15.5) Hematocrit 33.3 % (36.0-47.0) Mean Corpuscular Volume 97 fL (79-100) Mean Corpuscular Hemoglobin 32 pg (25-35) Mean Corpuscular Hemoglobin Concent 33 g/dL (31-37) Red Cell Distribution Width 13.9 % (11.5-14.5) Platelet Count 120 x10^3/uL (140-400) Neutrophils (%) (Auto) 86 % (31-73) Lymphocytes (%) (Auto) 8 % (24-48) Monocytes (%) (Auto) 5 % (0-9) Eosinophils (%) (Auto) 1 % (0-3) Basophils (%) (Auto) 0 % (0-3) Neutrophils # (Auto) 12.8 x10^3uL (1.8-7.7) Lymphocytes # (Auto) 1.2 x10^3/uL (1.0-4.8) Monocytes # (Auto) 0.7 x10^3/uL (0.0-1.1) Eosinophils # (Auto) 0.1 x10^3/uL (0.0-0.7) Basophils # (Auto) 0.0 x10^3/uL (0.0-0.2) Sodium Level 159 mmol/L (136-145) 157 mmol/L (136-145) Potassium Level 3.8 mmol/L (3.5-5.1) 4.0 mmol/L (3.5-5.1) Chloride Level 119 mmol/L (98-107) 118 mmol/L (98-107) Carbon Dioxide Level 32 mmol/L (21-32) 32 mmol/L (21-32) Anion Gap 8 (6-14) 7 (6-14) Blood Urea Nitrogen 47 mg/dL (7-20) 45 mg/dL (7-20) Creatinine 1.1 mg/dL (0.6-1.0) 1.1 mg/dL (0.6-1.0) Estimated GFR (Cockcroft-Gault) 48.0 48.0 Glucose Level 268 mg/dL (70-99) 299 mg/dL (70-99) Calcium Level 8.3 mg/dL (8.5-10.1) 8.3 mg/dL (8.5-10.1) Phosphorus Level 3.7 mg/dL (2.6-4.7) Magnesium Level 2.4 mg/dL (1.8-2.4) Glucose (Fingerstick) 312 mg/dL (70-99) 288 mg/dL (70-99) Test 03/13/19 20:42 03/13/19 22:55 03/13/19 23:01 03/14/19 05:22 Glucose (Fingerstick) 279 mg/dL (70-99) 269 mg/dL (70-99) 280 mg/dL (70-99) 247 mg/dL (70-99) Test 03/14/19 05:30 03/14/19 09:00 03/14/19 11:39 White Blood Count 13.4 x10^3/uL (4.0-11.0) Red Blood Count 3.04 x10^6/uL (3.50-5.40) Hemoglobin 9.7 g/dL (12.0-15.5) Hematocrit 29.7 % (36.0-47.0) Mean Corpuscular Volume 98 fL (79-100) Mean Corpuscular Hemoglobin 32 pg (25-35) Mean Corpuscular Hemoglobin Concent 33 g/dL (31-37) Red Cell Distribution Width 13.6 % (11.5-14.5) Platelet Count 129 x10^3/uL (140-400) Neutrophils (%) (Auto) 88 % (31-73) Lymphocytes (%) (Auto) 8 % (24-48) Monocytes (%) (Auto) 4 % (0-9) Eosinophils (%) (Auto) 1 % (0-3) Basophils (%) (Auto) 0 % (0-3) Neutrophils # (Auto) 11.8 x10^3uL (1.8-7.7) Lymphocytes # (Auto) 1.0 x10^3/uL (1.0-4.8) Monocytes # (Auto) 0.5 x10^3/uL (0.0-1.1) Eosinophils # (Auto) 0.1 x10^3/uL (0.0-0.7) Basophils # (Auto) 0.0 x10^3/uL (0.0-0.2) Segmented Neutrophils % 88 % (35-66) Band Neutrophils % 3 % (0-9) Lymphocytes % 7 % (24-48) Monocytes % 2 % (0-10) Toxic Granulation Present Platelet Estimate Decreased (ADEQUATE) Sodium Level 156 mmol/L (136-145) Potassium Level 4.2 mmol/L (3.5-5.1) Chloride Level 118 mmol/L (98-107) Carbon Dioxide Level 33 mmol/L (21-32) Anion Gap 5 (6-14) Blood Urea Nitrogen 48 mg/dL (7-20) Creatinine 1.2 mg/dL (0.6-1.0) Estimated GFR (Cockcroft-Gault) 43.4 Glucose Level 274 mg/dL (70-99) Calcium Level 8.5 mg/dL (8.5-10.1) CSF Color Colorless CSF Clarity Clear CSF WBC 2 /cmm (Not Established) CSF RBC 107 /cmm (Not Established) CSF Glucose 113 mg/dL (37-70) CSF Total Protein 161.5 mg/dL (15.0-45.0) Glucose (Fingerstick) 222 mg/dL (70-99) Laboratory Tests Test 03/13/19 17:56 03/13/19 20:42 03/13/19 22:55 03/13/19 23:01 Glucose (Fingerstick) 288 mg/dL (70-99) 279 mg/dL (70-99) 269 mg/dL (70-99) 280 mg/dL (70-99) Test 03/14/19 05:22 03/14/19 05:30 03/14/19 09:00 03/14/19 11:39 Glucose (Fingerstick) 247 mg/dL (70-99) 222 mg/dL (70-99) White Blood Count 13.4 x10^3/uL (4.0-11.0) Red Blood Count 3.04 x10^6/uL (3.50-5.40) Hemoglobin 9.7 g/dL (12.0-15.5) Hematocrit 29.7 % (36.0-47.0) Mean Corpuscular Volume 98 fL (79-100) Mean Corpuscular Hemoglobin 32 pg (25-35) Mean Corpuscular Hemoglobin Concent 33 g/dL (31-37) Red Cell Distribution Width 13.6 % (11.5-14.5) Platelet Count 129 x10^3/uL (140-400) Neutrophils (%) (Auto) 88 % (31-73) Lymphocytes (%) (Auto) 8 % (24-48) Monocytes (%) (Auto) 4 % (0-9) Eosinophils (%) (Auto) 1 % (0-3) Basophils (%) (Auto) 0 % (0-3) Neutrophils # (Auto) 11.8 x10^3uL (1.8-7.7) Lymphocytes # (Auto) 1.0 x10^3/uL (1.0-4.8) Monocytes # (Auto) 0.5 x10^3/uL (0.0-1.1) Eosinophils # (Auto) 0.1 x10^3/uL (0.0-0.7) Basophils # (Auto) 0.0 x10^3/uL (0.0-0.2) Segmented Neutrophils % 88 % (35-66) Band Neutrophils % 3 % (0-9) Lymphocytes % 7 % (24-48) Monocytes % 2 % (0-10) Toxic Granulation Present Platelet Estimate Decreased (ADEQUATE) Sodium Level 156 mmol/L (136-145) Potassium Level 4.2 mmol/L (3.5-5.1) Chloride Level 118 mmol/L (98-107) Carbon Dioxide Level 33 mmol/L (21-32) Anion Gap 5 (6-14) Blood Urea Nitrogen 48 mg/dL (7-20) Creatinine 1.2 mg/dL (0.6-1.0) Estimated GFR (Cockcroft-Gault) 43.4 Glucose Level 274 mg/dL (70-99) Calcium Level 8.5 mg/dL (8.5-10.1) CSF Color Colorless CSF Clarity Clear CSF WBC 2 /cmm (Not Established) CSF RBC 107 /cmm (Not Established) CSF Glucose 113 mg/dL (37-70) CSF Total Protein 161.5 mg/dL (15.0-45.0) Microbiology 03/10/19 Blood Culture - Preliminary, Resulted NO GROWTH AFTER 4 DAYS 03/14/19 CSF Gram Stain - Final, Complete Medications Current Medications Sodium Chloride 1,000 ml @ 1,000 mls/hr Q1H IV Last administered on 03/06/19at 10:40; Start 03/06/19 at 09:30; Stop 03/06/19 at 10:29; Status DC Albuterol/ Ipratropium (Duoneb) 3 ml 1X ONCE NEB Last administered on 03/06/19 09:20; Start 03/06/19 at 09:30; Stop 03/06/19 at 09:31; Status DC Methylprednisolone Sodium Succinate (SOLU-Medrol 125MG VIAL) 125 mg 1X ONCE IV Last administered on 03/06/19at 10:40; Start 03/06/19 at 09:30; Stop 03/06/19 at 09:31; Status DC Pantoprazole Sodium (PROTONIX VIAL for IV PUSH) 80 mg 1X ONCE IVP Last administered on 03/06/19at 10:39; Start 03/06/19 at 09:30; Stop 03/06/19 at 09:31; Status DC Sodium Chloride 1,000 ml @ 1,000 mls/hr 1X ONCE IV Last administered on 03/06/19at 14:42; Start 03/06/19 at 09:30; Stop 03/06/19 at 10:29; Status DC Vancomycin HCl 250 ml @ 250 mls/hr 1X ONCE IV Last administered on 03/06/19at 10:41; Start 03/06/19 at 10:00; Stop 03/06/19 at 10:59; Status DC Levofloxacin/ Dextrose 150 ml @ 100 mls/hr 1X ONCE IV Last administered on 03/06/19at 10:41; Start 03/06/19 at 10:00; Stop 03/06/19 at 11:29; Status DC Sodium Chloride 1,000 ml @ 150 mls/hr Q6H40M IV Last administered on 03/07/19at 04:31; Start 03/06/19 at 11:10; Stop 03/07/19 at 11:09; Status DC Pantoprazole Sodium 80 mg/ Sodium Chloride 100 ml @ 10 mls/hr Q10H IV Last administered on 03/07/19at 03:12; Start 03/06/19 at 11:30; Stop 03/07/19 at 10:15; Status DC Ondansetron HCl (Zofran) 4 mg PRN Q6HRS PRN IV NAUSEA/VOMITING; Start 03/06/19 at 12:00; Stop 03/07/19 at 14:10; Status DC Labetalol HCl (Normodyne Iv Push) 10 mg PRN Q2HR PRN IVP HYPERTENSION, SEE COMMENTS; Start 03/06/19 at 12:00; Stop 03/07/19 at 14:10; Status DC Morphine Sulfate (Morphine Sulfate) 2 mg PRN Q2HR PRN IV PAIN Last administered on 03/10/19at 01:48; Start 03/06/19 at 12:00 Aspirin (Aspirin) 300 mg DAILY LA Last administered on 03/07/19at 10:12; Start 03/06/19 at 12:30; Stop 03/07/19 at 14:10; Status DC Potassium Chloride/Water 100 ml @ 100 mls/hr Q1H IV Last administered on 03/07/19at 00:24; Start 03/06/19 at 13:00; Stop 03/06/19 at 16:59; Status DC Clindamycin Phosphate 50 ml @ 100 mls/hr Q8HRS IV Last administered on 03/07/19at 06:09; Start 03/06/19 at 14:00; Stop 03/07/19 at 09:10; Status DC Levofloxacin/ Dextrose (Levaquin Per Pharmacy) 1 each PRN DAILY PRN MC SEE COMMENTS; Start 03/06/19 at 13:15; Stop 03/07/19 at 14:10; Status DC Levofloxacin/ Dextrose 50 ml @ 50 mls/hr Q24H IV Last administered on 03/07/19at 08:36; Start 03/07/19 at 09:00; Stop 03/07/19 at 14:10; Status DC Meropenem 500 mg/ Sodium Chloride 50 ml @ 100 mls/hr Q8HRS IV ; Start 03/07/19 at 14:00; Stop 03/07/19 at 14:10; Status DC Vancomycin HCl (Vanco Per Pharmacy) 1 each PRN DAILY PRN MC SEE COMMENTS Last administered on 03/07/19at 13:08; Start 03/07/19 at 09:15; Stop 03/07/19 at 14:10; Status DC Vancomycin HCl 1.75 gm/Sodium Chloride 500 ml @ 250 mls/hr 1X ONCE IV Last administered on 03/07/19at 10:13; Start 03/07/19 at 10:00; Stop 03/07/19 at 14:10; Status DC Pantoprazole Sodium (PROTONIX VIAL for IV PUSH) 40 mg DAILYAC IVP ; Start 03/08/19 at 07:30; Stop 03/08/19 at 07:30; Status DC Vancomycin HCl 1 gm/Sodium Chloride 250 ml @ 250 mls/hr Q24H IV ; Start 03/08/19 at 10:00; Stop 03/08/19 at 10:00; Status DC Vancomycin HCl (Vancomycin Trough Level) 1 each 1X ONCE MC ; Start 03/09/19 at 09:30; Stop 03/09/19 at 09:30; Status DC Scopolamine (Transderm-Scop) 1 patch Q3DAYS TD Last administered on 03/13/19at 08:44; Start 03/07/19 at 15:00 Lorazepam (Ativan) 1 mg PRN Q2HRS PRN IV ANXIETY / AGITATION; Start 03/07/19 at 14:15 Amino Acids/ Glycerin/ Electrolytes 1,000 ml @ 80 mls/hr [id number] IV Last administered on 03/09/19at 22:12; Start 03/08/19 at 09:30; Stop 03/10/19 at 21:59; Status DC Vancomycin HCl (Vanco Per Pharmacy) 1 each PRN DAILY PRN MC SEE COMMENTS Last administered on 03/09/19at 14:48; Start 03/08/19 at 11:15; Stop 03/09/19 at 15:24; Status DC Meropenem 500 mg/ Sodium Chloride 50 ml @ 100 mls/hr Q8HRS IV Last administered on 03/14/19at 14:27; Start 03/08/19 at 14:00 Levofloxacin/ Dextrose (Levaquin Per Pharmacy) 1 each PRN DAILY PRN MC SEE COMMENTS; Start 03/08/19 at 11:15; Stop 03/09/19 at 15:24; Status DC Vancomycin HCl 1 gm/Sodium Chloride 250 ml @ 250 mls/hr Q24H IV Last administered on 03/09/19 13:21; Start 03/08/19 at 12:00; Stop 03/09/19 at 14:05; Status DC Levofloxacin/ Dextrose 150 ml @ 100 mls/hr Q48H IV Last administered on 03/09/19at 08:00; Start 03/09/19 at 09:00; Stop 03/09/19 at 15:24; Status DC Vancomycin HCl (Vancomycin Trough Level) 1 each 1X ONCE MC Last administered on 03/09/19at 11:30; Start 03/09/19 at 11:30; Stop 03/09/19 at 11:31; Status DC Famotidine (Pepcid Vial) 20 mg DAILY IVP Last administered on 03/14/19at 09:33; Start 03/08/19 at 14:00 Acetaminophen (Tylenol Supp) 650 mg PRN Q6HRS PRN LA MILD PAIN / TEMP Last administered on 03/12/19at 08:54; Start 03/08/19 at 19:00 Metoprolol Tartrate (Lopressor Vial) 5 mg 1X ONCE IVP Last administered on 03/09/19at 08:00; Start 03/09/19 at 07:15; Stop 03/09/19 at 07:16; Status DC Metoprolol Tartrate (Lopressor Vial) 5 mg PRN Q4HRS PRN IVP SBP>160 Last administered on 03/10/19at 10:14; Start 03/09/19 at 13:30 Vancomycin HCl 1 gm/Sodium Chloride 250 ml @ 250 mls/hr Q12H IV ; Start 03/10/19 at 00:00; Stop 03/10/19 at 00:00; Status DC Clonidine HCl (Catapres Tts-1) 1 patch WEEKLY TD Last administered on 03/10/19at 05:48; Start 03/10/19 at 06:00; Stop 03/10/19 at 15:38; Status DC Potassium Chloride/Water 50 ml @ 50 mls/hr Q1H IV Last administered on 03/10/19at 10:14; Start 03/10/19 at 08:00; Stop 03/10/19 at 09:59; Status DC Levetiracetam 500 mg/Dextrose 105 ml @ 420 mls/hr 1X STAT IV Last administered on 03/10/19at 08:32; Start 03/10/19 at 08:18; Stop 03/10/19 at 08:32; Status DC Levetiracetam 500 mg/Dextrose 105 ml @ 420 mls/hr Q12HR IV Last administered on 03/14/19at 09:33; Start 03/10/19 at 21:00 Info (Tpn Per Pharmacy) 1 each PRN DAILY PRN MC SEE COMMENTS; Start 03/10/19 at 10:45; Status Cancel Info (Tpn Per Pharmacy) 1 each PRN DAILY PRN MC SEE COMMENTS Last administered on 03/14/19at 13:17; Start 03/10/19 at 10:45 Clonidine HCl (Catapres Tts-2) 1 patch WEEKLY TD Last administered on 03/10/19at 11:14; Start 03/10/19 at 11:00 Sodium Chloride 1,000 ml @ 1,500 mls/hr Q40M IV ; Start 03/10/19 at 10:34; Stop 03/10/19 at 11:33; Status DC Hydralazine HCl (Apresoline Inj) 10 mg PRN Q4HRS PRN IVP ELEVATED BP, SEE COMMENTS Last administered on 03/13/19at 09:57; Start 03/10/19 at 12:15 Hydralazine HCl (Apresoline Inj) 5 mg PRN Q4HRS PRN IVP ELEVATED BP, SEE COMMENTS Last administered on 03/10/19at 12:36; Start 03/10/19 at 12:15 Sodium Chloride 60 meq/Potassium Chloride 50 meq/ Potassium Acetate 20 meq/Potassium Phosphate 20.4 mmol/Magnesium Sulfate 10 meq/ Calcium Gluconate 10 meq/ Multivitamins 10 ml/Chromium/ Copper/Manganese/ Seleni/Zn 1 ml/ Total Parenteral Nutrition/Amino Acids/Dextrose/ Fat Emulsion Intravenous 1,512 ml @ 63 mls/hr TPN CONT IV Last administered on 03/10/19at 21:35; Start 03/10/19 at 22:00; Stop 03/11/19 at 21:59; Status DC Insulin Human Lispro (HumaLOG) 0-7 UNITS Q6HRS SQ Last administered on 03/14/19at 05:28; Start 03/10/19 at 18:00; Stop 03/14/19 at 10:48; Status DC Dextrose (Dextrose 50%-Water Syringe) 12.5 gm PRN Q15MIN PRN IV SEE COMMENTS; Start 03/10/19 at 15:45 Sodium Acetate 30 meq/Potassium Chloride 40 meq/ Potassium Acetate 50 meq/Potassium Phosphate 18 mmol/ Magnesium Sulfate 5 meq/Calcium Gluconate 10 meq/ Multivitamins 10 ml/Chromium/ Copper/Manganese/ Seleni/Zn 1 ml/ Insulin Human Regular 10 unit/ Total Parenteral Nutrition/Amino Acids/Dextrose/ Fat Emuls... 1,512 ml @ 63 mls/hr TPN CONT IV Last administered on 03/11/19at 21:37; Start 03/11/19 at 22:00; Stop 03/12/19 at 21:59; Status DC Insulin Glargine (Lantus) 10 units QHS SQ Last administered on 03/11/19at 20:48; Start 03/11/19 at 21:00; Stop 03/12/19 at 13:02; Status DC Dextrose 1,000 ml @ 100 mls/hr Q10H IV Last administered on 03/12/19at 08:53; Start 03/12/19 at 08:15; Stop 03/12/19 at 18:14; Status DC Insulin Glargine (Lantus) 20 units QHS SQ Last administered on 03/13/19at 20:44; Start 03/12/19 at 21:00 Potassium Acetate 80 meq/Potassium Phosphate 15 mmol/ Magnesium Sulfate 5 meq/Calcium Gluconate 10 meq/ Multivitamins 10 ml/Chromium/ Copper/Manganese/ Seleni/Zn 1 ml/ Insulin Human Regular 20 unit/ Total Parenteral Nutrition/Amino Acids/Dextrose/ Fat Emulsion Intravenous 2,400 ml @ 100 mls/hr TPN CONT IV ; Start 03/12/19 at 22:00; Stop 03/13/19 at 21:59; Status Cancel Potassium Acetate 80 meq/Potassium Phosphate 15 mmol/ Magnesium Sulfate 5 meq/Calcium Gluconate 10 meq/ Multivitamins 10 ml/Chromium/ Copper/Manganese/ Seleni/Zn 1 ml/ Insulin Human Regular 20 unit/ Total Parenteral Nutrition/Amino Acids/Dextrose/ Fat Emulsion Intravenous 2,000 ml @ 83.333 mls/ hr TPN CONT IV Last administered on 03/12/19at 20:38; Start 03/12/19 at 22:00; Stop 03/13/19 at 21:59; Status DC Enalaprilat (Vasotec Inj) 1.25 mg PRN Q6HRS PRN IVP HYPERTENSION, SEE COMMENTS; Start 03/13/19 at 11:30 Potassium Acetate 80 meq/Potassium Phosphate 15 mmol/ Magnesium Sulfate 5 meq/Calcium Gluconate 10 meq/ Multivitamins 10 ml/Chromium/ Copper/Manganese/ Seleni/Zn 1 ml/ Insulin Human Regular 20 unit/ Total Parenteral Nutrition/Amino Acids/Dextrose/ Fat Emulsion Intravenous 2,000 ml @ 83.333 mls/ hr TPN CONT IV Last administered on 03/13/19at 20:42; Start 03/13/19 at 22:00; Stop 03/14/19 at 21:59 Aspirin (Aspirin Rectal Supp) 300 mg DAILY LA Last administered on 03/14/19at 11:43; Start 03/13/19 at 16:30 Lidocaine/Sodium Bicarbonate (Buffered Lidocaine 1%) 6 ml 1X ONCE INJ ; Start 03/14/19 at 08:00; Stop 03/14/19 at 08:01; Status DC Insulin Human Lispro (HumaLOG) 0-9 UNITS TIDWMEALS SQ Last administered on 03/14/19at 11:51; Start 03/14/19 at 12:00 Dextrose 1,000 ml @ 75 mls/hr [id number] IV Last administered on 03/14/19at 11:48; Start 03/14/19 at 11:00 Potassium Acetate 60 meq/Potassium Phosphate 15 mmol/ Magnesium Sulfate 5 meq/Calcium Gluconate 10 meq/ Multivitamins 10 ml/Chromium/ Copper/Manganese/ Seleni/Zn 1 ml/ Insulin Human Regular 30 unit/ Total Parenteral Nutrition/Amino Acids/Dextrose/ Fat Emulsion Intravenous 1,512 ml @ 63 mls/hr TPN CONT IV ; Start 03/14/19 at 22:00; Stop 03/15/19 at 21:59 Active Scripts Active Reported Potassium Chloride 10 Meq Tab.sr.24h 10 Meq PO DAILY Procardia Xl (Nifedipine) 60 Mg Tab.er.24 1 Tab PO DAILY Zestril (Lisinopril) 40 Mg Tablet 1 Tab PO BID Glucophage Xr (Metformin Hcl) 500 Mg Tab.er.24h 500 Mg PO [id number] Crestor (Rosuvastatin Calcium) 5 Mg Tablet 1 Tab PO DAILY Coreg (Carvedilol) 25 Mg Tablet 25 Mg PO BIDWMEALS Aspir-Low (Aspirin) 81 Mg Tablet.dr 1 Tab PO DAILY Vitals/I & O Vital Sign - Last 24 Hours 03/13/19 03/13/19 03/13/19 03/13/19 15:00 19:08 19:40 23:00 Temp 97.4 99.7 99.3 97.4 99.7 99.3 Pulse 63 52 55 Resp 20 20 24 B/P (MAP) 133/63 (86) 128/61 (83) 126/59 (81) Pulse Ox 97 100 99 O2 Delivery Nasal Cannula Nasal Cannula Nasal Cannula Nasal Cannula O2 Flow Rate 3.0 3.0 3.0 3.0 03/14/19 03/14/19 03/14/19 03/14/19 03:10 07:00 08:00 11:00 Temp 99.6 97.6 97.6 99.6 97.6 97.6 Pulse 66 58 58 Resp 24 20 22 B/P (MAP) 157/72 (100) 151/71 (97) 169/69 (102) Pulse Ox 98 98 94 O2 Delivery Nasal Cannula Nasal Cannula Nasal Cannula Room Air O2 Flow Rate 3.0 3.0 2.0 Intake and Output 03/13/19 03/13/19 03/14/19 14:59 22:59 06:59 Intake Total 0 ml 996 ml Output Total 850 ml 450 ml 600 ml Balance -850 ml -450 ml 396 ml EMORY VEGA III DO March 14, 2019 15:05
[2019-03-14 15:24] VITALS: BP 154/77
--- NOTE | 2019-03-14 16:23 | PDOC ---
PROGRESS NOTES Assessment Assessment Acute/subacute bilateral infarcts, right parietal infarct and left temporal lobes, embolic etiology. Encephalitis not likely. Ventriculitis can be ruled out. Seizure. Metabolic encephalopathy. Lactic acidosis. Renal failure. Hypernatremia. DM. HTN. CAD, s/p CABG. 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 RECOMMENDATIONS/PLAN: ASA 300 mg rectal daily. Continue Keppra. Correct electrolytes imbalances. Treat medical diseases. Discussed with her son at bedside on 03/14/19. Brain MRI on 03/13/19: Bilateral infarct, and new right parietal infarct. Carotid A US + Doppler: No high grade stenosis. Echo; Refer to reports. Lipid penal: WNL. CSF on 03/14/19: WBC 2, RBC 107, glucose 113, protein 161.5. Gram stain negative. Past Medical History Cardiovascular: CAD, HTN, [place] Endocrine: Diabetes Past Surgical History CABG Family History CVA Social History , rare alcohol, no tobacco, retired, very active Allergies Coded Allergies: Penicillins (Verified Allergy, Intermediate, 03/06/19) ROS Negative for fever, chills, weight loss, shortness of breath, chest pain, indigestion, hematochezia, melena, and dysuria. Full 14-point review of systems is negative. PHYSICAL EXAMINATION: General appearance in subacute distress. HEENT: Normocephalic and nontraumatic. Eyes, nose, ears, and throat are unremarkable. Hearing decrease. Neck is supple. No lymphadenopathy. No bruits are heard over the carotid artery. No Crepitus. Cardiovascular: S1, S2, regular rate and rhythm. Pulmonary: Mildly decreased to auscultation bilaterally. Abdomen: Bowel sounds are positive. Extremities: No rash, lesions, or edema. No restriction of range of motion NEUROLOGICAL EXAMINATION: Lethargic. Not fully oriented to time, place and person. PERRL. EOMI. CN: no focal findings. Muscle tone: within normal. Muscle strength: Moves all extremities. DTR: 1-2 Plantar reflex: Neutral response bilaterally Gait: Unable to walk. Sensory exam: Withdraw response to stimuli. Not able to access cerebellar signs due to not able to follow commands. F-T-N test not performed due to not follow commands. Objective Objective Vital Signs Date Time Temp Pulse Resp B/P (MAP) Pulse Ox O2 Delivery O2 Flow Rate FiO2 03/14/19 15:24 99.2 66 20 154/77 (102) 98 Room Air 99.2 03/14/19 08:00 2.0 Intake and Output 03/14/19 07:00 Intake Total 996 ml Output Total 1900 ml Balance -904 ml Intake Oral 0 ml IV Total 996 ml Output Urine Total 1900 ml Vitals Signs Vitals VS - Last 72 Hours, by Label Date Time Temp Pulse Resp B/P (MAP) Pulse Ox O2 Delivery O2 Flow Rate FiO2 03/14/19 15:24 99.2 66 20 154/77 (102) 98 Room Air 99.2 03/14/19 11:00 97.6 58 22 169/69 (102) 94 Room Air 97.6 03/14/19 08:00 Nasal Cannula 2.0 03/14/19 07:00 97.6 58 20 151/71 (97) 98 Nasal Cannula 3.0 97.6 03/14/19 03:10 99.6 66 24 157/72 (100) 98 Nasal Cannula 3.0 99.6 03/13/19 23:00 99.3 55 24 126/59 (81) 99 Nasal Cannula 3.0 99.3 03/13/19 19:40 99.7 52 20 128/61 (83) 100 Nasal Cannula 3.0 99.7 03/13/19 19:08 Nasal Cannula 3.0 03/13/19 15:00 97.4 63 20 133/63 (86) 97 Nasal Cannula 3.0 97.4 03/13/19 11:00 99.7 57 20 158/68 (98) 96 Nasal Cannula 3.0 99.7 03/13/19 09:57 61 177/88 03/13/19 08:00 Nasal Cannula 3.0 03/13/19 07:00 98.2 61 20 177/88 (117) 97 Nasal Cannula 3.0 98.2 Laboratory Laboratory Laboratory Tests Test 03/13/19 17:56 03/13/19 20:42 03/13/19 22:55 03/13/19 23:01 Glucose (Fingerstick) 288 mg/dL (70-99) 279 mg/dL (70-99) 269 mg/dL (70-99) 280 mg/dL (70-99) Test 03/14/19 05:22 03/14/19 05:30 03/14/19 09:00 03/14/19 11:39 Glucose (Fingerstick) 247 mg/dL (70-99) 222 mg/dL (70-99) White Blood Count 13.4 x10^3/uL (4.0-11.0) Red Blood Count 3.04 x10^6/uL (3.50-5.40) Hemoglobin 9.7 g/dL (12.0-15.5) Hematocrit 29.7 % (36.0-47.0) Mean Corpuscular Volume 98 fL (79-100) Mean Corpuscular Hemoglobin 32 pg (25-35) Mean Corpuscular Hemoglobin Concent 33 g/dL (31-37) Red Cell Distribution Width 13.6 % (11.5-14.5) Platelet Count 129 x10^3/uL (140-400) Neutrophils (%) (Auto) 88 % (31-73) Lymphocytes (%) (Auto) 8 % (24-48) Monocytes (%) (Auto) 4 % (0-9) Eosinophils (%) (Auto) 1 % (0-3) Basophils (%) (Auto) 0 % (0-3) Neutrophils # (Auto) 11.8 x10^3uL (1.8-7.7) Lymphocytes # (Auto) 1.0 x10^3/uL (1.0-4.8) Monocytes # (Auto) 0.5 x10^3/uL (0.0-1.1) Eosinophils # (Auto) 0.1 x10^3/uL (0.0-0.7) Basophils # (Auto) 0.0 x10^3/uL (0.0-0.2) Segmented Neutrophils % 88 % (35-66) Band Neutrophils % 3 % (0-9) Lymphocytes % 7 % (24-48) Monocytes % 2 % (0-10) Toxic Granulation Present Platelet Estimate Decreased (ADEQUATE) Sodium Level 156 mmol/L (136-145) Potassium Level 4.2 mmol/L (3.5-5.1) Chloride Level 118 mmol/L (98-107) Carbon Dioxide Level 33 mmol/L (21-32) Anion Gap 5 (6-14) Blood Urea Nitrogen 48 mg/dL (7-20) Creatinine 1.2 mg/dL (0.6-1.0) Estimated GFR (Cockcroft-Gault) 43.4 Glucose Level 274 mg/dL (70-99) Calcium Level 8.5 mg/dL (8.5-10.1) CSF Color Colorless CSF Clarity Clear CSF WBC 2 /cmm (Not Established) CSF RBC 107 /cmm (Not Established) CSF Glucose 113 mg/dL (37-70) CSF Total Protein 161.5 mg/dL (15.0-45.0) Microbiology 03/10/19 Blood Culture - Preliminary, Resulted NO GROWTH AFTER 4 DAYS 03/14/19 CSF Gram Stain - Final, Complete Medication Medications Current Medications Aspirin (Aspirin Rectal Supp) 300 mg DAILY NM Last administered on 03/14/19at 11:43; Start 03/13/19 at 16:30 Dextrose 1,000 ml @ 75 mls/hr [id number] IV Last administered on 03/14/19at 11:48; Start 03/14/19 at 11:00 Insulin Human Lispro (HumaLOG) 0-9 UNITS TIDWMEALS SQ Last administered on 03/14/19at 11:51; Start 03/14/19 at 12:00 Lidocaine/Sodium Bicarbonate (Buffered Lidocaine 1%) 6 ml 1X ONCE INJ ; Start 03/14/19 at 08:00; Stop 03/14/19 at 08:01; Status DC Potassium Acetate 60 meq/Potassium Phosphate 15 mmol/ Magnesium Sulfate 5 meq/Calcium Gluconate 10 meq/ Multivitamins 10 ml/Chromium/ Copper/Manganese/ Seleni/Zn 1 ml/ Insulin Human Regular 30 unit/ Total Parenteral Nutrition/Amino Acids/Dextrose/ Fat Emulsion Intravenous 1,512 ml @ 63 mls/hr TPN CONT IV ; Start 03/14/19 at 22:00; Stop 03/15/19 at 21:59 Potassium Acetate 80 meq/Potassium Phosphate 15 mmol/ Magnesium Sulfate 5 meq/Calcium Gluconate 10 meq/ Multivitamins 10 ml/Chromium/ Copper/Manganese/ Seleni/Zn 1 ml/ Insulin Human Regular 20 unit/ Total Parenteral Nutrition/Amino Acids/Dextrose/ Fat Emulsion Intravenous 2,000 ml @ 83.333 mls/ hr TPN CONT IV Last administered on 03/13/19at 20:42; Start 03/13/19 at 22:00; Stop 03/14/19 at 21:59 Comment Review of Relevant I have reviewed the following items rich (where applicable) has been applied. MARTHA MUNGUIA MD March 14, 2019 16:23
[2019-03-14 19:40] VITALS: BP 157/89
[2019-03-14] MEDS: INSULIN GLARGINE 300 UNITS/3 ML INSULN.PEN. SQ SCH (21:17)
[2019-03-14] MEDS ORDERED: AMINO ACID IV SCH ×10 (22:00)
[2019-03-14] MEDS ORDERED: [UNRECOGNIZED DRUG - OTHER] IV SCH ×10 (22:00)
[2019-03-14] MEDS ORDERED: TOTAL PARENTERAL NUTRITION IV SCH ×10 (22:00)
[2019-03-14] MEDS ORDERED: DEXTROSE 70% IV SCH ×10 (22:00)
[2019-03-14 23:30] VITALS: BP 198/82
[2019-03-14] MEDS: hydrALAZINE 20 MG/ML VIAL. IVP PRN (23:58)
[2019-03-15 00:34] VITALS: BP 170/73
[2019-03-15 03:00] VITALS: BP 150/59
[2019-03-15 03:45] VITALS: BP 178/81
[2019-03-15] MEDS: hydrALAZINE 20 MG/ML VIAL. IVP PRN (04:15)
[2019-03-15 05:02] LABS: BASO # 0.1 x10^3/uL (0.0-0.2); BASO % 1 % (0-3); EOS # 0.1 x10^3/uL (0.0-0.7); EOS % 1 % (0-3); HEMATOCRIT 31.1 % (36.0-47.0); HEMOGLOBIN 10.2 g/dL (12.0-15.5); LYMPH # 1.2 x10^3/uL (1.0-4.8); LYMPH % 8 % (24-48); MEAN CORPUSCULAR HEMOGLOBIN 32 pg (25-35); MEAN CORPUSCULAR HGB CONC 33 g/dL (31-37); MEAN CORPUSCULAR VOLUME 97 fL (79-100); MONO # 0.6 x10^3/uL (0.0-1.1); MONO % 4 % (0-9); NEUT # 13.1 x10^3uL (1.8-7.7); NEUT % 87 % (31-73); PLATELET COUNT 171 x10^3/uL (140-400); RED BLOOD COUNT 3.22 x10^6/uL (3.50-5.40); RED CELL DISTRIBUTION WIDTH 13.5 % (11.5-14.5); WHITE BLOOD COUNT 15.1 x10^3/uL (4.0-11.0)
[2019-03-15 05:29] LABS: CALCIUM 8.3 mg/dL (8.5-10.1); CREATININE 1.2 mg/dL (0.6-1.0); GFR 43.4; POTASSIUM 3.4 mmol/L (3.5-5.1)
[2019-03-15] MEDS: MEROPENEM 500 MG in IV NORMAL SALINE 50ML 50 ML IV SCH (05:59)
[2019-03-15] MEDS: IV DEXTROSE 5% 1,000 ML IV SCH ×2 (06:00→13:40)
[2019-03-15] MEDS: INSULIN LISPRO 300 UNITS/3 ML INSULN.PEN. SQ SCH ×2 (06:03→12:12)
[2019-03-15 07:00] VITALS: BP 176/84
[2019-03-15] MEDS: levETIRAcetam 500 MG in IV DEXTROSE 5% 100ML 100 ML IV SCH (08:19)
[2019-03-15] MEDS: ASPIRIN RECTAL 300 MG SUPP. PR SCH (08:20)
[2019-03-15] MEDS: FAMOTIDINE 20 MG/2 ML VIAL IVP SCH (08:20)
--- NOTE | 2019-03-15 08:52 | PDOC ---
Infectious Disease Note Subjective Subjective Confused this am and nonverbal Remains on O2 TPN ROS ROS unable to obtain Vital Sign Vital Signs Vital Signs Date Time Temp Pulse Resp B/P (MAP) Pulse Ox O2 Delivery O2 Flow Rate FiO2 03/15/19 07:53 Room Air 03/15/19 07:00 97.8 103 32 176/84 (114) 91 97.8 03/15/19 03:00 2.0 Physical Exam PHYSICAL EXAM GENERAL: Confused and s/p Ativan now HEENT: oral cavity dry NECK: No JVD. flexed some LUNGS: Decreased breath sounds lower lobes, nonlabored HEART: S1, S2, ABDOMEN: Obese, soft, nontender, no guarding, BS active. No rebound : Mendez 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, no cyanosis. 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 SKIN: No rash RUE-PICC clean Labs Lab Laboratory Tests Test 03/14/19 09:00 03/14/19 11:39 03/14/19 18:12 03/14/19 20:49 CSF Color Colorless CSF Clarity Clear CSF WBC 2 /cmm (Not Established) CSF RBC 107 /cmm (Not Established) CSF Glucose 113 mg/dL (37-70) CSF Total Protein 161.5 mg/dL (15.0-45.0) Glucose (Fingerstick) 222 mg/dL (70-99) 337 mg/dL (70-99) 336 mg/dL (70-99) Test 03/14/19 23:34 03/15/19 04:55 03/15/19 05:04 Glucose (Fingerstick) 311 mg/dL (70-99) 246 mg/dL (70-99) White Blood Count 15.1 x10^3/uL (4.0-11.0) Red Blood Count 3.22 x10^6/uL (3.50-5.40) Hemoglobin 10.2 g/dL (12.0-15.5) Hematocrit 31.1 % (36.0-47.0) Mean Corpuscular Volume 97 fL (79-100) Mean Corpuscular Hemoglobin 32 pg (25-35) Mean Corpuscular Hemoglobin Concent 33 g/dL (31-37) Red Cell Distribution Width 13.5 % (11.5-14.5) Platelet Count 171 x10^3/uL (140-400) Neutrophils (%) (Auto) 87 % (31-73) Lymphocytes (%) (Auto) 8 % (24-48) Monocytes (%) (Auto) 4 % (0-9) Eosinophils (%) (Auto) 1 % (0-3) Basophils (%) (Auto) 1 % (0-3) Neutrophils # (Auto) 13.1 x10^3uL (1.8-7.7) Lymphocytes # (Auto) 1.2 x10^3/uL (1.0-4.8) Monocytes # (Auto) 0.6 x10^3/uL (0.0-1.1) Eosinophils # (Auto) 0.1 x10^3/uL (0.0-0.7) Basophils # (Auto) 0.1 x10^3/uL (0.0-0.2) Sodium Level 151 mmol/L (136-145) Potassium Level 3.4 mmol/L (3.5-5.1) Chloride Level 112 mmol/L (98-107) Carbon Dioxide Level 32 mmol/L (21-32) Anion Gap 7 (6-14) Blood Urea Nitrogen 43 mg/dL (7-20) Creatinine 1.2 mg/dL (0.6-1.0) Estimated GFR (Cockcroft-Gault) 43.4 Glucose Level 289 mg/dL (70-99) Calcium Level 8.3 mg/dL (8.5-10.1) Triglycerides Level 200 mg/dL (0-150) Micro Impression: 1. Comparing with March 2019 exam, there are new foci of recent infarcts in a bilateral distribution as stated with the largest of the right parietal lobe, unchanged tiny focus left temporal lobe. There is some residual although somewhat less apparent signal abnormality dependently in the occipital horns greater on the right again which may be due to debris such as related to ventriculitis in the appropriate clinical setting, again not associated with significant hemosiderin deposition to confidently suggest intraventricular hemorrhage. 2. There is again other mild T2 and FLAIR hyperintense signal abnormality of the supratentorial parenchyma, nonspecific findings possibly related to chronic microvascular ischemic disease. There is again mild T2 and FLAIR hyperintense signal of the left temporal lobe also unchanged. There is again mild volume loss of the left temporal lobe extending to posterior left insula and operculum which may be due to old infarct. 3. There is increased fluid and thickening of the mastoid air cells bilaterally. Microbiology 03/10/19 Blood Culture - Preliminary, Resulted NO GROWTH AFTER 4 DAYS Objective Assessment Low-grade fevers - Strep Pneumonia bacteremia POA 03/06 ( 4/4 bottles). Repeat BC 03/08 and neg so far On Meropenem since 03/08 Vanc and Levoflox (03/06) There are new foci of recent infarcts in a bilateral distribution as stated with the largest of the right parietal lobe CVA cerebral edema - CSF with 2 WBC, gram stain neg. Now with Encephalopathy Leukocytosis - mild increase Aspiration pneumonia PCN allergy hives, tolerating Merrem Coffee ground emesis POA Lactic acidosis, better Hypernatremia Seizures on Wednesday on Keppra Plan Plan of Care Discontinue Merrem with Encephalopathy and change to Rocephin q 12 (CSF not c/w infection but has been on Meropenem) - d/w family F/u labs and cults Palliative care on case Oral care D/w nursing Poor prognosis AUREA COLES MD March 15, 2019 08:52
--- NOTE | 2019-03-15 09:37 | NUR ---
SS following up with discharge planning. SS still waiting on [employer] determination for LTAC. SS met with pt's family in room to discuss option of custodial unit vs hospice if [employer] will not authorize LTAC. Pt's family reported that they would like SS to contact custodial units to see who will facilitate full TPN. SS contacted [facility] and [facility] reported that they cannot do full TPN for pt. SS contacted [facility] and [facility] and was told the same. SS left messages for [facility] and [facility] and [facility] and am currently awaiting a response. SS met with family and provided update. SS notified family that if skilled facilities will not accept with continuous TPN then family would need to consider other forms of nutrition or reconsider hospice services for pt. Pat from [facility] met with pt's family and pt's family agreeable to allowing [facility] to come reevaluate pt. SS phoned and faxed referral to [facility], ; fax [phone]. SS will continue to follow for discharge planning.
[2019-03-15] MEDS ORDERED: cefTRIAXone IV Push 2 GM VIAL. IVP SCH (10:00)
--- NOTE | 2019-03-15 10:02 | PDOC ---
SUBJECTIVE ROS As per daughter not doing well, was agitated , didint respond to Ativan x22, recd Morphine, Now appears comfortable OBJECTIVE Vital Signs Vital Signs Date Time Temp Pulse Resp B/P (MAP) Pulse Ox O2 Delivery O2 Flow Rate FiO2 03/15/19 07:53 Room Air 03/15/19 07:00 97.8 103 32 176/84 (114) 91 97.8 03/15/19 03:00 2.0 I & 0 Intake and Output 03/15/19 07:00 Intake Total 1981 ml Output Total 1050 ml Balance 931 ml Intake Oral 0 ml IV Total 1981 ml Output Urine Total 1050 ml PHYSICAL EXAM Physical Exam GENERAL: Sleeping HEENT: On o2 by NC LUNGS: Decreased breath sounds lower lobes, nonlabored HEART: S1, S2, ABDOMEN: soft, nontender, no guarding, BS active : Mendez 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, 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 SKIN: No rash DIAGNOSIS/ASSESSMENT Assessment & Plan MAXIMUS - stable Monitor Hypernatremia- Continue IV d5W , mild improvement Hypokalemia- stable Replace as needed Strep Pneumonia bacteremia CVA cerebral edema A/P LP this am MRI -New Infarcts Coffee ground emesis at presentation Discussed with family at bedside and RN COMMENT/RELEVANT DATA Meds Current Medications Medications (Trade) Dose Ordered Sig/German Start Time Stop Time Status Last Admin Dose Admin Acetaminophen (Tylenol Supp) 650 mg PRN Q6HRS PRN 03/08/19 19:00 03/12/19 08:54 650 MG Albuterol/ Ipratropium (Duoneb) 3 ml 1X ONCE 03/06/19 09:30 03/06/19 09:31 DC 03/06/19 09:20 3 ML Amino Acids/ Glycerin/ Electrolytes 1,000 ml @ 80 mls/hr [id number] 03/08/19 09:30 03/10/19 21:59 DC 03/09/19 22:12 80 MLS/HR Aspirin (Aspirin Rectal Supp) 300 mg DAILY 03/13/19 16:30 03/15/19 08:20 300 MG Aspirin (Aspirin) 300 mg DAILY 03/06/19 12:30 03/07/19 14:10 DC 03/07/19 10:12 300 MG Ceftriaxone Sodium (Rocephin) 2 gm Q12HR 03/15/19 10:00 Clindamycin Phosphate 50 ml @ 100 mls/hr Q8HRS 03/06/19 14:00 03/07/19 09:10 DC 03/07/19 06:09 100 MLS/HR Clonidine HCl (Catapres Tts-1) 1 patch WEEKLY 03/10/19 06:00 03/10/19 15:38 DC 03/10/19 05:48 1 PATCH Clonidine HCl (Catapres Tts-2) 1 patch WEEKLY 03/10/19 11:00 03/10/19 11:14 1 PATCH Dextrose 1,000 ml @ 75 mls/hr [id number] 03/14/19 11:00 03/15/19 06:00 75 MLS/HR Dextrose (Dextrose 50%-Water Syringe) 12.5 gm PRN Q15MIN PRN 03/10/19 15:45 Enalaprilat (Vasotec Inj) 1.25 mg PRN Q6HRS PRN 03/13/19 11:30 Famotidine (Pepcid Vial) 20 mg DAILY 03/08/19 14:00 03/15/19 08:20 20 MG Hydralazine HCl (Apresoline Inj) 5 mg PRN Q4HRS PRN 03/10/19 12:15 03/10/19 12:36 5 MG Info (Tpn Per Pharmacy) 1 each PRN DAILY PRN 03/10/19 10:45 03/14/19 13:17 1 EACH Insulin Glargine (Lantus) 20 units QHS 03/12/19 21:00 03/14/19 21:17 20 UNITS Insulin Human Lispro (HumaLOG) 0-9 UNITS Q6HRS 03/14/19 18:00 03/15/19 06:03 5 UNITS Labetalol HCl (Normodyne Iv Push) 10 mg PRN Q2HR PRN 03/06/19 12:00 03/07/19 14:10 DC Levetiracetam 500 mg/Dextrose 105 ml @ 420 mls/hr Q12HR 03/10/19 21:00 03/15/19 08:19 420 MLS/HR Levofloxacin/ Dextrose 150 ml @ 100 mls/hr Q48H 03/09/19 09:00 03/09/19 15:24 DC 03/09/19 08:00 100 MLS/HR Levofloxacin/ Dextrose (Levaquin Per Pharmacy) 1 each PRN DAILY PRN 03/08/19 11:15 03/09/19 15:24 DC Lidocaine/Sodium Bicarbonate (Buffered Lidocaine 1%) 6 ml 1X ONCE 03/14/19 08:00 03/14/19 08:01 DC Lorazepam (Ativan) 1 mg PRN Q2HRS PRN 03/07/19 14:15 03/15/19 08:43 1 MG Meropenem 500 mg/ Sodium Chloride 50 ml @ 100 mls/hr Q8HRS 03/08/19 14:00 03/15/19 09:15 DC 03/15/19 05:59 100 MLS/HR Methylprednisolone Sodium Succinate (SOLU-Medrol 125MG VIAL) 125 mg 1X ONCE 03/06/19 09:30 03/06/19 09:31 DC 03/06/19 10:40 125 MG Metoprolol Tartrate (Lopressor Vial) 5 mg PRN Q4HRS PRN 03/09/19 13:30 03/10/19 10:14 5 MG Morphine Sulfate (Morphine Sulfate) 2 mg PRN Q2HR PRN 03/06/19 12:00 03/10/19 01:48 2 MG Ondansetron HCl (Zofran) 4 mg PRN Q6HRS PRN 03/06/19 12:00 03/07/19 14:10 DC Pantoprazole Sodium (PROTONIX VIAL for IV PUSH) 40 mg DAILYAC 03/08/19 07:30 03/08/19 07:30 DC Pantoprazole Sodium 80 mg/ Sodium Chloride 100 ml @ 10 mls/hr Q10H 03/06/19 11:30 03/07/19 10:15 DC 03/07/19 03:12 10 MLS/HR Potassium Chloride/Water 50 ml @ 50 mls/hr Q1H 03/10/19 08:00 03/10/19 09:59 DC 03/10/19 10:14 50 MLS/HR Potassium Acetate 60 meq/Potassium Phosphate 15 mmol/ Magnesium Sulfate 5 meq/Calcium Gluconate 10 meq/ Multivitamins 10 ml/Chromium/ Copper/Manganese/ Seleni/Zn 1 ml/ Insulin Human Regular 30 unit/ Total Parenteral Nutrition/Amino Acids/Dextrose/ Fat Emulsion Intravenous 1,512 ml @ 63 mls/hr TPN CONT 03/14/19 22:00 03/15/19 21:59 03/14/19 23:43 63 MLS/HR Potassium Acetate 80 meq/Potassium Phosphate 15 mmol/ Magnesium Sulfate 5 meq/Calcium Gluconate 10 meq/ Multivitamins 10 ml/Chromium/ Copper/Manganese/ Seleni/Zn 1 ml/ Insulin Human Regular 20 unit/ Total Parenteral Nutrition/Amino Acids/Dextrose/ Fat Emulsion Intravenous 2,000 ml @ 83.333 mls/ hr TPN CONT 03/13/19 22:00 03/14/19 21:59 DC 03/13/19 20:42 83.333 MLS/HR Scopolamine (Transderm-Scop) 1 patch Q3DAYS 03/07/19 15:00 03/13/19 08:44 1 PATCH Sodium Acetate 30 meq/Potassium Chloride 40 meq/ Potassium Acetate 50 meq/Potassium Phosphate 18 mmol/ Magnesium Sulfate 5 meq/Calcium Gluconate 10 meq/ Multivitamins 10 ml/Chromium/ Copper/Manganese/ Seleni/Zn 1 ml/ Insulin Human Regular 10 unit/ Total Parenteral Nutrition/Amino Acids/Dextrose/ Fat Emuls... 1,512 ml @ 63 mls/hr TPN CONT 03/11/19 22:00 03/12/19 21:59 DC 03/11/19 21:37 63 MLS/HR Sodium Chloride 60 meq/Potassium Chloride 50 meq/ Potassium Acetate 20 meq/Potassium Phosphate 20.4 mmol/Magnesium Sulfate 10 meq/ Calcium Gluconate 10 meq/ Multivitamins 10 ml/Chromium/ Copper/Manganese/ Seleni/Zn 1 ml/ Total Parenteral Nutrition/Amino Acids/Dextrose/ Fat Emulsion Intravenous 1,512 ml @ 63 mls/hr TPN CONT 03/10/19 22:00 03/11/19 21:59 DC 03/10/19 21:35 63 MLS/HR Vancomycin HCl (Vanco Per Pharmacy) 1 each PRN DAILY PRN 03/08/19 11:15 03/09/19 15:24 DC 03/09/19 14:48 1 EACH Vancomycin HCl (Vancomycin Trough Level) 1 each 1X ONCE 03/09/19 11:30 03/09/19 11:31 DC 03/09/19 11:30 1 EACH Vancomycin HCl 1.75 gm/Sodium Chloride 500 ml @ 250 mls/hr 1X ONCE 03/07/19 10:00 03/07/19 14:10 DC 03/07/19 10:13 250 MLS/HR Vancomycin HCl 1 gm/Sodium Chloride 250 ml @ 250 mls/hr Q12H 03/10/19 00:00 03/10/19 00:00 DC Lab Laboratory Tests Test 03/14/19 11:39 03/14/19 18:12 03/14/19 20:49 03/14/19 23:34 Glucose (Fingerstick) 222 mg/dL (70-99) 337 mg/dL (70-99) 336 mg/dL (70-99) 311 mg/dL (70-99) Test 03/15/19 04:55 03/15/19 05:04 White Blood Count 15.1 x10^3/uL (4.0-11.0) Red Blood Count 3.22 x10^6/uL (3.50-5.40) Hemoglobin 10.2 g/dL (12.0-15.5) Hematocrit 31.1 % (36.0-47.0) Mean Corpuscular Volume 97 fL (79-100) Mean Corpuscular Hemoglobin 32 pg (25-35) Mean Corpuscular Hemoglobin Concent 33 g/dL (31-37) Red Cell Distribution Width 13.5 % (11.5-14.5) Platelet Count 171 x10^3/uL (140-400) Neutrophils (%) (Auto) 87 % (31-73) Lymphocytes (%) (Auto) 8 % (24-48) Monocytes (%) (Auto) 4 % (0-9) Eosinophils (%) (Auto) 1 % (0-3) Basophils (%) (Auto) 1 % (0-3) Neutrophils # (Auto) 13.1 x10^3uL (1.8-7.7) Lymphocytes # (Auto) 1.2 x10^3/uL (1.0-4.8) Monocytes # (Auto) 0.6 x10^3/uL (0.0-1.1) Eosinophils # (Auto) 0.1 x10^3/uL (0.0-0.7) Basophils # (Auto) 0.1 x10^3/uL (0.0-0.2) Sodium Level 151 mmol/L (136-145) Potassium Level 3.4 mmol/L (3.5-5.1) Chloride Level 112 mmol/L (98-107) Carbon Dioxide Level 32 mmol/L (21-32) Anion Gap 7 (6-14) Blood Urea Nitrogen 43 mg/dL (7-20) Creatinine 1.2 mg/dL (0.6-1.0) Estimated GFR (Cockcroft-Gault) 43.4 Glucose Level 289 mg/dL (70-99) Calcium Level 8.3 mg/dL (8.5-10.1) Triglycerides Level 200 mg/dL (0-150) Glucose (Fingerstick) 246 mg/dL (70-99) Results All relevant outside records, renal labs, imaging studies, telemetry/EKG's were reviewed. FAVIO BRENNAN MD March 15, 2019 10:02
--- NOTE | 2019-03-15 10:31 | PDOC ---
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 Would like evaluation 03/15 History of Present Illness History of Present Illness Patient seen and examined Patient unable to phonate MRI showed multiple new bilateral infarctions new foci of recent infarcts in a bilateral distribution as stated with the largest of the right parietal lobe, unchanged tiny focus left temporal lobe. There is some residual although somewhat less apparent signal abnormality dependently in the occipital horns greater on the right again which may be due to debris such as related to ventriculitis in the appropriate clinical setting, again not associated with significant hemosiderin deposition to confidently suggest intraventricular hemorrhage. LP showed elevated protein and glucose, awaiting full results Electrolyte abnormalities mildly improved Discussed with daughter and son- talked to them about prognosis and expectations Discussed with nurse following neurology, r/o encephalitis vs ventriculitis 43 MIN PT EXAM, CHART REVIEW, > 50% time spent with exam, chart review pt care coordination Vitals Vitals Vital Signs Date Time Temp Pulse Resp B/P (MAP) Pulse Ox O2 Delivery O2 Flow Rate FiO2 03/15/19 07:53 Room Air 03/15/19 07:00 97.8 103 32 176/84 (114) 91 97.8 03/15/19 03:00 2.0 Physical Exam Physical Exam GENERAL: Confused and s/p Ativan now HEENT: oral cavity dry NECK: No JVD. flexed some LUNGS: Decreased breath sounds lower lobes, nonlabored HEART: S1, S2, ABDOMEN: Obese, soft, nontender, no guarding, BS active. No rebound : Mendez 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, no cyanosis. [employer]KEEPING [employer]: unresponsive and confused SKIN: No rash RUE-PICC clean General: moderate distress, Other (mildly alert, responded to comands, patient was attempting to speak but was unable) Heart: Regular rate, Other (tachycardic) Lungs: Other (decrease bs) Abdomen: Normal bowel sounds, Soft, No tenderness, No hepatosplenomegaly, No masses Extremities: No clubbing, No cyanosis, No edema, Normal pulses, No tenderness/swelling Skin: No rashes Labs LABS MRI Brain without contrast History: Stroke, seizure, encephalopathy Technique: Multiplanar, multisequential noncontrast MR imaging was performed of the brain. Comparison: March 08, 2019 Findings: There is motion degradation. There are new foci of restricted diffusion including 2 small foci of the left parietal cortical surface, 1.4 cm longitudinal focus of the right parietal cortical surface, 0.8 cm focus of right frontal cortical surface, tiny 0.2 cm focus of the right frontal cortical surface previously seen tiny focus of restricted diffusion left temporal cortical surface is similar. There is mild dependent signal abnormality in the occipital horns greater on the right, slightly less apparent especially on the left. Ventricular size is similar, ventricles not considered significantly dilated. There is no new midline shift or new significant extra-axial fluid collection. Mild T2 and FLAIR hyperintense signal of the periventricular white matter greater on the left is similar, also minimally of the left temporal lobe. There is again mild volume loss of the left temporal lobe extending to the posterior left insula and operculum. There is again tiny focus of old hemosiderin deposition of the left centrum semiovale. There has been lens surgery bilaterally. Right vertebral artery flow-void is again not seen. There is again patchy fluid and thickening of the mastoid air cells bilaterally although greater. There is again patchy moderate ethmoid air cell mucosal thickening, minimally of the sphenoid sinus. Cerebellar tonsils are normal in location. There is preserved marrow signal of the clivus. Impression: 1. Comparing with March 2019 exam, there are new foci of recent infarcts in a bilateral distribution as stated with the largest of the right parietal lobe, unchanged tiny focus left temporal lobe. There is some residual although somewhat less apparent signal abnormality dependently in the occipital horns greater on the right again which may be due to debris such as related to ventriculitis in the appropriate clinical setting, again not associated with significant hemosiderin deposition to confidently suggest intraventricular hemorrhage. 2. There is again other mild T2 and FLAIR hyperintense signal abnormality of the supratentorial parenchyma, nonspecific findings possibly related to chronic microvascular ischemic disease. There is again mild T2 and FLAIR hyperintense signal of the left temporal lobe also unchanged. There is again mild volume loss of the left temporal lobe extending to posterior left insula and operculum which may be due to old infarct. 3. There is increased fluid and thickening of the mastoid air cells bilaterally. Laboratory Tests Test 03/14/19 11:39 03/14/19 18:12 03/14/19 20:49 03/14/19 23:34 Glucose (Fingerstick) 222 mg/dL (70-99) 337 mg/dL (70-99) 336 mg/dL (70-99) 311 mg/dL (70-99) Test 03/15/19 04:55 03/15/19 05:04 White Blood Count 15.1 x10^3/uL (4.0-11.0) Red Blood Count 3.22 x10^6/uL (3.50-5.40) Hemoglobin 10.2 g/dL (12.0-15.5) Hematocrit 31.1 % (36.0-47.0) Mean Corpuscular Volume 97 fL (79-100) Mean Corpuscular Hemoglobin 32 pg (25-35) Mean Corpuscular Hemoglobin Concent 33 g/dL (31-37) Red Cell Distribution Width 13.5 % (11.5-14.5) Platelet Count 171 x10^3/uL (140-400) Neutrophils (%) (Auto) 87 % (31-73) Lymphocytes (%) (Auto) 8 % (24-48) Monocytes (%) (Auto) 4 % (0-9) Eosinophils (%) (Auto) 1 % (0-3) Basophils (%) (Auto) 1 % (0-3) Neutrophils # (Auto) 13.1 x10^3uL (1.8-7.7) Lymphocytes # (Auto) 1.2 x10^3/uL (1.0-4.8) Monocytes # (Auto) 0.6 x10^3/uL (0.0-1.1) Eosinophils # (Auto) 0.1 x10^3/uL (0.0-0.7) Basophils # (Auto) 0.1 x10^3/uL (0.0-0.2) Sodium Level 151 mmol/L (136-145) Potassium Level 3.4 mmol/L (3.5-5.1) Chloride Level 112 mmol/L (98-107) Carbon Dioxide Level 32 mmol/L (21-32) Anion Gap 7 (6-14) Blood Urea Nitrogen 43 mg/dL (7-20) Creatinine 1.2 mg/dL (0.6-1.0) Estimated GFR (Cockcroft-Gault) 43.4 Glucose Level 289 mg/dL (70-99) Calcium Level 8.3 mg/dL (8.5-10.1) Triglycerides Level 200 mg/dL (0-150) Glucose (Fingerstick) 246 mg/dL (70-99) Assessment and Plan Assessmemt and Plan Problems Medical Problems: (1) Acute ischemic cerebrovascular accident (CVA) involving middle cerebral artery territory Status: Acute (2) Acute renal insufficiency Status: Acute (3) Acute respiratory distress Status: Acute (4) CHF (congestive heart failure) Status: Acute (5) GI bleeding Status: Acute (6) Hypokalemia Status: Acute (7) Severe sepsis Status: Acute Comment Review of Relevant I have reviewed the following items rich (where applicable) has been applied. Labs Laboratory Tests Test 03/13/19 12:15 03/13/19 17:56 03/13/19 20:42 03/13/19 22:55 Glucose (Fingerstick) 312 mg/dL (70-99) 288 mg/dL (70-99) 279 mg/dL (70-99) 269 mg/dL (70-99) Test 03/13/19 23:01 03/14/19 05:22 03/14/19 05:30 03/14/19 09:00 Glucose (Fingerstick) 280 mg/dL (70-99) 247 mg/dL (70-99) White Blood Count 13.4 x10^3/uL (4.0-11.0) Red Blood Count 3.04 x10^6/uL (3.50-5.40) Hemoglobin 9.7 g/dL (12.0-15.5) Hematocrit 29.7 % (36.0-47.0) Mean Corpuscular Volume 98 fL (79-100) Mean Corpuscular Hemoglobin 32 pg (25-35) Mean Corpuscular Hemoglobin Concent 33 g/dL (31-37) Red Cell Distribution Width 13.6 % (11.5-14.5) Platelet Count 129 x10^3/uL (140-400) Neutrophils (%) (Auto) 88 % (31-73) Lymphocytes (%) (Auto) 8 % (24-48) Monocytes (%) (Auto) 4 % (0-9) Eosinophils (%) (Auto) 1 % (0-3) Basophils (%) (Auto) 0 % (0-3) Neutrophils # (Auto) 11.8 x10^3uL (1.8-7.7) Lymphocytes # (Auto) 1.0 x10^3/uL (1.0-4.8) Monocytes # (Auto) 0.5 x10^3/uL (0.0-1.1) Eosinophils # (Auto) 0.1 x10^3/uL (0.0-0.7) Basophils # (Auto) 0.0 x10^3/uL (0.0-0.2) Segmented Neutrophils % 88 % (35-66) Band Neutrophils % 3 % (0-9) Lymphocytes % 7 % (24-48) Monocytes % 2 % (0-10) Toxic Granulation Present Platelet Estimate Decreased (ADEQUATE) Sodium Level 156 mmol/L (136-145) Potassium Level 4.2 mmol/L (3.5-5.1) Chloride Level 118 mmol/L (98-107) Carbon Dioxide Level 33 mmol/L (21-32) Anion Gap 5 (6-14) Blood Urea Nitrogen 48 mg/dL (7-20) Creatinine 1.2 mg/dL (0.6-1.0) Estimated GFR (Cockcroft-Gault) 43.4 Glucose Level 274 mg/dL (70-99) Calcium Level 8.5 mg/dL (8.5-10.1) CSF Color Colorless CSF Clarity Clear CSF WBC 2 /cmm (Not Established) CSF RBC 107 /cmm (Not Established) CSF Glucose 113 mg/dL (37-70) CSF Total Protein 161.5 mg/dL (15.0-45.0) Test 03/14/19 11:39 03/14/19 18:12 03/14/19 20:49 03/14/19 23:34 Glucose (Fingerstick) 222 mg/dL (70-99) 337 mg/dL (70-99) 336 mg/dL (70-99) 311 mg/dL (70-99) Test 03/15/19 04:55 03/15/19 05:04 White Blood Count 15.1 x10^3/uL (4.0-11.0) Red Blood Count 3.22 x10^6/uL (3.50-5.40) Hemoglobin 10.2 g/dL (12.0-15.5) Hematocrit 31.1 % (36.0-47.0) Mean Corpuscular Volume 97 fL (79-100) Mean Corpuscular Hemoglobin 32 pg (25-35) Mean Corpuscular Hemoglobin Concent 33 g/dL (31-37) Red Cell Distribution Width 13.5 % (11.5-14.5) Platelet Count 171 x10^3/uL (140-400) Neutrophils (%) (Auto) 87 % (31-73) Lymphocytes (%) (Auto) 8 % (24-48) Monocytes (%) (Auto) 4 % (0-9) Eosinophils (%) (Auto) 1 % (0-3) Basophils (%) (Auto) 1 % (0-3) Neutrophils # (Auto) 13.1 x10^3uL (1.8-7.7) Lymphocytes # (Auto) 1.2 x10^3/uL (1.0-4.8) Monocytes # (Auto) 0.6 x10^3/uL (0.0-1.1) Eosinophils # (Auto) 0.1 x10^3/uL (0.0-0.7) Basophils # (Auto) 0.1 x10^3/uL (0.0-0.2) Sodium Level 151 mmol/L (136-145) Potassium Level 3.4 mmol/L (3.5-5.1) Chloride Level 112 mmol/L (98-107) Carbon Dioxide Level 32 mmol/L (21-32) Anion Gap 7 (6-14) Blood Urea Nitrogen 43 mg/dL (7-20) Creatinine 1.2 mg/dL (0.6-1.0) Estimated GFR (Cockcroft-Gault) 43.4 Glucose Level 289 mg/dL (70-99) Calcium Level 8.3 mg/dL (8.5-10.1) Triglycerides Level 200 mg/dL (0-150) Glucose (Fingerstick) 246 mg/dL (70-99) Laboratory Tests Test 03/14/19 11:39 03/14/19 18:12 03/14/19 20:49 03/14/19 23:34 Glucose (Fingerstick) 222 mg/dL (70-99) 337 mg/dL (70-99) 336 mg/dL (70-99) 311 mg/dL (70-99) Test 03/15/19 04:55 03/15/19 05:04 White Blood Count 15.1 x10^3/uL (4.0-11.0) Red Blood Count 3.22 x10^6/uL (3.50-5.40) Hemoglobin 10.2 g/dL (12.0-15.5) Hematocrit 31.1 % (36.0-47.0) Mean Corpuscular Volume 97 fL (79-100) Mean Corpuscular Hemoglobin 32 pg (25-35) Mean Corpuscular Hemoglobin Concent 33 g/dL (31-37) Red Cell Distribution Width 13.5 % (11.5-14.5) Platelet Count 171 x10^3/uL (140-400) Neutrophils (%) (Auto) 87 % (31-73) Lymphocytes (%) (Auto) 8 % (24-48) Monocytes (%) (Auto) 4 % (0-9) Eosinophils (%) (Auto) 1 % (0-3) Basophils (%) (Auto) 1 % (0-3) Neutrophils # (Auto) 13.1 x10^3uL (1.8-7.7) Lymphocytes # (Auto) 1.2 x10^3/uL (1.0-4.8) Monocytes # (Auto) 0.6 x10^3/uL (0.0-1.1) Eosinophils # (Auto) 0.1 x10^3/uL (0.0-0.7) Basophils # (Auto) 0.1 x10^3/uL (0.0-0.2) Sodium Level 151 mmol/L (136-145) Potassium Level 3.4 mmol/L (3.5-5.1) Chloride Level 112 mmol/L (98-107) Carbon Dioxide Level 32 mmol/L (21-32) Anion Gap 7 (6-14) Blood Urea Nitrogen 43 mg/dL (7-20) Creatinine 1.2 mg/dL (0.6-1.0) Estimated GFR (Cockcroft-Gault) 43.4 Glucose Level 289 mg/dL (70-99) Calcium Level 8.3 mg/dL (8.5-10.1) Triglycerides Level 200 mg/dL (0-150) Glucose (Fingerstick) 246 mg/dL (70-99) Microbiology 03/10/19 Blood Culture - Final, Complete NO GROWTH AFTER 5 DAYS 03/14/19 CSF Gram Stain - Final, Complete Medications Current Medications Sodium Chloride 1,000 ml @ 1,000 mls/hr Q1H IV Last administered on 03/06/19 10:40; Start 03/06/19 at 09:30; Stop 03/06/19 at 10:29; Status DC Albuterol/ Ipratropium (Duoneb) 3 ml 1X ONCE NEB Last administered on 03/06/19at 09:20; Start 03/06/19 at 09:30; Stop 03/06/19 at 09:31; Status DC Methylprednisolone Sodium Succinate (SOLU-Medrol 125MG VIAL) 125 mg 1X ONCE IV Last administered on 03/06/19 10:40; Start 03/06/19 at 09:30; Stop 03/06/19 at 09:31; Status DC Pantoprazole Sodium (PROTONIX VIAL for IV PUSH) 80 mg 1X ONCE IVP Last ad ministered on 03/06/19 10:39; Start 03/06/19 at 09:30; Stop 03/06/19 at 09:31; Status DC Sodium Chloride 1,000 ml @ 1,000 mls/hr 1X ONCE IV Last administered on 03/06/19 14:42; Start 03/06/19 at 09:30; Stop 03/06/19 at 10:29; Status DC Vancomycin HCl 250 ml @ 250 mls/hr 1X ONCE IV Last administered on 03/06/19 10:41; Start 03/06/19 at 10:00; Stop 03/06/19 at 10:59; Status DC Levofloxacin/ Dextrose 150 ml @ 100 mls/hr 1X ONCE IV Last administered on 03/06/19 10:41; Start 03/06/19 at 10:00; Stop 03/06/19 at 11:29; Status DC Sodium Chloride 1,000 ml @ 150 mls/hr Q6H40M IV Last administered on 03/07/19 04:31; Start 03/06/19 at 11:10; Stop 03/07/19 at 11:09; Status DC Pantoprazole Sodium 80 mg/ Sodium Chloride 100 ml @ 10 mls/hr Q10H IV Last administered on 03/07/19at 03:12; Start 03/06/19 at 11:30; Stop 03/07/19 at 10:15; Status DC Ondansetron HCl (Zofran) 4 mg PRN Q6HRS PRN IV NAUSEA/VOMITING; Start 03/06/19 at 12:00; Stop 03/07/19 at 14:10; Status DC Labetalol HCl (Normodyne Iv Push) 10 mg PRN Q2HR PRN IVP HYPERTENSION, SEE COMMENTS; Start 03/06/19 at 12:00; Stop 03/07/19 at 14:10; Status DC Morphine Sulfate (Morphine Sulfate) 2 mg PRN Q2HR PRN IV PAIN Last administered on 03/10/19at 01:48; Start 03/06/19 at 12:00 Aspirin (Aspirin) 300 mg DAILY VT Last administered on 03/07/19at 10:12; Start 03/06/19 at 12:30; Stop 03/07/19 at 14:10; Status DC Potassium Chloride/Water 100 ml @ 100 mls/hr Q1H IV Last administered on 03/07/19at 00:24; Start 03/06/19 at 13:00; Stop 03/06/19 at 16:59; Status DC Clindamycin Phosphate 50 ml @ 100 mls/hr Q8HRS IV Last administered on 03/07/19at 06:09; Start 03/06/19 at 14:00; Stop 03/07/19 at 09:10; Status DC Levofloxacin/ Dextrose (Levaquin Per Pharmacy) 1 each PRN DAILY PRN MC SEE COMMENTS; Start 03/06/19 at 13:15; Stop 03/07/19 at 14:10; Status DC Levofloxacin/ Dextrose 50 ml @ 50 mls/hr Q24H IV Last administered on 03/07/19at 08:36; Start 03/07/19 at 09:00; Stop 03/07/19 at 14:10; Status DC Meropenem 500 mg/ Sodium Chloride 50 ml @ 100 mls/hr Q8HRS IV ; Start 03/07/19 at 14:00; Stop 03/07/19 at 14:10; Status DC Vancomycin HCl (Vanco Per Pharmacy) 1 each PRN DAILY PRN MC SEE COMMENTS Last administered on 03/07/19at 13:08; Start 03/07/19 at 09:15; Stop 03/07/19 at 14:10; Status DC Vancomycin HCl 1.75 gm/Sodium Chloride 500 ml @ 250 mls/hr 1X ONCE IV Last administered on 03/07/19at 10:13; Start 03/07/19 at 10:00; Stop 03/07/19 at 14:10; Status DC Pantoprazole Sodium (PROTONIX VIAL for IV PUSH) 40 mg DAILYAC IVP ; Start 03/08/19 at 07:30; Stop 03/08/19 at 07:30; Status DC Vancomycin HCl 1 gm/Sodium Chloride 250 ml @ 250 mls/hr Q24H IV ; Start 03/08/19 at 10:00; Stop 03/08/19 at 10:00; Status DC Vancomycin HCl (Vancomycin Trough Level) 1 each 1X ONCE MC ; Start 03/09/19 at 09:30; Stop 03/09/19 at 09:30; Status DC Scopolamine (Transderm-Scop) 1 patch Q3DAYS TD Last administered on 03/13/19at 08:44; Start 03/07/19 at 15:00 Lorazepam (Ativan) 1 mg PRN Q2HRS PRN IV ANXIETY / AGITATION Last administered on 03/15/19at 08:43; Start 03/07/19 at 14:15 Amino Acids/ Glycerin/ Electrolytes 1,000 ml @ 80 mls/hr [id number] IV Last administered on 03/09/19at 22:12; Start 03/08/19 at 09:30; Stop 03/10/19 at 21:59; Status DC Vancomycin HCl (Vanco Per Pharmacy) 1 each PRN DAILY PRN MC SEE COMMENTS Last administered on 03/09/19at 14:48; Start 03/08/19 at 11:15; Stop 03/09/19 at 15:24; Status DC Meropenem 500 mg/ Sodium Chloride 50 ml @ 100 mls/hr Q8HRS IV Last administered on 03/15/19at 05:59; Start 03/08/19 at 14:00; Stop 03/15/19 at 09:15; Status DC Levofloxacin/ Dextrose (Levaquin Per Pharmacy) 1 each PRN DAILY PRN MC SEE COMMENTS; Start 03/08/19 at 11:15; Stop 03/09/19 at 15:24; Status DC Vancomycin HCl 1 gm/Sodium Chloride 250 ml @ 250 mls/hr Q24H IV Last administered on 03/09/19 13:21; Start 03/08/19 at 12:00; Stop 03/09/19 at 14:05; Status DC Levofloxacin/ Dextrose 150 ml @ 100 mls/hr Q48H IV Last administered on 03/09/19at 08:00; Start 03/09/19 at 09:00; Stop 03/09/19 at 15:24; Status DC Vancomycin HCl (Vancomycin Trough Level) 1 each 1X ONCE MC Last administered on 03/09/19at 11:30; Start 03/09/19 at 11:30; Stop 03/09/19 at 11:31; Status DC Famotidine (Pepcid Vial) 20 mg DAILY IVP Last administered on 03/15/19at 08:20; Start 03/08/19 at 14:00 Acetaminophen (Tylenol Supp) 650 mg PRN Q6HRS PRN VT MILD PAIN / TEMP Last administered on 03/12/19at 08:54; Start 03/08/19 at 19:00 Metoprolol Tartrate (Lopressor Vial) 5 mg 1X ONCE IVP Last administered on 03/09/19at 08:00; Start 03/09/19 at 07:15; Stop 03/09/19 at 07:16; Status DC Metoprolol Tartrate (Lopressor Vial) 5 mg PRN Q4HRS PRN IVP SBP>160 Last administered on 03/10/19at 10:14; Start 03/09/19 at 13:30 Vancomycin HCl 1 gm/Sodium Chloride 250 ml @ 250 mls/hr Q12H IV ; Start 03/10/19 at 00:00; Stop 03/10/19 at 00:00; Status DC Clonidine HCl (Catapres Tts-1) 1 patch WEEKLY TD Last administered on 03/10/19at 05:48; Start 03/10/19 at 06:00; Stop 03/10/19 at 15:38; Status DC Potassium Chloride/Water 50 ml @ 50 mls/hr Q1H IV Last administered on 03/10/19at 10:14; Start 03/10/19 at 08:00; Stop 03/10/19 at 09:59; Status DC Levetiracetam 500 mg/Dextrose 105 ml @ 420 mls/hr 1X STAT IV Last administered on 5/10/19at 08:32; Start 03/10/19 at 08:18; Stop 03/10/19 at 08:32; Status DC Levetiracetam 500 mg/Dextrose 105 ml @ 420 mls/hr Q12HR IV Last administered on 03/15/19at 08:19; Start 03/10/19 at 21:00 Info (Tpn Per Pharmacy) 1 each PRN DAILY PRN MC SEE COMMENTS; Start 03/10/19 at 10:45; Status Cancel Info (Tpn Per Pharmacy) 1 each PRN DAILY PRN MC SEE COMMENTS Last administered on 03/14/19at 13:17; Start 03/10/19 at 10:45 Clonidine HCl (Catapres Tts-2) 1 patch WEEKLY TD Last administered on 03/10/19at 11:14; Start 03/10/19 at 11:00 Sodium Chloride 1,000 ml @ 1,500 mls/hr Q40M IV ; Start 03/10/19 at 10:34; Stop 03/10/19 at 11:33; Status DC Hydralazine HCl (Apresoline Inj) 10 mg PRN Q4HRS PRN IVP ELEVATED BP, SEE COMMENTS Last administered on 03/15/19at 04:15; Start 03/10/19 at 12:15 Hydralazine HCl (Apresoline Inj) 5 mg PRN Q4HRS PRN IVP ELEVATED BP, SEE CO MMENTS Last administered on 03/10/19at 12:36; Start 03/10/19 at 12:15 Sodium Chloride 60 meq/Potassium Chloride 50 meq/ Potassium Acetate 20 meq/Potassium Phosphate 20.4 mmol/Magnesium Sulfate 10 meq/ Calcium Gluconate 10 meq/ Multivitamins 10 ml/Chromium/ Copper/Manganese/ Seleni/Zn 1 ml/ Total Parenteral Nutrition/Amino Acids/Dextrose/ Fat Emulsion Intravenous 1,512 ml @ 63 mls/hr TPN CONT IV Last administered on 03/10/19at 21:35; Start 03/10/19 at 22:00; Stop 03/11/19 at 21:59; Status DC Insulin Human Lispro (HumaLOG) 0-7 UNITS Q6HRS SQ Last administered on 03/14/19at 05:28; Start 03/10/19 at 18:00; Stop 03/14/19 at 10:48; Status DC Dextrose (Dextrose 50%-Water Syringe) 12.5 gm PRN Q15MIN PRN IV SEE COMMENTS; Start 03/10/19 at 15:45 Sodium Acetate 30 meq/Potassium Chloride 40 meq/ Potassium Acetate 50 meq/Potassium Phosphate 18 mmol/ Magnesium Sulfate 5 meq/Calcium Gluconate 10 meq/ Multivitamins 10 ml/Chromium/ Copper/Manganese/ Seleni/Zn 1 ml/ Insulin Human Regular 10 unit/ Total Parenteral Nutrition/Amino Acids/Dextrose/ Fat Emuls... 1,512 ml @ 63 mls/hr TPN CONT IV Last administered on 03/11/19at 21:37; Start 03/11/19 at 22:00; Stop 03/12/19 at 21:59; Status DC Insulin Glargine (Lantus) 10 units QHS SQ Last administered on 03/11/19at 20:48; Start 03/11/19 at 21:00; Stop 03/12/19 at 13:02; Status DC Dextrose 1,000 ml @ 100 mls/hr Q10H IV Last administered on 03/12/19at 08:53; Start 03/12/19 at 08:15; Stop 03/12/19 at 18:14; Status DC Insulin Glargine (Lantus) 20 units QHS SQ Last administered on 03/14/19at 21:17; Start 03/12/19 at 21:00 Potassium Acetate 80 meq/Potassium Phosphate 15 mmol/ Magnesium Sulfate 5 meq/Calcium Gluconate 10 meq/ Multivitamins 10 ml/Chromium/ Copper/Manganese/ Seleni/Zn 1 ml/ Insulin Human Regular 20 unit/ Total Parenteral Nutrition/Amino Acids/Dextrose/ Fat Emulsion Intravenous 2,400 ml @ 100 mls/hr TPN CONT IV ; Start 03/12/19 at 22:00; Stop 03/13/19 at 21:59; Status Cancel Potassium Acetate 80 meq/Potassium Phosphate 15 mmol/ Magnesium Sulfate 5 meq/Calcium Gluconate 10 meq/ Multivitamins 10 ml/Chromium/ Copper/Manganese/ Seleni/Zn 1 ml/ Insulin Human Regular 20 unit/ Total Parenteral Nutrition/Amino Acids/Dextrose/ Fat Emulsion Intravenous 2,000 ml @ 83.333 mls/ hr TPN CONT IV Last administered on 03/12/19at 20:38; Start 03/12/19 at 22:00; Stop 03/13/19 at 21:59; Status DC Enalaprilat (Vasotec Inj) 1.25 mg PRN Q6HRS PRN IVP HYPERTENSION, SEE COMMENTS; Start 03/13/19 at 11:30 Potassium Acetate 80 meq/Potassium Phosphate 15 mmol/ Magnesium Sulfate 5 meq/Calcium Gluconate 10 meq/ Multivitamins 10 ml/Chromium/ Copper/Manganese/ Seleni/Zn 1 ml/ Insulin Human Regular 20 unit/ Total Parenteral Nutrition/Amino Acids/Dextrose/ Fat Emulsion Intravenous 2,000 ml @ 83.333 mls/ hr TPN CONT IV Last administered on 03/13/19at 20:42; Start 03/13/19 at 22:00; Stop 03/14/19 at 21:59; Status DC Aspirin (Aspirin Rectal Supp) 300 mg DAILY VT Last administered on 03/15/19at 08:20; Start 03/13/19 at 16:30 Lidocaine/Sodium Bicarbonate (Buffered Lidocaine 1%) 6 ml 1X ONCE INJ ; Start 03/14/19 at 08:00; Stop 03/14/19 at 08:01; Status DC Insulin Human Lispro (HumaLOG) 0-9 UNITS TIDWMEALS SQ Last administered on 03/14/19at 11:51; Start 03/14/19 at 12:00; Stop 03/14/19 at 16:37; Status DC Dextrose 1,000 ml @ 75 mls/hr [id number] IV Last administered on 03/15/19at 06:00; Start 03/14/19 at 11:00 Potassium Acetate 60 meq/Potassium Phosphate 15 mmol/ Magnesium Sulfate 5 meq/Calcium Gluconate 10 meq/ Multivitamins 10 ml/Chromium/ Copper/Manganese/ Seleni/Zn 1 ml/ Insulin Human Regular 30 unit/ Total Parenteral Nutrition/Amino Acids/Dextrose/ Fat Emulsion Intravenous 1,512 ml @ 63 mls/hr TPN CONT IV Last administered on 03/14/19at 23:43; Start 03/14/19 at 22:00; Stop 03/15/19 at 21:59 Insulin Human Lispro (HumaLOG) 0-9 UNITS Q6HRS SQ Last administered on 03/15/19at 06:03; Start 03/14/19 at 18:00 Ceftriaxone Sodium (Rocephin) 2 gm Q12HR IVP ; Start 03/15/19 at 10:00 Active Scripts Active Reported Potassium Chloride 10 Meq Tab.sr.24h 10 Meq PO DAILY Procardia Xl (Nifedipine) 60 Mg Tab.er.24 1 Tab PO DAILY Zestril (Lisinopril) 40 Mg Tablet 1 Tab PO BID Glucophage Xr (Metformin Hcl) 500 Mg Tab.er.24h 500 Mg PO [id number] Crestor (Rosuvastatin Calcium) 5 Mg Tablet 1 Tab PO DAILY Coreg (Carvedilol) 25 Mg Tablet 25 Mg PO BIDWMEALS Aspir-Low (Aspirin) 81 Mg Tablet. 1 Tab PO DAILY Vitals/I & O Vital Sign - Last 24 Hours 03/14/19 03/14/19 03/14/19 03/14/19 11:00 15:24 19:40 20:00 Temp 97.6 99.2 99.4 97.6 99.2 99.4 Pulse 58 66 22 Resp 22 20 22 B/P (MAP) 169/69 (102) 154/77 (102) 157/89 (111) Pulse Ox 94 98 94 O2 Delivery Room Air Room Air Room Air Room Air 03/14/19 03/14/19 03/15/19 03/15/19 23:30 23:58 00:34 03:00 Temp 99.4 99.4 99.4 99.4 Pulse 73 66 61 60 Resp 22 18 B/P (MAP) 198/82 (120) 188/86 170/73 (105) 150/59 (89) Pulse Ox 94 97 O2 Delivery Room Air Nasal Cannula O2 Flow Rate 2.0 03/15/19 03/15/19 03/15/19 03/15/19 03:45 04:15 07:00 07:53 Temp 99.6 97.8 99.6 97.8 Pulse 65 66 103 Resp 22 32 B/P (MAP) 178/81 (113) 184/75 176/84 (114) Pulse Ox 94 91 O2 Delivery Room Air Room Air Room Air Intake and Output 03/14/19 03/14/19 03/15/19 15:00 23:00 07:00 Intake Total 105 ml 1876 ml Output Total 1050 ml Balance 105 ml 826 ml MIRELLA JONES MD March 15, 2019 10:31
[2019-03-15] MEDS: MORPHINE SULFATE 2 MG/ML VIAL. IV PRN ×2 (10:34→15:27)
[2019-03-15 10:55] VITALS: BP 134/64
--- NOTE | 2019-03-15 10:58 | PDOC ---
PULMONARY PROGRESS NOTES Subjective DOES NOT FOLLOW COMMANDS/ NON RESPONSIVE Vitals Vital Signs Date Time Temp Pulse Resp B/P (MAP) Pulse Ox O2 Delivery O2 Flow Rate FiO2 03/15/19 10:55 99.6 75 34 134/64 (87) 89 Room Air 99.6 03/15/19 10:34 2.0 Lungs: Other (decrease bs) Cardiovascular: S1, S2 Abdomen: Soft Extremities: No Edema Skin: Warm Labs Laboratory Tests Test 03/13/19 12:15 03/13/19 17:56 03/13/19 20:42 03/13/19 22:55 Glucose (Fingerstick) 312 mg/dL (70-99) 288 mg/dL (70-99) 279 mg/dL (70-99) 269 mg/dL (70-99) Test 03/13/19 23:01 03/14/19 05:22 03/14/19 05:30 03/14/19 09:00 Glucose (Fingerstick) 280 mg/dL (70-99) 247 mg/dL (70-99) White Blood Count 13.4 x10^3/uL (4.0-11.0) Red Blood Count 3.04 x10^6/uL (3.50-5.40) Hemoglobin 9.7 g/dL (12.0-15.5) Hematocrit 29.7 % (36.0-47.0) Mean Corpuscular Volume 98 fL (79-100) Mean Corpuscular Hemoglobin 32 pg (25-35) Mean Corpuscular Hemoglobin Concent 33 g/dL (31-37) Red Cell Distribution Width 13.6 % (11.5-14.5) Platelet Count 129 x10^3/uL (140-400) Neutrophils (%) (Auto) 88 % (31-73) Lymphocytes (%) (Auto) 8 % (24-48) Monocytes (%) (Auto) 4 % (0-9) Eosinophils (%) (Auto) 1 % (0-3) Basophils (%) (Auto) 0 % (0-3) Neutrophils # (Auto) 11.8 x10^3uL (1.8-7.7) Lymphocytes # (Auto) 1.0 x10^3/uL (1.0-4.8) Monocytes # (Auto) 0.5 x10^3/uL (0.0-1.1) Eosinophils # (Auto) 0.1 x10^3/uL (0.0-0.7) Basophils # (Auto) 0.0 x10^3/uL (0.0-0.2) Segmented Neutrophils % 88 % (35-66) Band Neutrophils % 3 % (0-9) Lymphocytes % 7 % (24-48) Monocytes % 2 % (0-10) Toxic Granulation Present Platelet Estimate Decreased (ADEQUATE) Sodium Level 156 mmol/L (136-145) Potassium Level 4.2 mmol/L (3.5-5.1) Chloride Level 118 mmol/L (98-107) Carbon Dioxide Level 33 mmol/L (21-32) Anion Gap 5 (6-14) Blood Urea Nitrogen 48 mg/dL (7-20) Creatinine 1.2 mg/dL (0.6-1.0) Estimated GFR (Cockcroft-Gault) 43.4 Glucose Level 274 mg/dL (70-99) Calcium Level 8.5 mg/dL (8.5-10.1) CSF Color Colorless CSF Clarity Clear CSF WBC 2 /cmm (Not Established) CSF RBC 107 /cmm (Not Established) CSF Glucose 113 mg/dL (37-70) CSF Total Protein 161.5 mg/dL (15.0-45.0) Test 03/14/19 11:39 03/14/19 18:12 03/14/19 20:49 03/14/19 23:34 Glucose (Fingerstick) 222 mg/dL (70-99) 337 mg/dL (70-99) 336 mg/dL (70-99) 311 mg/dL (70-99) Test 03/15/19 04:55 03/15/19 05:04 White Blood Count 15.1 x10^3/uL (4.0-11.0) Red Blood Count 3.22 x10^6/uL (3.50-5.40) Hemoglobin 10.2 g/dL (12.0-15.5) Hematocrit 31.1 % (36.0-47.0) Mean Corpuscular Volume 97 fL (79-100) Mean Corpuscular Hemoglobin 32 pg (25-35) Mean Corpuscular Hemoglobin Concent 33 g/dL (31-37) Red Cell Distribution Width 13.5 % (11.5-14.5) Platelet Count 171 x10^3/uL (140-400) Neutrophils (%) (Auto) 87 % (31-73) Lymphocytes (%) (Auto) 8 % (24-48) Monocytes (%) (Auto) 4 % (0-9) Eosinophils (%) (Auto) 1 % (0-3) Basophils (%) (Auto) 1 % (0-3) Neutrophils # (Auto) 13.1 x10^3uL (1.8-7.7) Lymphocytes # (Auto) 1.2 x10^3/uL (1.0-4.8) Monocytes # (Auto) 0.6 x10^3/uL (0.0-1.1) Eosinophils # (Auto) 0.1 x10^3/uL (0.0-0.7) Basophils # (Auto) 0.1 x10^3/uL (0.0-0.2) Sodium Level 151 mmol/L (136-145) Potassium Level 3.4 mmol/L (3.5-5.1) Chloride Level 112 mmol/L (98-107) Carbon Dioxide Level 32 mmol/L (21-32) Anion Gap 7 (6-14) Blood Urea Nitrogen 43 mg/dL (7-20) Creatinine 1.2 mg/dL (0.6-1.0) Estimated GFR (Cockcroft-Gault) 43.4 Glucose Level 289 mg/dL (70-99) Calcium Level 8.3 mg/dL (8.5-10.1) Triglycerides Level 200 mg/dL (0-150) Glucose (Fingerstick) 246 mg/dL (70-99) Laboratory Tests Test 03/14/19 11:39 03/14/19 18:12 03/14/19 20:49 03/14/19 23:34 Glucose (Fingerstick) 222 mg/dL (70-99) 337 mg/dL (70-99) 336 mg/dL (70-99) 311 mg/dL (70-99) Test 03/15/19 04:55 03/15/19 05:04 White Blood Count 15.1 x10^3/uL (4.0-11.0) Red Blood Count 3.22 x10^6/uL (3.50-5.40) Hemoglobin 10.2 g/dL (12.0-15.5) Hematocrit 31.1 % (36.0-47.0) Mean Corpuscular Volume 97 fL (79-100) Mean Corpuscular Hemoglobin 32 pg (25-35) Mean Corpuscular Hemoglobin Concent 33 g/dL (31-37) Red Cell Distribution Width 13.5 % (11.5-14.5) Platelet Count 171 x10^3/uL (140-400) Neutrophils (%) (Auto) 87 % (31-73) Lymphocytes (%) (Auto) 8 % (24-48) Monocytes (%) (Auto) 4 % (0-9) Eosinophils (%) (Auto) 1 % (0-3) Basophils (%) (Auto) 1 % (0-3) Neutrophils # (Auto) 13.1 x10^3uL (1.8-7.7) Lymphocytes # (Auto) 1.2 x10^3/uL (1.0-4.8) Monocytes # (Auto) 0.6 x10^3/uL (0.0-1.1) Eosinophils # (Auto) 0.1 x10^3/uL (0.0-0.7) Basophils # (Auto) 0.1 x10^3/uL (0.0-0.2) Sodium Level 151 mmol/L (136-145) Potassium Level 3.4 mmol/L (3.5-5.1) Chloride Level 112 mmol/L (98-107) Carbon Dioxide Level 32 mmol/L (21-32) Anion Gap 7 (6-14) Blood Urea Nitrogen 43 mg/dL (7-20) Creatinine 1.2 mg/dL (0.6-1.0) Estimated GFR (Cockcroft-Gault) 43.4 Glucose Level 289 mg/dL (70-99) Calcium Level 8.3 mg/dL (8.5-10.1) Triglycerides Level 200 mg/dL (0-150) Glucose (Fingerstick) 246 mg/dL (70-99) Medications Active Scripts Medications Dose Route/Sig Max Daily Dose Days Date Category Potassium Chloride 10 Meq Tab.sr.24h 10 Meq PO DAILY 03/06/19 Reported Procardia Xl (Nifedipine) 60 Mg Tab.er.24 1 Tab PO DAILY 03/06/19 Reported Zestril (Lisinopril) 40 Mg Tablet 1 Tab PO BID 03/06/19 Reported Glucophage Xr (Metformin Hcl) 500 Mg Tab.er.24h 500 Mg PO DAILYWBKFT 03/06/19 Reported Crestor (Rosuvastatin Calcium) 5 Mg Tablet 1 Tab PO DAILY 03/06/19 Reported Coreg (Carvedilol) 25 Mg Tablet 25 Mg PO BIDWMEALS 03/06/19 Reported Aspir-Low (Aspirin) 81 Mg Tablet.dr 1 Tab PO DAILY 03/06/19 Reported Impression . IMPRESSION: 1. Acute hypoxic respiratory failure secondary to aspiration pneumonia from DYSPHAGIA 2. Acute metabolic encephalopathy secondary to ischemic stroke. SEE NEURO NOTE 3. CVA PER MRI .NO CEREBRAL EDEMA 4. Abnormal CXR consistent with right lung aspiration pneumonia. 5. GPC Sepsis ,Strep Bacteremia POA 02/02 bottles, prelim strep , MYRON pending, source unknown 6. SEIZURES 7. DYSPHAGIA Plan . RESP STATUS HAS DECLINED/ NON RESPONSIVE FAMILY AT BED SIDE. AGREE FOR COMFORT CARE WILL S/O D/W KJ PALOMINO MD March 15, 2019 10:58
--- NOTE | 2019-03-15 11:13 | PDOC2 ---
PALLIATIVE CARE Palliative Care Note Palliative Care Patient unresponsive. Moving mouth, upper extremities spontaneously. Veronica/daughter at bedside. Understands her mother has declined significantly. Discussed IP Hospice with [facility]. Would like evaluation now Carolina MCKEON will fax information to [facility]. WILFREDO MORENO March 15, 2019 11:13
--- NOTE | 2019-03-15 11:39 | PDOC ---
Subjective: Subjective: Daughter says worse today - agitated overnight, now unresponsive. Objective: Objective: D/w RN, social work, Pat/PC. Vital Signs: Vital Signs Date Time Temp Pulse Resp B/P (MAP) Pulse Ox O2 Delivery O2 Flow Rate FiO2 03/15/19 11:15 28 96 Nasal Cannula 1.0 03/15/19 10:55 99.6 75 134/64 (87) 99.6 Labs: Laboratory Tests Test 03/14/19 11:39 03/14/19 18:12 03/14/19 20:49 03/14/19 23:34 Glucose (Fingerstick) 222 mg/dL 337 mg/dL 336 mg/dL 311 mg/dL Test 03/15/19 04:55 03/15/19 05:04 White Blood Count 15.1 x10^3/uL Red Blood Count 3.22 x10^6/uL Hemoglobin 10.2 g/dL Hematocrit 31.1 % Mean Corpuscular Volume 97 fL Mean Corpuscular Hemoglobin 32 pg Mean Corpuscular Hemoglobin Concent 33 g/dL Red Cell Distribution Width 13.5 % Platelet Count 171 x10^3/uL Neutrophils (%) (Auto) 87 % Lymphocytes (%) (Auto) 8 % Monocytes (%) (Auto) 4 % Eosinophils (%) (Auto) 1 % Basophils (%) (Auto) 1 % Neutrophils # (Auto) 13.1 x10^3uL Lymphocytes # (Auto) 1.2 x10^3/uL Monocytes # (Auto) 0.6 x10^3/uL Eosinophils # (Auto) 0.1 x10^3/uL Basophils # (Auto) 0.1 x10^3/uL Sodium Level 151 mmol/L Potassium Level 3.4 mmol/L Chloride Level 112 mmol/L Carbon Dioxide Level 32 mmol/L Anion Gap 7 Blood Urea Nitrogen 43 mg/dL Creatinine 1.2 mg/dL Estimated GFR (Cockcroft-Gault) 43.4 Glucose Level 289 mg/dL Calcium Level 8.3 mg/dL Triglycerides Level 200 mg/dL Glucose (Fingerstick) 246 mg/dL BLOOD CULTURE Final NO GROWTH AFTER 5 DAYS PE: GEN: NAD LUNGS: NC, tachypneic NEURO/PSYCH: unresponsive A/P: CVA, seizures, resp failure, bacteremia -- Plans for Hospice eval. ADELAIDE SAMSON 15, 2019 11:39
[2019-03-15] MEDS: TPN PER PHARMACY MC PRN (13:06)
--- NOTE | 2019-03-15 13:06 | NUR ---
Pharmacy TPN Dosing Note S: KEMI PASCUAL is a 79 year old F Currently receiving Central Continuous TPN started 03/10/19 B:Pertinent PMH: pt unable to pass swallow study, doesn't want peg yet Height: 5 feet, 2 inches Weight: 69.595579 kg Current diet: npo LABS: Sodium: 151 Potassium: 3.4 Chloride: 112 Calcium: 8.3 Corrected Calcium: 10.14 Magnesium: 2.5 CO2: 32 SCr: 1.2 Glucose: 246-335 Albumin: 1.7 AST: 27 ALT: 28 TPN FORMULA: TPN TYPE: Central Continuous AMINO ACIDS: 65 gm DEXTROSE: 250 gm LIPIDS: 20 gm SODIUM CHLORIDE: - mEq SODIUM ACETATE: - mEq SODIUM PHOSPHATE: - mmol POTASSIUM CHLORIDE: - mEq POTASSIUM ACETATE: 90 mEq POTASSIUM PHOSPHATE: 15 mmol MAGNESIUM: 5 mEq CALCIUM: 10 mEq INSULIN: 40 units MULTIPLE VITAMIN: 10 ml TRACE ELEMENTS: mte5 1ml ml(s) TPN PLAN: -Na elevated but improving, reamins on D5W@75ml/h started per nephrology. -Glucose quite elevated w/ addition of D5W, will increase insulin to 40 units -Large drop in K w/ only very slight reduction in KAce from TPN yesterday, will bump KAce to 90 mEq -BMP, Mag, Phos in the am R: Continue TPN as written above. Will monitor electrolytes, glucose, and tolerance to TPN. CALLUM LILLY [facility], 03/15/19 [id number]
--- NOTE | 2019-03-15 13:30 | PDOC ---
PROGRESS NOTES Assessment Assessment Acute/subacute bilateral infarcts, right parietal infarct and left temporal lobes, embolic etiology. Encephalitis not likely. Ventriculitis can be ruled out. Seizure. Metabolic encephalopathy. Lactic acidosis. Renal failure. Hypernatremia. DM. HTN. CAD, s/p CABG. 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 RECOMMENDATIONS/PLAN: ASA 300 mg rectal daily. Continue Keppra. Correct electrolytes imbalances. Control hyperglycemia. Treat medical diseases. Discussed with her daughter in detail at bedside on 03/15/19. Brain MRI on 03/13/19: Bilateral infarct, and new right parietal infarct. Carotid A US + Doppler: No high grade stenosis. Echo; Refer to reports. Lipid penal: WNL. CSF on 03/14/19: WBC 2, RBC 107, glucose 113, protein 161.5. Gram stain negative. Past Medical History Cardiovascular: CAD, HTN, [place] Endocrine: Diabetes Past Surgical History CABG Family History CVA Social History , rare alcohol, no tobacco, retired, very active Allergies Coded Allergies: Penicillins (Verified Allergy, Intermediate, 03/06/19) ROS Negative for fever, chills, weight loss, shortness of breath, chest pain, indigestion, hematochezia, melena, and dysuria. Full 14-point review of systems is negative. PHYSICAL EXAMINATION: General appearance in subacute distress. HEENT: Normocephalic and nontraumatic. Eyes, nose, ears, and throat are unremarkable. Hearing decrease. Neck is supple. No lymphadenopathy. No bruits are heard over the carotid artery. No Crepitus. Cardiovascular: S1, S2, regular rate and rhythm. Pulmonary: Mildly decreased to auscultation bilaterally. Abdomen: Bowel sounds are positive. Extremities: No rash, lesions, or edema. No restriction of range of motion NEUROLOGICAL EXAMINATION: Lethargic. Not oriented to time, place and person. PERRL. EOMI not elicited due to not follow commands. CN: no focal findings. Muscle tone: decreased.. Muscle strength: Moves all extremities to stimuli. DTR: 1 Plantar reflex: Neutral response bilaterally Gait: Unable to walk. Sensory exam: Withdraw response to stimuli. Not able to access cerebellar signs due to not able to follow commands. F-T-N test not performed due to not follow commands. Objective Objective Vital Signs Date Time Temp Pulse Resp B/P (MAP) Pulse Ox O2 Delivery O2 Flow Rate FiO2 03/15/19 11:15 28 96 Nasal Cannula 1.0 03/15/19 10:55 99.6 75 134/64 (87) 99.6 Intake and Output 03/15/19 06:59 Intake Total 1981 ml Output Total 1050 ml Balance 931 ml Intake Oral 0 ml IV Total 1981 ml Output Urine Total 1050 ml Vitals Signs Vitals VS - Last 72 Hours, by Label Date Time Temp Pulse Resp B/P (MAP) Pulse Ox O2 Delivery O2 Flow Rate FiO2 03/15/19 11:15 28 96 Nasal Cannula 1.0 03/15/19 10:55 99.6 75 34 134/64 (87) 89 Room Air 99.6 03/15/19 10:34 92 Nasal Cannula 2.0 03/15/19 07:53 Room Air 03/15/19 07:00 97.8 103 32 176/84 (114) 91 Room Air 97.8 03/15/19 04:15 66 184/75 03/15/19 03:45 99.6 65 22 178/81 (113) 94 Room Air 99.6 03/15/19 03:00 99.4 60 18 150/59 (89) 97 Nasal Cannula 2.0 99.4 03/15/19 00:34 61 170/73 (105) 03/14/19 23:58 66 188/86 03/14/19 23:30 99.4 73 22 198/82 (120) 94 Room Air 99.4 03/14/19 20:00 Room Air 03/14/19 19:40 99.4 22 22 157/89 (111) 94 Room Air 99.4 03/14/19 15:24 99.2 66 20 154/77 (102) 98 Room Air 99.2 03/14/19 11:00 97.6 58 22 169/69 (102) 94 Room Air 97.6 03/14/19 08:00 Nasal Cannula 2.0 03/14/19 07:00 97.6 58 20 151/71 (97) 98 Nasal Cannula 3.0 97.6 Laboratory Laboratory Laboratory Tests Test 03/14/19 18:12 03/14/19 20:49 03/14/19 23:34 03/15/19 04:55 Glucose (Fingerstick) 337 mg/dL (70-99) 336 mg/dL (70-99) 311 mg/dL (70-99) White Blood Count 15.1 x10^3/uL (4.0-11.0) Red Blood Count 3.22 x10^6/uL (3.50-5.40) Hemoglobin 10.2 g/dL (12.0-15.5) Hematocrit 31.1 % (36.0-47.0) Mean Corpuscular Volume 97 fL (79-100) Mean Corpuscular Hemoglobin 32 pg (25-35) Mean Corpuscular Hemoglobin Concent 33 g/dL (31-37) Red Cell Distribution Width 13.5 % (11.5-14.5) Platelet Count 171 x10^3/uL (140-400) Neutrophils (%) (Auto) 87 % (31-73) Lymphocytes (%) (Auto) 8 % (24-48) Monocytes (%) (Auto) 4 % (0-9) Eosinophils (%) (Auto) 1 % (0-3) Basophils (%) (Auto) 1 % (0-3) Neutrophils # (Auto) 13.1 x10^3uL (1.8-7.7) Lymphocytes # (Auto) 1.2 x10^3/uL (1.0-4.8) Monocytes # (Auto) 0.6 x10^3/uL (0.0-1.1) Eosinophils # (Auto) 0.1 x10^3/uL (0.0-0.7) Basophils # (Auto) 0.1 x10^3/uL (0.0-0.2) Sodium Level 151 mmol/L (136-145) Potassium Level 3.4 mmol/L (3.5-5.1) Chloride Level 112 mmol/L (98-107) Carbon Dioxide Level 32 mmol/L (21-32) Anion Gap 7 (6-14) Blood Urea Nitrogen 43 mg/dL (7-20) Creatinine 1.2 mg/dL (0.6-1.0) Estimated GFR (Cockcroft-Gault) 43.4 Glucose Level 289 mg/dL (70-99) Calcium Level 8.3 mg/dL (8.5-10.1) Triglycerides Level 200 mg/dL (0-150) Test 03/15/19 05:04 03/15/19 12:02 Glucose (Fingerstick) 246 mg/dL (70-99) 335 mg/dL (70-99) Microbiology 03/10/19 Blood Culture - Final, Complete NO GROWTH AFTER 5 DAYS 03/14/19 CSF Gram Stain - Final, Complete Medication Medications Current Medications Ceftriaxone Sodium (Rocephin) 2 gm Q12HR IVP Last administered on 03/15/19at 10:28; Start 03/15/19 at 10:00 Insulin Human Lispro (HumaLOG) 0-9 UNITS Q6HRS SQ Last administered on 03/15/19at 12:12; Start 03/14/19 at 18:00 Potassium Acetate 60 meq/Potassium Phosphate 15 mmol/ Magnesium Sulfate 5 meq /Calcium Gluconate 10 meq/ Multivitamins 10 ml/Chromium/ Copper/Manganese/ Seleni/Zn 1 ml/ Insulin Human Regular 30 unit/ Total Parenteral Nutrition/Amino Acids/Dextrose/ Fat Emulsion Intravenous 1,512 ml @ 63 mls/hr TPN CONT IV Last administered on 03/14/19at 23:43; Start 03/14/19 at 22:00; Stop 03/15/19 at 21:59 Potassium Acetate 90 meq/Potassium Phosphate 15 mmol/ Magnesium Sulfate 5 meq/Calcium Gluconate 10 meq/ Multivitamins 10 ml/Chromium/ Copper/Manganese/ Seleni/Zn 1 ml/ Insulin Human Regular 40 unit/ Total Parenteral Nutrition/Amino Acids/Dextrose/ Fat Emulsion Intravenous 1,512 ml @ 63 mls/hr TPN CONT IV ; Start 03/15/19 at 22:00; Stop 03/16/19 at 21:59 Comment Review of Relevant I have reviewed the following items rich (where applicable) has been applied. MARTHA MUNGUIA MD March 15, 2019 13:30
--- NOTE | 2019-03-15 14:25 | PDOC3 ---
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 Would like evaluation 03/15 and admit History of Present Illness History of Present Illness Patient seen and examined Patient unable to phonate MRI showed multiple new bilateral infarctions new foci of recent infarcts in a bilateral distribution as stated with the largest of the right parietal lobe, unchanged tiny focus left temporal lobe. There is some residual although somewhat less apparent signal abnormality dependently in the occipital horns greater on the right again which may be due to debris such as related to ventriculitis in the appropriate clinical setting, again not associated with significant hemosiderin deposition to confidently suggest intraventricular hemorrhage. LP showed elevated protein and glucose, awaiting full results Electrolyte abnormalities mildly improved Discussed with daughter and son- talked to them about prognosis and expectations Discussed with nurse following neurology, r/o encephalitis vs ventriculitis 33 MIN PT EXAM d/c planning, CHART REVIEW, > 50% time spent with exam, chart review pt care coordination Vitals Vitals Vital Signs Date Time Temp Pulse Resp B/P (MAP) Pulse Ox O2 Delivery O2 Flow Rate FiO2 03/15/19 07:53 Room Air 03/15/19 07:00 97.8 103 32 176/84 (114) 91 97.8 03/15/19 03:00 2.0 Physical Exam Physical Exam GENERAL: Confused and s/p Ativan now HEENT: oral cavity dry NECK: No JVD. flexed some LUNGS: Decreased breath sounds lower lobes, nonlabored HEART: S1, S2, ABDOMEN: Obese, soft, nontender, no guarding, BS active. No rebound : Mendez 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, no cyanosis. 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 Comparison: March 08, 2019 Findings: There is motion degradation. There are new foci of restricted diffusion including 2 small foci of the left parietal cortical surface, 1.4 cm longitudinal focus of the right parietal cortical surface, 0.8 cm focus of right frontal cortical surface, tiny 0.2 cm focus of the right frontal cortical surface previously seen tiny focus of restricted diffusion left temporal cortical surface is similar. There is mild dependent signal abnormality in the occipital horns greater on the right, slightly less apparent especially on the left. Ventricular size is similar, ventricles not considered significantly dilated. There is no new midline shift or new significant extra-axial fluid collection. Mild T2 and FLAIR hyperintense signal of the periventricular white matter greater on the left is similar, also minimally of the left temporal lobe. There is again mild volume loss of the left temporal lobe extending to the posterior left insula and operculum. There is again tiny focus of old hemosiderin deposition of the left centrum semiovale. There has been lens surgery bilaterally. Right vertebral artery flow-void is again not seen. There is again patchy fluid and thickening of the mastoid air cells bilaterally although greater. There is again patchy moderate ethmoid air cell mucosal thickening, minimally of the sphenoid sinus. Cerebellar tonsils are normal in location. There is preserved marrow signal of the clivus. Impression: 1. Comparing with March 2019 exam, there are new foci of recent infarcts in a bilateral distribution as stated with the largest of the right parietal lobe, unchanged tiny focus left temporal lobe. There is some residual although somewhat less apparent signal abnormality dependently in the occipital horns greater on the right again which may be due to debris such as related to ventriculitis in the appropriate clinical setting, again not associated with significant hemosiderin deposition to confidently suggest intraventricular hemorrhage. 2. There is again other mild T2 and FLAIR hyperintense signal abnormality of the supratentorial parenchyma, nonspecific findings possibly related to chronic microvascular ischemic disease. There is again mild T2 and FLAIR hyperintense signal of the left temporal lobe also unchanged. There is again mild volume loss of the left temporal lobe extending to posterior left insula and operculum which may be due to old infarct. 3. There is increased fluid and thickening of the mastoid air cells bilaterally. Laboratory Tests FINAL DIAGNOSIS Problems Medical Problems: (1) Acute ischemic cerebrovascular accident (CVA) involving middle cerebral artery territory Status: Acute (2) Acute renal insufficiency Status: Acute (3) Acute respiratory distress Status: Acute (4) CHF (congestive heart failure) Status: Acute (5) GI bleeding Status: Acute (6) Hypokalemia Status: Acute (7) Severe sepsis Status: Acute Brief Hospital Course Ms. Matthew is a 79 old [sex] who presented with [cva, acute ] CONDITION AT DISCHARGE: Comment (poor prognosis) Discharge Medications Current Medications Sodium Chloride 1,000 ml @ 1,000 mls/hr Q1H IV Last administered on 03/06/19 10:40; Start 03/06/19 at 09:30; Stop 03/06/19 at 10:29; Status DC Albuterol/ Ipratropium (Duoneb) 3 ml 1X ONCE NEB Last administered on 03/06/19at 09:20; Start 03/06/19 at 09:30; Stop 03/06/19 at 09:31; Status DC Methylprednisolone Sodium Succinate (SOLU-Medrol 125MG VIAL) 125 mg 1X ONCE IV Last administered on 03/06/19 10:40; Start 03/06/19 at 09:30; Stop 03/06/19 at 09:31; Status DC Pantoprazole Sodium (PROTONIX VIAL for IV PUSH) 80 mg 1X ONCE IVP Last administered on 03/06/19 10:39; Start 03/06/19 at 09:30; Stop 03/06/19 at 09:31; Status DC Sodium Chloride 1,000 ml @ 1,000 mls/hr 1X ONCE IV Last administered on 03/06/19at 14:42; Start 03/06/19 at 09:30; Stop 03/06/19 at 10:29; Status DC Vancomycin HCl 250 ml @ 250 mls/hr 1X ONCE IV Last administered on 03/06/19at 1 0:41; Start 03/06/19 at 10:00; Stop 03/06/19 at 10:59; Status DC Levofloxacin/ Dextrose 150 ml @ 100 mls/hr 1X ONCE IV Last administered on 03/06/19at 10:41; Start 03/06/19 at 10:00; Stop 03/06/19 at 11:29; Status DC Sodium Chloride 1,000 ml @ 150 mls/hr Q6H40M IV Last administered on 03/07/19at 04:31; Start 03/06/19 at 11:10; Stop 03/07/19 at 11:09; Status DC Pantoprazole Sodium 80 mg/ Sodium Chloride 100 ml @ 10 mls/hr Q10H IV Last administered on 03/07/19at 03:12; Start 03/06/19 at 11:30; Stop 03/07/19 at 10:15; Status DC Ondansetron HCl (Zofran) 4 mg PRN Q6HRS PRN IV NAUSEA/VOMITING; Start 03/06/19 at 12:00; Stop 03/07/19 at 14:10; Status DC Labetalol HCl (Normodyne Iv Push) 10 mg PRN Q2HR PRN IVP HYPERTENSION, SEE COMMENTS; Start 03/06/19 at 12:00; Stop 03/07/19 at 14:10; Status DC Morphine Sulfate (Morphine Sulfate) 2 mg PRN Q2HR PRN IV PAIN Last administered on 03/15/19at 10:34; Start 03/06/19 at 12:00 Aspirin (Aspirin) 300 mg DAILY LA Last administered on 03/07/19at 10:12; Start 03/06/19 at 12:30; Stop 03/07/19 at 14:10; Status DC Potassium Chloride/Water 100 ml @ 100 mls/hr Q1H IV Last administered on 03/07/19at 00:24; Start 03/06/19 at 13:00; Stop 03/06/19 at 16:59; Status DC Clindamycin Phosphate 50 ml @ 100 mls/hr Q8HRS IV Last administered on 03/07/19at 06:09; Start 03/06/19 at 14:00; Stop 03/07/19 at 09:10; Status DC Levofloxacin/ Dextrose (Levaquin Per Pharmacy) 1 each PRN DAILY PRN MC SEE COMMENTS; Start 03/06/19 at 13:15; Stop 03/07/19 at 14:10; Status DC Levofloxacin/ Dextrose 50 ml @ 50 mls/hr Q24H IV Last administered on 03/07/19at 08:36; Start 03/07/19 at 09:00; Stop 03/07/19 at 14:10; Status DC Meropenem 500 mg/ Sodium Chloride 50 ml @ 100 mls/hr Q8HRS IV ; Start 03/07/19 at 14:00; Stop 03/07/19 at 14:10; Status DC Vancomycin HCl (Vanco Per Pharmacy) 1 each PRN DAILY PRN MC SEE COMMENTS Last administered on 03/07/19at 13:08; Start 03/07/19 at 09:15; Stop 03/07/19 at 14:10; Status DC Vancomycin HCl 1.75 gm/Sodium Chloride 500 ml @ 250 mls/hr 1X ONCE IV Last administered on 03/07/19at 10:13; Start 03/07/19 at 10:00; Stop 03/07/19 at 14:10; Status DC Pantoprazole Sodium (PROTONIX VIAL for IV PUSH) 40 mg DAILYAC IVP ; Start 03/08/19 at 07:30; Stop 03/08/19 at 07:30; Status DC Vancomycin HCl 1 gm/Sodium Chloride 250 ml @ 250 mls/hr Q24H IV ; Start 03/08/19 at 10:00; Stop 03/08/19 at 10:00; Status DC Vancomycin HCl (Vancomycin Trough Level) 1 each 1X ONCE MC ; Start 03/09/19 at 09:30; Stop 03/09/19 at 09:30; Status DC Scopolamine (Transderm-Scop) 1 patch Q3DAYS TD Last administered on 03/13/19at 08:44; Start 03/07/19 at 15:00 Lorazepam (Ativan) 1 mg PRN Q2HRS PRN IV ANXIETY / AGITATION Last administered on 03/15/19at 08:43; Start 03/07/19 at 14:15 Amino Acids/ Glycerin/ Electrolytes 1,000 ml @ 80 mls/hr [id number] IV Last administered on 03/09/19at 22:12; Start 03/08/19 at 09:30; Stop 03/10/19 at 21:59; Status DC Vancomycin HCl (Vanco Per Pharmacy) 1 each PRN DAILY PRN MC SEE COMMENTS Last administered on 03/09/19at 14:48; Start 03/08/19 at 11:15; Stop 03/09/19 at 15:24; Status DC Meropenem 500 mg/ Sodium Chloride 50 ml @ 100 mls/hr Q8HRS IV Last administered on 03/15/19 05:59; Start 03/08/19 at 14:00; Stop 03/15/19 at 09:15; Status DC Levofloxacin/ Dextrose (Levaquin Per Pharmacy) 1 each PRN DAILY PRN MC SEE COMMENTS; Start 03/08/19 at 11:15; Stop 03/09/19 at 15:24; Status DC Vancomycin HCl 1 gm/Sodium Chloride 250 ml @ 250 mls/hr Q24H IV Last administered on 03/09/19at 13:21; Start 03/08/19 at 12:00; Stop 03/09/19 at 14:05; Status DC Levofloxacin/ Dextrose 150 ml @ 100 mls/hr Q48H IV Last administered on 03/09/19 08:00; Start 03/09/19 at 09:00; Stop 03/09/19 at 15:24; Status DC Vancomycin HCl (Vancomycin Trough Level) 1 each 1X ONCE MC Last administered on 03/09/19at 11:30; Start 03/09/19 at 11:30; Stop 03/09/19 at 11:31; Status DC Famotidine (Pepcid Vial) 20 mg DAILY IVP Last administered on 03/15/19 08:20; Start 03/08/19 at 14:00 Acetaminophen (Tylenol Supp) 650 mg PRN Q6HRS PRN LA MILD PAIN / TEMP Last administered on 03/12/19 08:54; Start 03/08/19 at 19:00 Metoprolol Tartrate (Lopressor Vial) 5 mg 1X ONCE IVP Last administered on 03/09/19at 08:00; Start 03/09/19 at 07:15; Stop 03/09/19 at 07:16; Status DC Metoprolol Tartrate (Lopressor Vial) 5 mg PRN Q4HRS PRN IVP SBP>160 Last administered on 03/10/19at 10:14; Start 03/09/19 at 13:30 Vancomycin HCl 1 gm/Sodium Chloride 250 ml @ 250 mls/hr Q12H IV ; Start 03/10/19 at 00:00; Stop 03/10/19 at 00:00; Status DC Clonidine HCl (Catapres Tts-1) 1 patch WEEKLY TD Last administered on 5/10/19at 05:48; Start 03/10/19 at 06:00; Stop 03/10/19 at 15:38; Status DC Potassium Chloride/Water 50 ml @ 50 mls/hr Q1H IV Last administered on 03/10/19at 10:14; Start 03/10/19 at 08:00; Stop 03/10/19 at 09:59; Status DC Levetiracetam 500 mg/Dextrose 105 ml @ 420 mls/hr 1X STAT IV Last administered on 03/10/19at 08:32; Start 03/10/19 at 08:18; Stop 03/10/19 at 08:32; Status DC Levetiracetam 500 mg/Dextrose 105 ml @ 420 mls/hr Q12HR IV Last administered on 03/15/19at 08:19; Start 03/10/19 at 21:00 Info (Tpn Per Pharmacy) 1 each PRN DAILY PRN MC SEE COMMENTS; Start 03/10/19 at 10:45; Status Cancel Info (Tpn Per Pharmacy) 1 each PRN DAILY PRN MC SEE COMMENTS Last administered on 03/15/19at 13:06; Start 03/10/19 at 10:45 Clonidine HCl (Catapres Tts-2) 1 patch WEEKLY TD Last administered on 03/10/19at 11:14; Start 03/10/19 at 11:00 Sodium Chloride 1,000 ml @ 1,500 mls/hr Q40M IV ; Start 03/10/19 at 10:34; Stop 03/10/19 at 11:33; Status DC Hydralazine HCl (Apresoline Inj) 10 mg PRN Q4HRS PRN IVP ELEVATED BP, SEE COMMENTS Last administered on 03/15/19at 04:15; Start 03/10/19 at 12:15 Hydralazine HCl (Apresoline Inj) 5 mg PRN Q4HRS PRN IVP ELEVATED BP, SEE COMMENTS Last administered on 03/10/19at 12:36; Start 03/10/19 at 12:15 Sodium Chloride 60 meq/Potassium Chloride 50 meq/ Potassium Acetate 20 meq/Potassium Phosphate 20.4 mmol/Magnesium Sulfate 10 meq/ Calcium Gluconate 10 meq/ Multivitamins 10 ml/Chromium/ Copper/Manganese/ Seleni/Zn 1 ml/ Total Parenteral Nutrition/Amino Acids/Dextrose/ Fat Emulsion Intravenous 1,512 ml @ 63 mls/hr TPN CONT IV Last administered on 03/10/19at 21:35; Start 03/10/19 at 22:00; Stop 03/11/19 at 21:59; Status DC Insulin Human Lispro (HumaLOG) 0-7 UNITS Q6HRS SQ Last administered on 03/01 02/17at 05:28; Start 03/10/19 at 18:00; Stop 03/14/19 at 10:48; Status DC Dextrose (Dextrose 50%-Water Syringe) 12.5 gm PRN Q15MIN PRN IV SEE COMMENTS; Start 03/10/19 at 15:45 Sodium Acetate 30 meq/Potassium Chloride 40 meq/ Potassium Acetate 50 meq/Potas sium Phosphate 18 mmol/ Magnesium Sulfate 5 meq/Calcium Gluconate 10 meq/ Multivitamins 10 ml/Chromium/ Copper/Manganese/ Seleni/Zn 1 ml/ Insulin Human Regular 10 unit/ Total Parenteral Nutrition/Amino Acids/Dextrose/ Fat Emuls... 1,512 ml @ 63 mls/hr TPN CONT IV Last administered on 03/11/19at 21:37; Start 03/11/19 at 22:00; Stop 03/12/19 at 21:59; Status DC Insulin Glargine (Lantus) 10 units QHS SQ Last administered on 03/11/19at 20:48; Start 03/11/19 at 21:00; Stop 03/12/19 at 13:02; Status DC Dextrose 1,000 ml @ 100 mls/hr Q10H IV Last administered on 03/12/19at 08:53; Start 03/12/19 at 08:15; Stop 03/12/19 at 18:14; Status DC Insulin Glargine (Lantus) 20 units QHS SQ Last administered on 03/14/19at 21:17; Start 03/12/19 at 21:00 Potassium Acetate 80 meq/Potassium Phosphate 15 mmol/ Magnesium Sulfate 5 meq/Calcium Gluconate 10 meq/ Multivitamins 10 ml/Chromium/ Copper/Manganese/ Seleni/Zn 1 ml/ Insulin Human Regular 20 unit/ Total Parenteral Nutrition/Amino Acids/Dextrose/ Fat Emulsion Intravenous 2,400 ml @ 100 mls/hr TPN CONT IV ; Start 03/12/19 at 22:00; Stop 03/13/19 at 21:59; Status Cancel Potassium Acetate 80 meq/Potassium Phosphate 15 mmol/ Magnesium Sulfate 5 meq/Calcium Gluconate 10 meq/ Multivitamins 10 ml/Chromium/ Copper/Manganese/ Seleni/Zn 1 ml/ Insulin Human Regular 20 unit/ Total Parenteral Nutrition/Amino Acids/Dextrose/ Fat Emulsion Intravenous 2,000 ml @ 83.333 mls/ hr TPN CONT IV Last administered on 03/12/19at 20:38; Start 03/12/19 at 22:00; Stop 03/13/19 at 21:59; Status DC Enalaprilat (Vasotec Inj) 1.25 mg PRN Q6HRS PRN IVP HYPERTENSION, SEE COMMENTS; Start 03/13/19 at 11:30 Potassium Acetate 80 meq/Potassium Phosphate 15 mmol/ Magnesium Sulfate 5 meq/Calcium Gluconate 10 meq/ Multivitamins 10 ml/Chromium/ Copper/Manganese/ Seleni/Zn 1 ml/ Insulin Human Regular 20 unit/ Total Parenteral Nutrition/Amino Acids/Dextrose/ Fat Emulsion Intravenous 2,000 ml @ 83.333 mls/ hr TPN CONT IV Last administered on 03/13/19at 20:42; Start 03/13/19 at 22:00; Stop 03/14/19 at 21:59; Status DC Aspirin (Aspirin Rectal Supp) 300 mg DAILY LA Last administered on 03/15/19at 08:20; Start 03/13/19 at 16:30 Lidocaine/Sodium Bicarbonate (Buffered Lidocaine 1%) 6 ml 1X ONCE INJ ; Start 03/14/19 at 08:00; Stop 03/14/19 at 08:01; Status DC Insulin Human Lispro (HumaLOG) 0-9 UNITS TIDWMEALS SQ Last administered on 03/14/19at 11:51; Start 03/14/19 at 12:00; Stop 03/14/19 at 16:37; Status DC Dextrose 1,000 ml @ 75 mls/hr [id number] IV Last administered on 03/15/19at 06:00; Start 03/14/19 at 11:00 Potassium Acetate 60 meq/Potassium Phosphate 15 mmol/ Magnesium Sulfate 5 meq/Calcium Gluconate 10 meq/ Multivitamins 10 ml/Chromium/ Copper/Manganese/ Seleni/Zn 1 ml/ Insulin Human Regular 30 unit/ Total Parenteral Nutrition/Amino Acids/Dextrose/ Fat Emulsion Intravenous 1,512 ml @ 63 mls/hr TPN CONT IV Last administered on 03/14/19at 23:43; Start 03/14/19 at 22:00; Stop 03/15/19 at 21:59 Insulin Human Lispro (HumaLOG) 0-9 UNITS Q6HRS SQ Last administered on 03/15/19at 12:12; Start 03/14/19 at 18:00 Ceftriaxone Sodium (Rocephin) 2 gm Q12HR IVP Last administered on 03/15/19at 10:28; Start 03/15/19 at 10:00 Potassium Acetate 90 meq/Potassium Phosphate 15 mmol/ Magnesium Sulfate 5 meq/Calcium Gluconate 10 meq/ Multivitamins 10 ml/Chromium/ Copper/Manganese/ Seleni/Zn 1 ml/ Insulin Human Regular 40 unit/ Total Parenteral Nutrition/Amino Acids/Dextrose/ Fat Emulsion Intravenous 1,512 ml @ 63 mls/hr TPN CONT IV ; Start 03/15/19 at 22:00; Stop 03/16/19 at 21:59 Active Scripts Active Reported Potassium Chloride 10 Meq Tab.sr.24h 10 Meq PO DAILY Procardia Xl (Nifedipine) 60 Mg Tab.er.24 1 Tab PO DAILY Zestril (Lisinopril) 40 Mg Tablet 1 Tab PO BID Glucophage Xr (Metformin Hcl) 500 Mg Tab.er.24h 500 Mg PO DAILYWBKFT Crestor (Rosuvastatin Calcium) 5 Mg Tablet 1 Tab PO DAILY Coreg (Carvedilol) 25 Mg Tablet 25 Mg PO BIDWMEALS Aspir-Low (Aspirin) 81 Mg Tablet.dr 1 Tab PO DAILY Vital Signs Vital Signs Date Time Temp Pulse Resp B/P (MAP) Pulse Ox O2 Delivery O2 Flow Rate FiO2 03/15/19 11:15 28 96 Nasal Cannula 1.0 03/15/19 10:55 99.6 75 134/64 (87) 99.6 Labs Laboratory Tests Test 03/13/19 17:56 03/13/19 20:42 03/13/19 22:55 03/13/19 23:01 Glucose (Fingerstick) 288 mg/dL (70-99) 279 mg/dL (70-99) 269 mg/dL (70-99) 280 mg/dL (70-99) Test 03/14/19 05:22 03/14/19 05:30 03/14/19 09:00 03/14/19 11:39 Glucose (Fingerstick) 247 mg/dL (70-99) 222 mg/dL (70-99) White Blood Count 13.4 x10^3/uL (4.0-11.0) Red Blood Count 3.04 x10^6/uL (3.50-5.40) Hemoglobin 9.7 g/dL (12.0-15.5) Hematocrit 29.7 % (36.0-47.0) Mean Corpuscular Volume 98 fL (79-100) Mean Corpuscular Hemoglobin 32 pg (25-35) Mean Corpuscular Hemoglobin Concent 33 g/dL (31-37) Red Cell Distribution Width 13.6 % (11.5-14.5) Platelet Count 129 x10^3/uL (140-400) Neutrophils (%) (Auto) 88 % (31-73) Lymphocytes (%) (Auto) 8 % (24-48) Monocytes (%) (Auto) 4 % (0-9) Eosinophils (%) (Auto) 1 % (0-3) Basophils (%) (Auto) 0 % (0-3) Neutrophils # (Auto) 11.8 x10^3uL (1.8-7.7) Lymphocytes # (Auto) 1.0 x10^3/uL (1.0-4.8) Monocytes # (Auto) 0.5 x10^3/uL (0.0-1.1) Eosinophils # (Auto) 0.1 x10^3/uL (0.0-0.7) Basophils # (Auto) 0.0 x10^3/uL (0.0-0.2) Segmented Neutrophils % 88 % (35-66) Band Neutrophils % 3 % (0-9) Lymphocytes % 7 % (24-48) Monocytes % 2 % (0-10) Toxic Granulation Present Platelet Estimate Decreased (ADEQUATE) Sodium Level 156 mmol/L (136-145) Potassium Level 4.2 mmol/L (3.5-5.1) Chloride Level 118 mmol/L (98-107) Carbon Dioxide Level 33 mmol/L (21-32) Anion Gap 5 (6-14) Blood Urea Nitrogen 48 mg/dL (7-20) Creatinine 1.2 mg/dL (0.6-1.0) Estimated GFR (Cockcroft-Gault) 43.4 Glucose Level 274 mg/dL (70-99) Calcium Level 8.5 mg/dL (8.5-10.1) CSF Color Colorless CSF Clarity Clear CSF WBC 2 /cmm (Not Established) CSF RBC 107 /cmm (Not Established) CSF Glucose 113 mg/dL (37-70) CSF Total Protein 161.5 mg/dL (15.0-45.0) Test 03/14/19 18:12 03/14/19 20:49 03/14/19 23:34 03/15/19 04:55 Glucose (Fingerstick) 337 mg/dL (70-99) 336 mg/dL (70-99) 311 mg/dL (70-99) White Blood Count 15.1 x10^3/uL (4.0-11.0) Red Blood Count 3.22 x10^6/uL (3.50-5.40) Hemoglobin 10.2 g/dL (12.0-15.5) Hematocrit 31.1 % (36.0-47.0) Mean Corpuscular Volume 97 fL (79-100) Mean Corpuscular Hemoglobin 32 pg (25-35) Mean Corpuscular Hemoglobin Concent 33 g/dL (31-37) Red Cell Distribution Width 13.5 % (11.5-14.5) Platelet Count 171 x10^3/uL (140-400) Neutrophils (%) (Auto) 87 % (31-73) Lymphocytes (%) (Auto) 8 % (24-48) Monocytes (%) (Auto) 4 % (0-9) Eosinophils (%) (Auto) 1 % (0-3) Basophils (%) (Auto) 1 % (0-3) Neutrophils # (Auto) 13.1 x10^3uL (1.8-7.7) Lymphocytes # (Auto) 1.2 x10^3/uL (1.0-4.8) Monocytes # (Auto) 0.6 x10^3/uL (0.0-1.1) Eosinophils # (Auto) 0.1 x10^3/uL (0.0-0.7) Basophils # (Auto) 0.1 x10^3/uL (0.0-0.2) Sodium Level 151 mmol/L (136-145) Potassium Level 3.4 mmol/L (3.5-5.1) Chloride Level 112 mmol/L (98-107) Carbon Dioxide Level 32 mmol/L (21-32) Anion Gap 7 (6-14) Blood Urea Nitrogen 43 mg/dL (7-20) Creatinine 1.2 mg/dL (0.6-1.0) Estimated GFR (Cockcroft-Gault) 43.4 Glucose Level 289 mg/dL (70-99) Calcium Level 8.3 mg/dL (8.5-10.1) Triglycerides Level 200 mg/dL (0-150) Test 03/15/19 05:04 03/15/19 12:02 Glucose (Fingerstick) 246 mg/dL (70-99) 335 mg/dL (70-99) Laboratory Tests Test 03/14/19 18:12 03/14/19 20:49 03/14/19 23:34 03/15/19 04:55 Glucose (Fingerstick) 337 mg/dL (70-99) 336 mg/dL (70-99) 311 mg/dL (70-99) White Blood Count 15.1 x10^3/uL (4.0-11.0) Red Blood Count 3.22 x10^6/uL (3.50-5.40) Hemoglobin 10.2 g/dL (12.0-15.5) Hematocrit 31.1 % (36.0-47.0) Mean Corpuscular Volume 97 fL (79-100) Mean Corpuscular Hemoglobin 32 pg (25-35) Mean Corpuscular Hemoglobin Concent 33 g/dL (31-37) Red Cell Distribution Width 13.5 % (11.5-14.5) Platelet Count 171 x10^3/uL (140-400) Neutrophils (%) (Auto) 87 % (31-73) Lymphocytes (%) (Auto) 8 % (24-48) Monocytes (%) (Auto) 4 % (0-9) Eosinophils (%) (Auto) 1 % (0-3) Basophils (%) (Auto) 1 % (0-3) Neutrophils # (Auto) 13.1 x10^3uL (1.8-7.7) Lymphocytes # (Auto) 1.2 x10^3/uL (1.0-4.8) Monocytes # (Auto) 0.6 x10^3/uL (0.0-1.1) Eosinophils # (Auto) 0.1 x10^3/uL (0.0-0.7) Basophils # (Auto) 0.1 x10^3/uL (0.0-0.2) Sodium Level 151 mmol/L (136-145) Potassium Level 3.4 mmol/L (3.5-5.1) Chloride Level 112 mmol/L (98-107) Carbon Dioxide Level 32 mmol/L (21-32) Anion Gap 7 (6-14) Blood Urea Nitrogen 43 mg/dL (7-20) Creatinine 1.2 mg/dL (0.6-1.0) Estimated GFR (Cockcroft-Gault) 43.4 Glucose Level 289 mg/dL (70-99) Calcium Level 8.3 mg/dL (8.5-10.1) Triglycerides Level 200 mg/dL (0-150) Test 03/15/19 05:04 03/15/19 12:02 Glucose (Fingerstick) 246 mg/dL (70-99) 335 mg/dL (70-99) Allergies Allergies Coded Allergies Type Severity Reaction Last Updated Verified Penicillins Allergy Intermediate 03/06/19 Yes Disposition/Orders: Other (d/c to inpatient hospice [facility] [place]) MIRELLA JONES MD March 15, 2019 14:25
[2019-03-15] MEDS ORDERED: CLON1PAT2 TD (14:28)
[2019-03-15] MEDS ORDERED: ACET650S11 PR (14:28)
[2019-03-15] MEDS ORDERED: ASPI300S PR (14:28)
[2019-03-15] MEDS ORDERED: SCOP1PAT11 TD (14:28)
--- NOTE | 2019-03-15 14:59 | NUR ---
SS following up with discharge planning. Pt accepted at [facility], ; fax [phone]. [facility] reported that they have a bed available and requested transport at 1530. Physician notified. SS phoned and faxed records to [facility]. Pt will discharge today and go to [facility] at 1530 via [facility] ambulance. Pt's RN and pt's family notified.
--- NOTE | 2019-03-15 15:42 | NUR ---
Discharge Note: KEMI PASCUAL Discharge instructions and discharge home medications reviewed with RADHA Shah at [facility] and a copy given to ambulance personal for transportation. All questions have been answered and understanding verbalized. Veronica, Daughter, was in the room at time of discharge. She has been spoken to and understands discharge plans.
[2019-03-15] MEDS ORDERED: TOTAL PARENTERAL NUTRITION IV SCH ×10 (22:00)
[2019-03-15] MEDS ORDERED: AMINO ACID IV SCH ×10 (22:00)
[2019-03-15] MEDS ORDERED: DEXTROSE 70% IV SCH ×10 (22:00)
[2019-03-15] MEDS ORDERED: [UNRECOGNIZED DRUG - OTHER] IV SCH ×10 (22:00)
[2019-03-16 15:15] LABS: HERPES SIMPLEX TYPE 1 Negative (Negative); HERPES SIMPLEX TYPE 2 Negative (Negative)
[2019-03-16 21:08] LABS: WEST NILE IGG CSF Negative (Negative); WEST NILE IGM CSF Negative (Negative)
[2019-03-23 09:17] LABS: VIRAL CULT FINAL No virus isolated. (.)
== END 2019-03-15 15:30 | disposition hospice, inpatient (51) | DRG 871 ==
LOC: ER 09:12 → UNDOADMIN 10:28 → 1 WEST ICU 10:28 → 5 NORTH 03-07 16:30 → UNDODISIN 03-09 13:41 → 2 NORTH 03-10 12:24
PROVIDERS: ADMIT Internal Medicine; ATTEND Internal Medicine
PROC: 009U3ZZ Drainage of Spinal Canal, Percutaneous Approach (ICD-10-PCS; principal; 2019-03-14)
PROC: B01B1ZZ Fluoroscopy of Spinal Cord using Low Osmolar Contrast (ICD-10-PCS; 2019-03-14)
DX: A41.9 Sepsis, unspecified organism (principal); G93.41 Metabolic encephalopathy; J69.0 Pneumonitis due to inhalation of food and vomit; J96.01 Acute respiratory failure with hypoxia; I63.511 Cerebral infarction due to unspecified occlusion or stenosis of right middle cerebral artery; G93.6 Cerebral edema; E46 Unspecified protein-calorie malnutrition; K92.2 Gastrointestinal hemorrhage, unspecified; G81.94 Hemiplegia, unspecified affecting left nondominant side; E87.0 Hyperosmolality and hypernatremia; R65.20 Severe sepsis without septic shock; I70.0 Atherosclerosis of aorta; I50.9 Heart failure, unspecified; I11.0 Hypertensive heart disease with heart failure; I25.10 Atherosclerotic heart disease of native coronary artery without angina pectoris; E78.5 Hyperlipidemia, unspecified; Z66 Do not resuscitate; D69.6 Thrombocytopenia, unspecified; B96.89 Other specified bacterial agents as the cause of diseases classified elsewhere; E87.6 Hypokalemia; B95.3 Streptococcus pneumoniae as the cause of diseases classified elsewhere; E78.00 Pure hypercholesterolemia, unspecified; Z79.82 Long term (current) use of aspirin; Z82.3 Family history of stroke; Z95.1 Presence of aortocoronary bypass graft; Z82.49 Family history of ischemic heart disease and other diseases of the circulatory system; Z88.0 Allergy status to penicillin; Z86.73 Personal history of transient ischemic attack (TIA), and cerebral infarction without residual deficits; Z68.28 Body mass index [BMI] 28.0-28.9, adult
CPT/HCPCS: 36415; 36569; 36600; 62270; 70450; 70551; 71045; 80048; 80053; 80061; 80076; 80202; 80307; 81001; 82140; 82274; 82553; 82565; 82607; 82805; 82945; 82962; 83605; 83690; 83735; 83880; 84100; 84132; 84145; 84157; 84443; 84478; 84484; 85007; 85025; 85384; 85610; 85651; 85730; 86788; 86789; 87040; 87071; 87075; 87077; 87102; 87205; 87252; 87529; 89051; 93005; 93306; 93880; 94640; 95816; 96365; 96368; 96375; 99292; C9113; J0360; J0610; J0696; J1815; J1953; J1956; J2060; J2185; J2270; J2930; J3370; J3475; J3480; J3490; J7030; J7040; J7050; J7620; 92610; 97530; 97535; 99291-25